=== PATIENT | male | born 1980 | race Caucasian/White ===

== ENCOUNTER 2016-07-03 19:41 | Inpatient (IN) | payer OTHER ==
[2016-07-03] MEDS ORDERED: PROPOFOL 100 ML IV ONE (19:51)
[2016-07-03] MEDS ORDERED: ETOMIDATE INJ/PF 20 MG/10 ML SDV IV ONE (19:53)
[2016-07-03] MEDS ORDERED: SUCCINYLCHOLINE CHLORIDE INJ 200 MG/10 ML VIAL IV ONE (19:53)
[2016-07-03] MEDS ORDERED: NORMAL SALINE 1000 ML 1,000 ML IV PRN ×2 (19:54→22:17)
--- NOTE | 2016-07-03 19:56 | ER Document Report ---
ED Psych Disorder / Suicide - General Stated Complaint: POSSIBLE OVERDOSE Time seen by provider: 19:56 Mode of Arrival: Medic Information source: Emergency Med Personnel TRAVEL OUTSIDE OF THE [place] IN LAST 30 DAYS: No - HPI Patient complains to provider of: Overdose, Suicidal attempt Onset: Just prior to arrival Onset was: Sudden Suicide Risk Factors: Male, Substance abuse Suicide Attempt Method: Overdose Overdose of: Benzodiazepine Similar symptoms previously: Yes Recently seen / treated by doctor: No Notes: Patient is a 35-year-old male who is brought to the emergency room by EMS after intentional overdose, patient arrived unresponsive with no gag reflex requiring Ambu bag respiratory support, patient's parents arrived shortly after arrival in report that patient made a statement to them that he was going to end his life and then took a handful of mother's 1 mg Xanax, mother is unsure how many he took as she had more in the bottle than the prescription was written for because she typically combines her prescriptions when she refills it - Related Data Allergies/Adverse Reactions: NSAIDS (Non-Steroidal Anti-Inflamma [Nsaids] Allergy (Intermediate, Verified 10:12) orange juice Allergy (Severe, Uncoded 05/25/12 10:12) spagetti sauce Allergy (Severe, Uncoded 05/25/12 10:12) Vitamin D Synthetic Additive Allergy (Unknown, Uncoded 05/25/12 10:12) Anaphylaxis Past Medical History - General Information source: Parent, Emergency Med Personnel - Social History Smoking Status: Unknown if Ever Smoked Family History: Reviewed & Not Pertinent Pulmonary Medical History: Denies: Hx Tuberculosis Neurological Medical History: Reports: Hx Seizures GI Medical History: Reports: Hx Ulcer - perforated in 2007 Musculoskeltal Medical History: Reports Hx Arthritis - degenerative Psychiatric Medical History: Reports: Hx Bipolar Disorder - with manic tendencies, Hx Depression, Hx Post Traumatic Stress Disorder Past Surgical History: Reports: Hx Abdominal Surgery - gastric bypass, Hx Bowel Surgery - perforated ulcer, Hx Cholecystectomy, Hx Gastric Bypass Surgery, Hx Orthopedic Surgery - right shoulder arthroscopy. Denies: Hx Pacemaker - Immunizations Hx Diphtheria, Pertussis, Tetanus Vaccination: Yes Review of Systems - Review of Systems -: Yes ROS unobtainable due to patient's medical condition Physical Exam - Vital signs Vitals: Resp Pulse Ox 26 H 91 L 07/03/16 19:42 07/03/16 19:42 Interpretation: Hypoxic - General General appearance: Unresponsive In distress: Severe - HEENT Head: Normocephalic, Atraumatic Eyes: Normal Conjunctiva: Normal Eyelashes: Normal Pupils: Pinpoint Ears: Normal External canal: Normal Tympanic membrane: Normal Sinus: Normal Nasal: Normal Mouth/Lips: Normal Mucous membranes: Normal Pharynx: Normal Neck: Normal - Respiratory Respiratory status: Depressed respirations Chest status: Nontender Breath sounds: Decreased air movement Chest palpation: Normal - Cardiovascular Rhythm: Regular Heart sounds: Normal auscultation - Abdominal Inspection: Normal Distension: No distension Bowel sounds: Normal Organomegaly: No organomegaly - Back Back: Normal - Extremities General upper extremity: Normal inspection General lower extremity: Normal inspection - Neurological Cade Coma Scale Eye Opening: None Cade Coma Scale Verbal: None Cade Coma Scale Motor: None Zenon Coma Scale Total: 3 Notes: Patient lacks a gag response - Skin Skin Temperature: Warm Skin Moisture: Dry Skin Color: Normal Course - Re-evaluation Re-evalutation: 07/04/16 00:31 Patient arrived unresponsive with respiratory depression and no gag reflex requiring immediate intubation, IV sedation and fluids, as well as ICU admission , IVC paper work was completed as patient was an intentional overdose and stated to his parents that he was going to kill himself - Vital Signs Vital signs: Temp Pulse Resp BP Pulse Ox 20 102/66 100 07/04/16 00:01 07/04/16 00:01 07/04/16 00:01 - Laboratory Result Diagrams: 07/03/16 21:25 07/03/16 21:25 Laboratory results interpreted by me: 07/03/16 07/03/16 21:25 21:25 RBC 4.20 L Hgb 9.9 L Hct 30.8 L MCV 73 L MCH 23.5 L RDW 17.9 H Sodium 149.7 H Chloride 116 H Carbon Dioxide 19 L BUN 6 L Calcium 8.1 L AST 60 H Total Protein 6.2 L Salicylates < 1.0 L Acetaminophen < 10 L - Diagnostic Test Radiology reviewed: Image reviewed, Reports reviewed - EKG Interpretation by Me EKG shows normal: Sinus rhythm Rate: Normal Rhythm: NSR Plummer/QRS: IVCD - Transfer of Care Care transferred to following provider: Dr. Ann Procedures - Intubation Orotracheal Time of Intubation: 19:56 Airway evaluation: Copious secretions Mallampati Classification: Class 3 Medications: Etomidate, Succinylcholine Intubation method: Orotracheal Equipment used: Glidescope ETT size: 7.5 ETT secured at: Lips ETT secured at (cm): 24 Breath Sounds after Intubation: Equal End tidal CO2 confirmed: Yes Post Intubation Xray: Yes Intubation Complications: No complications - Additional Procedures orogastric tube Time performed: 20:00 Additional Procedures: Other - Orogastric tube placed without difficulty Critical Care Note - Critical Care Note Total time excluding time spent on procedures (mins): 60 Comments: Patient arrived unresponsive, with depressed respirations and no gag reflex, after suicide attempt by overdose, requiring close observation and monitoring as well as ICU admission Discharge - Discharge Clinical Impression: Suicide attempt Intentional benzodiazepine overdose Qualifiers: Encounter type: initial encounter Qualified Code(s): T42.4X2A - Poisoning by benzodiazepines, intentional self-harm, initial encounter Condition: Critical Disposition: ADMITTED INPATIENT Admitting Provider: Hospitalist Unit Admitted: ICU
[2016-07-03 21:10] LABS: APPEARANCE,URINE CLEAR; BILIRUBIN,URINE NEGATIVE (NEGATIVE); GLUCOSE, URINE NEGATIVE (NEGATIVE); KETONES,URINE NEGATIVE (NEGATIVE); LEUKOCYTE ESTERASE,URINE NEGATIVE (NEGATIVE); NITRITE,URINE NEGATIVE (NEGATIVE); PROTEIN,URINE NEGATIVE (NEGATIVE); URINE SPECIFIC GRAVITY 1.006; UROBILINOGEN,URINE NEGATIVE mg/dL (<2.0)
[2016-07-03 21:26] LABS: URINE BARBITURATES SCREEN NEGATIVE; URINE METHADONE SCREEN NEGATIVE; URINE OPIATES LOW NEGATIVE; URINE PHENCYCLIDINE SCREEN NEGATIVE
[2016-07-03 21:39] LABS: ABSOLUTE LYMPHOCYTES (AUTO) 1.3 10^3/uL (0.5-4.7); ABSOLUTE MONOCYTES (AUTO) 0.2 10^3/uL (0.1-1.4); BASOPHILS % (AUTO) 0.6 % (0-2); EOSINOPHILS % (AUTO) 0.1 % (0-6); HEMATOCRIT 30.8 % (37.9-51.0); HEMOGLOBIN 9.9 g/dL (13.5-17.0); HGB HCT DIFFERENCE -1.1; LYMPHOCYTES % (AUTO) 22.9 % (13-45); MEAN CORPUSCULAR HEMOGLOBIN 23.5 pg (27.0-33.4); MEAN CORPUSCULAR VOLUME 73 fl (80-97); MONOCYTES % (AUTO) 4.4 % (3-13); RED CELL DISTRIBUTION WIDTH 17.9 % (11.5-14.0); WHITE BLOOD COUNT 5.5 10^3/uL (4.0-10.5)
[2016-07-03 22:04] LABS: ALANINE AMINOTRANSFERASE 40 U/L (21-72); ALBUMIN 3.6 g/dL (3.5-5.0); ALCOHOL 271 mg/dL (NONE DETECTED); ALKALINE PHOSPHATASE 60 U/L (38-126); ANION GAP 15 (5-19); ASPARTATE AMINO TRANSFERASE 60 U/L (17-59); BILIRUBIN,DIRECT 0.2 mg/dL (0.0-0.4); BILIRUBIN,TOTAL 0.5 mg/dL (0.2-1.3); BLOOD UREA NITROGEN 6 mg/dL (7-20); CALCIUM 8.1 mg/dL (8.4-10.2); CARBON DIOXIDE 19 mmol/L (22-30); CHLORIDE 116 mmol/L (98-107); CREATININE RESULT 0.52 mg/dL (0.52-1.25); GLUCOSE 110 mg/dL (75-110); SODIUM 149.7 mmol/L (137-145); TOTAL PROTEIN 6.2 g/dL (6.3-8.2)
[2016-07-03] MEDS ORDERED: SUCCINYLCHOLINE CHLORIDE INJ 200 MG/10 ML VIAL ONE (22:14)
[2016-07-03 23:25] LABS: ARTERIAL BLOOD BASE EXCESS -5.6 mmol/L; ARTERIAL BLOOD O2 SATURATION 99.9 % (94-98)
[2016-07-03 23:54] LABS: ADD ON TESTING BLD IN LAB ACKNOWLEDGE
[2016-07-03] MEDS ORDERED: PROPOFOL 100 ML IV PRN (23:57)
[2016-07-03] MEDS ORDERED: 1/2 NORMAL SALINE 1,000 ML IV PRN (23:57)
[2016-07-04 00:06] LABS: MAGNESIUM 2.1 mg/dL (1.6-2.3)
[2016-07-04] MEDS ORDERED: THIAMINE HCL INJ 200 MG/2 ML VIAL IV PRN (00:18)
--- NOTE | 2016-07-04 00:23 | PDOC H&P ---
History of Present Illness Admission Date/PCP: 07/03/16 22:47 PCP None Patient complains of: overdose History of Present Illness: HUSSAIN ARITA II is a 35 year old male with underlying bipolar disorder with manic tendencies, depression, posttraumatic stress disorder, seizure disorder, chronic anemia, and with a history of alcohol abuse, along with a reported history of suicidal thoughts and/or attempts in the past, who presents to the emergency room by EMS after reportedly taking a "handful" of his mother's 1 mg Xanax tablets approximately 6:30 PM the evening of admission. Patient has been discussed with emergency room physician who evaluated the patient. Patient is intubated and sedated and is able to provide no history whatsoever in terms of acute or chronic events, review of systems, personal habits, family history, etc. No friends or family are present. Old inpatient records are reviewed. Per emergency room staff, EMS crew was bagging the patient en route, spontaneous respirations were only 2 /minute upon arrival and patient was basically unresponsive. Was intubated shortly thereafter. Per ER MD, who intubated patient, no obvious evidence of aspiration. According to the emergency room physician, patient does not have outpatient physician, and takes no prescription medications. According to patient's emergency room nurse, family, who were present at bedside earlier, stated that patient reported taking no other medication other than the Xanax, along with drinking vodka. Hemodynamically stable. No further information available this point in time. . Laboratory results are listed in [facility] and are reviewed. X-ray summary results are listed below, with full report(s) reviewed. . EKG reviewed. and compared to tracing from June 22 of last year Social history/personal habits: Reportedly lives with parents. See history and present illness.No further information available this point in time. Allergies/adverse reactions are listed in [facility] and are reviewed. Home medications reportedly none REVIEW OF SYSTEMS: See history and present illness.No further information available this point in time. PHYSICAL EXAMINATION: 5 feet 11 inches tall. 110.6 kg. BMI 34 kg/m. Blood pressure 101/64. Pulse 72 and regular. Respirations are 20, with patient not breathing over the ventilator. 99% saturation on FiO2 100%, PEEP of 5, pressure support 10, rate of 20, tidal volume 550, SIMV PRVC. Temperature not recorded on the chart. Skin feels normothermic. Obese chronically ill-appearing male who appears a bit older than his stated age. Intubated and sedated. Grimaces slightly with trapezius pinch. Does not respond when his name is called in a loud voice. Skin is warm and dry. No grossly obvious evidence of rash in areas of skin examined. No subcutaneous nodules palpated. ENT: Hearing can't be adequately evaluated due to his current status. No Carter sign Eyes: No scleral icterus. Pupils equal and reactive to light at 4 mm. [place] conjunctivae. No raccoon eyes. Neck is nontender to gentle palpation. Midline trachea. No palpable thyroid nodule mass enlargement or tenderness. Lymphatic: No palpable cervical or clavicular nodes. Neck and lymphatic exams limited by patient body habitus. Psychiatric: Can't be adequately evaluated due to his current status. Lungs: Auscultation reveals clear and equal breath sounds bilaterally. No use of accessory respiratory muscles. Cardiovascular: Heart regular rate and rhythm, without gallop murmur or rub. No carotid or abdominal aortic bruits. No ankle or pedal edema. palpable dorsalis pedis pulses. Abdomen: soft, obese, nontender with positive bowel sounds. Unable to adequately evaluate abdomen for masses or organomegaly due to body habitus. Extremities: Hands and feet are warm and dry. No calf or upper extremity tenderness to compression. No grossly obvious visual evidence of calf swelling. Gentle manipulation of lower extremities fails to reveal any obvious evidence of injury or instability to knees hips or ankles. Palpation of cranium , clavicles, thorax, upper and lower extremities, and pelvis, fail to reveal any obvious evidence of injury or instability. Neurologic: Patellar reflexes absent. Absent Babinski. Light touch can't be adequately evaluated due to his current status.. No nystagmus. No rigidity. No ankle clonus. Past Medical History Pulmonary Medical History: Denies: Tuberculosis Neurological Medical History: Reports: Seizures Musculoskeltal Medical History: Reports: Arthritis - degenerative Psychiatric Medical History: Reports: Bipolar Disorder - with manic tendencies, Depression, Post Traumatic Stress Disorder Hematology: Reports: Anemia Past Surgical History Past Surgical History: Reports: Cholecystectomy, Gastric Bypass Surgery, Orthopedic Surgery - right shoulder arthroscopy, Pacemaker Social History Information Source: Emergency Med Personnel, [facility] Records Lives with: Family - Reportedly lives with family. Smoking Status: Unknown if Ever Smoked Frequency of Alcohol Use: Heavy Hx Recreational Drug Use: No Hx Prescription Drug Abuse: Yes - See history and present illness. - Advance Directive Resuscitation Status: Full Code Surrogate healthcare decision maker:: Uncertain Family History Family History: Reviewed & Not Pertinent Parental Family History Reviewed: No - no information available at this point. Children Family History Reviewed: No - no information available at this point. Sibling(s) Family History Reviewed.: No - no information available at this point. Medication/Allergy Home Medications: Multivitamins W-Iron [Flintstones Chewable Multivit W/Fe Tab] 2 tab.chew PO DAILY #1 bottle 07/10/16 RX: Amox Tr/Potassium Clavulanate [Augmentin "500" Tablet] 1 tab PO Q8 #21 tablet 07/10/16 RX: Ferrous Sulfate [Feosol 325 mg Tablet] 325 mg PO DAILY #30 tablet 07/10/16 Allergies/Adverse Reactions: NSAIDS (Non-Steroidal Anti-Inflamma [Nsaids] Allergy (Intermediate, Verified 10:12) orange juice Allergy (Severe, Uncoded 05/25/12 10:12) spagetti sauce Allergy (Severe, Uncoded 05/25/12 10:12) Vitamin D Synthetic Additive Allergy (Unknown, Uncoded 05/25/12 10:12) Anaphylaxis Physical Exam Vital Signs: Temp Pulse Resp BP Pulse Ox 20 99/71 L 99 07/03/16 21:11 07/03/16 21:11 07/03/16 21:11 Results Impressions: Chest X-Ray 07/03/16 00:00 IMPRESSION: Minimal left basilar subsegmental atelectasis.Endotracheal tube and nasogastric catheter appear in expected position. Assessment & Plan - Diagnosis (1) Acidosis Is this a current diagnosis for this admission?: YesPlan: Should clear with fluid resuscitation and overall treatment. Follow-up chemistry. (2) Acute respiratory failure Qualifiers: Respiratory failure complication: unspecified whether with hypoxia or hypercapnia Qualified Code(s): J96.00 - Acute respiratory failure, unspecified whether with hypoxia or hypercapnia Is this a current diagnosis for this admission?: YesPlan: Will remain intubated. Pulmonology consult. Follow-up blood gas. Intravenous Pepcid for gastritis prevention. Knee high SCDs for DVT prophylaxis, [along with subcutaneous Lovenox . Time spent in evaluation and management of patient: 53 minutes. (3) Alcohol intoxication Qualifiers: Complication of substance-induced condition: with unspecified complication Qualified Code(s): F10.129 - Alcohol abuse with intoxication, unspecified Is this a current diagnosis for this admission?: YesPlan: Parenteral thiamin tonight. Daily banana bag. Observe closely for evidence of alcohol withdrawal. (4) Hypernatremia Is this a current diagnosis for this admission?: YesPlan: Half-normal saline. Follow-up chemistry. (5) Intentional benzodiazepine overdose Qualifiers: Encounter type: initial encounter Qualified Code(s): T42.4X2A - Poisoning by benzodiazepines, intentional self-harm, initial encounter Is this a current diagnosis for this admission?: YesPlan: Suicide precautions. Psychiatry consult. IVC papers have been drawn by emergency room physician. (6) Suicide attempt Is this a current diagnosis for this admission?: Yes (7) Bipolar disorder Qualifiers: Active/Remission status: remission status unspecified Qualified Code (s): F31.9 - Bipolar disorder, unspecified Is this a current diagnosis for this admission?: Yes (8) PTSD (post-traumatic stress disorder) Is this a current diagnosis for this admission?: Yes - Inpatient Certification Based on my medical assessment, after consideration of the patient's comorbidities, presenting symptoms, or acuity I expect that the services needed warrant INPATIENT care.: Yes I certify that my determination is in accordance with my understanding of Medicare's requirements for reasonable and necessary INPATIENT services [42 CFR 412.3e].: Yes Medical Necessity: Need Close Monitoring Due to Risk of Patient Decompensation, Need For IV Fluids, Need For Continuous Telemetry Monitoring, Risk of Diagnosis Which Will Require Inpatient Eval/Care/Monitoring Post Hospital Care: D/C or Transfer Summary
[2016-07-04] MEDS ORDERED: THIAMINE HCL 100 MG in NORMAL SALINE 50 ML IV ONE (00:30)
[2016-07-04 04:25] LABS: ABSOLUTE LYMPHOCYTES (AUTO) 1.7 10^3/uL (0.5-4.7); ABSOLUTE MONOCYTES (AUTO) 0.5 10^3/uL (0.1-1.4); ABSOLUTE NEUT (AUTO) 2.2 10^3/uL (1.7-8.2); BASOPHILS % (AUTO) 0.5 % (0-2); EOSINOPHILS % (AUTO) 0.5 % (0-6); HEMATOCRIT 30.6 % (37.9-51.0); HEMOGLOBIN 9.5 g/dL (13.5-17.0); HGB HCT DIFFERENCE -2.1; LYMPHOCYTES % (AUTO) 39.5 % (13-45); MEAN CORPUSCULAR HEMOGLOBIN 22.8 pg (27.0-33.4); MEAN CORPUSCULAR HGB CONC 31.1 g/dL (32.0-36.0); MEAN CORPUSCULAR VOLUME 74 fl (80-97); MONOCYTES % (AUTO) 10.3 % (3-13); RED BLOOD COUNT 4.16 10^6/uL (4.35-5.55); RED CELL DISTRIBUTION WIDTH 18.4 % (11.5-14.0); SEGMENTED NEUTROPHILS % (AUTO) 49.2 % (42-78); WHITE BLOOD COUNT 4.4 10^3/uL (4.0-10.5)
[2016-07-04 04:44] LABS: VENOUS BLOOD BASE EXCESS -4.2 mmol/L; VENOUS BLOOD HCO3 21.4 mmol/L (20-32); VENOUS BLOOD PCO2 41.4 mmHg (35-63); VENOUS BLOOD PH 7.33 (7.30-7.42)
[2016-07-04 04:50] LABS: ALANINE AMINOTRANSFERASE 40 U/L (21-72); ALBUMIN 3.3 g/dL (3.5-5.0); ALKALINE PHOSPHATASE 45 U/L (38-126); ANION GAP 13 (5-19); ASPARTATE AMINO TRANSFERASE 52 U/L (17-59); BILIRUBIN,DIRECT 0.2 mg/dL (0.0-0.4); BILIRUBIN,TOTAL 0.4 mg/dL (0.2-1.3); BLOOD UREA NITROGEN 7 mg/dL (7-20); CALCIUM 7.9 mg/dL (8.4-10.2); CARBON DIOXIDE 20 mmol/L (22-30); CHLORIDE 118 mmol/L (98-107); CREATININE RESULT 0.54 mg/dL (0.52-1.25); GLUCOSE 90 mg/dL (75-110); POTASSIUM 4.1 mmol/L (3.6-5.0); SODIUM 150.6 mmol/L (137-145); TOTAL PROTEIN 5.7 g/dL (6.3-8.2)
[2016-07-04 05:08] LABS: FREE T3 4.25 pg/mL (2.77-5.27)
[2016-07-04] MEDS: PROPOFOL 100 ML IV PRN ×7 (05:32→21:57)
--- NOTE | 2016-07-04 08:17 | PDOC PROGRESS REPORT ---
Subjective Progress Note for:: 07/04/16 Subjective:: No issues reported by nursing staff. Patient relatively stable on mechanical ventilation overnight. I cannot obtain history from patient secondary to sedated/intubated state. His mother is at the bedside and states that he took a large quantity of her Xanax and stated that there was "nothing worth living for " and he wanted to "end his life". Physical Exam Vital Signs: Temp Pulse Resp BP Pulse Ox 98.8 F 85 20 95/62 L 100 07/04/16 06:33 07/04/16 06:33 07/04/16 06:33 07/04/16 06:33 07/04/16 06:06 Intake & Output 07/03/16 07/04/16 07/05/16 06:59 06:59 06:59 Intake Total 1841 Output Total 2390 Balance -549 Weight 107 kg GENERAL: Sedated/intubated HEENT: Conjunctiva clear, nonicteric, moist mucous membranes, no JVD, midline trachea. Endotracheal tube in place RESPIRATORY: Clear to auscultation bilaterally, no wheezes, no rhonchi CARDIAC: Regular rate and rhythm, no murmurs/gallops/rubs ABDOMEN: Soft, nondistended, nontender, positive bowel sounds, no rebound, no guarding EXTREMETIES: No edema, cyanosis, clubbing NEUROLOGIC: Sedated SKIN: No rash, wounds Results Laboratory Results: 07/04/16 04:14 07/04/16 04:14 07/04/16 07/04/16 07/04/16 04:14 04:14 04:14 WBC 4.4 RBC 4.16 L Hgb 9.5 L Hct 30.6 L MCV 74 L MCH 22.8 L MCHC 31.1 L RDW 18.4 H Plt Count 259 Seg Neutrophils % 49.2 Lymphocytes % 39.5 Monocytes % 10.3 Eosinophils % 0.5 Basophils % 0.5 Absolute Neutrophils 2.2 Absolute Lymphocytes 1.7 Absolute Monocytes 0.5 Absolute Eosinophils 0.0 Absolute Basophils 0.0 VBG pH 7.33 VBG pCO2 41.4 VBG HCO3 21.4 VBG Base Excess -4.2 Sodium 150.6 H Potassium 4.1 Chloride 118 H Carbon Dioxide 20 L Anion Gap 13 BUN 7 Creatinine 0.54 Est GFR ( Amer) > 60 Est GFR (Non-Af Amer) > 60 Glucose 90 Calcium 7.9 L Total Bilirubin 0.4 AST 52 ALT 40 Alkaline Phosphatase 45 Total Protein 5.7 L Albumin 3.3 L Triglycerides Free T4 Free T3 pg/mL 07/04/16 07/04/16 04:14 04:14 WBC RBC Hgb Hct MCV MCH MCHC RDW Plt Count Seg Neutrophils % Lymphocytes % Monocytes % Eosinophils % Basophils % Absolute Neutrophils Absolute Lymphocytes Absolute Monocytes Absolute Eosinophils Absolute Basophils VBG pH VBG pCO2 VBG HCO3 VBG Base Excess Sodium Potassium Chloride Carbon Dioxide Anion Gap BUN Creatinine Est GFR ( Amer) Est GFR (Non-Af Amer) Glucose Calcium Total Bilirubin AST ALT Alkaline Phosphatase Total Protein Albumin Triglycerides 125 Free T4 1.59 Free T3 pg/mL 4.25 Impressions: Chest X-Ray 07/03/16 00:00 IMPRESSION: Minimal left basilar subsegmental atelectasis.Endotracheal tube and nasogastric catheter appear in expected position. Assessment & Plan - Diagnosis (1) Acute respiratory failure Qualifiers: Respiratory failure complication: unspecified whether with hypoxia or hypercapnia Qualified Code(s): J96.00 - Acute respiratory failure, unspecified whether with hypoxia or hypercapnia Is this a current diagnosis for this admission?: YesPlan: Continue mechanical ventilation for at least the next 24 hours to allow alcohol and Xanax to metabolize. Dr. Kraus of pulmonary medicine consult. Repeat ABG and chest x-ray in the morning. (2) Intentional benzodiazepine overdose Qualifiers: Encounter type: initial encounter Qualified Code(s): T42.4X2A - Poisoning by benzodiazepines, intentional self-harm, initial encounter Is this a current diagnosis for this admission?: YesPlan: Continue supportive care. Once patient is extubated we will have psychology evaluated. Patient will remain on involuntary commitment. (3) Suicide attempt Is this a current diagnosis for this admission?: Yes (4) Alcohol abuse Is this a current diagnosis for this admission?: YesPlan: Monitor for signs of alcohol withdrawal. Continue thiamine supplementation. (5) Bipolar disorder Qualifiers: Active/Remission status: remission status unspecified Qualified Code (s): F31.9 - Bipolar disorder, unspecified Is this a current diagnosis for this admission?: Yes (6) PTSD (post-traumatic stress disorder) Is this a current diagnosis for this admission?: Yes (7) Anemia Is this a current diagnosis for this admission?: YesPlan: Check anemia studies. Monitor H&H closely on pharmacologic DVT prophylaxis. (8) DVT prophylaxis Is this a current diagnosis for this admission?: YesPlan: Lovenox for now. - Time Critical Time spent with patient: 35 or more minutes
--- NOTE | 2016-07-04 09:08 | PDOC CONSULTATION ---
Consultation Consult Date: 07/04/16 Attending physician:: SHAUNA TAFOYA Consult reason:: acute resp failure History of Present Illness Admission Date/PCP: 07/03/16 23:50 History of Present Illness: all information from records HUSSAIN ARITA II is a 35 year old male with underlying bipolar disorder with manic tendencies, depression, posttraumatic stress disorder, seizure disorder, chronic anemia, and with a history of alcohol abuse, along with a reported history of suicidal thoughts and /or attempts in the past, who presents to the emergency room by EMS after reportedly taking a "handful" of his mother's 1 mg Xanax tablets approximate 6: 30 PM the evening of admission. EMS crew was bagging the patient en route, and spontaneous respirations were only 2 X/minute upon arrival and was basically unresponsive. Was intubated shortly thereafter. Per ER MD, who intubated patient, no obvious evidence of aspiration. Past Medical History Pulmonary Medical History: Denies: Tuberculosis Neurological Medical History: Reports: Seizures Musculoskeltal Medical History: Reports: Arthritis - degenerative Psychiatric Medical History: Reports: Bipolar Disorder - with manic tendencies, Depression, Post Traumatic Stress Disorder Hematology: Reports: Anemia Past Surgical History Past Surgical History: Reports: Cholecystectomy, Gastric Bypass Surgery, Orthopedic Surgery - right shoulder arthroscopy Denies: Pacemaker Social History Lives with: Family - Reportedly lives with family. Smoking Status: Unknown if Ever Smoked Frequency of Alcohol Use: Heavy Hx Recreational Drug Use: No Hx Prescription Drug Abuse: Yes - See history and present illness. - Advance Directive Resuscitation Status: Full Code Family History Family History: Reviewed & Not Pertinent Parental Family History Reviewed: No Children Family History Reviewed: No Sibling(s) Family History Reviewed.: No Medication/Allergy Home Medications: No Home Medications 07/04/16 Allergies/Adverse Reactions: NSAIDS (Non-Steroidal Anti-Inflamma [Nsaids] Allergy (Intermediate, Verified 10:12) orange juice Allergy (Severe, Uncoded 05/25/12 10:12) spagetti sauce Allergy (Severe, Uncoded 05/25/12 10:12) Vitamin D Synthetic Additive Allergy (Unknown, Uncoded 05/25/12 10:12) Anaphylaxis Review of Systems ROS unobtainable: Due to endotracheal tube Physical Exam Vital Signs: Temp Pulse Resp BP Pulse Ox 99.7 F 85 20 95/62 L 100 07/04/16 08:00 07/04/16 06:33 07/04/16 06:33 07/04/16 06:33 07/04/16 06:06 Intake & Output 07/03/16 07/04/16 07/05/16 06:59 06:59 06:59 Intake Total 1841 Output Total 2390 100 Balance -549 -100 Weight 107 kg General appearance: PRESENT: no acute distress, disheveled Head exam: PRESENT: atraumatic, normocephalic Eye exam: PRESENT: conjunctiva pale Mouth exam: PRESENT: neck supple Neck exam: ABSENT: carotid bruit, JVD, lymphadenopathy, thyromegaly Respiratory exam: PRESENT: decreased breath sounds, prolonged expiratory phas, rales Cardiovascular exam: PRESENT: RRR, +S1, +S2 Pulses: PRESENT: normal radial pulses GI/Abdominal exam: PRESENT: normal bowel sounds, soft. ABSENT: distended, guarding, mass, organolmegaly, rebound, tenderness Rectal exam: PRESENT: deferred Gentrourinary exam: PRESENT: indwelling catheter Musculoskeletal exam: PRESENT: normal inspection Skin exam: PRESENT: dry, warm Results Laboratory Results: 07/04/16 04:14 07/04/16 04:14 07/04/16 07/04/16 07/04/16 04:14 04:14 04:14 WBC 4.4 RBC 4.16 L Hgb 9.5 L Hct 30.6 L MCV 74 L MCH 22.8 L MCHC 31.1 L RDW 18.4 H Plt Count 259 Seg Neutrophils % 49.2 Lymphocytes % 39.5 Monocytes % 10.3 Eosinophils % 0.5 Basophils % 0.5 Absolute Neutrophils 2.2 Absolute Lymphocytes 1.7 Absolute Monocytes 0.5 Absolute Eosinophils 0.0 Absolute Basophils 0.0 Retic Count (auto) Absolute Retic VBG pH 7.33 VBG pCO2 41.4 VBG HCO3 21.4 VBG Base Excess -4.2 Sodium 150.6 H Potassium 4.1 Chloride 118 H Carbon Dioxide 20 L Anion Gap 13 BUN 7 Creatinine 0.54 Est GFR ( Amer) > 60 Est GFR (Non-Af Amer) > 60 Glucose 90 Calcium 7.9 L Total Bilirubin 0.4 AST 52 ALT 40 Alkaline Phosphatase 45 Total Protein 5.7 L Albumin 3.3 L Triglycerides Free T4 Free T3 pg/mL 07/04/16 07/04/1607/04/17 04:14 04:14 04:14 WBC RBC Hgb Hct MCV MCH MCHC RDW Plt Count Seg Neutrophils % Lymphocytes % Monocytes % Eosinophils % Basophils % Absolute Neutrophils Absolute Lymphocytes Absolute Monocytes Absolute Eosinophils Absolute Basophils Retic Count (auto) 1.07 Absolute Retic 0.044 VBG pH VBG pCO2 VBG HCO3 VBG Base Excess Sodium Potassium Chloride Carbon Dioxide Anion Gap BUN Creatinine Est GFR ( Amer) Est GFR (Non-Af Amer) Glucose Calcium Total Bilirubin AST ALT Alkaline Phosphatase Total Protein Albumin Triglycerides 125 Free T4 1.59 Free T3 pg/mL 4.25 Impressions: Chest X-Ray 07/03/16 00:00 IMPRESSION: Minimal left basilar subsegmental atelectasis.Endotracheal tube and nasogastric catheter appear in expected position. Assessment & Plan - Diagnosis (1) Acute respiratory failure Qualifiers: Respiratory failure complication: unspecified whether with hypoxia or hypercapnia Qualified Code(s): J96.00 - Acute respiratory failure, unspecified whether with hypoxia or hypercapnia Is this a current diagnosis for this admission?: Yes (2) Suicide attempt Is this a current diagnosis for this admission?: Yes (3) Bipolar disorder Qualifiers: Active/Remission status: remission status unspecified Qualified Code (s): F31.9 - Bipolar disorder, unspecified Is this a current diagnosis for this admission?: Yes (4) PTSD (post-traumatic stress disorder) Is this a current diagnosis for this admission?: Yes - Time Critical Time spent with patient: 35 or more minutes - 55
[2016-07-04] MEDS: ENOXAPARIN SODIUM INJ 40 MG/0.4 ML DISP.SYRIN SUBCUT SCH (09:21)
[2016-07-04] MEDS: FAMOTIDINE INJ/PF 20 MG/2 ML SDV IV SCH ×2 (09:23→21:58)
[2016-07-04] MEDS: DEXTROSE 5%-1/2 NORMAL SALINE 1,000 ML IV PRN ×2 (09:23→23:36)
[2016-07-04 10:22] LABS: FERRITIN 4.46 ng/mL (17.9-464.0)
[2016-07-04 10:52] LABS: FOLATE 2.09 ng/mL (>2.76)
[2016-07-04] MEDS: NORMAL SALINE 1000 ML 1,000 ML with THIAMINE HCL 100 MG, MVI, ADULT NO.1 WITH VIT K 10 ... IV PRN ×4 (11:36)
[2016-07-04 16:27] LABS: ARTERIAL BLOOD BASE EXCESS -4.7 mmol/L; ARTERIAL BLOOD O2 SATURATION 98.8 % (94-98)
[2016-07-04] MEDS: ACETAMINOPHEN 650 MG SUPP.RECT PR PRN (17:32)
[2016-07-04] MEDS: LORAZEPAM 24 MG/240 ML BAG IV PRN (19:43)
--- NOTE | 2016-07-04 22:28 | EKG REPORT ---
SEVERITY:- ABNORMAL ECG - SINUS RHYTHM LEFT ATRIAL ABNORMALITY NONSPECIFIC INTRAVENTRICULAR CONDUCTION DELAY BORDERLINE INFERIOR Q WAVES : Confirmed by: Erica Gonsalez MD 04-Jul-2016 22:27:38
[2016-07-05] MEDS: PROPOFOL 100 ML IV PRN ×10 (00:18→21:52)
[2016-07-05] MEDS: LORAZEPAM 24 MG/240 ML BAG IV PRN ×7 (01:15→23:00)
[2016-07-05 04:55] LABS: ABSOLUTE LYMPHOCYTES (AUTO) 0.9 10^3/uL (0.5-4.7); ABSOLUTE MONOCYTES (AUTO) 0.9 10^3/uL (0.1-1.4); ABSOLUTE NEUT (AUTO) 8.3 10^3/uL (1.7-8.2); BASOPHILS % (AUTO) 0.2 % (0-2); EOSINOPHILS % (AUTO) 0.3 % (0-6); HEMATOCRIT 28.7 % (37.9-51.0); HEMOGLOBIN 9.1 g/dL (13.5-17.0); HGB HCT DIFFERENCE -1.4; LYMPHOCYTES % (AUTO) 8.5 % (13-45); MEAN CORPUSCULAR HEMOGLOBIN 23.2 pg (27.0-33.4); MEAN CORPUSCULAR HGB CONC 31.7 g/dL (32.0-36.0); MEAN CORPUSCULAR VOLUME 73 fl (80-97); MONOCYTES % (AUTO) 9.1 % (3-13); RED BLOOD COUNT 3.93 10^6/uL (4.35-5.55); RED CELL DISTRIBUTION WIDTH 18.3 % (11.5-14.0); SEGMENTED NEUTROPHILS % (AUTO) 81.9 % (42-78); WHITE BLOOD COUNT 10.1 10^3/uL (4.0-10.5)
[2016-07-05 05:06] LABS: ALANINE AMINOTRANSFERASE 37 U/L (21-72); ALBUMIN 3.1 g/dL (3.5-5.0); ALKALINE PHOSPHATASE 52 U/L (38-126); ANION GAP 10 (5-19); ASPARTATE AMINO TRANSFERASE 27 U/L (17-59); BILIRUBIN,DIRECT 0.2 mg/dL (0.0-0.4); BILIRUBIN,TOTAL 0.6 mg/dL (0.2-1.3); BLOOD UREA NITROGEN 5 mg/dL (7-20); CALCIUM 8.3 mg/dL (8.4-10.2); CARBON DIOXIDE 24 mmol/L (22-30); CHLORIDE 111 mmol/L (98-107); CREATININE RESULT 0.51 mg/dL (0.52-1.25); GLUCOSE 110 mg/dL (75-110); MAGNESIUM 1.7 mg/dL (1.6-2.3); POTASSIUM 3.6 mmol/L (3.6-5.0); SODIUM 144.8 mmol/L (137-145); TOTAL PROTEIN 5.5 g/dL (6.3-8.2)
[2016-07-05 05:43] LABS: ARTERIAL BLOOD BASE EXCESS -2.1 mmol/L; ARTERIAL BLOOD O2 SATURATION 98.9 % (94-98)
[2016-07-05] MEDS: DEXTROSE 5%-1/2 NORMAL SALINE 1,000 ML IV PRN ×3 (06:33→23:00)
[2016-07-05] MEDS: ENOXAPARIN SODIUM INJ 40 MG/0.4 ML DISP.SYRIN SUBCUT SCH (08:54)
[2016-07-05] MEDS: FERROUS SULFATE LIQUID 300 MG/5 ML UDC PO SCH ×2 (10:00→17:28)
[2016-07-05] MEDS: FOLIC ACID 1 MG TABLET PO SCH (10:00)
[2016-07-05] MEDS: LACTULOSE SYRUP 20 GM/30 ML UDCUP PO SCH ×2 (10:00→17:28)
[2016-07-05] MEDS: FAMOTIDINE INJ/PF 20 MG/2 ML SDV IV SCH ×2 (10:01→21:52)
[2016-07-05] MEDS: CYANOCOBALAMIN (VITAMIN B-12) INJ 1000 MCG/1 ML VIAL IM SCH (10:01)
[2016-07-05] MEDS: ACETAMINOPHEN 650 MG SUPP.RECT PR PRN (11:44)
[2016-07-05] MEDS: NORMAL SALINE 1000 ML 1,000 ML with THIAMINE HCL 100 MG, MVI, ADULT NO.1 WITH VIT K 10 ... IV PRN ×4 (11:45)
--- NOTE | 2016-07-05 17:23 | PDOC PROGRESS REPORT ---
Subjective Progress Note for:: 07/05/16 Subjective:: Patient became a little agitated yesterday requiring the addition of IV Ativan for possible alcohol withdrawal. He has been stable overnight on mechanical ventilation. I cannot obtain history from patient secondary to sedated/ intubated state. Physical Exam Vital Signs: Temp Pulse Resp BP Pulse Ox 98.2 F 93 23 H 153/97 H 98 07/05/16 16:00 07/05/16 16:00 07/05/16 16:00 07/05/16 16:00 07/05/16 16:00 Intake & Output 07/04/16 07/05/16 07/06/16 06:59 06:59 06:59 Intake Total 1841 6155 Output Total 2390 3300 4175 Balance -549 2275 -4179 Weight 107 kg 110 kg GENERAL: Sedated/intubated HEENT: Conjunctiva clear, nonicteric, moist mucous membranes, no JVD, midline trachea. Endotracheal tube in place RESPIRATORY: Clear to auscultation bilaterally, no wheezes, no rhonchi CARDIAC: Regular rate and rhythm, no murmurs/gallops/rubs ABDOMEN: Soft, nondistended, nontender, positive bowel sounds, no rebound, no guarding EXTREMETIES: No edema, cyanosis, clubbing NEUROLOGIC: Sedated SKIN: No rash, wounds Results Laboratory Results: 07/05/16 04:25 07/05/16 04:25 07/05/16 07/05/16 07/05/16 04:25 04:25 05:25 WBC 10.1 D RBC 3.93 L Hgb 9.1 L Hct 28.7 L MCV 73 L MCH 23.2 L MCHC 31.7 L RDW 18.3 H Plt Count 217 Seg Neutrophils % 81.9 H Lymphocytes % 8.5 L Monocytes % 9.1 Eosinophils % 0.3 Basophils % 0.2 Absolute Neutrophils 8.3 H Absolute Lymphocytes 0.9 Absolute Monocytes 0.9 Absolute Eosinophils 0.0 Absolute Basophils 0.0 Carbonic Acid 1.02 L HCO3/H2CO3 Ratio 21:1 ABG pH 7.43 ABG pCO2 33.9 L ABG pO2 144.4 H ABG HCO3 21.8 ABG O2 Saturation 98.9 H ABG Base Excess -2.1 FiO2 40% Sodium 144.8 Potassium 3.6 Chloride 111 H Carbon Dioxide 24 Anion Gap 10 BUN 5 L Creatinine 0.51 L Est GFR ( Amer) > 60 Est GFR (Non-Af Amer) > 60 Glucose 110 Calcium 8.3 L Magnesium 1.7 Total Bilirubin 0.6 AST 27 ALT 37 Alkaline Phosphatase 52 Total Protein 5.5 L Albumin 3.1 L Impressions: Chest X-Ray 07/05/16 06:00 IMPRESSION: STABLE APPEARANCE OF THE CHEST. SUPPORT DEVICES UNCHANGED. Assessment & Plan - Diagnosis (1) Acute respiratory failure Qualifiers: Respiratory failure complication: unspecified whether with hypoxia or hypercapnia Qualified Code(s): J96.00 - Acute respiratory failure, unspecified whether with hypoxia or hypercapnia Is this a current diagnosis for this admission?: YesPlan: Continue mechanical ventilation for now. Dr. Kraus of pulmonary medicine managing. (2) Intentional benzodiazepine overdose Qualifiers: Encounter type: initial encounter Qualified Code(s): T42.4X2A - Poisoning by benzodiazepines, intentional self-harm, initial encounter Is this a current diagnosis for this admission?: YesPlan: Continue supportive care. Once patient is extubated we will have psychology evaluated. Patient will remain on involuntary commitment. (3) Suicide attempt Is this a current diagnosis for this admission?: Yes (4) Alcohol abuse Is this a current diagnosis for this admission?: YesPlan: Ativan drip started yesterday for potential alcohol withdrawal. Continue thiamine supplementation. (5) Bipolar disorder Qualifiers: Active/Remission status: remission status unspecified Qualified Code (s): F31.9 - Bipolar disorder, unspecified Is this a current diagnosis for this admission?: Yes (6) PTSD (post-traumatic stress disorder) Is this a current diagnosis for this admission?: Yes (7) Anemia Is this a current diagnosis for this admission?: YesPlan: Patient has iron deficiency, B-12 deficiency, and folic acid deficiency. I will start patient on B-12 injections as well as iron and folic acid supplementation. Monitor H&H closely on pharmacologic DVT prophylaxis. (8) DVT prophylaxis Is this a current diagnosis for this admission?: YesPlan: Lovenox for now. - Time Critical Time spent with patient: 35 or more minutes
[2016-07-06] MEDS: PROPOFOL 100 ML IV PRN ×10 (00:31→22:01)
[2016-07-06] MEDS: LORAZEPAM 24 MG/240 ML BAG IV PRN ×10 (02:45→22:19)
[2016-07-06 04:37] LABS: ABSOLUTE LYMPHOCYTES (AUTO) 0.6 10^3/uL (0.5-4.7); ABSOLUTE MONOCYTES (AUTO) 0.8 10^3/uL (0.1-1.4); ABSOLUTE NEUT (AUTO) 8.4 10^3/uL (1.7-8.2); BASOPHILS % (AUTO) 0.3 % (0-2); EOSINOPHILS % (AUTO) 0.1 % (0-6); HEMATOCRIT 28.1 % (37.9-51.0); HGB HCT DIFFERENCE -1.1; LYMPHOCYTES % (AUTO) 5.8 % (13-45); MEAN CORPUSCULAR HEMOGLOBIN 23.4 pg (27.0-33.4); MEAN CORPUSCULAR HGB CONC 32.1 g/dL (32.0-36.0); MEAN CORPUSCULAR VOLUME 73 fl (80-97); MONOCYTES % (AUTO) 8.1 % (3-13); RED BLOOD COUNT 3.85 10^6/uL (4.35-5.55); RED CELL DISTRIBUTION WIDTH 18.4 % (11.5-14.0); SEGMENTED NEUTROPHILS % (AUTO) 85.7 % (42-78); WHITE BLOOD COUNT 9.8 10^3/uL (4.0-10.5)
[2016-07-06 04:57] LABS: ALANINE AMINOTRANSFERASE 33 U/L (21-72); ALKALINE PHOSPHATASE 54 U/L (38-126); ANION GAP 12 (5-19); ASPARTATE AMINO TRANSFERASE 18 U/L (17-59); BILIRUBIN,DIRECT 0.2 mg/dL (0.0-0.4); BILIRUBIN,TOTAL 0.5 mg/dL (0.2-1.3); BLOOD UREA NITROGEN 4 mg/dL (7-20); CALCIUM 8.2 mg/dL (8.4-10.2); CARBON DIOXIDE 22 mmol/L (22-30); CHLORIDE 111 mmol/L (98-107); CREATININE RESULT 0.47 mg/dL (0.52-1.25); GLUCOSE 127 mg/dL (75-110); MAGNESIUM 1.5 mg/dL (1.6-2.3); PHOSPHORUS 3.6 mg/dL (2.5-4.5); POTASSIUM 3.1 mmol/L (3.6-5.0); SODIUM 144.5 mmol/L (137-145); TOTAL PROTEIN 5.4 g/dL (6.3-8.2)
[2016-07-06 05:58] LABS: ARTERIAL BLOOD BASE EXCESS -1.1 mmol/L; ARTERIAL BLOOD O2 SATURATION 97.2 % (94-98)
[2016-07-06] MEDS: ENOXAPARIN SODIUM INJ 40 MG/0.4 ML DISP.SYRIN SUBCUT SCH (08:18)
[2016-07-06] MEDS ORDERED: MAGNESIUM SULFATE/D5W 1 GM/100 ML RTUPB IV ONE (09:30)
[2016-07-06] MEDS: LACTULOSE SYRUP 20 GM/30 ML UDCUP PO SCH (09:30)
[2016-07-06] MEDS: POTASSI CL 20 MEQ/D5-1/2NS 1L 1,000 ML IV PRN (09:31)
[2016-07-06] MEDS: CYANOCOBALAMIN (VITAMIN B-12) INJ 1000 MCG/1 ML VIAL IM SCH (09:32)
[2016-07-06] MEDS: FERROUS SULFATE LIQUID 300 MG/5 ML UDC PO SCH ×2 (09:32→17:30)
[2016-07-06] MEDS: FOLIC ACID 1 MG TABLET PO SCH (09:32)
[2016-07-06] MEDS: FAMOTIDINE INJ/PF 20 MG/2 ML SDV IV SCH ×2 (09:32→22:02)
[2016-07-06] MEDS: POTASSI CL 20 MEQ/50 ML RIDER 20 MEQ/50 ML RTUPB IV SCH ×2 (10:33→11:58)
[2016-07-06] MEDS: NORMAL SALINE 1000 ML 1,000 ML with THIAMINE HCL 100 MG, MVI, ADULT NO.1 WITH VIT K 10 ... IV PRN ×4 (14:48)
[2016-07-06] MEDS: ACETAMINOPHEN 650 MG SUPP.RECT PR PRN ×2 (15:10→22:07)
--- NOTE | 2016-07-06 15:30 | PDOC PROGRESS REPORT ---
Subjective Progress Note for:: 07/06/16 Subjective:: Nursing reports the patient has been combative at times. He has also been having frequent loose stools. Unable to obtain review of systems from patient secondary to sedated/intubated state. Physical Exam Vital Signs: Temp Pulse Resp BP Pulse Ox 100.4 F 81 20 147/82 H 97 07/06/16 08:00 07/06/16 12:00 07/06/16 14:00 07/06/16 13:07 07/06/16 14:00 Intake & Output 07/05/16 07/06/16 07/07/16 06:59 06:59 06:59 Intake Total 6155 6659 Output Total 3300 6250 1375 Balance 2855 409 -1375 Weight 110 kg 110.4 kg GENERAL: Sedated/intubated HEENT: Conjunctiva clear, nonicteric, moist mucous membranes, no JVD, midline trachea. Endotracheal tube in place RESPIRATORY: Clear to auscultation bilaterally, no wheezes, no rhonchi CARDIAC: Regular rate and rhythm, no murmurs/gallops/rubs ABDOMEN: Soft, nondistended, nontender, positive bowel sounds, no rebound, no guarding EXTREMETIES: No edema, cyanosis, clubbing NEUROLOGIC: Sedated SKIN: No rash, wounds Results Laboratory Results: 07/06/16 04:12 07/06/16 04:12 07/06/16 07/06/16 07/06/16 04:12 04:12 05:50 WBC 9.8 RBC 3.85 L Hgb 9.0 L Hct 28.1 L MCV 73 L MCH 23.4 L MCHC 32.1 RDW 18.4 H Plt Count 206 Seg Neutrophils % 85.7 H Lymphocytes % 5.8 L Monocytes % 8.1 Eosinophils % 0.1 Basophils % 0.3 Absolute Neutrophils 8.4 H Absolute Lymphocytes 0.6 Absolute Monocytes 0.8 Absolute Eosinophils 0.0 Absolute Basophils 0.0 Carbonic Acid 1.16 HCO3/H2CO3 Ratio 20:1 ABG pH 7.40 ABG pCO2 38.6 ABG pO2 93.8 ABG HCO3 23.5 ABG O2 Saturation 97.2 ABG Base Excess -1.1 FiO2 35% Sodium 144.5 Potassium 3.1 L Chloride 111 H Carbon Dioxide 22 Anion Gap 12 BUN 4 L Creatinine 0.47 L Est GFR ( Amer) > 60 Est GFR (Non-Af Amer) > 60 Glucose 127 H Calcium 8.2 L Phosphorus 3.6 Magnesium 1.5 L Total Bilirubin 0.5 AST 18 ALT 33 Alkaline Phosphatase 54 Total Protein 5.4 L Albumin 3.0 L Impressions: Chest X-Ray 07/06/16 06:00 IMPRESSION: Support lines and tubes remain in satisfactory position. There is bibasilar airspace disease now present consistent with atelectasis. Assessment & Plan - Diagnosis (1) Acute respiratory failure Qualifiers: Respiratory failure complication: unspecified whether with hypoxia or hypercapnia Qualified Code(s): J96.00 - Acute respiratory failure, unspecified whether with hypoxia or hypercapnia Is this a current diagnosis for this admission?: YesPlan: Continue mechanical ventilation for now. Dr. Kraus of pulmonary medicine managing. (2) Intentional benzodiazepine overdose Qualifiers: Encounter type: initial encounter Qualified Code(s): T42.4X2A - Poisoning by benzodiazepines, intentional self-harm, initial encounter Is this a current diagnosis for this admission?: YesPlan: Continue supportive care. Once patient is extubated we will have psychology evaluated. Patient will remain on involuntary commitment. (3) Suicide attempt Is this a current diagnosis for this admission?: Yes (4) Alcohol abuse Is this a current diagnosis for this admission?: YesPlan: Continue Ativan drip for potential alcohol withdrawal. Continue thiamine supplementation. (5) Bipolar disorder Qualifiers: Active/Remission status: remission status unspecified Qualified Code (s): F31.9 - Bipolar disorder, unspecified Is this a current diagnosis for this admission?: Yes (6) PTSD (post-traumatic stress disorder) Is this a current diagnosis for this admission?: Yes (7) Anemia Is this a current diagnosis for this admission?: YesPlan: Patient has iron deficiency, B-12 deficiency, and folic acid deficiency. I will start patient on B-12 injections as well as iron and folic acid supplementation. Monitor H&H closely on pharmacologic DVT prophylaxis. (8) DVT prophylaxis Is this a current diagnosis for this admission?: YesPlan: Lovenox for now. (9) Hypokalemia Is this a current diagnosis for this admission?: YesPlan: Replace. (10) Hypomagnesemia Is this a current diagnosis for this admission?: YesPlan: Replace. (11) Vitamin B 12 deficiency Is this a current diagnosis for this admission?: YesPlan: Daily vitamin B-12 injections for now. - Time Critical Time spent with patient: 35 or more minutes
--- NOTE | 2016-07-06 18:17 | PDOC PROGRESS REPORT ---
Subjective Progress Note for:: 07/06/16 Subjective:: intubated and sedated combative during sedation vacation Physical Exam Vital Signs: Temp Pulse Resp BP Pulse Ox 100.4 F 81 18 145/83 H 98 07/06/16 08:00 07/06/16 10:00 07/06/16 10:07 07/06/16 10:07 07/06/16 10:07 Intake & Output 07/05/16 07/06/16 07/07/16 06:59 06:59 06:59 Intake Total 6155 6659 Output Total 3302 9884 575 Balance 2855 409 -575 Weight 110 kg 110.4 kg General appearance: PRESENT: no acute distress, disheveled, well-developed, well -nourished Head exam: PRESENT: atraumatic, normocephalic Eye exam: PRESENT: conjunctiva pale Mouth exam: PRESENT: dry mucosa, neck supple, other - ET tube in place Neck exam: ABSENT: carotid bruit, JVD, lymphadenopathy, thyromegaly Respiratory exam: PRESENT: decreased breath sounds, prolonged expiratory phas, rales, rhonchi, symmetrical, unlabored Cardiovascular exam: PRESENT: RRR, +S1, +S2 Pulses: PRESENT: normal radial pulses GI/Abdominal exam: PRESENT: normal bowel sounds, soft. ABSENT: distended, guarding, mass, organolmegaly, rebound, tenderness Rectal exam: PRESENT: deferred Gentrourinary exam: PRESENT: indwelling catheter Musculoskeletal exam: PRESENT: normal inspection Skin exam: PRESENT: dry, warm Results Laboratory Results: 07/06/16 04:12 07/06/16 04:12 07/06/16 07/06/16 07/06/16 04:12 04:12 05:50 WBC 9.8 RBC 3.85 L Hgb 9.0 L Hct 28.1 L MCV 73 L MCH 23.4 L MCHC 32.1 RDW 18.4 H Plt Count 206 Seg Neutrophils % 85.7 H Lymphocytes % 5.8 L Monocytes % 8.1 Eosinophils % 0.1 Basophils % 0.3 Absolute Neutrophils 8.4 H Absolute Lymphocytes 0.6 Absolute Monocytes 0.8 Absolute Eosinophils 0.0 Absolute Basophils 0.0 Carbonic Acid 1.16 HCO3/H2CO3 Ratio 20:1 ABG pH 7.40 ABG pCO2 38.6 ABG pO2 93.8 ABG HCO3 23.5 ABG O2 Saturation 97.2 ABG Base Excess -1.1 FiO2 35% Sodium 144.5 Potassium 3.1 L Chloride 111 H Carbon Dioxide 22 Anion Gap 12 BUN 4 L Creatinine 0.47 L Est GFR ( Amer) > 60 Est GFR (Non-Af Amer) > 60 Glucose 127 H Calcium 8.2 L Phosphorus 3.6 Magnesium 1.5 L Total Bilirubin 0.5 AST 18 ALT 33 Alkaline Phosphatase 54 Total Protein 5.4 L Albumin 3.0 L Impressions: Chest X-Ray 07/06/16 06:00 IMPRESSION: Support lines and tubes remain in satisfactory position. There is bibasilar airspace disease now present consistent with atelectasis. Assessment & Plan - Diagnosis (1) Acute respiratory failure Qualifiers: Respiratory failure complication: unspecified whether with hypoxia or hypercapnia Qualified Code(s): J96.00 - Acute respiratory failure, unspecified whether with hypoxia or hypercapnia Is this a current diagnosis for this admission?: Yes (2) Suicide attempt Is this a current diagnosis for this admission?: Yes (3) Bipolar disorder Qualifiers: Active/Remission status: remission status unspecified Qualified Code (s): F31.9 - Bipolar disorder, unspecified Is this a current diagnosis for this admission?: Yes (4) PTSD (post-traumatic stress disorder) Is this a current diagnosis for this admission?: Yes (5) Alcohol abuse Is this a current diagnosis for this admission?: YesPlan: following possible DT's - Time Critical Time spent with patient: 35 or more minutes
--- NOTE | 2016-07-06 18:18 | PDOC PROGRESS REPORT ---
Subjective Progress Note for:: 07/05/16 Subjective:: intubated and sedated Physical Exam Vital Signs: Temp Pulse Resp BP Pulse Ox 99.3 F 67 16 132/85 H 100 07/05/16 08:00 07/05/16 08:00 07/05/16 08:00 07/05/16 08:00 07/05/16 08:00 Intake & Output 07/04/16 07/05/16 07/06/16 06:59 06:59 06:59 Intake Total 1841 6155 Output Total 2390 3300 1400 Balance -549 2855 -1400 Weight 107 kg 110 kg General appearance: PRESENT: no acute distress, disheveled, obese Head exam: PRESENT: atraumatic, normocephalic Eye exam: PRESENT: conjunctiva pale Mouth exam: PRESENT: dry mucosa, other - ET tube Neck exam: ABSENT: carotid bruit, JVD, lymphadenopathy, thyromegaly Respiratory exam: PRESENT: decreased breath sounds, prolonged expiratory phas, rhonchi, unlabored Cardiovascular exam: PRESENT: RRR, +S1, +S2 Pulses: PRESENT: normal radial pulses GI/Abdominal exam: PRESENT: normal bowel sounds, soft. ABSENT: distended, guarding, mass, organolmegaly, rebound, tenderness Rectal exam: PRESENT: deferred Skin exam: PRESENT: dry, warm Results Laboratory Results: 07/05/16 04:25 07/05/16 04:25 07/04/16 07/04/16 07/05/16 09:08 16:06 04:25 WBC 10.1 D RBC 3.93 L Hgb 9.1 L Hct 28.7 L MCV 73 L MCH 23.2 L MCHC 31.7 L RDW 18.3 H Plt Count 217 Seg Neutrophils % 81.9 H Lymphocytes % 8.5 L Monocytes % 9.1 Eosinophils % 0.3 Basophils % 0.2 Absolute Neutrophils 8.3 H Absolute Lymphocytes 0.9 Absolute Monocytes 0.9 Absolute Eosinophils 0.0 Absolute Basophils 0.0 Carbonic Acid 0.84 L HCO3/H2CO3 Ratio 22:1 ABG pH 7.44 ABG pCO2 27.9 L ABG pO2 131.7 H ABG HCO3 18.5 L ABG O2 Saturation 98.8 H ABG Base Excess -4.7 FiO2 40% Sodium Potassium Chloride Carbon Dioxide Anion Gap BUN Creatinine Est GFR ( Amer) Est GFR (Non-Af Amer) Glucose Calcium Magnesium Iron 13.0 L TIBC 337 % Saturation 4 Ferritin 4.46 L Total Bilirubin AST ALT Alkaline Phosphatase Total Protein Albumin Vitamin B12 223.0 L Folate 2.09 L 07/05/16 07/05/16 04:25 05:25 WBC RBC Hgb Hct MCV MCH MCHC RDW Plt Count Seg Neutrophils % Lymphocytes % Monocytes % Eosinophils % Basophils % Absolute Neutrophils Absolute Lymphocytes Absolute Monocytes Absolute Eosinophils Absolute Basophils Carbonic Acid 1.02 L HCO3/H2CO3 Ratio 21:1 ABG pH 7.43 ABG pCO2 33.9 L ABG pO2 144.4 H ABG HCO3 21.8 ABG O2 Saturation 98.9 H ABG Base Excess -2.1 FiO2 40% Sodium 144.8 Potassium 3.6 Chloride 111 H Carbon Dioxide 24 Anion Gap 10 BUN 5 L Creatinine 0.51 L Est GFR ( Amer) > 60 Est GFR (Non-Af Amer) > 60 Glucose 110 Calcium 8.3 L Magnesium 1.7 Iron TIBC % Saturation Ferritin Total Bilirubin 0.6 AST 27 ALT 37 Alkaline Phosphatase 52 Total Protein 5.5 L Albumin 3.1 L Vitamin B12 Folate Impressions: Chest X-Ray 07/05/16 06:00 IMPRESSION: STABLE APPEARANCE OF THE CHEST. SUPPORT DEVICES UNCHANGED. Assessment & Plan - Diagnosis (1) Acute respiratory failure Qualifiers: Respiratory failure complication: unspecified whether with hypoxia or hypercapnia Qualified Code(s): J96.00 - Acute respiratory failure, unspecified whether with hypoxia or hypercapnia Is this a current diagnosis for this admission?: Yes (2) Suicide attempt Is this a current diagnosis for this admission?: Yes (3) Bipolar disorder Qualifiers: Active/Remission status: remission status unspecified Qualified Code (s): F31.9 - Bipolar disorder, unspecified Is this a current diagnosis for this admission?: Yes (4) PTSD (post-traumatic stress disorder) Is this a current diagnosis for this admission?: Yes - Time Critical Time spent with patient: 35 or more minutes
[2016-07-06] MEDS ORDERED: MORPHINE SULFATE 10 MG/ML INJ ONE (18:27)
[2016-07-06] MEDS: MORPHINE SULFATE 10 MG/ML INJ IV PRN ×2 (20:50→23:04)
[2016-07-07] MEDS: LORAZEPAM 24 MG/240 ML BAG IV PRN ×3 (00:28→05:27)
[2016-07-07] MEDS: PROPOFOL 100 ML IV PRN ×8 (00:29→22:54)
[2016-07-07] MEDS: MORPHINE SULFATE 10 MG/ML INJ IV PRN ×5 (02:02→20:26)
[2016-07-07 04:56] LABS: ABSOLUTE EOSINOPHILS # (AUTO) 0.1 10^3/uL (0.0-0.6); ABSOLUTE LYMPHOCYTES (AUTO) 1.1 10^3/uL (0.5-4.7); ABSOLUTE NEUT (AUTO) 6.7 10^3/uL (1.7-8.2); BASOPHILS % (AUTO) 0.2 % (0-2); EOSINOPHILS % (AUTO) 0.9 % (0-6); HEMATOCRIT 30.7 % (37.9-51.0); HEMOGLOBIN 9.5 g/dL (13.5-17.0); HGB HCT DIFFERENCE -2.2; LYMPHOCYTES % (AUTO) 12.2 % (13-45); MEAN CORPUSCULAR HEMOGLOBIN 22.8 pg (27.0-33.4); MEAN CORPUSCULAR HGB CONC 31.1 g/dL (32.0-36.0); MEAN CORPUSCULAR VOLUME 73 fl (80-97); MONOCYTES % (AUTO) 10.8 % (3-13); RED BLOOD COUNT 4.18 10^6/uL (4.35-5.55); RED CELL DISTRIBUTION WIDTH 18.6 % (11.5-14.0); SEGMENTED NEUTROPHILS % (AUTO) 75.9 % (42-78); WHITE BLOOD COUNT 8.9 10^3/uL (4.0-10.5)
[2016-07-07 05:04] LABS: ARTERIAL BLOOD BASE EXCESS -1.3 mmol/L; ARTERIAL BLOOD O2 SATURATION 97.5 % (94-98)
[2016-07-07 05:18] LABS: ALANINE AMINOTRANSFERASE 30 U/L (21-72); ALBUMIN 3.1 g/dL (3.5-5.0); ALKALINE PHOSPHATASE 56 U/L (38-126); ANION GAP 9 (5-19); ASPARTATE AMINO TRANSFERASE 13 U/L (17-59); BILIRUBIN,DIRECT 0.1 mg/dL (0.0-0.4); BILIRUBIN,TOTAL 0.7 mg/dL (0.2-1.3); BLOOD UREA NITROGEN 4 mg/dL (7-20); CALCIUM 8.3 mg/dL (8.4-10.2); CARBON DIOXIDE 26 mmol/L (22-30); CHLORIDE 109 mmol/L (98-107); GLUCOSE 105 mg/dL (75-110); MAGNESIUM 1.7 mg/dL (1.6-2.3); POTASSIUM 3.6 mmol/L (3.6-5.0); SODIUM 144.2 mmol/L (137-145); TOTAL PROTEIN 5.6 g/dL (6.3-8.2); TRIGLYCERIDES 131 mg/dL (<150)
[2016-07-07] MEDS: ENOXAPARIN SODIUM INJ 40 MG/0.4 ML DISP.SYRIN SUBCUT SCH (07:39)
[2016-07-07] MEDS: FAMOTIDINE INJ/PF 20 MG/2 ML SDV IV SCH ×2 (10:11→21:19)
[2016-07-07] MEDS: FOLIC ACID 1 MG TABLET PO SCH (10:11)
[2016-07-07] MEDS: FERROUS SULFATE LIQUID 300 MG/5 ML UDC PO SCH ×2 (10:11→17:21)
[2016-07-07] MEDS: CYANOCOBALAMIN (VITAMIN B-12) INJ 1000 MCG/1 ML VIAL IM SCH (10:11)
[2016-07-07] MEDS: POTASSI CL 20 MEQ/D5-1/2NS 1L 1,000 ML IV PRN ×2 (12:18→21:20)
--- NOTE | 2016-07-07 14:30 | PDOC PROGRESS REPORT ---
Subjective Progress Note for:: 07/07/16 Subjective:: intubated and sedated Physical Exam Vital Signs: Temp Pulse Resp BP Pulse Ox 100.0 F 71 18 138/90 H 100 07/07/16 10:00 07/07/16 10:00 07/07/16 10:24 07/07/16 10:24 07/07/16 11:46 Intake & Output 07/06/16 07/07/16 07/08/16 06:59 06:59 06:59 Intake Total 6659 6538 Output Total 6263 5328 1999 Balance 409 1163 Weight 110.4 kg 111.4 kg Results Laboratory Results: 07/07/16 04:41 07/07/16 04:41 07/04/16 07/06/16 07/07/16 09:08 15:20 04:41 WBC RBC Hgb Hct MCV MCH MCHC RDW Plt Count Seg Neutrophils % Lymphocytes % Monocytes % Eosinophils % Basophils % Absolute Neutrophils Absolute Lymphocytes Absolute Monocytes Absolute Eosinophils Absolute Basophils Carbonic Acid HCO3/H2CO3 Ratio ABG pH ABG pCO2 ABG pO2 ABG HCO3 ABG O2 Saturation ABG Base Excess FiO2 Sodium 144.2 Potassium 3.6 Chloride 109 H Carbon Dioxide 26 Anion Gap 9 BUN 4 L Creatinine 0.40 L Est GFR ( Amer) > 60 Est GFR (Non-Af Amer) > 60 Glucose 105 Calcium 8.3 L Magnesium 1.7 Transferrin 254 Total Bilirubin 0.7 AST 13 L ALT 30 Alkaline Phosphatase 56 Total Protein 5.6 L Albumin 3.1 L Triglycerides 131 Stool Occult Blood NEGATIVE 07/07/16 07/07/16 04:41 04:50 WBC 8.9 RBC 4.18 L Hgb 9.5 L Hct 30.7 L MCV 73 L MCH 22.8 L MCHC 31.1 L RDW 18.6 H Plt Count 208 Seg Neutrophils % 75.9 Lymphocytes % 12.2 L Monocytes % 10.8 Eosinophils % 0.9 Basophils % 0.2 Absolute Neutrophils 6.7 Absolute Lymphocytes 1.1 Absolute Monocytes 1.0 Absolute Eosinophils 0.1 Absolute Basophils 0.0 Carbonic Acid 0.98 L HCO3/H2CO3 Ratio 22:1 ABG pH 7.44 ABG pCO2 32.7 L ABG pO2 94.2 ABG HCO3 21.9 ABG O2 Saturation 97.5 ABG Base Excess -1.3 FiO2 30% Sodium Potassium Chloride Carbon Dioxide Anion Gap BUN Creatinine Est GFR ( Amer) Est GFR (Non-Af Amer) Glucose Calcium Magnesium Transferrin Total Bilirubin AST ALT Alkaline Phosphatase Total Protein Albumin Triglycerides Stool Occult Blood Impressions: Chest X-Ray 07/07/16 06:00 IMPRESSION: Persistent basilar opacities without improvement. SUPPORT DEVICE(S) IN EXPECTED LOCATIONS. Assessment & Plan - Diagnosis (1) Acute respiratory failure Qualifiers: Respiratory failure complication: unspecified whether with hypoxia or hypercapnia Qualified Code(s): J96.00 - Acute respiratory failure, unspecified whether with hypoxia or hypercapnia Is this a current diagnosis for this admission?: YesPlan: T max 102.6 WBC 8.9 w/o L shift DT's? (2) Suicide attempt Is this a current diagnosis for this admission?: Yes (3) Bipolar disorder Qualifiers: Active/Remission status: remission status unspecified Qualified Code (s): F31.9 - Bipolar disorder, unspecified Is this a current diagnosis for this admission?: Yes (4) PTSD (post-traumatic stress disorder) Is this a current diagnosis for this admission?: Yes - Time Critical Time spent with patient: 35 or more minutes - 45 min unable to extubate
--- NOTE | 2016-07-07 15:56 | PDOC PROGRESS REPORT ---
Subjective Progress Note for:: 07/07/16 Subjective:: Nursing reports the patient has been combative at times. Unable to obtain review of systems from patient secondary to sedated/intubated state. Physical Exam Vital Signs: Temp Pulse Resp BP Pulse Ox 100.0 F 71 22 H 139/89 H 100 07/07/16 10:00 07/07/16 10:00 07/07/16 14:23 07/07/16 14:23 07/07/16 14:48 Intake & Output 07/06/16 07/07/16 07/08/16 06:59 06:59 06:59 Intake Total 6659 6538 Output Total 6250 5320 2350 Balance 409 1163 -2350 Weight 110.4 kg 111.4 kg GENERAL: Sedated/intubated HEENT: Conjunctiva clear, nonicteric, moist mucous membranes, no JVD, midline trachea. Endotracheal tube in place RESPIRATORY: Clear to auscultation bilaterally, no wheezes, no rhonchi CARDIAC: Regular rate and rhythm, no murmurs/gallops/rubs ABDOMEN: Soft, nondistended, nontender, positive bowel sounds, no rebound, no guarding EXTREMETIES: No edema, cyanosis, clubbing NEUROLOGIC: Sedated SKIN: No rash, wounds Results Laboratory Results: 07/07/16 04:41 07/07/16 04:41 07/04/16 07/06/16 07/07/16 09:08 15:20 04:41 WBC RBC Hgb Hct MCV MCH MCHC RDW Plt Count Seg Neutrophils % Lymphocytes % Monocytes % Eosinophils % Basophils % Absolute Neutrophils Absolute Lymphocytes Absolute Monocytes Absolute Eosinophils Absolute Basophils Carbonic Acid HCO3/H2CO3 Ratio ABG pH ABG pCO2 ABG pO2 ABG HCO3 ABG O2 Saturation ABG Base Excess FiO2 Sodium 144.2 Potassium 3.6 Chloride 109 H Carbon Dioxide 26 Anion Gap 9 BUN 4 L Creatinine 0.40 L Est GFR ( Amer) > 60 Est GFR (Non-Af Amer) > 60 Glucose 105 Calcium 8.3 L Magnesium 1.7 Transferrin 254 Total Bilirubin 0.7 AST 13 L ALT 30 Alkaline Phosphatase 56 Total Protein 5.6 L Albumin 3.1 L Triglycerides 131 Stool Occult Blood NEGATIVE 07/07/16 07/07/16 04:41 04:50 WBC 8.9 RBC 4.18 L Hgb 9.5 L Hct 30.7 L MCV 73 L MCH 22.8 L MCHC 31.1 L RDW 18.6 H Plt Count 208 Seg Neutrophils % 75.9 Lymphocytes % 12.2 L Monocytes % 10.8 Eosinophils % 0.9 Basophils % 0.2 Absolute Neutrophils 6.7 Absolute Lymphocytes 1.1 Absolute Monocytes 1.0 Absolute Eosinophils 0.1 Absolute Basophils 0.0 Carbonic Acid 0.98 L HCO3/H2CO3 Ratio 22:1 ABG pH 7.44 ABG pCO2 32.7 L ABG pO2 94.2 ABG HCO3 21.9 ABG O2 Saturation 97.5 ABG Base Excess -1.3 FiO2 30% Sodium Potassium Chloride Carbon Dioxide Anion Gap BUN Creatinine Est GFR ( Amer) Est GFR (Non-Af Amer) Glucose Calcium Magnesium Transferrin Total Bilirubin AST ALT Alkaline Phosphatase Total Protein Albumin Triglycerides Stool Occult Blood Impressions: Chest X-Ray 07/07/16 06:00 IMPRESSION: Persistent basilar opacities without improvement. SUPPORT DEVICE(S) IN EXPECTED LOCATIONS. Assessment & Plan - Diagnosis (1) Acute respiratory failure Qualifiers: Respiratory failure complication: unspecified whether with hypoxia or hypercapnia Qualified Code(s): J96.00 - Acute respiratory failure, unspecified whether with hypoxia or hypercapnia Is this a current diagnosis for this admission?: YesPlan: Continue mechanical ventilation for now. Dr. Kraus of pulmonary medicine managing. Possible extubation today if patient will arouse once sedation discontinued. (2) Systemic inflammatory response syndrome (SIRS) Is this a current diagnosis for this admission?: YesPlan: Likely secondary to aspiration pneumonia. (3) Aspiration pneumonia Is this a current diagnosis for this admission?: YesPlan: High probability of gram-negative or anaerobic bacteria. Check blood culture and sputum culture. Start IV Zosyn, IV Levaquin, IV vancomycin. (4) Intentional benzodiazepine overdose Qualifiers: Encounter type: initial encounter Qualified Code(s): T42.4X2A - Poisoning by benzodiazepines, intentional self-harm, initial encounter Is this a current diagnosis for this admission?: YesPlan: Continue supportive care. Once patient is extubated we will have psychology evaluated. Patient will remain on involuntary commitment. (5) Suicide attempt Is this a current diagnosis for this admission?: Yes (6) Alcohol abuse Is this a current diagnosis for this admission?: YesPlan: Continue Ativan drip for potential alcohol withdrawal. Continue thiamine supplementation. (7) Bipolar disorder Qualifiers: Active/Remission status: remission status unspecified Qualified Code (s): F31.9 - Bipolar disorder, unspecified Is this a current diagnosis for this admission?: Yes (8) PTSD (post-traumatic stress disorder) Is this a current diagnosis for this admission?: Yes (9) Anemia Is this a current diagnosis for this admission?: YesPlan: Patient has iron deficiency, B-12 deficiency, and folic acid deficiency. Continue B-12 injections as well as iron and folic acid supplementation. Monitor H&H closely on pharmacologic DVT prophylaxis. (10) Hypokalemia Is this a current diagnosis for this admission?: Yes (11) Hypomagnesemia Is this a current diagnosis for this admission?: Yes (12) Vitamin B 12 deficiency Is this a current diagnosis for this admission?: YesPlan: Daily vitamin B-12 injections for now. (13) DVT prophylaxis Is this a current diagnosis for this admission?: YesPlan: Lovenox for now. - Time Critical Time spent with patient: 35 or more minutes
[2016-07-07] MEDS ORDERED: VANCOMYCIN HCL 0 MG in DEXTROSE 5%-WATER 250 ML IV NR (16:00)
[2016-07-07] MEDS: NORMAL SALINE 1000 ML 1,000 ML with THIAMINE HCL 100 MG, MVI, ADULT NO.1 WITH VIT K 10 ... IV PRN ×4 (17:22)
[2016-07-07] MEDS: LEVOFLOXACIN 750 MG/D5W RTU 750 MG/150 ML RTUPB IV SCH (17:22)
[2016-07-07] MEDS: PIPERACILLIN SODIUM/TAZOBACTAM 3.375 GM in NORMAL SALINE 100 ML IV SCH (18:27)
[2016-07-07] MEDS: VANCOMYCIN HCL 1,500 MG in DEXTROSE 5%-WATER 250 ML IV SCH (21:19)
[2016-07-08] MEDS: PIPERACILLIN SODIUM/TAZOBACTAM 3.375 GM in NORMAL SALINE 100 ML IV SCH ×4 (00:10→17:59)
[2016-07-08] MEDS: PROPOFOL 100 ML IV PRN ×3 (03:42→07:56)
[2016-07-08] MEDS: VANCOMYCIN HCL 1,500 MG in DEXTROSE 5%-WATER 250 ML IV SCH ×3 (03:42→16:30)
[2016-07-08 04:22] LABS: ABSOLUTE EOSINOPHILS # (AUTO) 0.2 10^3/uL (0.0-0.6); ABSOLUTE MONOCYTES (AUTO) 0.6 10^3/uL (0.1-1.4); ABSOLUTE NEUT (AUTO) 4.4 10^3/uL (1.7-8.2); BASOPHILS % (AUTO) 0.3 % (0-2); EOSINOPHILS % (AUTO) 3.3 % (0-6); HEMATOCRIT 26.5 % (37.9-51.0); HEMOGLOBIN 8.6 g/dL (13.5-17.0); HGB HCT DIFFERENCE -0.7; LYMPHOCYTES % (AUTO) 15.4 % (13-45); MEAN CORPUSCULAR HEMOGLOBIN 23.7 pg (27.0-33.4); MEAN CORPUSCULAR HGB CONC 32.6 g/dL (32.0-36.0); MEAN CORPUSCULAR VOLUME 73 fl (80-97); RED BLOOD COUNT 3.64 10^6/uL (4.35-5.55); RED CELL DISTRIBUTION WIDTH 18.2 % (11.5-14.0); WHITE BLOOD COUNT 6.2 10^3/uL (4.0-10.5)
[2016-07-08 04:38] LABS: ANION GAP 10 (5-19); BLOOD UREA NITROGEN 4 mg/dL (7-20); CALCIUM 8.5 mg/dL (8.4-10.2); CARBON DIOXIDE 24 mmol/L (22-30); CHLORIDE 109 mmol/L (98-107); CREATININE RESULT 0.36 mg/dL (0.52-1.25); GLUCOSE 101 mg/dL (75-110); POTASSIUM 3.8 mmol/L (3.6-5.0); SODIUM 142.8 mmol/L (137-145)
[2016-07-08] MEDS: POTASSI CL 20 MEQ/D5-1/2NS 1L 1,000 ML IV PRN (07:56)
[2016-07-08] MEDS: ENOXAPARIN SODIUM INJ 40 MG/0.4 ML DISP.SYRIN SUBCUT SCH (08:00)
[2016-07-08] MEDS ORDERED: ACETAMINOPHEN 325 MG TABLET PO PRN (09:23)
--- NOTE | 2016-07-08 09:34 | PDOC PROGRESS REPORT ---
Subjective Progress Note for:: 07/08/16 Subjective:: Nursing reports patient has been stable on mechanical ventilation. He is afebrile today. Unable to obtain review of systems from patient secondary to sedated/intubated state. Physical Exam Vital Signs: Temp Pulse Resp BP Pulse Ox 97.9 F 66 17 119/71 100 07/08/16 06:00 07/08/16 08:00 07/08/16 08:00 07/08/16 08:00 07/08/16 08:00 Intake & Output 07/07/16 07/08/16 07/09/16 06:59 06:59 06:59 Intake Total 6538 4387 Output Total 5375 3990 400 Balance 1163 397 -400 Weight 111.4 kg 111.5 kg GENERAL: intubated HEENT: Conjunctiva clear, nonicteric, moist mucous membranes, no JVD, midline trachea. Endotracheal tube in place RESPIRATORY: Clear to auscultation bilaterally, no wheezes, no rhonchi CARDIAC: Regular rate and rhythm, no murmurs/gallops/rubs ABDOMEN: Soft, nondistended, nontender, positive bowel sounds, no rebound, no guarding EXTREMETIES: No edema, cyanosis, clubbing NEUROLOGIC: Drowsy, will follow commands SKIN: No rash, wounds Results Laboratory Results: 07/08/16 04:11 07/08/16 04:11 07/08/16 07/08/16 04:11 04:11 WBC 6.2 RBC 3.64 L Hgb 8.6 L Hct 26.5 L MCV 73 L MCH 23.7 L MCHC 32.6 RDW 18.2 H Plt Count 224 Seg Neutrophils % 71.0 Lymphocytes % 15.4 Monocytes % 10.0 Eosinophils % 3.3 Basophils % 0.3 Absolute Neutrophils 4.4 Absolute Lymphocytes 1.0 Absolute Monocytes 0.6 Absolute Eosinophils 0.2 Absolute Basophils 0.0 Sodium 142.8 Potassium 3.8 Chloride 109 H Carbon Dioxide 24 Anion Gap 10 BUN 4 L Creatinine 0.36 L Est GFR ( Amer) > 60 Est GFR (Non-Af Amer) > 60 Glucose 101 Calcium 8.5 Impressions: Chest X-Ray 07/07/16 06:00 IMPRESSION: Persistent basilar opacities without improvement. SUPPORT DEVICE(S) IN EXPECTED LOCATIONS. Assessment & Plan - Diagnosis (1) Acute respiratory failure Qualifiers: Respiratory failure complication: unspecified whether with hypoxia or hypercapnia Qualified Code(s): J96.00 - Acute respiratory failure, unspecified whether with hypoxia or hypercapnia Is this a current diagnosis for this admission?: YesPlan: Dr. Kraus of pulmonary medicine managing. Dr. Kraus planning to extubate today. (2) Systemic inflammatory response syndrome (SIRS) Is this a current diagnosis for this admission?: YesPlan: Likely secondary to aspiration pneumonia. Patient is now afebrile and has normal white blood count since initiation of empiric antibiotics on 07/07/2016. (3) Aspiration pneumonia Is this a current diagnosis for this admission?: YesPlan: High probability of gram-negative or anaerobic bacteria. Check blood culture and sputum culture. IV Zosyn, IV Levaquin, IV vancomycin day #2. (4) Intentional benzodiazepine overdose Qualifiers: Encounter type: initial encounter Qualified Code(s): T42.4X2A - Poisoning by benzodiazepines, intentional self-harm, initial encounter Is this a current diagnosis for this admission?: Yes (5) Suicide attempt Is this a current diagnosis for this admission?: Yes (6) Alcohol abuse Is this a current diagnosis for this admission?: Yes (7) Bipolar disorder Qualifiers: Active/Remission status: remission status unspecified Qualified Code (s): F31.9 - Bipolar disorder, unspecified Is this a current diagnosis for this admission?: Yes (8) PTSD (post-traumatic stress disorder) Is this a current diagnosis for this admission?: Yes (9) Anemia Is this a current diagnosis for this admission?: YesPlan: Hemoccult negative. Patient has iron deficiency, B-12 deficiency, and folic acid deficiency. Continue B-12 injections as well as iron and folic acid supplementation. Monitor H&H closely on pharmacologic DVT prophylaxis. (10) Hypokalemia Is this a current diagnosis for this admission?: Yes (11) Hypomagnesemia Is this a current diagnosis for this admission?: Yes (12) Vitamin B 12 deficiency Is this a current diagnosis for this admission?: Yes (13) DVT prophylaxis Is this a current diagnosis for this admission?: Yes - Time Critical Time spent with patient: 35 or more minutes
[2016-07-08] MEDS: IPRATROPIUM/ALBUTEROL 0.5-2.5 MG/3 ML AMPUL NEB PRN ×2 (10:17→20:41)
[2016-07-08] MEDS ORDERED: ACETYLCYSTEINE 20% SOLN 800 MG/4 ML VIAL.NEB NEB ONE (10:30)
[2016-07-08] MEDS: FERROUS SULFATE LIQUID 300 MG/5 ML UDC PO SCH ×2 (12:18→17:09)
[2016-07-08] MEDS: FOLIC ACID 1 MG TABLET PO SCH (12:18)
[2016-07-08] MEDS: CYANOCOBALAMIN (VITAMIN B-12) INJ 1000 MCG/1 ML VIAL IM SCH (12:37)
[2016-07-08] MEDS: NORMAL SALINE 1000 ML 1,000 ML with THIAMINE HCL 100 MG, MVI, ADULT NO.1 WITH VIT K 10 ... IV PRN ×4 (12:38)
[2016-07-08] MEDS: FAMOTIDINE INJ/PF 20 MG/2 ML SDV IV SCH (12:38)
[2016-07-08] MEDS: LEVOFLOXACIN 750 MG/D5W RTU 750 MG/150 ML RTUPB IV SCH (16:31)
[2016-07-08] MEDS: TRAMADOL HCL 50 MG TABLET PO PRN (18:18)
[2016-07-08] MEDS: FERROUS SULFATE 325 MG TABLET PO SCH (18:18)
[2016-07-08] MEDS: LORAZEPAM INJ 2 MG/1 ML VIAL IV PRN (19:22)
[2016-07-08] MEDS: HALOPERIDOL LACTATE INJ 5 MG/1 ML VIAL IV PRN (19:56)
[2016-07-08] MEDS ORDERED: ACETYLCYSTEINE 20% SOLN 800 MG/4 ML VIAL.NEB NEB SCH (20:00)
[2016-07-08] MEDS: VANCOMYCIN HCL 2,000 MG in DEXTROSE 5%-WATER 500 ML IV SCH (22:01)
[2016-07-09] MEDS: LORAZEPAM INJ 2 MG/1 ML VIAL IV PRN (00:18)
[2016-07-09] MEDS: PIPERACILLIN SODIUM/TAZOBACTAM 3.375 GM in NORMAL SALINE 100 ML IV SCH ×4 (00:18→18:38)
[2016-07-09] MEDS: MORPHINE SULFATE 10 MG/ML INJ IV PRN ×2 (01:41→06:00)
[2016-07-09] MEDS: VANCOMYCIN HCL 2,000 MG in DEXTROSE 5%-WATER 500 ML IV SCH (02:58)
[2016-07-09 03:59] LABS: ABSOLUTE EOSINOPHILS # (AUTO) 0.2 10^3/uL (0.0-0.6); ABSOLUTE LYMPHOCYTES (AUTO) 1.1 10^3/uL (0.5-4.7); ABSOLUTE MONOCYTES (AUTO) 0.7 10^3/uL (0.1-1.4); ABSOLUTE NEUT (AUTO) 3.9 10^3/uL (1.7-8.2); BASOPHILS % (AUTO) 0.4 % (0-2); EOSINOPHILS % (AUTO) 3.6 % (0-6); HEMATOCRIT 27.9 % (37.9-51.0); HEMOGLOBIN 8.9 g/dL (13.5-17.0); HGB HCT DIFFERENCE -1.2; LYMPHOCYTES % (AUTO) 18.2 % (13-45); MEAN CORPUSCULAR HEMOGLOBIN 23.3 pg (27.0-33.4); MEAN CORPUSCULAR HGB CONC 31.9 g/dL (32.0-36.0); MEAN CORPUSCULAR VOLUME 73 fl (80-97); MONOCYTES % (AUTO) 11.2 % (3-13); RED BLOOD COUNT 3.82 10^6/uL (4.35-5.55); RED CELL DISTRIBUTION WIDTH 18.5 % (11.5-14.0); SEGMENTED NEUTROPHILS % (AUTO) 66.6 % (42-78); WHITE BLOOD COUNT 5.8 10^3/uL (4.0-10.5)
[2016-07-09 04:09] LABS: ANION GAP 10 (5-19); BLOOD UREA NITROGEN 3 mg/dL (7-20); CALCIUM 8.8 mg/dL (8.4-10.2); CARBON DIOXIDE 28 mmol/L (22-30); CHLORIDE 109 mmol/L (98-107); CREATININE RESULT 0.48 mg/dL (0.52-1.25); GLUCOSE 108 mg/dL (75-110); POTASSIUM 3.3 mmol/L (3.6-5.0); SODIUM 147.3 mmol/L (137-145)
[2016-07-09] MEDS ORDERED: POTASSIUM CHLORIDE 10 MEQ TABLET.SA PO ONE (08:30)
[2016-07-09] MEDS: TRAMADOL HCL 50 MG TABLET PO PRN ×3 (08:36→20:53)
[2016-07-09] MEDS: LANSOPRAZOLE 30 MG TAB.RAP.DR PO SCH (08:37)
[2016-07-09] MEDS: FERROUS SULFATE 325 MG TABLET PO SCH ×2 (08:37→18:38)
[2016-07-09] MEDS: ENOXAPARIN SODIUM INJ 40 MG/0.4 ML DISP.SYRIN SUBCUT SCH (08:38)
[2016-07-09] MEDS: FOLIC ACID 1 MG TABLET PO SCH (10:42)
[2016-07-09] MEDS: CYANOCOBALAMIN (VITAMIN B-12) INJ 1000 MCG/1 ML VIAL IM SCH (10:42)
[2016-07-09] MEDS: NORMAL SALINE 1000 ML 1,000 ML with THIAMINE HCL 100 MG, MVI, ADULT NO.1 WITH VIT K 10 ... IV PRN ×4 (10:42)
--- NOTE | 2016-07-09 10:47 | PDOC PROGRESS REPORT ---
Subjective Progress Note for:: 07/08/16 Subjective:: awake alert 24hrs s/p extubation Physical Exam Vital Signs: Temp Pulse Resp BP Pulse Ox 97.9 F 66 17 119/71 100 07/08/16 06:00 07/08/16 08:00 07/08/16 08:00 07/08/16 08:00 07/08/16 08:00 Intake & Output 07/07/16 07/08/16 07/09/16 06:59 06:59 06:59 Intake Total 6538 4387 Output Total 5375 3990 400 Balance 1163 397 -400 Weight 111.4 kg 111.5 kg General appearance: PRESENT: no acute distress, disheveled, well-nourished Head exam: PRESENT: atraumatic, normocephalic Eye exam: PRESENT: conjunctiva pale, EOMI Neck exam: ABSENT: carotid bruit, JVD, lymphadenopathy, thyromegaly Respiratory exam: PRESENT: decreased breath sounds, rhonchi, symmetrical Cardiovascular exam: PRESENT: RRR, +S1, +S2 Pulses: PRESENT: normal radial pulses GI/Abdominal exam: PRESENT: normal bowel sounds, soft. ABSENT: distended, guarding, mass, organolmegaly, rebound, tenderness Rectal exam: PRESENT: deferred Gentrourinary exam: PRESENT: indwelling catheter Musculoskeletal exam: PRESENT: normal inspection Neurological exam: PRESENT: alert, awake Psychiatric exam: PRESENT: normal mood Skin exam: PRESENT: dry, warm Results Laboratory Results: 07/08/16 04:11 07/08/16 04:11 07/08/16 07/08/16 04:11 04:11 WBC 6.2 RBC 3.64 L Hgb 8.6 L Hct 26.5 L MCV 73 L MCH 23.7 L MCHC 32.6 RDW 18.2 H Plt Count 224 Seg Neutrophils % 71.0 Lymphocytes % 15.4 Monocytes % 10.0 Eosinophils % 3.3 Basophils % 0.3 Absolute Neutrophils 4.4 Absolute Lymphocytes 1.0 Absolute Monocytes 0.6 Absolute Eosinophils 0.2 Absolute Basophils 0.0 Sodium 142.8 Potassium 3.8 Chloride 109 H Carbon Dioxide 24 Anion Gap 10 BUN 4 L Creatinine 0.36 L Est GFR ( Amer) > 60 Est GFR (Non-Af Amer) > 60 Glucose 101 Calcium 8.5 Impressions: Chest X-Ray 07/07/16 06:00 IMPRESSION: Persistent basilar opacities without improvement. SUPPORT DEVICE(S) IN EXPECTED LOCATIONS. Assessment & Plan - Diagnosis (1) Acute respiratory failure Qualifiers: Respiratory failure complication: unspecified whether with hypoxia or hypercapnia Qualified Code(s): J96.00 - Acute respiratory failure, unspecified whether with hypoxia or hypercapnia Is this a current diagnosis for this admission?: No (2) Suicide attempt Is this a current diagnosis for this admission?: Yes (3) Bipolar disorder Qualifiers: Active/Remission status: remission status unspecified Qualified Code (s): F31.9 - Bipolar disorder, unspecified Is this a current diagnosis for this admission?: Yes (4) PTSD (post-traumatic stress disorder) Is this a current diagnosis for this admission?: Yes - Time Critical Time spent with patient: 25-34 minutes
--- NOTE | 2016-07-09 15:02 | PDOC PROGRESS REPORT ---
Subjective Progress Note for:: 07/09/16 Subjective:: Patient is stable post extubation yesterday. He is tolerating regular diet. He requested to have chest physical therapy discontinued. Patient denies fever, chills, headache, new focal weakness, chest pain, shortness of breath, abdominal pain, nausea, vomiting, diarrhea, constipation. Physical Exam Vital Signs: Temp Pulse Resp BP Pulse Ox 98.2 F 87 18 145/95 H 99 07/09/16 12:00 07/09/16 14:21 07/09/16 14:25 07/09/16 14:25 07/09/16 14:25 Intake & Output 07/08/16 07/09/16 07/10/16 06:59 06:59 06:59 Intake Total 4387 5385 Output Total 3990 0910 2250 Balance 397 -192 -2250 Weight 111.5 kg 110.8 kg GENERAL: No acute distress HEENT: Conjunctiva clear, nonicteric, moist mucous membranes, no JVD, midline trachea RESPIRATORY: Scattered bilateral rhonchi CARDIAC: Regular rate and rhythm, no murmurs/gallops/rubs ABDOMEN: Soft, nondistended, nontender, positive bowel sounds, no rebound, no guarding EXTREMETIES: No edema, cyanosis, clubbing NEUROLOGIC: Alert, oriented to person/place/time, CN's grossly intact, no focal deficits SKIN: No rash, wounds PSYCH: Normal mood, normal affect Results Laboratory Results: 07/09/16 03:46 07/09/16 03:46 07/09/16 07/09/16 03:46 03:46 WBC 5.8 RBC 3.82 L Hgb 8.9 L Hct 27.9 L MCV 73 L MCH 23.3 L MCHC 31.9 L RDW 18.5 H Plt Count 238 Seg Neutrophils % 66.6 Lymphocytes % 18.2 Monocytes % 11.2 Eosinophils % 3.6 Basophils % 0.4 Absolute Neutrophils 3.9 Absolute Lymphocytes 1.1 Absolute Monocytes 0.7 Absolute Eosinophils 0.2 Absolute Basophils 0.0 Sodium 147.3 H Potassium 3.3 L Chloride 109 H Carbon Dioxide 28 Anion Gap 10 BUN 3 L Creatinine 0.48 L Est GFR ( Amer) > 60 Est GFR (Non-Af Amer) > 60 Glucose 108 Calcium 8.8 07/07/16 16:40 Tracheal Aspirate Gram Stain - Final 07/07/16 16:40 Tracheal Aspirate Sputum Culture - Final Staphylococcus Aureus Normal Claudia Absent Impressions: Chest X-Ray 07/07/16 06:00 IMPRESSION: Persistent basilar opacities without improvement. SUPPORT DEVICE(S) IN EXPECTED LOCATIONS. Assessment & Plan - Diagnosis (1) Acute respiratory failure Qualifiers: Respiratory failure complication: unspecified whether with hypoxia or hypercapnia Qualified Code(s): J96.00 - Acute respiratory failure, unspecified whether with hypoxia or hypercapnia Is this a current diagnosis for this admission?: NoPlan: Dr. Kraus of pulmonary medicine managing. Stable post extubation on 2016. (2) Systemic inflammatory response syndrome (SIRS) Is this a current diagnosis for this admission?: YesPlan: Likely secondary to aspiration pneumonia. Patient is now afebrile and has normal white blood count since initiation of empiric antibiotics on 07/07/2016. (3) Aspiration pneumonia Is this a current diagnosis for this admission?: YesPlan: High probability of gram-negative or anaerobic bacteria. Continue IV Zosyn and IV Levaquin. Sputum culture growing MSSA. Discontinue vancomycin. (4) Intentional benzodiazepine overdose Qualifiers: Encounter type: initial encounter Qualified Code(s): T42.4X2A - Poisoning by benzodiazepines, intentional self-harm, initial encounter Is this a current diagnosis for this admission?: YesPlan: Psychology to evaluate. Patient will remain on involuntary commitment. (5) Suicide attempt Is this a current diagnosis for this admission?: Yes (6) Alcohol abuse Is this a current diagnosis for this admission?: Yes (7) Bipolar disorder Qualifiers: Active/Remission status: remission status unspecified Qualified Code (s): F31.9 - Bipolar disorder, unspecified Is this a current diagnosis for this admission?: Yes (8) PTSD (post-traumatic stress disorder) Is this a current diagnosis for this admission?: Yes (9) Anemia Is this a current diagnosis for this admission?: YesPlan: Hemoccult negative. Patient has iron deficiency, B-12 deficiency, and folic acid deficiency. Continue B-12 injections as well as iron and folic acid supplementation. Monitor H&H closely on pharmacologic DVT prophylaxis. (10) Hypokalemia Is this a current diagnosis for this admission?: YesPlan: Continue to replace as needed. (11) Hypomagnesemia Is this a current diagnosis for this admission?: Yes (12) Vitamin B 12 deficiency Is this a current diagnosis for this admission?: YesPlan: Daily vitamin B-12 injections for now. (13) DVT prophylaxis Is this a current diagnosis for this admission?: Yes - Time Time Spent with patient: 35 or more minutes
[2016-07-09] MEDS: HALOPERIDOL LACTATE INJ 5 MG/1 ML VIAL IV PRN (21:34)
[2016-07-09] MEDS: MAGNESIUM SULFATE/D5W 1 GM/100 ML RTUPB IV SCH ×2 (22:54→23:59)
[2016-07-10] MEDS: PIPERACILLIN SODIUM/TAZOBACTAM 3.375 GM in NORMAL SALINE 100 ML IV SCH ×2 (00:01→06:36)
[2016-07-10] MEDS: TRAMADOL HCL 50 MG TABLET PO PRN ×2 (04:30→13:10)
[2016-07-10] MEDS: ENOXAPARIN SODIUM INJ 40 MG/0.4 ML DISP.SYRIN SUBCUT SCH (07:27)
[2016-07-10] MEDS: LANSOPRAZOLE 30 MG TAB.RAP.DR PO SCH (07:27)
[2016-07-10] MEDS ORDERED: OXYCODONE HCL IR 5 MG TABLET PO PRN (07:54)
[2016-07-10] MEDS ORDERED: LORAZEPAM 1 MG TABLET PO PRN (07:54)
[2016-07-10] MEDS ORDERED: IRON SUCROSE COMPLEX INJ/PF 100 MG/5 ML SDV IV ONE (09:00)
[2016-07-10] MEDS: FOLIC ACID 1 MG TABLET PO SCH (09:16)
[2016-07-10] MEDS: FERROUS SULFATE 325 MG TABLET PO SCH (09:16)
[2016-07-10] MEDS: CYANOCOBALAMIN (VITAMIN B-12) INJ 1000 MCG/1 ML VIAL IM SCH (09:16)
[2016-07-10] MEDS ORDERED: THIAMINE HCL 100 MG TABLET PO SCH (10:00)
--- NOTE | 2016-07-10 11:32 | PDOC PROGRESS REPORT ---
Subjective Progress Note for:: 07/10/16 Subjective:: awake alert Physical Exam Vital Signs: Temp Pulse Resp BP Pulse Ox 97.9 F 94 18 133/84 H 93 07/10/16 08:00 07/10/16 09:05 07/10/16 09:05 07/10/16 08:00 07/10/16 09:05 Intake & Output 07/09/16 07/10/16 07/11/16 06:59 06:59 06:59 Intake Total 5320 9850 177 Output Total 6109 9700 Balance -715 -2062 177 Weight 110.8 kg 111.9 kg General appearance: PRESENT: no acute distress, disheveled, well-developed, well -nourished Head exam: PRESENT: atraumatic, normocephalic Eye exam: PRESENT: conjunctiva pale, EOMI Mouth exam: PRESENT: dry mucosa, neck supple Neck exam: ABSENT: carotid bruit, JVD, lymphadenopathy, thyromegaly Respiratory exam: PRESENT: clear to auscultation carter Cardiovascular exam: PRESENT: RRR, +S1, +S2 Pulses: PRESENT: normal radial pulses GI/Abdominal exam: PRESENT: normal bowel sounds, soft. ABSENT: distended, guarding, mass, organolmegaly, rebound, tenderness Rectal exam: PRESENT: deferred Gentrourinary exam: PRESENT: indwelling catheter Musculoskeletal exam: PRESENT: normal inspection Neurological exam: PRESENT: alert, awake Psychiatric exam: PRESENT: normal mood Skin exam: PRESENT: dry, warm Results Laboratory Results: 07/09/16 03:46 07/09/16 03:46 Impressions: Chest X-Ray 07/07/16 06:00 IMPRESSION: Persistent basilar opacities without improvement. SUPPORT DEVICE(S) IN EXPECTED LOCATIONS. Assessment & Plan - Diagnosis (1) Acute respiratory failure Qualifiers: Respiratory failure complication: unspecified whether with hypoxia or hypercapnia Qualified Code(s): J96.00 - Acute respiratory failure, unspecified whether with hypoxia or hypercapnia Is this a current diagnosis for this admission?: No (2) Suicide attempt Is this a current diagnosis for this admission?: Yes (3) Bipolar disorder Qualifiers: Active/Remission status: remission status unspecified Qualified Code (s): F31.9 - Bipolar disorder, unspecified Is this a current diagnosis for this admission?: Yes (4) PTSD (post-traumatic stress disorder) Is this a current diagnosis for this admission?: Yes - Time Critical Time spent with patient: 15-24 minutes
--- NOTE | 2016-07-10 11:33 | PDOC PROGRESS REPORT ---
Subjective Progress Note for:: 07/09/16 Subjective:: Awake and alert without complaints Physical Exam Vital Signs: Temp Pulse Resp BP Pulse Ox 97.9 F 94 18 133/84 H 93 07/10/16 08:00 07/10/16 09:05 07/10/16 09:05 07/10/16 08:00 07/10/16 09:05 Intake & Output 07/09/16 07/10/16 07/11/16 06:59 06:59 06:59 Intake Total 5330 3895 177 Output Total 6102 7680 Balance -715 -9931 177 Weight 110.8 kg 111.9 kg General appearance: PRESENT: no acute distress, disheveled, well-developed, well -nourished Head exam: PRESENT: atraumatic, normocephalic Eye exam: PRESENT: conjunctiva pale, EOMI Mouth exam: PRESENT: dry mucosa, neck supple, tongue midline Neck exam: ABSENT: carotid bruit, JVD, lymphadenopathy, thyromegaly Respiratory exam: PRESENT: clear to auscultation carter Cardiovascular exam: PRESENT: RRR, +S1, +S2 Pulses: PRESENT: normal radial pulses GI/Abdominal exam: PRESENT: normal bowel sounds, soft. ABSENT: distended, guarding, mass, organolmegaly, rebound, tenderness Rectal exam: PRESENT: deferred Gentrourinary exam: PRESENT: indwelling catheter Musculoskeletal exam: PRESENT: normal inspection Neurological exam: PRESENT: alert, awake Psychiatric exam: PRESENT: normal mood Skin exam: PRESENT: dry, warm Results Laboratory Results: 07/09/16 03:46 07/09/16 03:46 Impressions: Chest X-Ray 07/07/16 06:00 IMPRESSION: Persistent basilar opacities without improvement. SUPPORT DEVICE(S) IN EXPECTED LOCATIONS. Assessment & Plan - Diagnosis (1) Acute respiratory failure Qualifiers: Respiratory failure complication: unspecified whether with hypoxia or hypercapnia Qualified Code(s): J96.00 - Acute respiratory failure, unspecified whether with hypoxia or hypercapnia Is this a current diagnosis for this admission?: No (2) Suicide attempt Is this a current diagnosis for this admission?: Yes (3) Bipolar disorder Qualifiers: Active/Remission status: remission status unspecified Qualified Code (s): F31.9 - Bipolar disorder, unspecified Is this a current diagnosis for this admission?: Yes (4) PTSD (post-traumatic stress disorder) Is this a current diagnosis for this admission?: Yes - Time Critical Time spent with patient: 15-24 minutes
[2016-07-10] MEDS ORDERED: AMOXICILLIN TR/POT CLAVULANATE 500-125 MG TAB PO SCH (14:00)
[2016-07-10 16:38] VITALS: BP 139/97
--- NOTE | 2016-07-10 17:33 | PDOC DISCHARGE SUMMARY ---
General - Admit/Disc Date/PCP Admission Date/Primary Care Provider: 07/03/16 23:50 Discharge Date: 07/10/16 - Discharge Diagnosis (1) Acute respiratory failure Is this a current diagnosis for this admission?: No (2) Systemic inflammatory response syndrome (SIRS) Is this a current diagnosis for this admission?: Yes (3) Aspiration pneumonia Is this a current diagnosis for this admission?: Yes (4) Intentional benzodiazepine overdose Is this a current diagnosis for this admission?: Yes (5) Suicide attempt Is this a current diagnosis for this admission?: Yes (6) Alcohol abuse Is this a current diagnosis for this admission?: Yes (7) Bipolar disorder Is this a current diagnosis for this admission?: Yes (8) PTSD (post-traumatic stress disorder) Is this a current diagnosis for this admission?: Yes (9) Anemia Is this a current diagnosis for this admission?: Yes (10) Hypokalemia Is this a current diagnosis for this admission?: Yes (11) Hypomagnesemia Is this a current diagnosis for this admission?: Yes (12) Vitamin B 12 deficiency Is this a current diagnosis for this admission?: Yes (13) DVT prophylaxis Is this a current diagnosis for this admission?: Yes - Additional Information Resuscitation Status: Full Code Discharge Diet: Regular Discharge Activity: Activity As Tolerated Home Medications: Amox Tr/Potassium Clavulanate [Augmentin "500" Tablet] 1 tab PO Q8 #21 tablet 07/10/16 Ferrous Sulfate [Feosol 325 mg Tablet] 325 mg PO DAILY #30 tablet 07/10/16 Multivitamins W-Iron [Flintstones Chewable Multivit W/Fe Tab] 2 tab.chew PO DAILY #1 bottle 07/10/16 History of Present Illness Patient complains of: Overdose History of Present Illness: HUSSAIN ARITA II is a 35 year old male with underlying bipolar disorder with manic tendencies, depression, posttraumatic stress disorder, seizure disorder, chronic anemia, and with a history of alcohol abuse, along with a reported history of suicidal thoughts and/or attempts in the past, who presents to the emergency room by EMS after reportedly taking a "handful" of his mother's 1 mg Xanax tablets approximate 6:30 PM the evening of admission. Hospital Course Hospital Course: Patient was admitted for respiratory failure associated with intentional overdose of Xanax and alcohol. He was intubated and placed on mechanical ventilation suffered an aspiration pneumonia as a result has been treated. Sputum cultures grew MSSA. Dr. Kraus of pulmonary medicine was involved for ventilator weaning strategy. Patient was successfully weaned from mechanical ventilation and extubated on 07/09/2016. He has been stable post extubation. At time of discharge respiratory status is stable and O2 sat is normal on room air. He has been transitioned off IV antibiotics and onto oral Augmentin. He has been evaluated by psychology and they have recommended discontinuation of involuntary commitment. They have recommended outpatient psychological services. Patient is discharged home in stable condition. Physical Exam Vital Signs: Temp Pulse Resp BP Pulse Ox 98.1 F 90 18 139/97 H 97 07/10/16 16:37 07/10/16 16:37 07/10/16 16:37 07/10/16 16:37 07/10/16 16:37 Intake & Output 07/09/16 07/10/16 07/11/16 06:59 06:59 06:59 Intake Total 5385 2735 177 Output Total 6100 4800 Balance -71 -2064 177 Weight 110.8 kg 111.9 kg GENERAL: No acute distress HEENT: Conjunctiva clear, nonicteric, moist mucous membranes, no JVD, midline trachea RESPIRATORY: Clear to auscultation bilaterally, no wheezes, no rhonchi CARDIAC: Regular rate and rhythm, no murmurs/gallops/rubs ABDOMEN: Soft, nondistended, nontender, positive bowel sounds, no rebound, no guarding EXTREMETIES: No edema, cyanosis, clubbing NEUROLOGIC: Alert, oriented to person/place/time, CN's grossly intact, no focal deficits SKIN: No rash, wounds PSYCH: Normal mood, normal affect Results Laboratory Results: 07/09/16 03:46 07/09/16 03:46 Impressions: Chest X-Ray 07/07/16 06:00 IMPRESSION: Persistent basilar opacities without improvement. SUPPORT DEVICE(S) IN EXPECTED LOCATIONS. Qualifiers PATEINT BEING DISCHARGED WITH ANY OF THE FOLLOWING DIAGNOSIS?: No Plan Time Spent: Less than 30 Minutes
--- NOTE | 2016-07-15 16:07 | PSYCHOLOGICAL NOTE ---
Psych Note - Psych Note Psych Note: Patient is a 35-year-old male who is brought to the emergency room by EMS after intentional overdose, patient arrived unresponsive with no gag reflex requiring Ambu bag respiratory support, patient's parents arrived shortly after arrival in report that patient made a statement to them that he was going to end his life and then took a handful of mother's 1 mg Xanax, mother is unsure how many he took as she had more in the bottle than the prescription was written for because she typically combines her prescriptions when she refills it Patient disclosed that he has a diagnosis of bipolar and stopped taking his medication approximately 45 days ago. He continued to disclose that when he is medicated he has no issues however when not medicated he has tendency to drink. Patient states that it's been approximately 1 year since he's had knee she you. He confirms he bought vodka that same day however it is not his intent to hurt himself at that time. Patient disclosed he is unsure but he thinks at approximately after half the bottle was gone he started to get depressed and that that time took the Xanax. Clinician spoke with patient's mother who was also in the room she confirmed patient does better when he is medicated. She states that when he is not medicated he drinks and does a lot of reckless things. Patient is alert and orientated to person, place, time and circumstance. Mood is euthymic with congruent affect. Patient denies suicidal and homicidal ideation. Patient denies auditory and visual hallucinations; patient is not demonstrating behaviour what would be congruent to responding to internal stimuli. No delusions are noted. Thought process is organized and linear. Eye contact was well maintained. Intellectual abilities appear to be within average range. Attention and concentration is good. Insight, judgment, and impulse control is fair. 296.80 (F31.9) unspecified bipolar and related disorder per history provided by patient and family Impression\plan: Patient is recommended for rescind of IVC is considered psychiatrically cleared for discharge. Patient openly engaged with clinician and discussed mental health diagnosis in relation to his alcoholism. Patient admits to noncompliance of medication the last 45 days which led up to current event. Patient denies current suicidal ideation. Patient states he bought the alcohol with no intent of self-harm however believes that after about half the bottle is when he started to become despondent and depressed which led to attempt. Patient currently lives with his mother who states that she was sure patient has no access to medications or weapons. Patient will be following up with [facility] services. Dr. Doyle was consulted on a care management of this patient
== END 2016-07-10 19:51 | disposition home or self-care (01) | DRG 917 ==
LOC: ER 19:41 → EH 22:47 → UNDOADMIN 22:47 → EH 23:50 → ICU 07-04 01:55 → EH 07-04 01:55 → 4S 07-10 14:59
PROVIDERS: ADMIT Family Medicine; ATTEND Family Medicine
PROC: 5A1945Z Respiratory Ventilation, 24-96 Consecutive Hours (ICD-10-PCS; principal; 2016-07-03)
PROC: 0BH17EZ Insertion of Endotracheal Airway into Trachea, Via Natural or Artificial Opening (ICD-10-PCS; 2016-07-03)
PROC: 3E0F73Z Introduction of Anti-inflammatory into Respiratory Tract, Via Natural or Artificial Opening (ICD-10-PCS; 2016-07-04)
DX: T42.4X2A Poisoning by benzodiazepines, intentional self-harm, initial encounter (principal); J96.01 Acute respiratory failure with hypoxia; J69.0 Pneumonitis due to inhalation of food and vomit; E87.0 Hyperosmolality and hypernatremia; F10.10 Alcohol abuse, uncomplicated; F31.9 Bipolar disorder, unspecified; F43.10 Post-traumatic stress disorder, unspecified; E87.6 Hypokalemia; E83.42 Hypomagnesemia; D51.9 Vitamin B12 deficiency anemia, unspecified; G40.909 Epilepsy, unspecified, not intractable, without status epilepticus; B95.61 Methicillin susceptible Staphylococcus aureus infection as the cause of diseases classified elsewhere; M19.90 Unspecified osteoarthritis, unspecified site; F10.129 Alcohol abuse with intoxication, unspecified; Z78.1 Physical restraint status; Z90.49 Acquired absence of other specified parts of digestive tract; Z98.84 Bariatric surgery status; Z88.8 Allergy status to other drugs, medicaments and biological substances; Z91.018 Allergy to other foods
CPT/HCPCS: 36415; 36600; 71010; 80048; 80053; 80202; 80307; 81001; 82272; 82607; 82728; 82746; 82803; 83540; 83550; 83735; 84100; 84439; 84443; 84466; 84478; 84481; 85025; 85045; 87040; 87070; 87077; 87186; 87205; 87493; 93005; 93010; 94002; 94003; 94667; 94799; 99291; J0330; J1630; J1650; J1756; J1956; J2060; J2270; J2543; J2704; J3370; J3411; J3420; J3475; J3480; J3490; J7030; J7060; J7620; S0028

== ENCOUNTER 2016-08-15 09:37 | Emergency (ER) | payer OTHER ==
[2016-08-15 11:12] LABS: HEMATOCRIT 35.3 % (37.9-51.0); HEMOGLOBIN 11.2 g/dL (13.5-17.0); HGB HCT DIFFERENCE -1.7; MEAN CORPUSCULAR HEMOGLOBIN 23.4 pg (27.0-33.4); MEAN CORPUSCULAR HGB CONC 31.7 g/dL (32.0-36.0); MEAN CORPUSCULAR VOLUME 74 fl (80-97); RED BLOOD COUNT 4.77 10^6/uL (4.35-5.55); WHITE BLOOD COUNT 21.1 10^3/uL (4.0-10.5)
[2016-08-15 11:30] LABS: ALANINE AMINOTRANSFERASE 21 U/L (21-72); ALBUMIN 3.8 g/dL (3.5-5.0); ALKALINE PHOSPHATASE 97 U/L (38-126); ANION GAP 10 (5-19); ASPARTATE AMINO TRANSFERASE 10 U/L (17-59); BILIRUBIN,DIRECT 0.4 mg/dL (0.0-0.4); BILIRUBIN,TOTAL 0.7 mg/dL (0.2-1.3); BLOOD UREA NITROGEN 8 mg/dL (7-20); CALCIUM 9.4 mg/dL (8.4-10.2); CARBON DIOXIDE 25 mmol/L (22-30); CHLORIDE 103 mmol/L (98-107); CREATININE RESULT 0.74 mg/dL (0.52-1.25); GLUCOSE 90 mg/dL (75-110); POTASSIUM 4.4 mmol/L (3.6-5.0); SODIUM 138.3 mmol/L (137-145)
--- NOTE | 2016-08-15 11:30 | ER Document Report ---
ED Medical Screen (RME) - General TRAVEL OUTSIDE OF THE [place] IN LAST 30 DAYS: No <MALATHI JAMES - Last Filed: 08/15/16 13:53> <UDAY GARDNER - Last Filed: 08/25/16 11:08> - General Chief Complaint: Headache Stated Complaint: HEADACHE/SHORTNESS OF BREATH Time Seen by Provider: 08/15/16 11:29 Notes: Patient presents today with complaints of losing 30 pounds since discharge on . Patient states he has had no appetite and no energy since being discharged. Patient states he has not abused any EtOH or prescription drugs that were not prescribed to him since being discharged. Patient states he has a sore throat and has the chills very often since discharge. Denies any vomiting or new diarrhea. Patient states he has chronic diarrhea. Notes from previous hospital admission on 07/03/16, see below: History of Present Illness Patient complains of: Overdose History of Present Illness: HUSSAIN ARITA II is a 35 year old male with underlying bipolar disorder with manic tendencies, depression, posttraumatic stress disorder, seizure disorder, chronic anemia, and with a history of alcohol abuse, along with a reported history of suicidal thoughts and/or attempts in the past, who presents to the emergency room by EMS after reportedly taking a "handful" of his mother's 1 mg Xanax tablets approximate 6:30 PM the evening of admission. Hospital Course Hospital Course: Patient was admitted for respiratory failure associated with intentional overdose of Xanax and alcohol. He was intubated and placed on mechanical ventilation suffered an aspiration pneumonia as a result has been treated. Sputum cultures grew MSSA. Dr. Kraus of pulmonary medicine was involved for ventilator weaning strategy. Patient was successfully weaned from mechanical ventilation and extubated on 07/09/2016. He has been stable post extubation. At time of discharge respiratory status is stable and O2 sat is normal on room air. He has been transitioned off IV antibiotics and onto oral Augmentin. He has been evaluated by psychology and they have recommended discontinuation of involuntary commitment. They have recommended outpatient psychological services. Patient is discharged home in stable condition. (MALATHI JAMES) - Related Data Allergies/Adverse Reactions: NSAIDS (Non-Steroidal Anti-Inflamma [Nsaids] Allergy (Intermediate, Verified 09:39) orange juice Allergy (Severe, Uncoded 08/15/16 09:39) spagetti sauce Allergy (Severe, Uncoded 08/15/16 09:39) Vitamin D Synthetic Additive Allergy (Unknown, Uncoded 08/15/16 09:39) Anaphylaxis Past Medical History Pulmonary Medical History: Denies: Hx Tuberculosis Neurological Medical History: Reports: Hx Seizures Renal/ Medical History: Denies: Hx Peritoneal Dialysis GI Medical History: Reports: Hx Ulcer - perforated in 2007 Musculoskeltal Medical History: Reports Hx Arthritis - degenerative Psychiatric Medical History: Reports: Hx Bipolar Disorder - with manic tendencies, Hx Depression, Hx Post Traumatic Stress Disorder Past Surgical History: Reports: Hx Abdominal Surgery - gastric bypass, Hx Bowel Surgery - perforated ulcer, Hx Cholecystectomy, Hx Gastric Bypass Surgery, Hx Orthopedic Surgery - right shoulder arthroscopy, Hx Pacemaker - Immunizations Hx Diphtheria, Pertussis, Tetanus Vaccination: Yes <MALATHI JAMES - Last Filed: 08/15/16 13:53> Review of Systems - Review of Systems Constitutional: See HPI, Chills, Weight loss <MALATHI JAMES - Last Filed: 08/15/16 13:53> Physical Exam - Respiratory Respiratory status: No respiratory distress - Cardiovascular Rhythm: Regular Heart sounds: Normal auscultation Murmur: No - Abdominal Inspection: Normal Distension: No distension <MALATHI JAMES - Last Filed: 08/15/16 13:53> Course - Laboratory Result Diagrams: 08/15/16 10:30 08/15/16 10:30 <MALATHI JAMES - Last Filed: 08/15/16 13:53> - Laboratory Result Diagrams: 08/15/16 20:05 08/15/16 10:30 <UDAY GARDNER - Last Filed: 08/25/16 11:08> - Re-evaluation Re-evalutation: 08/15/16 13:17 Patient presents to the emergency department with a chief complaint of headache shortness of breath decreased appetite and weight loss he was seen and evaluated in the hospital and admitted inpatient to the ICU and discharged on following a Xanax overdose intubation respiratory failure and aspiration pneumonia. Since he was discharged home on the he has not seen any primary care providers he did follow up with his mental health provider who kept him on the exact same medications that he has been taking prior to coming in. The Xanax he had received off of the street. He is also intermittently drink alcohol in the form of liquor but states that that was very intermittently. He denies being suicidal homicidal and has not had a drink of alcohol since he was discharged from the hospital. His primary concern today is that he feels weak and he says he lost 30 pounds in the last month but he is not eating appropriately. On physical examination he is awake alert with a GCS of 15 blood pressure is stable he is afebrile respiratory rate is 18 with normal lung sounds in no acute distress. He laboratory evaluation is ordered including EKG chest x-ray magnesium. Patient to be transferred to the back to be further seen and evaluated and disposition. 08/15/16 13:18 I personally performed the services described in the documentation reviewed the documentation recorded by my scribe in my presence and it accurately and completely records my words and actions (UDAY GARDNER) - Vital Signs Vital signs: Temp Pulse Resp BP Pulse Ox 98.7 F 74 16 127/54 H 98 08/15/16 22:22 08/15/16 22:22 08/15/16 22:22 08/15/16 22:22 08/15/16 22:22 - Laboratory Laboratory results interpreted by me: 08/15/16 08/15/16 08/15/16 10:30 10:30 20:05 WBC 21.1 H 12.7 H Hgb 11.2 L 10.3 L Hct 35.3 L 32.8 L MCV 74 L 73 L MCH 23.4 L 23.1 L MCHC 31.7 L 31.5 L RDW 20.0 H 20.1 H Plt Count 465 H Seg Neuts % (Manual) 84 H Lymphocytes % (Manual) 5 L Absolute Neutrophils 9.9 H Abs Neuts (Manual) 17.7 H Abs Monocytes (Manual) 1.5 H AST 10 L Doctor's Discharge <MALATHI JAMES - Last Filed: 08/15/16 13:53> <UDAY GARDNER - Last Filed: 08/25/16 11:08> - Discharge Clinical Impression: Weakness, Generalized pain, Shortness of breath, Diarrhea, Dehydration Condition: Stable Disposition: HOME, SELF-CARE Additional Instructions: Your workup shows an incidentally found lung nodule in the right upper side, see the report given, please follow the outlined follow-up instructions with primary care. This needs monitoring because it could potentially become cancer. Your workup does not show any other obvious acute abnormality except for the known hernia and dehydration. Follow-up with general surgery for hernia repair. Return to emergency department for any concerning symptoms including abdominal pain, fever, vomiting, difficulty breathing, or any other concerning or worsening symptoms. Referrals: [facility] [Provider Group] - Follow up as needed [facility] [Provider Group] - Follow up in 1 week [facility] [Provider Group] - Follow up in 1 week Scribe Documentation - Scribe Written by Clarenceibe:: Juanjo Terrazas, 08/15/16 1403 acting as scribe for :: Howard <MALATHI JAMES - Last Filed: 08/15/16 13:53>
[2016-08-15 11:34] LABS: BASOPHILS % (MANUAL) 1 % (0-2); EOSINOPHILS % (MANUAL) 3 % (0-6); LYMPHOCYTES % (MANUAL) 5 % (13-45); TOTAL CELLS COUNTED 100
[2016-08-15 11:40] LABS: BURR CELLS SLIGHT; HYPOCHROMASIA 2+; OVALOCYTES 1+; SCHISTOCYTES SLIGHT; TOXIC GRANULATION SLIGHT
[2016-08-15 11:41] LABS: TEAR DROP CELLS SLIGHT
[2016-08-15 11:42] LABS: POIKILOCYTOSIS SLIGHT
[2016-08-15 11:47] LABS: ANISOCYTOSIS 1+
[2016-08-15 11:58] LABS: MAGNESIUM 1.8 mg/dL (1.6-2.3)
[2016-08-15 13:27] LABS: APPEARANCE,URINE CLEAR; BILIRUBIN,URINE NEGATIVE (NEGATIVE); GLUCOSE, URINE NEGATIVE (NEGATIVE); KETONES,URINE NEGATIVE (NEGATIVE); LEUKOCYTE ESTERASE,URINE NEGATIVE (NEGATIVE); NITRITE,URINE NEGATIVE (NEGATIVE); PROTEIN,URINE NEGATIVE (NEGATIVE); URINE SPECIFIC GRAVITY 1.039; UROBILINOGEN,URINE NEGATIVE mg/dL (<2.0)
--- NOTE | 2016-08-15 14:59 | ER Document Report ---
ED General <ASAF ABERNATHY - Last Filed: 08/16/16 02:55> - General Mode of Arrival: Ambulatory Information source: Patient TRAVEL OUTSIDE OF THE [place] IN LAST 30 DAYS: No <PENNY ROSENBAUM - Last Filed: 08/16/16 10:49> - General Chief Complaint: Headache Stated Complaint: HEADACHE/SHORTNESS OF BREATH Time Seen by Provider: 08/15/16 11:29 Notes: Patient presents to the emergency department with complaints of headache shortness of breath abdominal pain, loss of appetite weight loss. Patient gives history of discharged from the hospital recently with a staph infection in his lungs. Patient was admitted to the hospital on July 10 following overdose on Xanax. Since he has been discharged he has been extremely fatigued short of breath all the time with heavy chest pressure that increases when he ambulates. He denies vomiting reports constant nausea reports low-grade fever and constant diarrhea. He reports the diarrhea smells awful. He also reports that the diarrhea has tapered off lately. Review of medical records notes that he was 111.9 kg on July 10 and today he weighs 99.9 kg. (PENNY ROSENBAUM) - Related Data Allergies/Adverse Reactions: NSAIDS (Non-Steroidal Anti-Inflamma [Nsaids] Allergy (Intermediate, Verified 09:39) orange juice Allergy (Severe, Uncoded 08/15/16 09:39) spagetti sauce Allergy (Severe, Uncoded 08/15/16 09:39) Vitamin D Synthetic Additive Allergy (Unknown, Uncoded 08/15/16 09:39) Anaphylaxis Past Medical History - General Information source: Patient - Social History Smoking Status: Unknown if Ever Smoked Cigarette use (# per day): No Frequency of alcohol use: None Drug Abuse: None Lives with: Family Family History: Reviewed & Not Pertinent Patient has suicidal ideation: No Patient has homicidal ideation: No Pulmonary Medical History: Denies: Hx Tuberculosis Neurological Medical History: Reports: Hx Seizures Renal/ Medical History: Denies: Hx Peritoneal Dialysis GI Medical History: Reports: Hx Ulcer - perforated in 2007 Musculoskeltal Medical History: Reports Hx Arthritis - degenerative Psychiatric Medical History: Reports: Hx Bipolar Disorder - with manic tendencies, Hx Depression, Hx Post Traumatic Stress Disorder Past Surgical History: Reports: Hx Abdominal Surgery - gastric bypass, Hx Bowel Surgery - perforated ulcer, Hx Cholecystectomy, Hx Gastric Bypass Surgery, Hx Orthopedic Surgery - right shoulder arthroscopy, Hx Pacemaker - Immunizations Hx Diphtheria, Pertussis, Tetanus Vaccination: Yes <PENNY ROSENBAUM - Last Filed: 08/16/16 10:49> Review of Systems <ASAF ABERNATHY - Last Filed: 08/16/16 02:55> <PENNY ROSENBAUM - Last Filed: 08/16/16 10:49> - Review of Systems Notes: Review HPI for review of systems., All other systems negative (PENNY ROSENBAUM) Physical Exam <ASAF ABERNATHY - Last Filed: 08/16/16 02:55> <PENNY ROSENBAUM - Last Filed: 08/16/16 10:49> - Vital signs Vitals: Temp Pulse Resp BP Pulse Ox 98.4 F 92 18 126/93 H 99 08/15/16 09:40 08/15/16 09:40 08/15/16 09:40 08/15/16 09:40 08/15/16 09:40 - Notes Notes: PHYSICAL EXAMINATION: GENERAL: Pale, looks ill HEAD: Atraumatic, normocephalic. EYES: Pupils equal round and reactive to light, extraocular movements intact, sclera anicteric, conjunctiva are normal. ENT: nares patent, oropharynx clear without exudates. Moist mucous membranes. NECK: Normal range of motion, supple without lymphadenopathy LUNGS: No respiratory distress, decreased BS right a & p HEART: Regular rate and rhythm without murmurs ABDOMEN: Soft, generalized tenderness- increased pain LLQ. No guarding, no rebound EXTREMITIES: Normal range of motion, no pitting edema. No cyanosis. NEUROLOGICAL: Cranial nerves grossly intact. Normal sensory/motor exams. PSYCH: Normal mood, normal affect. SKIN: Warm, Dry, normal turgor, Pale no rashes or lesions noted (PENNY ROSENBAUM) Course - Laboratory Result Diagrams: 08/15/16 20:08/15/16 10:30 <ASAF ABERNATHY - Last Filed: 08/16/16 02:55> - Laboratory Result Diagrams: 08/15/16 20:08/15/16 10:30 <PENNY ROSENBAUM - Last Filed: 08/16/16 10:49> - Re-evaluation Re-evalutation: Patient tried twice to give a stool sample but was unable to. He urinated both times. Patient ambulating without any difficulty, he states he feels improved from before. Elevated specific gravity on urinalysis, leukocytosis noted but this was repeated and significantly improved after rehydration. Currently suspected dehydration component. CTA copy was given to patient, discussed nodule finding and monitoring precautions, discussed this with his parents as well. Repeat troponin negative. No evidence of acute infection or other abnormality. Patient states he is ready to leave and is asking to go home. Patient states he will follow-up with primary care and he will return if he worsens in any way. (ASAF ABERNATHY) 08/15/16 14:56 WBC 21, and consult with Dr. Ruggiero per [facility] guidelines agrees with CT of chest and abdomen and pelvis. 08/15/16 19:20 pt resting quietly, c/o BENEDICT, Report given to Asaf CALLEJAS. Plan for another liter of fluids, strep test, tylenol and redraw CBC and troponin. (PENNY ROSENBAUM) - Vital Signs Vital signs: Temp Pulse Resp BP Pulse Ox 98.7 F 74 16 127/54 H 98 08/15/16 22:22 08/15/16 22:22 08/15/16 22:22 08/15/16 22:22 08/15/16 22:22 - Laboratory Laboratory results interpreted by me: 08/15/16 08/15/16 08/15/16 10:30 10:30 20:05 WBC 21.1 H 12.7 H Hgb 11.2 L 10.3 L Hct 35.3 L 32.8 L MCV 74 L 73 L MCH 23.4 L 23.1 L MCHC 31.7 L 31.5 L RDW 20.0 H 20.1 H Plt Count 465 H Seg Neuts % (Manual) 84 H Lymphocytes % (Manual) 5 L Absolute Neutrophils 9.9 H Abs Neuts (Manual) 17.7 H Abs Monocytes (Manual) 1.5 H AST 10 L Discharge <ASAF ABERNATHY - Last Filed: 08/16/16 02:55> <PENNY ROSENBAUM - Last Filed: 08/16/16 10:49> - Discharge Clinical Impression: Weakness, Body aches, Shortness of breath, Dehydration Diarrhea Qualifiers: Diarrhea type: unspecified type Qualified Code(s): R19.7 - Diarrhea, unspecified Condition: Stable Disposition: HOME, SELF-CARE Additional Instructions: Your workup shows an incidentally found lung nodule in the right upper side, see the report given, please follow the outlined follow-up instructions with primary care. This needs monitoring because it could potentially become cancer. Your workup does not show any other obvious acute abnormality except for the known hernia and dehydration. Follow-up with general surgery for hernia repair. Return to emergency department for any concerning symptoms including abdominal pain, fever, vomiting, difficulty breathing, or any other concerning or worsening symptoms. Referrals: [facility] [Provider Group] - Follow up as needed [facility] [Provider Group] - Follow up in 1 week [facility] [Provider Group] - Follow up in 1 week
[2016-08-15] MEDS ORDERED: NORMAL SALINE 1000 ML 1,000 ML IV ONE (15:44)
[2016-08-15] MEDS ORDERED: ACETAMINOPHEN 325 MG TABLET PO ONE (19:21)
[2016-08-15 20:24] LABS: ABSOLUTE BASOPHILS # (AUTO) 0.1 10^3/uL (0.0-0.2); ABSOLUTE EOSINOPHILS # (AUTO) 0.1 10^3/uL (0.0-0.6); ABSOLUTE MONOCYTES (AUTO) 0.6 10^3/uL (0.1-1.4); ABSOLUTE NEUT (AUTO) 9.9 10^3/uL (1.7-8.2); BASOPHILS % (AUTO) 0.5 % (0-2); EOSINOPHILS % (AUTO) 1.1 % (0-6); HEMATOCRIT 32.8 % (37.9-51.0); HEMOGLOBIN 10.3 g/dL (13.5-17.0); HGB HCT DIFFERENCE -1.9; LYMPHOCYTES % (AUTO) 15.6 % (13-45); MEAN CORPUSCULAR HEMOGLOBIN 23.1 pg (27.0-33.4); MEAN CORPUSCULAR HGB CONC 31.5 g/dL (32.0-36.0); MEAN CORPUSCULAR VOLUME 73 fl (80-97); MONOCYTES % (AUTO) 4.9 % (3-13); RED BLOOD COUNT 4.48 10^6/uL (4.35-5.55); RED CELL DISTRIBUTION WIDTH 20.1 % (11.5-14.0); SEGMENTED NEUTROPHILS % (AUTO) 77.9 % (42-78); WHITE BLOOD COUNT 12.7 10^3/uL (4.0-10.5)
[2016-08-15 22:23] VITALS: BP 127/54
--- NOTE | 2016-08-16 17:47 | EKG REPORT ---
SEVERITY:- ABNORMAL ECG - SINUS RHYTHM NONSPECIFIC INTRAVENTRICULAR CONDUCTION DELAY PROBABLE LEFT VENTRICULAR HYPERTROPHY : Confirmed by: Erica Gonsalez MD 16-Aug-2016 17:46:25
== END 2016-08-15 22:22 | disposition home or self-care (01) ==
LOC: ER 09:37
DX: E86.0 Dehydration (principal); R19.7 Diarrhea, unspecified; R51 Headache; M79.1 Myalgia; R06.02 Shortness of breath; R53.1 Weakness; R10.9 Unspecified abdominal pain; R63.0 Anorexia; R63.4 Abnormal weight loss; Z98.84 Bariatric surgery status; Z90.49 Acquired absence of other specified parts of digestive tract
CPT/HCPCS: 93005; 99285; 96360; 36415; 87040; 87070; 87880; 83690; 83735; 85025; 80053; 81001; 84484; 71010; 71275; 74177; 93010; J7030

== ENCOUNTER 2017-04-27 09:03 | Emergency (ER) | payer OTHER ==
--- NOTE | 2017-04-27 09:32 | ER Document Report ---
ED Medical Screen (RME) - General Chief Complaint: Abdominal Pain Stated Complaint: SORE THROAT Time Seen by Provider: 04/27/17 09:26 Mode of Arrival: Ambulatory Information source: Patient TRAVEL OUTSIDE OF THE [place] IN LAST 30 DAYS: No - HPI Patient complains to provider of: abd pain, sore throat Onset: Other - pt with long h/o umbilical hernias which have gotten more painful. Also c/o sore throat - Related Data Allergies/Adverse Reactions: NSAIDS (Non-Steroidal Anti-Inflamma [Nsaids] Allergy (Intermediate, Verified 09:14) orange juice Allergy (Severe, Uncoded 08/15/16 09:39) spagetti sauce Allergy (Severe, Uncoded 08/15/16 09:39) Vitamin D Synthetic Additive Allergy (Unknown, Uncoded 08/15/16 09:39) Anaphylaxis Past Medical History Pulmonary Medical History: Denies: Hx Tuberculosis Neurological Medical History: Reports: Hx Seizures Renal/ Medical History: Denies: Hx Peritoneal Dialysis GI Medical History: Reports: Hx Ulcer - perforated in 2007 Musculoskeltal Medical History: Reports Hx Arthritis - degenerative Psychiatric Medical History: Reports: Hx Bipolar Disorder - with manic tendencies, Hx Depression, Hx Post Traumatic Stress Disorder Past Surgical History: Reports: Hx Abdominal Surgery - gastric bypass, Hx Bowel Surgery - perforated ulcer, Hx Cholecystectomy, Hx Gastric Bypass Surgery, Hx Orthopedic Surgery - right shoulder arthroscopy, Hx Pacemaker - Immunizations Hx Diphtheria, Pertussis, Tetanus Vaccination: Yes Physical Exam - Vital signs Vitals: Temp Pulse Resp BP Pulse Ox 98.5 F 85 16 144/98 H 98 04/27/17 09:09 04/27/17 09:09 04/27/17 09:09 04/27/17 09:09 04/27/17 09:09 Course - Vital Signs Vital signs: Temp Pulse Resp BP Pulse Ox 98.5 F 85 16 144/98 H 98 04/27/17 09:09 04/27/17 09:09 04/27/17 09:09 04/27/17 09:09 04/27/17 09:09
[2017-04-27 10:20] LABS: APPEARANCE,URINE SLIGHTLY-CLOUDY; BILIRUBIN,URINE NEGATIVE (NEGATIVE); COLOR,URINE YELLOW; GLUCOSE, URINE NEGATIVE (NEGATIVE); KETONES,URINE NEGATIVE (NEGATIVE); LEUKOCYTE ESTERASE,URINE NEGATIVE (NEGATIVE); NITRITE,URINE NEGATIVE (NEGATIVE); PROTEIN,URINE NEGATIVE (NEGATIVE); URINE SPECIFIC GRAVITY 1.019; UROBILINOGEN,URINE NEGATIVE mg/dL (<2.0)
[2017-04-27 10:22] LABS: ABSOLUTE EOSINOPHILS # (AUTO) 0.1 10^3/uL (0.0-0.6); ABSOLUTE LYMPHOCYTES (AUTO) 1.3 10^3/uL (0.5-4.7); ABSOLUTE MONOCYTES (AUTO) 0.5 10^3/uL (0.1-1.4); ABSOLUTE NEUT (AUTO) 5.1 10^3/uL (1.7-8.2); BASOPHILS % (AUTO) 0.4 % (0-2); EOSINOPHILS % (AUTO) 2.1 % (0-6); HEMATOCRIT 38.9 % (37.9-51.0); HEMOGLOBIN 12.3 g/dL (13.5-17.0); LYMPHOCYTES % (AUTO) 18.9 % (13-45); MEAN CORPUSCULAR HEMOGLOBIN 23.7 pg (27.0-33.4); MEAN CORPUSCULAR HGB CONC 31.6 g/dL (32.0-36.0); MEAN CORPUSCULAR VOLUME 75 fl (80-97); MONOCYTES % (AUTO) 7.1 % (3-13); PLATELET COUNT 428 10^3/uL (150-450); RED BLOOD COUNT 5.18 10^6/uL (4.35-5.55); RED CELL DISTRIBUTION WIDTH 17.4 % (11.5-14.0); SEGMENTED NEUTROPHILS % (AUTO) 71.5 % (42-78); TOTAL CELLS COUNTED % (AUTO) 100 %; WHITE BLOOD COUNT 7.1 10^3/uL (4.0-10.5)
--- NOTE | 2017-04-27 10:25 | ER Document Report ---
ED General - General Chief Complaint: Abdominal Pain Stated Complaint: SORE THROAT Time Seen by Provider: 04/27/17 09:26 Mode of Arrival: Ambulatory Notes: 36 year male presents with hernia and abdominal pain above his umbilicus. He states that it bulges when he sits up and it has been "out" for a month. He has been able to eat and drink with no vomiting fever or diarrhea. He has a history of extensive abdominal surgeries. This hernia is old. He also has sore throat thinks it strep, for 3 days. He cannot take NSAIDs. Seen at triage. CT was ordered and done before my evaluation. Blood labs urine and strep test are pending. He has no urinary complaints. TRAVEL OUTSIDE OF THE [place] IN LAST 30 DAYS: No - Related Data Allergies/Adverse Reactions: NSAIDS (Non-Steroidal Anti-Inflamma [Nsaids] Allergy (Intermediate, Verified 09:14) orange juice Allergy (Severe, Uncoded 08/15/16 09:39) spagetti sauce Allergy (Severe, Uncoded 08/15/16 09:39) Vitamin D Synthetic Additive Allergy (Unknown, Uncoded 08/15/16 09:39) Anaphylaxis Past Medical History - General Information source: Patient - Social History Smoking Status: Never Smoker Frequency of alcohol use: None Drug Abuse: None Family History: Reviewed & Not Pertinent Patient has suicidal ideation: No Patient has homicidal ideation: No Pulmonary Medical History: Denies: Hx Tuberculosis Neurological Medical History: Reports: Hx Seizures Renal/ Medical History: Denies: Hx Peritoneal Dialysis GI Medical History: Reports: Hx Ulcer - perforated in 2007 Musculoskeltal Medical History: Reports Hx Arthritis - degenerative Psychiatric Medical History: Reports: Hx Bipolar Disorder - with manic tendencies, Hx Depression, Hx Post Traumatic Stress Disorder Past Surgical History: Reports: Hx Abdominal Surgery - gastric bypass, Hx Bowel Surgery - perforated ulcer, Hx Cholecystectomy, Hx Gastric Bypass Surgery, Hx Orthopedic Surgery - right shoulder arthroscopy, Hx Pacemaker - Immunizations Hx Diphtheria, Pertussis, Tetanus Vaccination: Yes Review of Systems - Review of Systems Notes: REVIEW OF SYSTEMS GEN: Denies fever, chills, weight loss ENT: sore throat with white patches no voice change. Eating normally. EYES: Denies blurry vision, eye pain, discharge CV: Denies chest pain, palpitations, edema RESP: Denies cough, shortness of breath, wheezing GI: Denies abdominal pain, nausea, vomiting, diarrhea. Positive hernia.. Fully reducible supraumbilical hernia with no tenderness. MSK: Denies joint pain/swelling, edema, SKIN: Denies rash, skin lesions LYMPH: Denies swollen glands/lymph nodes NEURO: Denies headache, focal weakness or numbness, dizziness PSYCH: Denies depression, suicidal or homicidal ideation PHYSICAL EXAMINATION General: No acute distress, well-nourished Head: Atraumatic, normocephalic ENT: Mouth normal, oropharynx moist, exudates on bilateral tonsils on the right side of the uvula with minimal appreciable swelling. Eyes: Conjunctiva normal, pupils equal, lids normal Neck: No JVD, supple, no guarding CVS: Normal rate, regular rhythm, no murmurs Resp: No resp distress, equal and normal breath sounds bilaterally GI: Nondistended, soft, no tenderness to palpation, no rebound or guarding Ext: No deformities, no edema, normal range of motion in upper and lower ext Back: No CVA or midline TTP Skin: No rash, warm Lymphatic: No lymphadeopathy noted Neuro: Awake, alert. Face symmetric. GCS 15. Physical Exam - Vital signs Vitals: Temp Pulse Resp BP Pulse Ox 98.5 F 85 16 144/98 H 98 04/27/17 09:09 04/27/17 09:09 04/27/17 09:09 04/27/17 09:09 04/27/17 09:09 Course - Re-evaluation Re-evalutation: 04/27/17 10:22 36-year-old male presents with 30 days of subjective incarcerated hernia although his hernia is soft his abdomen is soft and his hernia is fully reducible on exam. CT was done which shows the hernia out, however after the CT was done examined the patient and it was fully reducible. His blood labs are pending but they would not change my management. I would treat him clinically for strep regardless of strep test results and I do not think UA is necessary. We will give him a single dose of Decadron and antibiotics to go. I referred him to a local surgeon for ongoing care of his complex abdominal situation. No evidence of incarceration. Labs negative. Strep positive. CT shows stable hernia. I have discussed with the patient there likely diagnosis, aftercare plan, follow -up plans and my usual and customary return precautions. They verbalized understanding of this. 04/27/17 10:40 - Vital Signs Vital signs: Temp Pulse Resp BP Pulse Ox 98.6 F 72 16 134/86 H 97 04/27/17 10:23 04/27/17 10:23 04/27/17 09:09 04/27/17 10:23 04/27/17 10:23 - Laboratory Result Diagrams: 04/27/17 09:44 04/27/17 09:44 Laboratory results interpreted by me: 04/27/17 09:44 Hgb 12.3 L MCV 75 L MCH 23.7 L MCHC 31.6 L RDW 17.4 H Discharge - Discharge Clinical Impression: Strep pharyngitis, Supraumbilical hernia Condition: Good Disposition: HOME, SELF-CARE Additional Instructions: Your seen for hernia which is reducible and has no evidence of incarceration. Please eat a mild diet and follow-up with a surgeon as instructed. We are treating you for strep even though your results have not returned, because you have enough clinical evidence for bacterial infection. Please follow-up with your primary care doctor soon as possible. Prescriptions: Dexamethasone [Decadron 4 Mg Tablet] 8 mg PO DAILY #1 tablet Penicillin V Potassium [Penicillin Vk 250 mg Tablet] 250 mg PO Q6 #40 tablet Referrals: [facility] [Provider Group] - Follow up as needed
[2017-04-27 10:27] VITALS: BP 134/86
--- NOTE | 2017-04-27 10:31 | RADIOLOGY REPORT (SQ) ---
EXAM DESCRIPTION: CT ABD/PELVIS WITH IV ONLY COMPLETED DATE/TIME: 04/27/2017 10:15 am REASON FOR STUDY: abd pain COMPARISON: 08/15/2016. TECHNIQUE: CT scan of the abdomen and pelvis performed using helical scanning technique with dynamic intravenous contrast injection. No oral contrast. Images reviewed with lung, soft tissue, and bone windows. Reconstructed coronal and sagittal MPR images reviewed. Delayed images for evaluation of the urinary system also acquired. All images stored on PACS. All CT scanners at this facility use dose modulation, iterative reconstruction, and/or weight based d osing when appropriate to reduce radiation dose to as low as reasonably achievable (ALARA). [facility]: Dose Right [facility]: CareDose [facility]: Dose Right [facility]: Teradose 4D [facility]: First Cover[employer] CONTRAST TYPE AND DOSE: contrast/concentration: Isovue 370.00 mg/ml; Total Contrast Delivered: 98.0 ml; Total Saline Delivered: 50.0 ml RENAL FUNCTION: None required. The patient is less than 50 years old. RADIATION DOSE: CT Rad equipment meets quality standard of care and radiation dose reduction techniq ues were employed. CTDIvol: 15.0 - 18.6 mGy. DLP: 2068 mGy-cm.. LIMITATIONS: None. FINDINGS: LOWER CHEST: No significant findings. No nodules or infiltrates. LIVER: Normal size. No masses. No dilated ducts. SPLEEN: Normal size. No focal lesions. PANCREAS: No masses. No significant calcifications. No adjacent inflammation or peripancreatic fluid collections. Pancreatic duct not dilated. GALLBLADDER: Surgically absent. ADRENAL GLANDS: No significant masses or asymmetry. RIGHT KIDNEY AND URETER: No solid masses. No significant calcifications. No hydronephrosis or hyd roureter. LEFT KIDNEY AND URETER: No solid masses. No significant calcifications. No hydronephrosis or hydr oureter. AORTA AND VESSELS: No aneurysm. No dissection. Renal arteries, SMA, celiac without stenosis. Inferio r vena cava filter present. RETROPERITONEUM: No retroperitoneal adenopathy, hemorrhage or masses. BOWEL AND PERITONEAL CAVITY: Previous gastric surgery. No masses or inflammatory changes. No free fl uid or peritoneal masses. APPENDIX: Normal. PELVIS: No mass. No free fluid. Normal bladder. ABDOMINAL WALL: No masses. Again seen is a midline abdominal wall hernia located above the umbilicus containing a portion of adjacent small bowel and transverse colon. BONES: No significant or acute findings. OTHER: No other significant finding. IMPRESSION: 1. STABLE MIDLINE ABDOMINAL WALL HERNIA LOCATED ABOVE THE UMBILICUS CONTAINING A PORTION OF SMALL BOW EL AND TRANSVERSE COLON. NO EVIDENCE OF OBSTRUCTION OR OTHER ADVERSE FINDINGS. 2. NO OTHER SIGNIFICANT OR ACUTE FINDING IN THE ABDOMEN OR PELVIS ON CT SCAN WITH IV CONTRAST. TECHNICAL DOCUMENTATION: JOB ID: [id number] Quality ID # [id number]: Final reports with documentation of one or more dose reduction techniques (e.g., Au tomated exposure control, adjustment of the mA and/or kV according to patient size, use of iterative reconstruction technique) 2010 [employer]- All Rights Reserved
[2017-04-27 10:47] LABS: ALANINE AMINOTRANSFERASE 22 U/L (21-72); ALBUMIN 4.5 g/dL (3.5-5.0); ALKALINE PHOSPHATASE 98 U/L (38-126); ANION GAP 12 (5-19); ASPARTATE AMINO TRANSFERASE 36 U/L (17-59); BILIRUBIN,DIRECT 0.2 mg/dL (0.0-0.4); BILIRUBIN,TOTAL 0.4 mg/dL (0.2-1.3); BLOOD UREA NITROGEN 9 mg/dL (7-20); CALCIUM 9.6 mg/dL (8.4-10.2); CARBON DIOXIDE 24 mmol/L (22-30); CHLORIDE 106 mmol/L (98-107); GLUCOSE 97 mg/dL (75-110); POTASSIUM 4.3 mmol/L (3.6-5.0); SODIUM 141.6 mmol/L (137-145)
== END 2017-04-27 11:11 | disposition home or self-care (01) ==
LOC: ER 09:03
DX: J02.0 Streptococcal pharyngitis (principal); K43.9 Ventral hernia without obstruction or gangrene; Z98.84 Bariatric surgery status; Z90.49 Acquired absence of other specified parts of digestive tract; Z91.018 Allergy to other foods; Z87.892 Personal history of anaphylaxis; Z88.8 Allergy status to other drugs, medicaments and biological substances
CPT/HCPCS: 36415; 74177; 80053; 81001; 85025; 87880; 99284

== ENCOUNTER 2017-08-23 19:11 | Emergency (ER) | payer SELFPAY ==
[2017-08-23] MEDS ORDERED: HALOPERIDOL 5 MG TABLET PO ONE ×2 (20:49→22:53)
--- NOTE | 2017-08-23 20:50 | ER Document Report ---
ED General - General Chief Complaint: Probable Seizure Stated Complaint: POSSIBLE SEIZURE Time Seen by Provider: 08/23/17 19:18 Cannot obtain history due to: Mentally challenged, Altered mental status Notes: Patient is a 37-year-old male with a past medical history of bipolar disorder, prior psychiatric hospitalizations who presents by EMS with concern about possible seizure. EMS reports that the patient did not have any witnessed tonic -clonic activity and did not demonstrate any postictal phase at the time of their arrival. Family on scene apparently reported a history of some shaking episodes. He has no known history of seizures. They report the patient has been stating he has been hearing voices, seeing people and is clearly responding to internal stimuli. The patient himself provides minimal to no meaningful history. He states only that he keeps hearing people and that they will not stop talking. He does not endorse any suicidal or homicidal ideation. He is unable to tell me what medications he takes or if he has been taking his medications. TRAVEL OUTSIDE OF THE [place] IN LAST 30 DAYS: No - Related Data Allergies/Adverse Reactions: NSAIDS (Non-Steroidal Anti-Inflamma [Nsaids] Allergy (Intermediate, Verified 02:30) orange juice Allergy (Severe, Uncoded 08/15/16 09:39) spagetti sauce Allergy (Severe, Uncoded 08/15/16 09:39) Vitamin D Synthetic Additive Allergy (Unknown, Uncoded 08/15/16 09:39) Anaphylaxis Past Medical History - General Information source: Patient, Emergency Med Personnel, [facility] Records Cannot obtain history due to: Altered mental status - Social History Smoking Status: Never Smoker Frequency of alcohol use: None Drug Abuse: Prescription drugs Lives with: Family Family History: Reviewed & Not Pertinent Patient has suicidal ideation: No Patient has homicidal ideation: No Pulmonary Medical History: Denies: Hx Tuberculosis Neurological Medical History: Reports: Hx Seizures Renal/ Medical History: Denies: Hx Peritoneal Dialysis GI Medical History: Reports: Hx Ulcer - perforated in 2007 Musculoskeltal Medical History: Reports Hx Arthritis - degenerative Psychiatric Medical History: Reports: Hx Bipolar Disorder - with manic tendencies, Hx Depression, Hx Post Traumatic Stress Disorder Past Surgical History: Reports: Hx Abdominal Surgery - gastric bypass, Hx Bowel Surgery - perforated ulcer, Hx Cholecystectomy, Hx Gastric Bypass Surgery, Hx Orthopedic Surgery - right shoulder arthroscopy, Hx Pacemaker - Immunizations Hx Diphtheria, Pertussis, Tetanus Vaccination: Yes Review of Systems - Review of Systems Notes: Constitutional: Negative for fever. HENT: Negative for sore throat. Eyes: Negative for visual changes. Cardiovascular: Negative for chest pain. Respiratory: Negative for shortness of breath. Gastrointestinal: Negative for abdominal pain, vomiting or diarrhea. Genitourinary: Negative for dysuria. Musculoskeletal: Negative for back pain. Skin: Negative for rash. Neurological: Negative for headaches, weakness or numbness. 10 point ROS negative except as marked above and in HPI. Physical Exam - Vital signs Vitals: Pulse Ox 97 08/23/17 19:17 Interpretation: Normal Notes: PHYSICAL EXAMINATION: GENERAL: Mildly agitated, somewhat redirectable HEAD: Atraumatic, normocephalic. EYES: Pupils equal round and reactive to light, extraocular movements intact, sclera anicteric, conjunctiva are normal. ENT: nares patent, oropharynx clear without exudates. Moist mucous membranes. NECK: Normal range of motion, supple without lymphadenopathy LUNGS: Breath sounds clear to auscultation bilaterally and equal. No wheezes rales or rhonchi. HEART: Regular rate and rhythm without murmurs ABDOMEN: Soft, nontender, normoactive bowel sounds. No guarding, no rebound. No masses appreciated. EXTREMITIES: Normal range of motion, no pitting or edema. No cyanosis. NEUROLOGICAL: Face symmetric. Tongue protrudes midline. Extraocular motions intact. Pupils are 2 mm and equally reactive. Normal speech, normal gait. 5 out of 5 strength in both the distal and proximal upper and lower extremities bilaterally. Sensation is grossly intact throughout. Finger to nose testing normal. Pronator drift normal. PSYCH: Mildly agitated, redirectable. Clearly responding to internal stimuli. Begins holding a conversation with an apparent third-democrat in the room while I am sitting down to take history. When asked me speaking to he points to the corner of the room and says "that mehran over there". SKIN: Warm, Dry, normal turgor, no rashes or lesions noted. Course - Re-evaluation Re-evalutation: 08/23/17 20:49 Patient presents with a complaint of a possible seizure at home. Patient however apparently was conscious the entirety of this time and was not postictal per EMS. He has no history of seizures and the clinical history is not fitting with this diagnosis. Patient however it is apparently responding to internal stimuli during my examination. He randomly begins talking to himself, swearing and muttering to himself quickly. When asking who he is speaking to he states "the mehran in the corner over there". He denies any known history of psychosis although has been seen in the emergency department for alcohol withdrawals and psychiatric issues repeatedly in the past. His vitals are within normal limits. Will obtain standard psychiatric screening laboratories, provide oral haloperidol, obtain a CT of the head in case there is any truth to the diagnosis of a possible seizure as an outpatient as part of standard workup and place a psychiatric consultation for the morning. 08/23/17 22:53 Patient has increasing hallucinations, somewhat more agitated. Workup otherwise unremarkable. CT the head clear. Will give an additional 5 mill grams oral haloperidol as well as 2 mg of oral Ativan 08/24/17 0030 Patient continues to be very restless, pacing around his room, has had to be redirected back to his room repeatedly. Will give 25 mg of oral Thorazine, 5 mg of oral diazepam and 50 mg of oral Benadryl as patient is increasingly agitated. He continues to speak to himself and hold conversations with nobody in the room. 08/24/17 04:19 Patient continues to be quite agitated, now no longer being redirected easily. I have at this point ready given the patient an extensive amount of sedating medications without any significant measurable effect. In total he has received 10 mg oral haloperidol, 25 mg of oral Thorazine, 5 mg of oral diazepam , 2 mg of oral lorazepam, and 50 mg of oral diphenhydramine all without any effect. At this point I am concerned about giving any additional antipsychotics due to risk of QT prolongation. Will administer 4 mg of intramuscular midazolam as the patient is becoming increasingly agitated and combative with nursing staff. - Vital Signs Vital signs: Temp Pulse Resp BP Pulse Ox 98.7 F 111 H 20 118/73 98 08/24/17 02:25 08/24/17 02:25 08/24/17 02:25 08/24/17 02:25 08/24/17 02:25 - Laboratory Result Diagrams: 08/23/17 19:25 08/23/17 19:25 Laboratory results interpreted by me: 08/23/17 08/23/17 08/23/17 19:25 19:25 21:56 WBC 11.7 H Hgb 11.6 L Hct 37.6 L MCV 74 L MCH 22.6 L MCHC 30.7 L RDW 17.2 H Seg Neutrophils % 83.1 H Lymphocytes % 9.6 L Absolute Neutrophils 9.7 H Chloride 109 H Glucose 122 H Direct Bilirubin 0.5 H Total Protein 8.4 H Urine Ketones TRACE H Salicylates < 1.0 L Acetaminophen < 10 L - Diagnostic Test Radiology reviewed: Image reviewed, Reports reviewed Radiology results interpreted by me: 08/23/17 22:54 CT head: No acute intracranial bleed or mass Critical Care Note - Critical Care Note Total time excluding time spent on procedures (mins): 36 Comments: Critical care time spent obtaining history from patient or surrogate, discussions with consultants, development of treatment plan with patient or surrogate, evaluation of patient's response to treatment, examination of patient , ordering and performing treatments and interventions, ordering and review of laboratory studies, re-evaluation of patient's condition, ordering and review of radiographic studies and review of old charts Discharge - Discharge Clinical Impression: Agitation, Visual hallucinations, Auditory hallucinations Psychosis Qualifiers: Psychosis type: unspecified psychosis type Qualified Code(s): F29 - Unspecified psychosis not due to a substance or known physiological condition Condition: Fair
[2017-08-23 20:54] LABS: ABSOLUTE LYMPHOCYTES (AUTO) 1.1 10^3/uL (0.5-4.7); ABSOLUTE MONOCYTES (AUTO) 0.8 10^3/uL (0.1-1.4); ABSOLUTE NEUT (AUTO) 9.7 10^3/uL (1.7-8.2); BASOPHILS % (AUTO) 0.3 % (0-2); EOSINOPHILS % (AUTO) 0.1 % (0-6); HEMATOCRIT 37.6 % (37.9-51.0); HEMOGLOBIN 11.6 g/dL (13.5-17.0); LYMPHOCYTES % (AUTO) 9.6 % (13-45); MEAN CORPUSCULAR HEMOGLOBIN 22.6 pg (27.0-33.4); MEAN CORPUSCULAR HGB CONC 30.7 g/dL (32.0-36.0); MEAN CORPUSCULAR VOLUME 74 fl (80-97); MONOCYTES % (AUTO) 6.9 % (3-13); PLATELET COUNT 423 10^3/uL (150-450); RED BLOOD COUNT 5.12 10^6/uL (4.35-5.55); RED CELL DISTRIBUTION WIDTH 17.2 % (11.5-14.0); SEGMENTED NEUTROPHILS % (AUTO) 83.1 % (42-78); TOTAL CELLS COUNTED % (AUTO) 100 %; WHITE BLOOD COUNT 11.7 10^3/uL (4.0-10.5)
[2017-08-23 21:17] LABS: ACETAMINOPHEN < 10 ug/mL (10-30); ALANINE AMINOTRANSFERASE 28 U/L (21-72); ALBUMIN 4.8 g/dL (3.5-5.0); ALCOHOL < 10 mg/dL (NONE DETECTED); ALKALINE PHOSPHATASE 90 U/L (38-126); ANION GAP 13 (5-19); ASPARTATE AMINO TRANSFERASE 26 U/L (17-59); BILIRUBIN,DIRECT 0.5 mg/dL (0.0-0.4); BILIRUBIN,TOTAL 0.9 mg/dL (0.2-1.3); BLOOD UREA NITROGEN 18 mg/dL (7-20); CALCIUM 9.4 mg/dL (8.4-10.2); CARBON DIOXIDE 22 mmol/L (22-30); CHLORIDE 109 mmol/L (98-107); GLUCOSE 122 mg/dL (75-110); POTASSIUM 4.4 mmol/L (3.6-5.0); SALICYLATE < 1.0 mg/dL (2.0-20.0); SODIUM 143.6 mmol/L (137-145); TOTAL PROTEIN 8.4 g/dL (6.3-8.2)
--- NOTE | 2017-08-23 21:27 | RADIOLOGY REPORT (SQ) ---
EXAM DESCRIPTION: CT HEAD WITHOUT COMPLETED DATE/TIME: 08/23/2017 9:12 pm REASON FOR STUDY: ams, possible seizure COMPARISON: 04/08/2012. TECHNIQUE: Axial images acquired through the brain without intravenous contrast. Images reviewed wi th bone, brain and subdural windows. Additional sagittal and coronal reconstructions were generated. Images stored on PACS. All CT scanners at this facility use dose modulation, iterative reconstruction, and/or weight based d osing when appropriate to reduce radiation dose to as low as reasonably achievable (ALARA). [facility]: Dose Right [facility]: CareDose [facility]: Dose Right [facility]: Teradose 4D [facility]: [employer] RADIATION DOSE: CT Rad equipment meets quality standard of care and radiation dose reduction techniq ues were employed. CTDIvol: 53.2 mGy. DLP: 1044 mGy-cm. mGy. LIMITATIONS: None. FINDINGS: VENTRICLES: Normal size and contour. CEREBRUM: No masses. No hemorrhage. No midline shift. No evidence for acute infarction. Normal gra y/white matter differentiation. No areas of low density in the white matter. CEREBELLUM: No masses. No hemorrhage. No alteration of density. No evidence for acute infarction. EXTRAAXIAL SPACES: No fluid collections. No masses. ORBITS AND GLOBE: No intra- or extraconal masses. Normal contour of globe without masses. CALVARIUM: No fracture. PARANASAL SINUSES: No fluid or mucosal thickening. SOFT TISSUES: No mass or hematoma. OTHER: No other significant finding. IMPRESSION: NORMAL BRAIN CT WITHOUT CONTRAST. EVIDENCE OF ACUTE STROKE: NO. COMMENT: Quality ID # [id number]: Final reports with documentation of one or more dose reduction techniques (e.g., Automated exposure control, adjustment of the mA and/or kV according to patient size, use of iterative reconstruction technique) TECHNICAL DOCUMENTATION: JOB ID: [id number] [employer]- All Rights Reserved Reading location - IP/workstation name: [email or web address]
[2017-08-23 22:47] LABS: URINE AMPHETAMINES SCREEN NEGATIVE; URINE BARBITURATES SCREEN NEGATIVE; URINE BENZODIAZEPINES SCREEN NEGATIVE; URINE COCAINE SCREEN NEGATIVE; URINE MARIJUANA (THC) SCREEN NEGATIVE; URINE METHADONE SCREEN NEGATIVE; URINE PHENCYCLIDINE SCREEN NEGATIVE
[2017-08-23] MEDS ORDERED: LORAZEPAM 1 MG TABLET PO ONE (22:53)
[2017-08-23 22:58] LABS: APPEARANCE,URINE SLIGHTLY-CLOUDY; BILIRUBIN,URINE NEGATIVE (NEGATIVE); COLOR,URINE YELLOW; GLUCOSE, URINE NEGATIVE (NEGATIVE); KETONES,URINE TRACE mg/dL (NEGATIVE); LEUKOCYTE ESTERASE,URINE NEGATIVE (NEGATIVE); NITRITE,URINE NEGATIVE (NEGATIVE); PROTEIN,URINE NEGATIVE (NEGATIVE); URINE SPECIFIC GRAVITY 1.021; UROBILINOGEN,URINE NEGATIVE mg/dL (<2.0)
[2017-08-24] MEDS ORDERED: DIPHENHYDRAMINE HCL 50 MG CAPSULE PO ONE (00:31)
[2017-08-24] MEDS ORDERED: DIAZEPAM 5 MG TABLET PO ONE (00:31)
[2017-08-24] MEDS ORDERED: CHLORPROMAZINE HCL 25 MG TABLET PO ONE (00:31)
[2017-08-24] MEDS ORDERED: MIDAZOLAM 2 MG/2 ML INJ IM ONE (04:17)
[2017-08-24] MEDS ORDERED: ZIPRASIDONE MESYLATE INJ/PF 20 MG SDV IM ONE (06:07)
--- NOTE | 2017-08-24 06:32 | EKG REPORT ---
SEVERITY:- BORDERLINE ECG - SINUS RHYTHM : Confirmed by: Eric Rothman MD 24-Aug-2017 06:31:22
--- NOTE | 2017-08-24 09:19 | ER Document Report ---
Doctor's Note Notes: 08/24/17 09:16 This is a follow-up evaluation: Primary diagnosis-bipolar disorder, agitation, uncontrollable involuntary tremors Patient is here for the above reason, has been doing well, currently has --- complaint. On examination-vitals reviewed in the chart. General exam: Alert oriented 3 not in any acute distress HEENT: Normocephalic atraumatic pupils are equal reactive to light, Lungs-clear breath sounds no rales or wheezing. Cardiovascular system: Normal S1-S2 no murmurs. Gastrointestinal: Normal breath sounds, no organomegaly positive bowel sounds. Genitourinary: Nervous system-he has minor involuntary tremors are noted in both upper limbs and lower limbs. Skin: No lesions noted, no rash Psychiatric: Sedated Diagnoses: Agitation, bipolar, involuntary tremors Plan: Continue on the current management.
[2017-08-24] MEDS ORDERED: OLANZAPINE 5 MG TABLET PO SCH (11:15)
--- NOTE | 2017-08-24 16:41 | PSYCHOLOGICAL NOTE ---
Psych Note - Psych Note Psych Note: Reason for consult: Psychosis, irritability Contact permission: Unknown (Girlfriend Maribell [phone] contact information written on chart) Patient is a 37 year old male who presented to the ED last evening via EMS for hearing things, seeing people and talking to self (per family report to EMS). UDS was negative for all substances. Attending overnight nurse identified patient had required multiple medications for stabilization and is still awake. She stated he was responding to internal stimuli, came to the nurses station, was not easily redirected even after multiple medications administrations and was subsequently put into restraints. Chart review revealed the following medication administration in ED utilized for sedative safety: Haldol 5MG PO at 2100 Haldol 5MG PO at 2259 Ativan 2MG PO at 2300 Benadryl 50MG PO at 0036 Valium 5MG PO at 0036 Thorazine 25MG PO at 0036 Versed 2MG IM at 0425 Geodon 20MG IM at 0628 Observed patient laying in bed, with restraints and carrying on a conversation but nobody else was in the room. Patient security public safety officer noted he continued carrying on a conversation without anyone else in the room and at one point yelled out "Stephanie." Conducted chart review. Patient has been seen 4 times in the [facility] ED since 2012 for MH and/or SA related issues. March 2012 he was seen for alcohol withdrawal , April 2012 he was seen for SI, May 2015 he was seen for SI (remained in ED for 3-4 days under IVC then discharged with plan of care that included AA meetings in his area and other treatment) and June 2016 for an OD of his mother 's Xanax (made a suicidal statement to mother then took a handful of her Xanax, he had no gag reflex was unresponsive and required Ambu Bag, had identified he was diagnosed with Bipolar and had been off medications for 45 days). Diagnosis: Psychosis 296.80 (F31.9) Unspecified Bipolar and Related Disorder by history Impression/Plan: Recommendation to IVC patient given his level of psychosis ( having full on conversations when there is nobody in the room, per family he was hearing and seeing things), as well as his inability to be redirected and becoming easily agitated. He has been seen before by the [facility] Behavioral Health team and noted a Bipolar diagnoses and stopping medications for over a month before. Will seek inpatient placement. Consulted with Dr. Doyle regarding the management and care of patient. ED Physician in agreement with recommendations. Medication recommendations made by the psychiatric medical provider, Dr. Wendy JARQUIN, includes: Zyprexa 5MG twice a day for psychosis, mood stabilization and impulse control Cogentin 1MG daily to curb potential tremors often associated with antipsychotic medications
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
[2017-08-25] MEDS: BENZTROPINE MESYLATE 1 MG TABLET PO SCH (09:39)
[2017-08-25] MEDS: OLANZAPINE 5 MG TABLET PO SCH ×2 (09:39→17:16)
--- NOTE | 2017-08-25 09:49 | ER Document Report ---
Doctor's Note Notes: 08/25/17 09:48 Rounds: Chart reviewed and patient interviewed. Patient has a history of bipolar disorder. Patient says he is feeling better, but seems agitated still. Not hostile. Vital signs are all normal. Labs all essentially normal except for a white count of 11,700 which I doubt is clinical significance. Patient appears to be medically stable for transfer or discharge. At this time, plans are to keep patient under IVC. Adria Phipps MD 08/25/17 11:31 Question has been raised about the patient's involuntary movements of his upper extremities that are described in his chart. He is not currently having any such movements and says he has not had any for couple of days. He is unable to demonstrate to me what the movements look like. He says that he does often end up on the floor when he has 1 of these episodes. No one has told him he has had seizures, however. Patient says they are not related to stress. He says he is unable to show me what it looks like. Patient has not been observed by any of the staff to have any such movements since he has been here in the emergency department on this visit. At this time, he has no such movements. He may be having some form of seizure. His lab workup was essentially normal. His CT scan of his brain was negative. Adria Phipps MD
[2017-08-26] MEDS: BENZTROPINE MESYLATE 1 MG TABLET PO SCH (09:26)
[2017-08-26] MEDS: OLANZAPINE 5 MG TABLET PO SCH ×2 (09:27→18:06)
--- NOTE | 2017-08-26 10:24 | ER Document Report ---
Doctor's Note Notes: 08/26/17 10:23 Rounds: Chart reviewed and patient interviewed. Patient says he is feeling somewhat better than yesterday. Seems to be acting better than yesterday in my opinion. Vital signs are all normal. No new labs to check. Patient appears to be medically stable for transfer or discharge. Adria Phipps MD 08/26/17 18:02 Patient is complaining of headache. I have ordered acetaminophen 975 mg p.o.
--- NOTE | 2017-08-26 16:47 | PSYCHOLOGICAL NOTE ---
Psych Note - Psych Note Psych Note: Reason for consult: 2nd Re-evaluation, IVC, Psychosis, irritability Contact permission: Girlfriend Maribell [phone] Mother Thalia Do [phone] Patient is a 37 year old male in the ED on IVC for acute psychotic episode with history of Bipolar and recent significant stress. Today is day two of being on scheduled medication regimen. He had a brighter affect from yesterday but still seemed tired (drained look on his face, likely from psychotic episode, stress, and medications required for sedation his first night/morning). He denied any side effects from medication. He stated he felt better than yesterday. He acknowledged he spoke to his girlfriend a bit this morning (big deal given yesterday he chose not to talk to her due to wanting to get back to self and not feeling like it then). He stated his mother visited him twice which led into discussing stress surrounding mother and family (processing). He denied having a diagnosed seizure disorder and said that is still trying to be figured out. He described having a few episodes where he is in bed, shaking, disoriented and it comes and goes. He identified he wanted to continue with [facility] and his next appointment is 09/02/17 or 09/04/17 (noted he has it written down at home). Diagnosis: Psychosis 296.80 (F31.9) Unspecified Bipolar and Related Disorder by history Impression/Plan: Recommendation to maintain IVC given patient was just started on a scheduled medication regimen yesterday morning. He is still lethargic and groggy but improved from yesterday. 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 He has a Bipolar diagnosis and a stressful event can trigger symptoms. He denied seizure history and stated it has not been an official diagnosis (what he referenced was being in bed, shaking and not recalling what happened which is what his girlfriend previously described happens when he has nightmares). He identified he has a medication appointment scheduled with [facility] 09/02 17 0r 09/04/17. Will reassess in the morning and if continued improvement may consider plan of care for discharge. Consulted with Dr. Doyle regarding the management and care of patient. ED Physician in agreement with recommendations.
[2017-08-26] MEDS ORDERED: ACETAMINOPHEN 325 MG TABLET PO ONE (18:00)
[2017-08-27] MEDS: BENZTROPINE MESYLATE 1 MG TABLET PO SCH (10:09)
[2017-08-27] MEDS: OLANZAPINE 5 MG TABLET PO SCH (10:09)
--- NOTE | 2017-08-27 11:00 | ER Document Report ---
Notes: 08/27/17 10:59 Pt states that he is feeling much better. He admits that the events from the past week and a half are still a little fuzzy and that he is more sleepy than normal, but pt rates himself at 98% normal for his baseline. He reports that he believes he went into his manic state because he was taking care of his mother by himself and was very worried and stressed because she had a recent stroke and cannot take care of herself. I informed patient of plan to discharge home with Rx of the medications used here in the ED. Pt is comfortable with plan to discharge home and agrees that he needs to ask for help from his sister in taking care of their mother so he may be able to take care of himself. PE: Patient interacts well. No evidence of hallucinations. LUNGS: Clear to auscultation bilaterally, no wheezes, rales, or rhonchi. No respiratory distress. HEART: Regular rate and rhythm. No murmurs, gallops, or rubs. (JOEL SIERRA)
[2017-08-27 11:13] VITALS: BP 115/76
--- NOTE | 2017-08-27 11:24 | PSYCHOLOGICAL NOTE ---
Psych Note - Psych Note Psych Note: Reason for consult: Psychosis, irritability Contact permission: Contact permission: Girlfrienalf Reyna [phone] Mother Thalia Do [phone] Patient is a 37 year old male who presented to the ED last evening via EMS for hearing things, seeing people and talking to self (per family report to EMS). UDS was negative for all substances. Conduct to check in with patient Patient disclosed that he is feeling "much better." Patient states that he knows he was seeing and hearing things and may have had a "slight seizure" which resulted in him coming to [facility]. Patient states that he was having a hard time remembering everything and differentiate between what was real and what was hallucination however states that he knows that he was seeing people; "at the time I thought they were real but looking back I know that they were not." Patient is agreeable to discharge and following up with outpatient mental health provider of [facility] psychiat[facility]. Patient openly engages with clinician. Mood is euthymic with congruent affect as evidenced by smiling and laughing with clinician. Behavior is congruent with intact reality based presentation (ie organized and linear thought processes, good eye contact , and engages in conversation with appropriate conversational speech). . Conducted a chart review of patient no concerns are noted; attending nurse disclosed patient has been doing very well has been engaging in normal conversations, took a shower and has not needed redirection. Diagnosis: Psychosis 296.80 (F31.9) Unspecified Bipolar and Related Disorder by history Impression/Plan: Patient is recommended for rescind of IVC and is considered cleared from acute psychiatric services. Patient is no longer in psychosis or responding to internal stimuli. Patient thought processes are organized and linear makes good eye contact with conversational speech within normal rate tone and prosody. Patient openly engaged with clinician and reflects on parts of the psychosis he remembers. Patient denies current issues of his seeing or hearing things that confuse or scare him. Patient does have an upcoming outpatient mental health appointment with his provider [facility]. Consulted with Dr. Doyle regarding the management and care of patient. ED Physician in agreement with recommendations.
== END 2017-08-27 11:10 | disposition home or self-care (01) ==
LOC: ER 19:11
DX: F29 Unspecified psychosis not due to a substance or known physiological condition (principal); R45.1 Restlessness and agitation; R44.0 Auditory hallucinations; R44.1 Visual hallucinations; Z78.1 Physical restraint status; Z98.84 Bariatric surgery status
CPT/HCPCS: 93005; 99291; 96372; 36415; 80307 ×4; 85025; 80053; 81001; 70450; 93010; J2250; J3490; J3486

== ENCOUNTER 2017-10-23 18:42 | Inpatient (IN) | payer SELFPAY ==
--- NOTE | 2017-10-23 19:02 | ER Document Report ---
ED General <CAROLINA JOHNSON - Last Filed: 10/24/17 00:53> - General Mode of Arrival: Ambulatory Information source: Patient TRAVEL OUTSIDE OF THE [place] IN LAST 30 DAYS: No <MAALTHI JAMES - Last Filed: 10/25/17 02:32> - General Chief Complaint: Possible Overdose Stated Complaint: POSSIBLE OVERDOSE Time Seen by Provider: 10/23/17 18:54 Notes: 37 year old male that presents to the emergency department today with complaints of possible xanax overdose according to the report that was given to EMS by family. Patient states "i dont know" when asked why he is here or what happened tonight prior to arrival. Patient states he slept all day and was up all night last night but is not able to state why. Patient complains of RUE pain. Patient states that he is prescribed latuda and xanax but he did not take those medications today. (MALATHI JAMES) - Related Data Allergies/Adverse Reactions: NSAIDS (Non-Steroidal Anti-Inflamma [Nsaids] Allergy (Intermediate, Verified 02:30) orange juice Allergy (Severe, Uncoded 08/15/16 09:39) spagetti sauce Allergy (Severe, Uncoded 08/15/16 09:39) Vitamin D Synthetic Additive Allergy (Unknown, Uncoded 08/15/16 09:39) Anaphylaxis Past Medical History - General Information source: Patient - Social History Smoking Status: Never Smoker Family History: Reviewed & Not Pertinent Pulmonary Medical History: Denies: Hx Tuberculosis Neurological Medical History: Reports: Hx Seizures Renal/ Medical History: Denies: Hx Peritoneal Dialysis GI Medical History: Reports: Hx Ulcer - perforated in 2007 Musculoskeletal Medical History: Reports Hx Arthritis - degenerative Psychiatric Medical History: Reports: Hx Bipolar Disorder - with manic tendencies, Hx Depression, Hx Post Traumatic Stress Disorder Past Surgical History: Reports: Hx Abdominal Surgery - gastric bypass, Hx Bowel Surgery - perforated ulcer, Hx Cholecystectomy, Hx Gastric Bypass Surgery, Hx Orthopedic Surgery - right shoulder arthroscopy, Hx Pacemaker - Immunizations Hx Diphtheria, Pertussis, Tetanus Vaccination: Yes <MALATHI JAMES - Last Filed: 10/25/17 02:32> Review of Systems - Review of Systems Constitutional: See HPI, Other - "I dont know what happened", according to nursing staff, family reported to EMS that the patient "might have accidentally overdosed on xanax" Musculoskeletal: See HPI, Other - Complains of RUE pain -: Yes All other systems reviewed and negative <MALATHI JAMES - Last Filed: 10/25/17 02:32> Physical Exam <CAROLINA JOHNSON - Last Filed: 10/24/17 00:53> <MALATHI JAMES - Last Filed: 10/25/17 02:32> - Vital signs Vitals: Resp Pulse Ox 21 H 89 L 10/23/17 18:49 10/23/17 18:49 - Notes Notes: Physical Exam: General: Alert, continues to fall asleep throughout exam but easily arousable, answers questions appropriately. HEENT: Normocephalic. Atraumatic. Pupils nearly pinpoint bilaterally. Extraocular movements intact. Oropharynx clear. Very dry oral mucosa, skin on lips flaking. 3cm x 1cm red swollen tender under angle of jaw. 1st and 2nd bicuspid teeth are broken off but non-tender, 1st molar broken off at gum not tender. Floor of mouth is normal. Neck: Supple. Non-tender. Respiratory: No respiratory distress. Clear and equal breath sounds bilaterally. Cardiovascular: Regular rate and rhythm. Abdominal: Lower abdominal tenderness with palpation, palpable bladder distension. Normal Bowel Sounds. Back: Non-tender. No deformity or step off. Extremities: Moves all four extremities. Upper extremities: Swelling and erythema over the right proximal ulna. Swelling over the right elbow which also appears to be hot to the touch. Moderate swelling over the thenar eminence dorsally on the right. Bulging of the dorsal right forearm causing fingers to be contracted. Right ulnar forearm proximally is erythematous and swollen. Lower extremities: Normal inspection. No edema. Normal ROM. Neurological: Normal cognition. AAOx4. Normal speech. Psychological: Normal affect. Normal Mood. Skin: Warm. Head is diaphoretic but rest of body does not appear to be. Normal color. (MALATHI JAMES) Course - Laboratory Result Diagrams: 10/23/17 19:56 10/23/17 19:56 - Diagnostic Test Radiology reviewed: Image reviewed - Ultrasound of the hand and forearm shows swollen muscle without fluid collection, Reports reviewed - CT scan of the head is unremarkable. Chest x-ray shows a left basilar opacity, possibly pneumonia. - EKG Interpretation by Nm EKG shows normal: Sinus rhythm, [place], Intervals, QRS Complexes, ST-T Waves Rate: Normal - 86 Rhythm: NSR [place]/QRS: IVCD - Consults Dr. De Jesus Time consulted: 00:45 Consulted provider: will come to ER <CAROLINA JOHNSON - Last Filed: 10/24/17 00:53> - Laboratory Result Diagrams: 10/24/17 13:00 10/24/17 13:00 <MALATHI JAMES - Last Filed: 10/25/17 02:32> - Re-evaluation Re-evalutation: 10/23/17 22:56 Le[place] catheter was placed relieving 1700 mL's of urine 10/24/17 00:51 The patient is now much more alert, the blood pressure is over 130 systolic, he has a congested cough seems to be more rhonchi on the left. This fits with his chest x-ray that suggested left basilar infiltrate. (CAROLINA JOHNSON) - Vital Signs Vital signs: Temp Pulse Resp BP Pulse Ox 98.9 F 90 20 151/94 H 98 10/24/17 23:35 10/25/17 02:00 10/24/17 23:35 10/24/17 23:35 10/25/17 00:11 - Laboratory Laboratory results interpreted by me: 10/23/17 10/23/17 10/23/17 19:56 19:56 19:56 WBC 17.1 H RBC 5.59 H Hgb 12.4 L MCV 72 L MCH 22.1 L MCHC 30.5 L RDW 18.7 H Seg Neuts % (Manual) 84 H Lymphocytes % (Manual) 4 L Abs Neuts (Manual) 14.9 H Abs Monocytes (Manual) 1.5 H VBG pH 7.28 L Potassium 6.2 H* Carbon Dioxide 21 L BUN 29 H Creatinine 2.86 H Est GFR ( Amer) 30 L Est GFR (Non-Af Amer) 25 L AST 405 H Creatine Kinase 67697 H Urine Protein Urine Blood Acetaminophen [place] 10/23/17 10/23/17 10/23/17 19:56 19:56 20:23 WBC RBC Hgb MCV MCH MCHC RDW Seg Neuts % (Manual) Lymphocytes % (Manual) Abs Neuts (Manual) Abs Monocytes (Manual) VBG pH Potassium Carbon Dioxide BUN Creatinine Est GFR ( Amer) Est GFR (Non-Af Amer) AST Creatine Kinase Urine Protein 100 H Urine Blood LARGE H Acetaminophen < 10 L [place] 0.4 L Critical Care Note - Critical Care Note Total time excluding time spent on procedures (mins): 75 <CAROLINA JOHNSON - Last Filed: 10/24/17 00:53> Discharge - Discharge Admitting Provider: Hospitalist Unit Admitted: ICU <CAROLINA JOHNSON - Last Filed: 10/24/17 00:53> <MALATHI JAMES - Last Filed: 10/25/17 02:32> - Discharge Clinical Impression: Lethargic, Leukocytosis, Dehydration, Hyperkalemia, Acute urinary retention, Submandibular lymphadenopathy Overdose Qualifiers: Encounter type: initial encounter Injury intent: undetermined intent Qualified Code(s): T50.904A - Poisoning by unspecified drugs, medicaments and biological substances, undetermined, initial encounter Acute renal failure Qualifiers: Acute renal failure type: unspecified Qualified Code(s): N17.9 - Acute kidney failure, unspecified Traumatic rhabdomyolysis Qualifiers: Encounter type: initial encounter Qualified Code(s): T79.6XXA - Traumatic ischemia of muscle, initial encounter Crush injury arm Qualifiers: Encounter type: initial encounter Laterality: right Qualified Code(s): S47.1XXA - Crushing injury of right shoulder and upper arm, initial encounter Crush injury of hand Qualifiers: Encounter type: initial encounter Laterality: right Qualified Code(s): S67.21XA - Crushing injury of right hand, initial encounter Hypotension Qualifiers: Hypotension type: unspecified hypotension type Qualified Code(s): I95.9 - Hypotension, unspecified Pneumonia Qualifiers: Pneumonia type: due to unspecified organism Laterality: left Lung location: lower lobe of lung Qualified Code(s): J18.1 - Lobar pneumonia, unspecified organism Bipolar disorder Qualifiers: Active/Remission status: remission status unspecified Qualified Code(s): F31.9 - Bipolar disorder, unspecified Condition: Fair Disposition: ADMITTED INPATIENT Scribe Attestation: 10/23/17 20:51 I personally performed the services described in the documentation, reviewed and edited the documentation which was dictated to the scribe in my presence, and it accurately records my words and actions. (CAROLINA JOHNSON)
[2017-10-23] MEDS: NORMAL SALINE 1000 ML 1,000 ML IV PRN ×2 (20:00→21:30)
[2017-10-23 20:21] LABS: HEMATOCRIT 40.5 % (37.9-51.0); HEMOGLOBIN 12.4 g/dL (13.5-17.0); MEAN CORPUSCULAR HEMOGLOBIN 22.1 pg (27.0-33.4); MEAN CORPUSCULAR HGB CONC 30.5 g/dL (32.0-36.0); MEAN CORPUSCULAR VOLUME 72 fl (80-97); PLATELET COUNT 324 10^3/uL (150-450); RED BLOOD COUNT 5.59 10^6/uL (4.35-5.55); RED CELL DISTRIBUTION WIDTH 18.7 % (11.5-14.0); WHITE BLOOD COUNT 17.1 10^3/uL (4.0-10.5)
[2017-10-23 20:37] LABS: ALANINE AMINOTRANSFERASE 72 U/L (21-72); ALBUMIN 4.8 g/dL (3.5-5.0); ALKALINE PHOSPHATASE 52 U/L (38-126); ANION GAP 16 (5-19); ASPARTATE AMINO TRANSFERASE 405 U/L (17-59); BILIRUBIN,DIRECT 0.3 mg/dL (0.0-0.4); BILIRUBIN,TOTAL 1.2 mg/dL (0.2-1.3); BLOOD UREA NITROGEN 29 mg/dL (7-20); CALCIUM 8.5 mg/dL (8.4-10.2); CARBON DIOXIDE 21 mmol/L (22-30); CHLORIDE 103 mmol/L (98-107); GLUCOSE 110 mg/dL (75-110); SODIUM 140.3 mmol/L (137-145); TOTAL PROTEIN 8.1 g/dL (6.3-8.2)
[2017-10-23 20:41] LABS: POTASSIUM 6.2 mmol/L (3.6-5.0)
[2017-10-23 20:43] LABS: ABSOLUTE LYMPHOCYTES# (MANUAL) 0.7 10^3/uL (0.5-4.7); ABSOLUTE MONOCYTES # (MANUAL) 1.5 10^3/uL (0.1-1.4); ABSOLUTE NEUTROPHILS# (MANUAL) 14.9 10^3/uL (1.7-8.2); BAND NEUTROPHILS % (MANUAL) 3 % (3-5); BASOPHILS % (MANUAL) 0 % (0-2); EOSINOPHILS % (MANUAL) 0 % (0-6); LYMPHOCYTES % (MANUAL) 4 % (13-45); MONOCYTES % (MANUAL) 9 % (3-13); SEGMENTED NEUTROPHILS % (MAN) 84 % (42-78); TOTAL CELLS COUNTED 100
[2017-10-23 20:44] LABS: ANISOCYTOSIS 2+; HYPOCHROMASIA 1+; PLATELET COMMENT ADEQUATE; POIKILOCYTOSIS SLIGHT; TOXIC GRANULATION SLIGHT
[2017-10-23 20:47] LABS: APPEARANCE,URINE CLOUDY; BILIRUBIN,URINE NEGATIVE (NEGATIVE); CALCIUM OXALATE CRYSTALS,URINE FEW /HPF; COLOR,URINE AMBER; GLUCOSE, URINE NEGATIVE (NEGATIVE); KETONES,URINE NEGATIVE (NEGATIVE); LEUKOCYTE ESTERASE,URINE NEGATIVE (NEGATIVE); NITRITE,URINE NEGATIVE (NEGATIVE); PROTEIN,URINE 100 mg/dL (NEGATIVE); URINE SPECIFIC GRAVITY 1.023; UROBILINOGEN,URINE NEGATIVE mg/dL (<2.0)
[2017-10-23 20:47] LABS: VENOUS BLOOD BASE EXCESS -3.3 mmol/L; VENOUS BLOOD PCO2 52.9 mmHg (35-63); VENOUS BLOOD PH 7.28 (7.30-7.42)
[2017-10-23 20:56] LABS: URINE AMPHETAMINES SCREEN NEGATIVE; URINE BARBITURATES SCREEN NEGATIVE; URINE BENZODIAZEPINES SCREEN UNCONFIRMED POSITIVE; URINE COCAINE SCREEN NEGATIVE; URINE MARIJUANA (THC) SCREEN NEGATIVE; URINE METHADONE SCREEN NEGATIVE; URINE PHENCYCLIDINE SCREEN NEGATIVE
[2017-10-23 21:15] LABS: CREATINE KINASE 26314 U/L (55-170)
[2017-10-23 21:53] LABS: ACETAMINOPHEN < 10 ug/mL (10-30)
--- NOTE | 2017-10-23 21:57 | RADIOLOGY REPORT (SQ) ---
EXAM DESCRIPTION: ELBOW RIGHT AP/LAT COMPLETED DATE/TIME: 10/23/2017 9:46 pm REASON FOR STUDY: pain, swelling COMPARISON: None. NUMBER OF VIEWS: Two view. TECHNIQUE: Choose radiographic images acquired of the right elbow. LIMITATIONS: None. FINDINGS: MINERALIZATION: Normal. BONES: No acute fracture or dislocation. No worrisome bone lesions. No significant osteophytes. JOINT: No effusions. SOFT TISSUES: No soft tissue swelling. No foreign body. OTHER: No other significant finding. IMPRESSION: NEGATIVE STUDY OF THE RIGHT ELBOW. NO EXPLANATION FOR PAIN. TECHNICAL DOCUMENTATION: JOB ID: [id number] [employer]- All Rights Reserved Reading location - IP/workstation name: [email or web address]
--- NOTE | 2017-10-23 21:58 | RADIOLOGY REPORT (SQ) ---
EXAM DESCRIPTION: HAND RIGHT 2 VIEWS COMPLETED DATE/TIME: 10/23/2017 9:46 pm REASON FOR STUDY: pain, swelling COMPARISON: None. EXAM PARAMETERS: NUMBER OF VIEWS: Three views. TECHNIQUE: AP, lateral and oblique radiographic images acquired of the right hand. LIMITATIONS: None. FINDINGS: MINERALIZATION: Normal. BONES: No acute fracture or dislocation. No worrisome bone lesions. No significant osteophytes. JOINTS: No erosions. No mohan-articular osteopenia. No chondrocalcinosis. SOFT TISSUES: No swelling. No calcifications. OTHER: No other significant finding. IMPRESSION: NEGATIVE STUDY OF THE RIGHT HAND. NO EXPLANATION FOR PAIN. TECHNICAL DOCUMENTATION: JOB ID: [id number] [employer]- All Rights Reserved Reading location - IP/workstation name: [email or web address]
--- NOTE | 2017-10-23 22:30 | EKG REPORT ---
SEVERITY:- ABNORMAL ECG - SINUS RHYTHM NONSPECIFIC INTRAVENTRICULAR CONDUCTION DELAY : Confirmed by: Erica Gonsalez MD 23-Oct-2017 22:29:38
--- NOTE | 2017-10-23 23:14 | RADIOLOGY REPORT (SQ) ---
EXAM DESCRIPTION: CT HEAD WITHOUT IV CONTRAST COMPLETED DATE/TME: 10/23/2017 22:22 CLINICAL HISTORY: Altered mental status, possible fall COMPARISON: None available TECHNIQUE: Axial CT of the head obtained from the skull apex to the skull base without contrast. FINDINGS: No acute intracranial hemorrhage identified. No mass, mass effect, shift of the midline, abnormal extra-axial fluid collection or CT evidence of acute ischemic change identified. The ventricular system is unremarkable. No acute abnormalities of the supratentorial white matter, basal ganglia, cerebellum, or brainstem. The visualized paranasal sinuses and the mastoids are clear. No skull fracture identified. Visualized orbits and globes are unremarkable. DLP:1123.58 mGy-cm IMPRESSION: 1. No acute intracranial abnormality identified. This exam was performed according to our departmental dose-optimization program, which includes automated exposure control, adjustment of the mA and/or kV according to patient size and/or use of iterative reconstruction technique.
--- NOTE | 2017-10-23 23:22 | RADIOLOGY REPORT (SQ) ---
EXAM DESCRIPTION: XR CHEST 1 VIEW COMPLETED DATE/TME: 10/23/2017 22:22 CLINICAL HISTORY: Altered mental status, possible fall COMPARISON: 08/15/2016 FINDINGS: Single frontal view of the chest. The cardiomediastinal silhouette has normal size and contour. Patchy left basilar airspace opacity. No pneumothorax or pleural effusion. No displaced rib fractures identified. Upper abdominal soft tissues are unremarkable. IMPRESSION: 1. Left basilar airspace opacity. These findings could be seen in pneumonia or atelectasis.
[2017-10-23] MEDS ORDERED: CEFTRIAXONE 1 GM/D5W RTU 1 GM/50 ML RTUPB IV ONE (23:26)
[2017-10-23] MEDS ORDERED: NORMAL SALINE 1000 ML 1,000 ML IV ONE (23:28)
[2017-10-24] LABS: LITHIUM 0.4 mEq/L (0.6-1.2)
[2017-10-24] MEDS ORDERED: CEFTRIAXONE INJ 1000 MG VIAL IV PRN (00:20)
[2017-10-24] MEDS ORDERED: CEFTRIAXONE INJ 1000 MG VIAL IV ONE (00:30)
--- NOTE | 2017-10-24 00:46 | RADIOLOGY REPORT (SQ) ---
EXAM DESCRIPTION: US EXTREMITY MUSCULOSKELETAL COMPLETED DATE/TME: 10/23/2017 23:53 CLINICAL HISTORY: 37 years, Male, right hand and forearm, swelling COMPARISON: None. TECHNIQUE: Direct real-time sonographic images of the right upper extremity at the level of the hand and forearm in the area of edema. FINDINGS: No well-circumscribed fluid collection. No significant increase in vascularity. Edema within the muscles of the hand in the area of concern. IMPRESSION: 1. No well-circumscribed fluid collection identified to suggest hematoma or abscess. 2. Edema within the musculature of the hand in the area of concern scan by the aeronautical engineering technologist. 2010 [employer]- All Rights Reserved
[2017-10-24] MEDS ORDERED: PROMETHAZINE HCL INJ 25 MG/1 ML VIAL IV PRN (01:59)
[2017-10-24 03:01] LABS: HEMATOCRIT 34.4 % (37.9-51.0); HEMOGLOBIN 10.5 g/dL (13.5-17.0); MEAN CORPUSCULAR HEMOGLOBIN 21.9 pg (27.0-33.4); MEAN CORPUSCULAR HGB CONC 30.5 g/dL (32.0-36.0); MEAN CORPUSCULAR VOLUME 72 fl (80-97); PLATELET COUNT 270 10^3/uL (150-450); RED BLOOD COUNT 4.79 10^6/uL (4.35-5.55); RED CELL DISTRIBUTION WIDTH 19.3 % (11.5-14.0); WHITE BLOOD COUNT 17.4 10^3/uL (4.0-10.5)
[2017-10-24 03:14] LABS: ALANINE AMINOTRANSFERASE 105 U/L (21-72); ALBUMIN 3.8 g/dL (3.5-5.0); ALKALINE PHOSPHATASE 47 U/L (38-126); ANION GAP 14 (5-19); ASPARTATE AMINO TRANSFERASE 631 U/L (17-59); BILIRUBIN,DIRECT 0.3 mg/dL (0.0-0.4); BILIRUBIN,TOTAL 0.6 mg/dL (0.2-1.3); BLOOD UREA NITROGEN 34 mg/dL (7-20); CALCIUM 7.6 mg/dL (8.4-10.2); CARBON DIOXIDE 17 mmol/L (22-30); CHLORIDE 111 mmol/L (98-107); GLUCOSE 118 mg/dL (75-110); SODIUM 142.2 mmol/L (137-145); TOTAL PROTEIN 6.8 g/dL (6.3-8.2)
[2017-10-24] MEDS ORDERED: IPRATROPIUM/ALBUTEROL 0.5-2.5 MG/3 ML AMPUL NEB PRN (03:17)
[2017-10-24 03:20] LABS: ABSOLUTE LYMPHOCYTES# (MANUAL) 0.7 10^3/uL (0.5-4.7); ABSOLUTE MONOCYTES # (MANUAL) 0.5 10^3/uL (0.1-1.4); ABSOLUTE NEUTROPHILS# (MANUAL) 16.2 10^3/uL (1.7-8.2); BAND NEUTROPHILS % (MANUAL) 4 % (3-5); BASOPHILS % (MANUAL) 0 % (0-2); EOSINOPHILS % (MANUAL) 0 % (0-6); LYMPHOCYTES % (MANUAL) 4 % (13-45); MONOCYTES % (MANUAL) 3 % (3-13); SEGMENTED NEUTROPHILS % (MAN) 89 % (42-78); TOTAL CELLS COUNTED 100
--- NOTE | 2017-10-24 03:21 | PDOC H&P ---
History of Present Illness Admission Date/PCP: 10/24/17 01:07 Patient complains of: Xanax overdose History of Present Illness: HUSSAIN ARITA II is a 37 year old male with medical history of bipolar disorder with vira tendencies, depression, PTSD, seizure disorder, alcohol abuse, suicidal attempts. Came initially with the impression of Xanax overdose. His mother and stepfather are at the bedside. Stepfather tells me around 10 AM he went to check on him as he was laying on the mattress which is on the floor, found him rolled off the mattress with his body laying on his right arm, he rolled him back but he could not move that arm, fell asleep. Around 2 PM he went back to recheck on him and found him with a severe right submaxillary swelling, this was admitted recently brought him to the emergency department. The patient was arousable and answering questions. In the emergency department I asked him and he tells me that he could not sleep for the last 3 nights, he psychiatric told him that this is part of his maniac episode, tells me that he did not take more than 2 pills of Xanax but he was so tired that he fell asleep deeply. Complains of right upper extremity tenderness an is evidently swollen, right submandibular tenderness, epigastric tenderness, diarrhea about 10 episodes a day but this is not new for him on his nonbloody, mild decreased urinary output , subjective fever, has been coughing since the morning with mild brownish sputum, denies shortness of breath. Denies having any suicidal attempt. Several laboratory abnormalities that I will detail below. Patient has history of Xanax overdose on June 2016, at that time he had to be intubated and placed on mechanical ventilators. Patient has multiple visits to the emergency department secondary to psychiatric issues and other complaints. In the ED chest x-ray, x-ray of the right elbow, right hand ultrasound, right hand x-ray, CT head done. Details below Past Medical History Pulmonary Medical History: Denies: Tuberculosis Neurological Medical History: Reports: Seizures Musculoskeltal Medical History: Reports: Arthritis - degenerative Psychiatric Medical History: Reports: Alcohol Dependency, Bipolar Disorder - with manic tendencies, Depression, Post Traumatic Stress Disorder, Other - Suicidal attempts Hematology: Reports: Anemia Past Surgical History Past Surgical History: Reports: Cholecystectomy, Gastric Bypass Surgery, Orthopedic Surgery - right shoulder arthroscopy, Pacemaker Social History Smoking Status: Unknown if Ever Smoked Frequency of Alcohol Use: Heavy Hx Recreational Drug Use: No Hx Prescription Drug Abuse: Yes - See history and present illness. Family History Family History: Reviewed & Not Pertinent Parental Family History Reviewed: No Children Family History Reviewed: NA Sibling(s) Family History Reviewed.: NA Medication/Allergy Home Medications: Amox Tr/Potassium Clavulanate [Augmentin "500" Tablet] 1 tab PO Q8 #21 tablet 07/10/16 Ferrous Sulfate [Feosol 325 mg Tablet] 325 mg PO DAILY #30 tablet 07/10/16 Multivitamins W-Iron [Flintstones Chewable Multivit W/Fe Tab] 2 tab.chew PO DAILY #1 bottle 07/10/16 Dexamethasone [Decadron 4 Mg Tablet] 8 mg PO DAILY #1 tablet 04/27/17 Penicillin V Potassium [Penicillin Vk 250 mg Tablet] 250 mg PO Q6 #40 tablet Benztropine Mesylate [Cogentin 1 mg Tablet] 1 tab PO DAILY #14 tab 08/27/17 Olanzapine [Zyprexa 5 mg Tablet] 5 mg PO Q12 #30 tablet 08/27/17 Allergies/Adverse Reactions: NSAIDS (Non-Steroidal Anti-Inflamma [Nsaids] Allergy (Intermediate, Verified 02:30) orange juice Allergy (Severe, Uncoded 08/15/16 09:39) spagetti sauce Allergy (Severe, Uncoded 08/15/16 09:39) Vitamin D Synthetic Additive Allergy (Unknown, Uncoded 08/15/16 09:39) Anaphylaxis Review of Systems Review of Systems: As outlined in the HPI, all others negative Physical Exam Vital Signs: Temp Pulse Resp BP Pulse Ox 19 126/83 H 95 10/24/17 01:01 10/24/17 01:00 10/24/17 01:01 Additional comments: General appearance: Well-developed, obese, alert and cooperative, and appears to be in no acute distress, mild somnolent Head: Severe right submandibular swelling with tenderness to palpation and lymph node enlargement. Eyes: PEERL, EOMI, vision is grossly intact. Ears: External auditory canal and tympanic membranes clear, hearing grossly intact. Nose: No nasal discharge. Throat: Oral cavity and pharynx normal and dry. Neck: Neck supple, nontender, no masses, no thyromegaly Cardiac: Normal S1 and S2. No S3, S4 or murmurs. Rhythm is regular. There is no cyanosis or pallor. Extremities are warm and well perfused. Capillary refill is less than 2 seconds. No carotid bruits. Lungs: Clear to auscultation and percussion without rales, rhonchi, wheezing or diminished breath sounds. Not using accessory muscles. Abdomen: Positive bowel sounds. Soft. Nondistended, mild epigastric tenderness. No guarding or rebound. Midline eventration. No hepatosplenomegaly. Large longitudinal scar Extremities: Right upper extremity with swelling on the hand going up to the forearm and elbow extending the arm, diffuse erythema, warmth, very tender to palpation, limitation of movement secondary to pain. Contraction of finger secondary to swelling. Neurological: Cranial nerves II through XII grossly intact. Strength and sensation symmetric and intact throughout. Reflexes 2+ throughout. Skin: Skin normal color, texture and turgor with no lesions or eruptions, warm and dry. With exception of right upper extremity Psychiatric: The mental examination revealed the patient was oriented to person , place, and time. The patient was able to demonstrate good judgment on recent , without hallucinations, abnormal affect or abnormal behaviors. Results Laboratory Results: 10/23/17 10/23/17 10/23/17 19:56 19:56 19:56 WBC 17.1 H RBC 5.59 H Hgb 12.4 L Hct 40.5 MCV 72 L MCH 22.1 L MCHC 30.5 L RDW 18.7 H Plt Count 324 Total Counted 100 Seg Neuts % (Manual) 84 H Band Neutrophils % 3 Lymphocytes % (Manual) 4 L Monocytes % (Manual) 9 Abs Neuts (Manual) 14.9 H Abs Lymphs (Manual) 0.7 Abs Monocytes (Manual) 1.5 H Toxic Granulation SLIGHT Hypochromasia 1+ Anisocytosis 2+ Microcytosis 1+ VBG pH 7.28 L VBG pCO2 52.9 VBG HCO3 24.0 Sodium 140.3 Potassium 6.2 H* Chloride 103 Carbon Dioxide 21 L Anion Gap 16 BUN 29 H Creatinine 2.86 H Est GFR ( Amer) 30 L Est GFR (Non-Af Amer) 25 L Glucose 110 Calcium 8.5 Total Bilirubin 1.2 Direct Bilirubin 0.3 AST 405 H ALT 72 Alkaline Phosphatase 52 Creatine Kinase 40546 H Total Protein 8.1 Albumin 4.8 Urine Color Urine Appearance Urine pH Ur Specific Butler Urine Protein Urine Glucose (UA) Urine Ketones Urine Blood Urine Nitrite Urine Bilirubin Urine Urobilinogen Ur Leukocyte Esterase Urine WBC (Auto) Urine RBC (Auto) U Hyaline Cast (Auto) Urine Bacteria (Auto) Squamous Epi Cells Auto Calcium Oxalate Cr Auto Urine Mucus (Auto) Urine Ascorbic Acid Urine Opiates Screen Urine Methadone Screen Acetaminophen Ur Barbiturates Screen Ur Phencyclidine Scrn Ur Amphetamines Screen U Benzodiazepines Scrn [place] Urine Cocaine Screen U Marijuana (THC) Screen 10/23/17 10/23/17 10/23/17 19:56 19:56 20:23 WBC RBC Hgb Hct MCV MCH MCHC RDW Plt Count Total Counted Seg Neuts % (Manual) Band Neutrophils % Lymphocytes % (Manual) Monocytes % (Manual) Abs Neuts (Manual) Abs Lymphs (Manual) Abs Monocytes (Manual) Toxic Granulation Hypochromasia Anisocytosis Microcytosis VBG pH VBG pCO2 VBG HCO3 Sodium Potassium Chloride Carbon Dioxide Anion Gap BUN Creatinine Est GFR ( Amer) Est GFR (Non-Af Amer) Glucose Calcium Total Bilirubin Direct Bilirubin AST ALT Alkaline Phosphatase Creatine Kinase Total Protein Albumin Urine Color LAUREN Urine Appearance CLOUDY Urine pH 5.0 Ur Specific [place] 1.023 Urine Protein 100 H Urine Glucose (UA) NEGATIVE Urine Ketones NEGATIVE Urine Blood LARGE H Urine Nitrite NEGATIVE Urine Bilirubin NEGATIVE Urine Urobilinogen NEGATIVE Ur Leukocyte Esterase NEGATIVE Urine WBC (Auto) 16 Urine RBC (Auto) 2 U Hyaline Cast (Auto) 10 Urine Bacteria (Auto) TRACE Squamous Epi Cells Auto 1 Calcium Oxalate Cr Auto FEW Urine Mucus (Auto) RARE Urine Ascorbic Acid NEGATIVE Urine Opiates Screen Urine Methadone Screen Acetaminophen < 10 L Ur Barbiturates Screen Ur Phencyclidine Scrn Ur Amphetamines Screen U Benzodiazepines Scrn [place]orman 0.4 L Urine Cocaine Screen U Marijuana (THC) Screen 10/23/17 20:23 WBC RBC Hgb Hct MCV MCH MCHC RDW Plt Count Total Counted Seg Neuts % (Manual) Band Neutrophils % Lymphocytes % (Manual) Monocytes % (Manual) Abs Neuts (Manual) Abs Lymphs (Manual) Abs Monocytes (Manual) Toxic Granulation Hypochromasia Anisocytosis Microcytosis VBG pH VBG pCO2 VBG HCO3 Sodium Potassium Chloride Carbon Dioxide Anion Gap BUN Creatinine Est GFR ( Amer) Est GFR (Non-Af Amer) Glucose Calcium Total Bilirubin Direct Bilirubin AST ALT Alkaline Phosphatase Creatine Kinase Total Protein Albumin Urine Color Urine Appearance Urine pH Ur Specific [place] Urine Protein Urine Glucose (UA) Urine Ketones Urine Blood Urine Nitrite Urine Bilirubin Urine Urobilinogen Ur Leukocyte Esterase Urine WBC (Auto) Urine RBC (Auto) U Hyaline Cast (Auto) Urine Bacteria (Auto) Squamous Epi Cells Auto Calcium Oxalate Cr Auto Urine Mucus (Auto) Urine Ascorbic Acid Urine Opiates Screen NEGATIVE Urine Methadone Screen NEGATIVE Acetaminophen Ur Barbiturates Screen NEGATIVE Ur Phencyclidine Scrn NEGATIVE Ur Amphetamines Screen NEGATIVE U Benzodiazepines Scrn UNCONFIRMED POSITIVE Gorman Urine Cocaine Screen NEGATIVE U Marijuana (THC) Screen NEGATIVE Impressions: Elbow X-Ray 10/23/17 21:08 IMPRESSION: NEGATIVE STUDY OF THE RIGHT ELBOW. NO EXPLANATION FOR PAIN. Hand X-Ray 10/23/17 21:08 IMPRESSION: NEGATIVE STUDY OF THE RIGHT HAND. NO EXPLANATION FOR PAIN. Chest X-Ray 10/23/17 22:22 IMPRESSION: 1. Left basilar airspace opacity. These findings could be seen in pneumonia or atelectasis. Head CT 10/23/17 22:22 IMPRESSION: 1. No acute intracranial abnormality identified. This exam was performed according to our departmental dose-optimization program, which includes automated exposure control, adjustment of the mA and/or kV according to patient size and/or use of iterative reconstruction technique. Extremity Ultrasound 10/23/17 23:53 IMPRESSION: 1. No well-circumscribed fluid collection identified to suggest hematoma or abscess. 2. Edema within the musculature of the hand in the area of concern scan by the lead technologist in cytogenetics. 2010 [employer]- All Rights Reserved Assessment & Plan - Diagnosis (1) Lethargic Is this a current diagnosis for this admission?: Yes Plan: Patient has been without this sleeping for the last 3 days, apparently took 1 or 2 pills of Xanax and was very lethargic. Denies taking more than 2 pills, denies having any suicidal attempt. Currently alert and oriented 4. Psychiatric has been consulted. CT head negative (2) Acute renal failure Qualifiers: Acute renal failure type: unspecified Qualified Code(s): N17.9 - Acute kidney failure, unspecified Is this a current diagnosis for this admission?: Yes Plan: BUN 29 creatinine 2.86, patient has normal renal function as a baseline. When Lechuga catheter was placed 1700 cc of urine came out. This is probably pre-and post renal in origin. I am giving aggressive IV fluid hydration. Strict input and output. We are rechecking laboratories now. Lechuga catheter placed. (3) Hyperkalemia Is this a current diagnosis for this admission?: Yes Plan: Potassium initially 6.2, ED attending gave IV fluids, I ask to recheck labs, EKG with minimal ST depression in V4 and V5. Likely secondary to his renal failure. (4) Rhabdomyolysis Qualifiers: Rhabdomyolysis type: traumatic Is this a current diagnosis for this admission?: Yes Plan: This is likely secondary to crush injury to his right upper extremity. CK 26, 314. We will aggressively hydrate the patient with normal saline running at 200 cc/h with CK in the morning and reassessment. X-ray of right elbow negative, right hand ultrasound shows only edema, right hand x-ray negative. (5) Hypotension Qualifiers: Hypotension type: unspecified hypotension type Qualified Code(s): I95.9 - Hypotension, unspecified Is this a current diagnosis for this admission?: Yes Plan: Initially systolic blood pressure on the 90s and diastolic in the 50s, now normalized after IV fluid bolus given. Telemetry monitoring. (6) Submandibular lymphadenopathy Is this a current diagnosis for this admission?: Yes Plan: Patient with a large right submandibular lymph node, very tender to palpation. Expected to improved spontaneously. (7) Bipolar disorder Qualifiers: Active/Remission status: remission status unspecified Qualified Code(s): F31.9 - Bipolar disorder, unspecified Is this a current diagnosis for this admission?: Yes Plan: Pulmonary disorder with vira Episode, continue with home medications. Patient follows in [facility] (8) CAP (community acquired pneumonia) Qualifiers: Laterality: left Is this a current diagnosis for this admission?: Yes Plan: Chest x-ray shows left base opacity, possible pneumonia, also the patient has community-acquired pneumonia with IV Rocephin and IV azithromycin. I am not sure if patient has aspirated but he was complaining of cough and brownish sputum since the morning. He is not short of breath and no respiratory distress. Respiratory monitoring. Leukocytosis with left shift. - Time Time Spent: 50 to 70 Minutes - Inpatient Certification Based on my medical assessment, after consideration of the patient's comorbidities, presenting symptoms, or acuity I expect that the services needed warrant INPATIENT care.: Yes I certify that my determination is in accordance with my understanding of Medicare's requirements for reasonable and necessary INPATIENT services [42 CFR 412.3e].: Yes Medical Necessity: Need For IV Fluids, Risk of Complication if Not Cared For in Hospital
[2017-10-24 03:23] LABS: HYPOCHROMASIA 1+; OVALOCYTES 1+; TOXIC VACUOLATION PRESENT
[2017-10-24 03:28] LABS: CREATINE KINASE 42128 U/L (55-170); POTASSIUM 4.5 mmol/L (3.6-5.0)
[2017-10-24] MEDS ORDERED: AZITHROMYCIN INJ 500 MG VIAL IV PRN (03:38)
[2017-10-24] MEDS: NORMAL SALINE 1000 ML 1,000 ML IV PRN ×3 (03:51→21:35)
[2017-10-24 04:01] LABS: PLATELET COMMENT ADEQUATE
[2017-10-24] MEDS: ACETAMINOPHEN 325 MG TABLET PO PRN ×3 (05:13→20:17)
[2017-10-24] MEDS: HEPARIN SOD (PORCINE) 5,000 UNIT/ML 1 ML SYRINGE SUBCUT SCH ×3 (05:14→21:34)
[2017-10-24] MEDS ORDERED: AZITHROMYCIN 500 MG in DEXTROSE 5%-WATER 250 ML IV SCH (06:00)
[2017-10-24 07:08] LABS: AMORPHOUS SEDIMENT,URINE 1+ /HPF; APPEARANCE,URINE TURBID; BILIRUBIN,URINE NEGATIVE (NEGATIVE); COLOR,URINE YELLOW; GLUCOSE, URINE NEGATIVE (NEGATIVE); KETONES,URINE NEGATIVE (NEGATIVE); LEUKOCYTE ESTERASE,URINE NEGATIVE (NEGATIVE); NITRITE,URINE NEGATIVE (NEGATIVE); PROTEIN,URINE 100 mg/dL (NEGATIVE); URINE SPECIFIC GRAVITY 1.017; UROBILINOGEN,URINE NEGATIVE mg/dL (<2.0)
[2017-10-24 07:42] LABS: HEMATOCRIT 32.9 % (37.9-51.0); HEMOGLOBIN 10.1 g/dL (13.5-17.0); MEAN CORPUSCULAR HEMOGLOBIN 22.1 pg (27.0-33.4); MEAN CORPUSCULAR HGB CONC 30.6 g/dL (32.0-36.0); MEAN CORPUSCULAR VOLUME 72 fl (80-97); PLATELET COUNT 287 10^3/uL (150-450); RED BLOOD COUNT 4.55 10^6/uL (4.35-5.55); RED CELL DISTRIBUTION WIDTH 18.9 % (11.5-14.0); WHITE BLOOD COUNT 14.8 10^3/uL (4.0-10.5)
[2017-10-24 07:52] LABS: ALANINE AMINOTRANSFERASE 106 U/L (21-72); ALBUMIN 3.4 g/dL (3.5-5.0); ALKALINE PHOSPHATASE 46 U/L (38-126); ANION GAP 13 (5-19); ASPARTATE AMINO TRANSFERASE 648 U/L (17-59); BILIRUBIN,DIRECT 0.2 mg/dL (0.0-0.4); BILIRUBIN,TOTAL 0.5 mg/dL (0.2-1.3); BLOOD UREA NITROGEN 36 mg/dL (7-20); CALCIUM 7.7 mg/dL (8.4-10.2); CARBON DIOXIDE 20 mmol/L (22-30); CHLORIDE 110 mmol/L (98-107); GLUCOSE 108 mg/dL (75-110); POTASSIUM 4.3 mmol/L (3.6-5.0); SODIUM 142.9 mmol/L (137-145); TOTAL PROTEIN 6.2 g/dL (6.3-8.2)
[2017-10-24 08:16] LABS: ABSOLUTE LYMPHOCYTES# (MANUAL) 0.9 10^3/uL (0.5-4.7); ABSOLUTE MONOCYTES # (MANUAL) 0.4 10^3/uL (0.1-1.4); ABSOLUTE NEUTROPHILS# (MANUAL) 13.5 10^3/uL (1.7-8.2); BASOPHILS % (MANUAL) 0 % (0-2); EOSINOPHILS % (MANUAL) 0 % (0-6); LYMPHOCYTES % (MANUAL) 6 % (13-45); MONOCYTES % (MANUAL) 3 % (3-13); SEGMENTED NEUTROPHILS % (MAN) 91 % (42-78); TOTAL CELLS COUNTED 100
[2017-10-24 08:17] LABS: ANISOCYTOSIS 2+; HYPOCHROMASIA 2+; POIKILOCYTOSIS SLIGHT; POLYCHROMASIA SLIGHT
[2017-10-24 08:18] LABS: OVALOCYTES SLIGHT; PLATELET COMMENT ADEQUATE
[2017-10-24 08:54] LABS: CREATINE KINASE 37903 U/L (55-170)
[2017-10-24] MEDS ORDERED: VANCOMYCIN HCL 0 MG in DEXTROSE 5%-WATER 250 ML IV NR (12:00)
--- NOTE | 2017-10-24 12:39 | Progress Note ---
Provider Note Provider Note: This is a 77 years old male patient with past medical history of bipolar disorder, PTSD and seizure disorder brought with a suspicion of Xanax overdose. Patient also found to be in acute renal failure and rhabdomyolysis. Accept this patient and I will be his primary attending
[2017-10-24] MEDS ORDERED: CEFEPIME 2 GM/D5W RTU 2 GM/50 ML RTUPB IV SCH (13:00)
[2017-10-24 13:08] LABS: HEMATOCRIT 33.8 % (37.9-51.0); HEMOGLOBIN 10.4 g/dL (13.5-17.0); MEAN CORPUSCULAR HEMOGLOBIN 22.3 pg (27.0-33.4); MEAN CORPUSCULAR HGB CONC 30.7 g/dL (32.0-36.0); MEAN CORPUSCULAR VOLUME 73 fl (80-97); PLATELET COUNT 258 10^3/uL (150-450); RED BLOOD COUNT 4.65 10^6/uL (4.35-5.55); RED CELL DISTRIBUTION WIDTH 18.9 % (11.5-14.0); WHITE BLOOD COUNT 13.9 10^3/uL (4.0-10.5)
[2017-10-24] MEDS ORDERED: VANCOMYCIN HCL 2,000 MG in DEXTROSE 5%-WATER 500 ML IV ONE (14:00)
[2017-10-24 14:40] LABS: ANION GAP 12 (5-19); BLOOD UREA NITROGEN 39 mg/dL (7-20); CALCIUM 8.1 mg/dL (8.4-10.2); CARBON DIOXIDE 20 mmol/L (22-30); CHLORIDE 116 mmol/L (98-107); GLUCOSE 109 mg/dL (75-110); POTASSIUM 4.7 mmol/L (3.6-5.0); SODIUM 148.3 mmol/L (137-145)
[2017-10-24 15:46] LABS: CREATINE KINASE 34028 U/L (55-170)
[2017-10-24] MEDS: CEFEPIME 2 GM/D5W RTU 2 GM/50 ML RTUPB IV SCH (18:15)
[2017-10-24] MEDS: FENTANYL 50 MCG/HR PATCH.TD72 TD SCH (18:16)
[2017-10-24] MEDS: VANCOMYCIN HCL 1,500 MG in DEXTROSE 5%-WATER 250 ML IV SCH (23:13)
[2017-10-25] MEDS ORDERED: CEFTRIAXONE 1 GM/D5W RTU 1 GM/50 ML RTUPB IV SCH
[2017-10-25] MEDS: ACETAMINOPHEN 325 MG TABLET PO PRN ×6 (00:31→23:46)
[2017-10-25] MEDS: NORMAL SALINE 1000 ML 1,000 ML IV PRN ×3 (03:42→20:32)
[2017-10-25] MEDS: HEPARIN SOD (PORCINE) 5,000 UNIT/ML 1 ML SYRINGE SUBCUT SCH ×3 (05:14→21:30)
[2017-10-25] MEDS: CEFEPIME 2 GM/D5W RTU 2 GM/50 ML RTUPB IV SCH ×2 (05:14→18:54)
[2017-10-25 06:23] LABS: ARTERIAL BLOOD BASE EXCESS -4.3 mmol/L; ARTERIAL BLOOD H2CO3 1.03 mmol/L (1.05-1.35); ARTERIAL BLOOD PCO2 34.1 mmHg (35-45); ARTERIAL BLOOD PH 7.39 (7.35-7.45); ARTERIAL BLOOD PO2 81.1 mmHg (80-100); ARTERIAL BLOOD TOTAL CO2 21.1 mmol/L (23-27)
[2017-10-25 06:24] LABS: ARTERIAL BLOOD FIO2 3.5 L
[2017-10-25 06:25] LABS: HEMATOCRIT 30.3 % (37.9-51.0); HEMOGLOBIN 9.4 g/dL (13.5-17.0); MEAN CORPUSCULAR HEMOGLOBIN 22.2 pg (27.0-33.4); MEAN CORPUSCULAR HGB CONC 31.2 g/dL (32.0-36.0); MEAN CORPUSCULAR VOLUME 71 fl (80-97); PLATELET COUNT 259 10^3/uL (150-450); RED BLOOD COUNT 4.24 10^6/uL (4.35-5.55); RED CELL DISTRIBUTION WIDTH 19.1 % (11.5-14.0); WHITE BLOOD COUNT 14.5 10^3/uL (4.0-10.5)
[2017-10-25 06:54] LABS: ABSOLUTE LYMPHOCYTES# (MANUAL) 0.3 10^3/uL (0.5-4.7); ABSOLUTE MONOCYTES # (MANUAL) 0.9 10^3/uL (0.1-1.4); ABSOLUTE NEUTROPHILS# (MANUAL) 13.2 10^3/uL (1.7-8.2); BAND NEUTROPHILS % (MANUAL) 1 % (3-5); BASOPHILS % (MANUAL) 1 % (0-2); EOSINOPHILS % (MANUAL) 0 % (0-6); LYMPHOCYTES % (MANUAL) 2 % (13-45); MONOCYTES % (MANUAL) 6 % (3-13); SEGMENTED NEUTROPHILS % (MAN) 90 % (42-78); TOTAL CELLS COUNTED 100
[2017-10-25 06:56] LABS: ANISOCYTOSIS 2+; HYPOCHROMASIA 2+; OVALOCYTES 1+; PLATELET COMMENT ADEQUATE
[2017-10-25 07:11] LABS: ALANINE AMINOTRANSFERASE 100 U/L (21-72); ALBUMIN 2.9 g/dL (3.5-5.0); ALKALINE PHOSPHATASE 53 U/L (38-126); ANION GAP 7 (5-19); ASPARTATE AMINO TRANSFERASE 347 U/L (17-59); BILIRUBIN,DIRECT 0.3 mg/dL (0.0-0.4); BILIRUBIN,TOTAL 0.8 mg/dL (0.2-1.3); BLOOD UREA NITROGEN 30 mg/dL (7-20); CALCIUM 7.7 mg/dL (8.4-10.2); CARBON DIOXIDE 21 mmol/L (22-30); CHLORIDE 112 mmol/L (98-107); GLUCOSE 130 mg/dL (75-110); POTASSIUM 4.4 mmol/L (3.6-5.0); SODIUM 139.5 mmol/L (137-145); TOTAL PROTEIN 5.5 g/dL (6.3-8.2)
[2017-10-25 07:46] LABS: CREATINE KINASE 14438 U/L (55-170)
[2017-10-25] MEDS ORDERED: FUROSEMIDE INJ/PF 100 MG/10 ML SDV IV ONE (10:00)
--- NOTE | 2017-10-25 10:39 | PDOC CONSULTATION ---
Consultation Consult Date: 10/25/17 Consult reason:: Right arm swelling History of Present Illness Admission Date/PCP: 10/24/17 01:07 History of Present Illness: HUSSAIN ARITA II is a 37 year old male Patient is a 37-year-old white male with a past medical history significant for bipolar disorder and intentional drug overdoses who presents on Thursday with complaints of right arm swelling after sleeping on it overnight. Patient will evaluate x-rays as well as an ultrasound. Ultrasound is notable for muscle edema. Past Medical History Pulmonary Medical History: Denies: Tuberculosis Neurological Medical History: Reports: Seizures Musculoskeltal Medical History: Reports: Arthritis - degenerative Psychiatric Medical History: Reports: Alcohol Dependency, Bipolar Disorder - with manic tendencies, Depression, Post Traumatic Stress Disorder, Other - Suicidal attempts Hematology: Reports: Anemia Past Surgical History Past Surgical History: Reports: Cholecystectomy, Gastric Bypass Surgery, Orthopedic Surgery - right shoulder arthroscopy, Pacemaker Social History Information Source: Patient, Relative, [facility] Records Smoking Status: Never Smoker Frequency of Alcohol Use: None Hx Recreational Drug Use: No Drugs: None Hx Prescription Drug Abuse: Yes - See history and present illness. - Advance Directive Resuscitation Status: Full Code Family History Family History: Reviewed & Not Pertinent Parental Family History Reviewed: No Children Family History Reviewed: No Sibling(s) Family History Reviewed.: No Medication/Allergy Home Medications: Alprazolam [Xanax] 1 mg PO Q8 10/24/17 [place] Carbonate [Lithobid 300 mg Capsule] 600 mg PO QHS 10/24/17 Lurasidone HCl [Latuda] 80 mg PO QHS 10/24/17 Methylphenidate HCl [Ritalin] 20 mg PO TID@0800,1200,1500 10/24/17 Allergies/Adverse Reactions: NSAIDS (Non-Steroidal Anti-Inflamma [Nsaids] Allergy (Intermediate, Verified 02:30) orange juice Allergy (Severe, Uncoded 08/15/16 09:39) spagetti sauce Allergy (Severe, Uncoded 08/15/16 09:39) Vitamin D Synthetic Additive Allergy (Unknown, Uncoded 08/15/16 09:39) Anaphylaxis Review of Systems All systems: as per PMH Physical Exam Vital Signs: Temp Pulse Resp BP Pulse Ox 36.9 C 85 20 135/87 H 100 10/25/17 07:35 10/25/17 07:35 10/25/17 07:35 10/25/17 07:35 10/25/17 07:35 Intake & Output 10/24/17 10/25/17 10/26/17 06:59 06:59 06:59 Intake Total 1250 4626 Output Total 2600 Balance 1250 2025 Weight 108.862 kg Physical Exam: Patient is an overweight middle-aged white male lying in hospital bed in some distress. He surrounded by 2 family members. General appearance: PRESENT: mild distress Head exam: PRESENT: normocephalic Respiratory exam: PRESENT: unlabored Cardiovascular exam: PRESENT: RRR Pulses: PRESENT: normal radial pulses Vascular exam: PRESENT: normal capillary refill GI/Abdominal exam: PRESENT: soft Rectal exam: PRESENT: deferred Extremities exam: PRESENT: other - Examination of the right upper extremity reveals swelling distal to the elbow. There is increased soft tissue tension and there appears to be small fracture blisters potentially developing over the dorsal radiocarpal region. There is brisk capillary refill to each of the digits. I can palpate a radial pulse. The hand is held in a claw type fashion with considerable swelling throughout the hand and the fingers. Passive range of motion of the digits, primarily extension, causes significant discomfort for the patient. There is a subjective sensory deficit over the median, radial, and ulnar distribution. Motor strength cannot be adequately be assessed. Neurological exam: PRESENT: alert, awake, oriented to person, oriented to place , oriented to time, oriented to situation. ABSENT: motor sensory deficit Results Laboratory Results: 10/25/17 06:10 10/25/17 06:10 10/24/17 10/24/17 10/25/17 13:00 13:00 05:50 WBC 13.9 H RBC 4.65 Hgb 10.4 L Hct 33.8 L MCV 73 L MCH 22.3 L MCHC 30.7 L RDW 18.9 H Plt Count 258 Seg Neutrophils % Lymphocytes % Monocytes % Eosinophils % Basophils % Absolute Neutrophils Absolute Lymphocytes Absolute Monocytes Absolute Eosinophils Absolute Basophils Carbonic Acid 1.03 L HCO3/H2CO3 Ratio 19:1 ABG pH 7.39 ABG pCO2 34.1 L ABG pO2 81.1 ABG HCO3 20.0 ABG O2 Saturation 96.0 ABG Base Excess -4.3 FiO2 3.5 L Sodium 148.3 H Potassium 4.7 Chloride 116 H Carbon Dioxide 20 L Anion Gap 12 BUN 39 H Creatinine 2.00 H Est GFR ( Amer) 46 L Est GFR (Non-Af Amer) 38 L Glucose 109 Calcium 8.1 L Magnesium Total Bilirubin AST ALT Alkaline Phosphatase Total Protein Albumin 10/25/17 10/25/17 06:10 06:10 WBC 14.5 H RBC 4.24 L Hgb 9.4 L Hct 30.3 L MCV 71 L MCH 22.2 L MCHC 31.2 L RDW 19.1 H Plt Count 259 Seg Neutrophils % Not Reportable Lymphocytes % Not Reportable Monocytes % Not Reportable Eosinophils % Not Reportable Basophils % Not Reportable Absolute Neutrophils Not Reportable Absolute Lymphocytes Not Reportable Absolute Monocytes Not Reportable Absolute Eosinophils Not Reportable Absolute Basophils Not Reportable Carbonic Acid HCO3/H2CO3 Ratio ABG pH ABG pCO2 ABG pO2 ABG HCO3 ABG O2 Saturation ABG Base Excess FiO2 Sodium 139.5 Potassium 4.4 Chloride 112 H Carbon Dioxide 21 L Anion Gap 7 BUN 30 H Creatinine 1.49 H Est GFR ( Amer) > 60 Est GFR (Non-Af Amer) 53 L Glucose 130 H Calcium 7.7 L Magnesium 2.0 Total Bilirubin 0.8 AST 347 H ALT 100 H Alkaline Phosphatase 53 Total Protein 5.5 L Albumin 2.9 L 10/24/17 10/24/17 10/24/17 02:45 02:45 06:45 Creatine Kinase 97511 H 23664 H Troponin I 0.083 10/24/17 10/25/17 13:00 06:10 Creatine Kinase 52509 H 73324 H Troponin I Impressions: Elbow X-Ray 10/23/17 21:08 IMPRESSION: NEGATIVE STUDY OF THE RIGHT ELBOW. NO EXPLANATION FOR PAIN. Hand X-Ray 10/23/17 21:08 IMPRESSION: NEGATIVE STUDY OF THE RIGHT HAND. NO EXPLANATION FOR PAIN. Chest X-Ray 10/23/17 22:22 IMPRESSION: 1. Left basilar airspace opacity. These findings could be seen in pneumonia or atelectasis. Head CT 10/23/17 22:22 IMPRESSION: 1. No acute intracranial abnormality identified. This exam was performed according to our departmental dose-optimization program, which includes automated exposure control, adjustment of the mA and/or kV according to patient size and/or use of iterative reconstruction technique. Extremity Ultrasound 10/23/17 23:53 IMPRESSION: 1. No well-circumscribed fluid collection identified to suggest hematoma or abscess. 2. Edema within the musculature of the hand in the area of concern scan by the special procedure technologist. 2010 [employer]- All Rights Reserved Status: Imported from PACS Assessment & Plan - Diagnosis (1) Crush injury arm Qualifiers: Encounter type: initial encounter Laterality: right Qualified Code(s): S47.1XXA - Crushing injury of right shoulder and upper arm, initial encounter Is this a current diagnosis for this admission?: Yes Plan: 37-year-old white male with a presumed Thursday night palsy of the right upper extremity following a drug overdose. The question that is important is that of whether or not there is an underlying compartment syndrome. The patient certainly has a significantly elevated CPK. He has at least a sensory neurologic deficit to the right hand as well as pain associate with passive range of motion all of which are concerning. His current compartment pressure measurement was 45 mm. Current mean arterial pressure is slightly greater than 100. I think this is allows adequate perfusion. The concern is that the patient may have had a very compartment pressures at the time of admission at which point his mean arterial pressure was approximately 75. This may have led to muscle ischemia that was transient. I do not think that there is a role at this point for fasciotomies but admittedly there is a possibility of an underlying neuromuscular deficit. We will begin occupational therapy today for range of motion, elevation of the extremity, and observation. - Time Time Spent: 50 to 70 Minutes Anticipated discharge: Home Within: Other
[2017-10-25] MEDS: VANCOMYCIN HCL 1,500 MG in DEXTROSE 5%-WATER 250 ML IV SCH ×2 (14:54→23:02)
--- NOTE | 2017-10-25 18:10 | PSYCHOLOGICAL NOTE ---
Psych Note - Psych Note Psych Note: Psych Note: Met with patient on 10/24/17. Patient states "I was not trying to kill myself". Patient did admit to "seeing people" in his sleep but was groggy and could not go into details. Pt admitted that he took 2 Xanax pills today just before the ambulance was called. Patient states that his mom saw his right hand was swollen and called EMS. Patient was unable to open his right hand and did not know why. Patient states that he was being seen at [facility] and he sees Dr. Rivero for medication. Nurse reports that patient has pneumonia, poor liver function & acute kidney problems. Diagnosis: 296.40 Bipolar I Unspecified Impression/Plan: Patient was asleep during the first attempt to interview earlier in the morning. Clinician returned in the afternoon and patient was still groggy, going in and out of sleep during the consultation. Patient was observed to be shivering, very shaky but attempted to engage the clinician. Patient lives with his mom and Step Dad and plans to return with him at discharge. Clinician staffed the case with the nurse on duty at the time and she states that he will be here a couple of days due to his physical health.
[2017-10-25] MEDS ORDERED: ALPRAZOLAM 0.5 MG TABLET PO ONE (20:00)
[2017-10-25] MEDS: LITHIUM CARBONATE 300 MG CAPSULE PO SCH (21:30)
[2017-10-25] MEDS: LURASIDONE HCL 40 MG TABLET PO SCH (21:31)
[2017-10-26] MEDS: NORMAL SALINE 1000 ML 1,000 ML IV PRN ×3 (03:49→22:33)
[2017-10-26] MEDS: ACETAMINOPHEN 325 MG TABLET PO PRN ×3 (03:50→17:19)
[2017-10-26] MEDS: CEFEPIME 2 GM/D5W RTU 2 GM/50 ML RTUPB IV SCH ×2 (05:30→17:19)
[2017-10-26] MEDS: HEPARIN SOD (PORCINE) 5,000 UNIT/ML 1 ML SYRINGE SUBCUT SCH ×3 (05:30→22:34)
[2017-10-26] MEDS: ALPRAZOLAM 0.5 MG TABLET PO SCH ×3 (05:30→22:36)
[2017-10-26 06:40] LABS: HEMATOCRIT 29.2 % (37.9-51.0); HEMOGLOBIN 9.1 g/dL (13.5-17.0); MEAN CORPUSCULAR VOLUME 71 fl (80-97); PLATELET COUNT 243 10^3/uL (150-450); RED BLOOD COUNT 4.13 10^6/uL (4.35-5.55); RED CELL DISTRIBUTION WIDTH 18.1 % (11.5-14.0); WHITE BLOOD COUNT 13.3 10^3/uL (4.0-10.5)
[2017-10-26 06:52] LABS: ANION GAP 10 (5-19); BLOOD UREA NITROGEN 25 mg/dL (7-20); CALCIUM 7.8 mg/dL (8.4-10.2); CARBON DIOXIDE 18 mmol/L (22-30); CHLORIDE 111 mmol/L (98-107); GLUCOSE 93 mg/dL (75-110); SODIUM 139.1 mmol/L (137-145)
--- NOTE | 2017-10-26 06:54 | PDOC PROGRESS REPORT ---
Subjective Progress Note for:: 10/26/17 Reason For Visit: ENCEPHALOPATHY/RHABDOMYOLYSIS/HYPERKALEMIA/ACUTE Follow-up right upper extremity swelling Physical Exam Vital Signs: Temp Pulse Resp BP Pulse Ox 37.8 C 94 22 H 151/84 H 97 10/26/17 04:07 10/26/17 04:07 10/26/17 04:07 10/26/17 04:07 10/26/17 04:07 Intake & Output 10/24/17 10/25/17 10/26/17 06:59 06:59 06:59 Intake Total 1250 4676 4864 Output Total 2600 2500 Balance 1250 2076 2364 Weight 108.862 kg 110.2 kg Physical Exam: Patient reports no significant improvement in his symptoms. By my examination there may be increased swelling in the right upper extremity and clearly this improved passive range of motion of the digits. There continues to be a dense sensory neuropathy and brisk capillary refill General appearance: PRESENT: mild distress Head exam: PRESENT: normocephalic Respiratory exam: PRESENT: unlabored Cardiovascular exam: PRESENT: RRR Pulses: PRESENT: normal radial pulses Vascular exam: PRESENT: normal capillary refill GI/Abdominal exam: PRESENT: soft Rectal exam: PRESENT: deferred Extremities exam: PRESENT: other - As above Results Laboratory Results: 10/25/17 10/25/17 10/26/17 06:10 06:10 05:14 WBC 14.5 H RBC 4.24 L Hgb 9.4 L Hct 30.3 L MCV 71 L MCH 22.2 L MCHC 31.2 L RDW 19.1 H Plt Count 259 Seg Neutrophils % Not Reportable Lymphocytes % Not Reportable Monocytes % Not Reportable Eosinophils % Not Reportable Basophils % Not Reportable Absolute Neutrophils Not Reportable Absolute Lymphocytes Not Reportable Absolute Monocytes Not Reportable Absolute Eosinophils Not Reportable Absolute Basophils Not Reportable Sodium 139.5 Potassium 4.4 Chloride 112 H Carbon Dioxide 21 L Anion Gap 7 BUN 30 H Creatinine 1.49 H Est GFR ( Amer) > 60 Est GFR (Non-Af Amer) 53 L Glucose 130 H Calcium 7.7 L Magnesium 2.0 Total Bilirubin 0.8 AST 347 H ALT 100 H Alkaline Phosphatase 53 Total Protein 5.5 L Albumin 2.9 L 10/24/17 10/24/17 10/24/17 02:45 02:45 06:45 Creatine Kinase 24985 H 52576 H Troponin I 0.083 10/24/17 10/25/17 13:00 06:10 Creatine Kinase 70446 H 75671 H Troponin I Impressions: Elbow X-Ray 10/23/17 21:08 IMPRESSION: NEGATIVE STUDY OF THE RIGHT ELBOW. NO EXPLANATION FOR PAIN. Hand X-Ray 10/23/17 21:08 IMPRESSION: NEGATIVE STUDY OF THE RIGHT HAND. NO EXPLANATION FOR PAIN. Chest X-Ray 10/23/17 22:22 IMPRESSION: 1. Left basilar airspace opacity. These findings could be seen in pneumonia or atelectasis. Head CT 10/23/17 22:22 IMPRESSION: 1. No acute intracranial abnormality identified. This exam was performed according to our departmental dose-optimization program, which includes automated exposure control, adjustment of the mA and/or kV according to patient size and/or use of iterative reconstruction technique. Extremity Ultrasound 10/23/17 23:53 IMPRESSION: 1. No well-circumscribed fluid collection identified to suggest hematoma or abscess. 2. Edema within the musculature of the hand in the area of concern scan by the electroencephalographic technologist. 2010 [employer]- All Rights Reserved Status: Imported from PACS Assessment & Plan - Diagnosis (1) Crush injury arm Qualifiers: Encounter type: initial encounter Laterality: right Qualified Code(s): S47.1XXA - Crushing injury of right shoulder and upper arm, initial encounter Is this a current diagnosis for this admission?: Yes Plan: Continue observation - Time Time Spent with patient: 15-24 minutes Anticipated discharge: Other Within: Other
[2017-10-26 07:28] LABS: ABSOLUTE LYMPHOCYTES# (MANUAL) 0.3 10^3/uL (0.5-4.7); ABSOLUTE MONOCYTES # (MANUAL) 0.5 10^3/uL (0.1-1.4); ABSOLUTE NEUTROPHILS# (MANUAL) 12.5 10^3/uL (1.7-8.2); ANISOCYTOSIS 2+; BASOPHILS % (MANUAL) 0 % (0-2); EOSINOPHILS % (MANUAL) 0 % (0-6); HYPOCHROMASIA SLIGHT; LYMPHOCYTES % (MANUAL) 2 % (13-45); MONOCYTES % (MANUAL) 4 % (3-13); PLATELET COMMENT ADEQUATE; SEGMENTED NEUTROPHILS % (MAN) 94 % (42-78); TOTAL CELLS COUNTED 100; TOXIC GRANULATION SLIGHT
[2017-10-26 07:34] LABS: CREATINE KINASE 7961 U/L (55-170)
[2017-10-26] MEDS: METHYLPHENIDATE HCL 5 MG TABLET PO SCH ×3 (10:04→17:19)
[2017-10-26] MEDS ORDERED: PROMETHAZINE HCL INJ 25 MG/1 ML VIAL IV PRN (10:30)
[2017-10-26] MEDS: VANCOMYCIN HCL 1,500 MG in DEXTROSE 5%-WATER 250 ML IV SCH (12:05)
--- NOTE | 2017-10-26 12:13 | PDOC PROGRESS REPORT ---
Subjective Progress Note for:: 10/26/17 Subjective:: I seen patient resting in bed. He complains of headache. Otherwise patient does not have any fever, chills nausea, vomiting or diarrhea. His blood works are improving his white cell counts trended down from 17.1-13.3. And his creatinine from 2.44-1.4 and his CPK from 40,000-8000. Patient is being followed by Dr. Keene orthopedic surgeon. Reason For Visit: ENCEPHALOPATHY/RHABDOMYOLYSIS/HYPERKALEMIA/ACUTE Physical Exam Vital Signs: Temp Pulse Resp BP Pulse Ox 99.8 F 93 28 H 154/88 H 96 10/26/17 07:54 10/26/17 07:54 10/26/17 07:54 10/26/17 07:54 10/26/17 09:20 Intake & Output 10/25/17 10/26/17 10/27/17 06:59 06:59 06:59 Intake Total 4676 4864 1000 Output Total 2600 2500 Balance 2076 2364 1000 Weight 108.862 kg 110.2 kg General appearance: PRESENT: no acute distress Eye exam: PRESENT: conjunctiva pink Mouth exam: PRESENT: moist Neck exam: ABSENT: carotid bruit, JVD, lymphadenopathy, thyromegaly Respiratory exam: PRESENT: clear to auscultation carter. ABSENT: rales, rhonchi, wheezes Cardiovascular exam: PRESENT: RRR. ABSENT: diastolic murmur, rubs, systolic murmur Extremities exam: PRESENT: other - 0 right arm is foreign tight and tender Neurological exam: PRESENT: alert, awake, oriented to time, oriented to situation Results Laboratory Results: 10/26/17 05:14 10/26/17 10/26/17 05:14 05:14 WBC 13.3 H RBC 4.13 L Hgb 9.1 L Hct 29.2 L MCV 71 L MCH 22.0 L MCHC 31.0 L RDW 18.1 H Plt Count 243 Seg Neutrophils % Not Reportable Lymphocytes % Not Reportable Monocytes % Not Reportable Eosinophils % Not Reportable Basophils % Not Reportable Absolute Neutrophils Not Reportable Absolute Lymphocytes Not Reportable Absolute Monocytes Not Reportable Absolute Eosinophils Not Reportable Absolute Basophils Not Reportable Sodium 139.1 Potassium 4.0 Chloride 111 H Carbon Dioxide 18 L Anion Gap 10 BUN 25 H Creatinine 1.40 H Est GFR ( Amer) > 60 Est GFR (Non-Af Amer) 57 L Glucose 93 Calcium 7.8 L 10/24/17 10/24/17 10/24/17 02:45 02:45 06:45 Creatine Kinase 19085 H 04696 H Troponin I 0.083 10/24/17 10/25/17 10/26/17 13:00 06:10 05:14 Creatine Kinase 60003 H 07715 H 7961 H Troponin I Impressions: Elbow X-Ray 10/23/17 21:08 IMPRESSION: NEGATIVE STUDY OF THE RIGHT ELBOW. NO EXPLANATION FOR PAIN. Hand X-Ray 10/23/17 21:08 IMPRESSION: NEGATIVE STUDY OF THE RIGHT HAND. NO EXPLANATION FOR PAIN. Chest X-Ray 10/23/17 22:22 IMPRESSION: 1. Left basilar airspace opacity. These findings could be seen in pneumonia or atelectasis. Head CT 10/23/17 22:22 IMPRESSION: 1. No acute intracranial abnormality identified. This exam was performed according to our departmental dose-optimization program, which includes automated exposure control, adjustment of the mA and/or kV according to patient size and/or use of iterative reconstruction technique. Extremity Ultrasound 10/23/17 23:53 IMPRESSION: 1. No well-circumscribed fluid collection identified to suggest hematoma or abscess. 2. Edema within the musculature of the hand in the area of concern scan by the 3d technologist. 2010 [employer]- All Rights Reserved Assessment & Plan - Diagnosis (1) Cellulitis of the neck and right arm Is this a current diagnosis for this admission?: Yes Plan: Patient has been empirically started on cefepime and vancomycin. The left facial swelling has been decreasing. (2) Acute kidney injury Is this a current diagnosis for this admission?: Yes (3) Community acquired pneumonia Is this a current diagnosis for this admission?: Yes Plan: Pneumonia is suspected based on chest x-ray which was reported consolidation versus atelectasis. Continue current antibiotics (4) Rhabdomyolysis Is this a current diagnosis for this admission?: Yes Plan: His CPKs trending down. Continue IV hydration. (5) Seizure disorder Is this a current diagnosis for this admission?: Yes Plan: No seizure activity since admission (6) PTSD (post-traumatic stress disorder) Is this a current diagnosis for this admission?: Yes Plan: Stable
[2017-10-26 12:24] LABS: VANCOMYCIN,TROUGH 12.4 ug/mL (5.0-20.0)
[2017-10-26] MEDS: OXYCODONE-ACETAMINOPHEN 5-325 MG TABLET PO PRN ×3 (13:59→22:39)
[2017-10-26] MEDS: LITHIUM CARBONATE 300 MG CAPSULE PO SCH (22:36)
[2017-10-26] MEDS: LURASIDONE HCL 40 MG TABLET PO SCH (22:37)
[2017-10-27] MEDS: VANCOMYCIN HCL 1,500 MG in DEXTROSE 5%-WATER 250 ML IV SCH ×2 (00:29→12:06)
[2017-10-27] MEDS: OXYCODONE-ACETAMINOPHEN 5-325 MG TABLET PO PRN ×4 (02:49→21:41)
[2017-10-27] MEDS: HEPARIN SOD (PORCINE) 5,000 UNIT/ML 1 ML SYRINGE SUBCUT SCH ×3 (05:32→21:40)
[2017-10-27] MEDS: CEFEPIME 2 GM/D5W RTU 2 GM/50 ML RTUPB IV SCH ×2 (05:33→17:19)
[2017-10-27] MEDS: ALPRAZOLAM 0.5 MG TABLET PO SCH ×3 (05:33→21:41)
[2017-10-27] MEDS: ACETAMINOPHEN 325 MG TABLET PO PRN ×3 (06:09→17:41)
--- NOTE | 2017-10-27 06:26 | PDOC PROGRESS REPORT ---
Subjective Progress Note for:: 10/27/17 Reason For Visit: ENCEPHALOPATHY/RHABDOMYOLYSIS/HYPERKALEMIA/ACUTE 37-year-old white male with right upper extremity swelling which is presumably post ischemic. Patient continues to complain of a dense probably neurosensory neuropathy in the hand. Physical Exam Vital Signs: Temp Pulse Resp BP Pulse Ox 39.2 C H 99 24 H 150/92 H 92 10/27/17 06:05 10/27/17 03:35 10/27/17 03:35 10/27/17 03:35 10/27/17 03:35 Intake & Output 10/25/17 10/26/17 10/27/17 06:59 06:59 06:59 Intake Total 4676 4914 4554 Output Total 2600 2500 1450 Balance 2076 2414 3104 Weight 108.862 kg 110.2 kg General appearance: PRESENT: no acute distress, mild distress Head exam: PRESENT: normocephalic Respiratory exam: PRESENT: unlabored Cardiovascular exam: PRESENT: RRR Pulses: PRESENT: normal radial pulses Vascular exam: PRESENT: normal capillary refill GI/Abdominal exam: PRESENT: soft Rectal exam: PRESENT: deferred Extremities exam: PRESENT: other - Swelling right upper extremity slightly improved from yesterday. Continued dense sensory neuropathy overall III nerve distributions. Brisk capillary refill and palpable radial artery pulse Neurological exam: PRESENT: alert, awake, oriented to person, oriented to place , oriented to time, oriented to situation Skin exam: PRESENT: dry, intact, warm. ABSENT: cyanosis, rash Results Laboratory Results: 10/26/17 05:14 10/26/17 11:44 10/26/17 10/26/17 10/26/17 05:14 05:14 11:44 WBC 13.3 H RBC 4.13 L Hgb 9.1 L Hct 29.2 L MCV 71 L MCH 22.0 L MCHC 31.0 L RDW 18.1 H Plt Count 243 Seg Neutrophils % Not Reportable Lymphocytes % Not Reportable Monocytes % Not Reportable Eosinophils % Not Reportable Basophils % Not Reportable Absolute Neutrophils Not Reportable Absolute Lymphocytes Not Reportable Absolute Monocytes Not Reportable Absolute Eosinophils Not Reportable Absolute Basophils Not Reportable Sodium 139.1 Potassium 4.0 Chloride 111 H Carbon Dioxide 18 L Anion Gap 10 BUN 25 H Creatinine 1.40 H 1.45 H Est GFR ( Amer) > 60 > 60 Est GFR (Non-Af Amer) 57 L 55 L Glucose 93 Calcium 7.8 L 10/24/17 10/24/17 10/24/17 02:45 02:45 06:45 Creatine Kinase 95844 H 88740 H Troponin I 0.083 10/24/17 10/25/17 10/26/17 13:00 06:10 05:14 Creatine Kinase 73261 H 56326 H 7961 H Troponin I Impressions: Elbow X-Ray 10/23/17 21:08 IMPRESSION: NEGATIVE STUDY OF THE RIGHT ELBOW. NO EXPLANATION FOR PAIN. Hand X-Ray 10/23/17 21:08 IMPRESSION: NEGATIVE STUDY OF THE RIGHT HAND. NO EXPLANATION FOR PAIN. Chest X-Ray 10/23/17 22:22 IMPRESSION: 1. Left basilar airspace opacity. These findings could be seen in pneumonia or atelectasis. Head CT 10/23/17 22:22 IMPRESSION: 1. No acute intracranial abnormality identified. This exam was performed according to our departmental dose-optimization program, which includes automated exposure control, adjustment of the mA and/or kV according to patient size and/or use of iterative reconstruction technique. Extremity Ultrasound 10/23/17 23:53 IMPRESSION: 1. No well-circumscribed fluid collection identified to suggest hematoma or abscess. 2. Edema within the musculature of the hand in the area of concern scan by the diagnostic technologist. 2010 [employer]- All Rights Reserved Status: Imported from PACS Assessment & Plan - Diagnosis (1) Crush injury arm Qualifiers: Encounter type: initial encounter Laterality: right Qualified Code(s): S47.1XXA - Crushing injury of right shoulder and upper arm, initial encounter Is this a current diagnosis for this admission?: Yes Plan: Slight improvement continue with occupational therapy for active and passive range of motion. Continue observation. - Time Time Spent with patient: 15-24 minutes Anticipated discharge: Home Within: Other
[2017-10-27] MEDS: NORMAL SALINE 1000 ML 1,000 ML IV PRN ×2 (08:35→17:19)
[2017-10-27] MEDS: METHYLPHENIDATE HCL 5 MG TABLET PO SCH ×3 (09:22→17:22)
--- NOTE | 2017-10-27 12:43 | PDOC PROGRESS REPORT ---
Subjective Progress Note for:: 10/27/17 Subjective:: Patient seated resting in bed comfortably. Patient might have ulnar nerve injury evidence of by flexion at the proximal interphalangeal joints of the right hand. He has been participating with the occupational therapy. His acute kidney injury and rhabdomyolysis are improving steadily. Reason For Visit: ENCEPHALOPATHY/RHABDOMYOLYSIS/HYPERKALEMIA/ACUTE Physical Exam Vital Signs: Temp Pulse Resp BP Pulse Ox 99.4 F 93 28 H 148/90 H 96 10/27/17 08:14 10/27/17 08:14 10/27/17 08:14 10/27/17 08:14 10/27/17 08:14 Intake & Output 10/26/17 10/27/17 10/28/17 06:59 06:59 06:59 Intake Total 4914 5554 Output Total 2500 1450 Balance 2414 4104 Weight 110.2 kg General appearance: PRESENT: no acute distress Head exam: PRESENT: atraumatic Eye exam: PRESENT: conjunctiva pink Mouth exam: PRESENT: moist Respiratory exam: PRESENT: clear to auscultation carter. ABSENT: rales, rhonchi, wheezes Cardiovascular exam: PRESENT: RRR. ABSENT: diastolic murmur, rubs, systolic murmur GI/Abdominal exam: PRESENT: normal bowel sounds, soft. ABSENT: distended, guarding, mass, organolmegaly, rebound, tenderness Extremities exam: PRESENT: full ROM, other - And tenderness of his right arm is improving. ABSENT: calf tenderness, clubbing, pedal edema Results Laboratory Results: 10/26/17 05:14 10/26/17 11:44 10/24/17 10/24/17 10/24/17 02:45 02:45 06:45 Creatine Kinase 29429 H 75381 H Troponin I 0.083 10/24/17 10/25/17 10/26/17 13:00 06:10 05:14 Creatine Kinase 44503 H 20654 H 7961 H Troponin I Impressions: Elbow X-Ray 10/23/17 21:08 IMPRESSION: NEGATIVE STUDY OF THE RIGHT ELBOW. NO EXPLANATION FOR PAIN. Hand X-Ray 10/23/17 21:08 IMPRESSION: NEGATIVE STUDY OF THE RIGHT HAND. NO EXPLANATION FOR PAIN. Chest X-Ray 10/23/17 22:22 IMPRESSION: 1. Left basilar airspace opacity. These findings could be seen in pneumonia or atelectasis. Head CT 10/23/17 22:22 IMPRESSION: 1. No acute intracranial abnormality identified. This exam was performed according to our departmental dose-optimization program, which includes automated exposure control, adjustment of the mA and/or kV according to patient size and/or use of iterative reconstruction technique. Extremity Ultrasound 10/23/17 23:53 IMPRESSION: 1. No well-circumscribed fluid collection identified to suggest hematoma or abscess. 2. Edema within the musculature of the hand in the area of concern scan by the medical technologist hematology. 2010 [employer]- All Rights Reserved Assessment & Plan - Diagnosis (1) Cellulitis of the neck and right arm Is this a current diagnosis for this admission?: Yes Plan: Has been improving (2) Acute kidney injury Is this a current diagnosis for this admission?: Yes Plan: His creatinine has been trending down (3) Community acquired pneumonia Is this a current diagnosis for this admission?: Yes Plan: Is being treated (4) Rhabdomyolysis Is this a current diagnosis for this admission?: Yes Plan: Has been resolving (5) Seizure disorder Is this a current diagnosis for this admission?: Yes Plan: No seizure activity since admission (6) PTSD (post-traumatic stress disorder) Is this a current diagnosis for this admission?: Yes Plan: Stable
[2017-10-27] MEDS ORDERED: FUROSEMIDE INJ/PF 40 MG/4 ML SDV IV ONE (13:00)
[2017-10-27] MEDS: FENTANYL 50 MCG/HR PATCH.TD72 TD SCH (17:20)
[2017-10-27] MEDS: LURASIDONE HCL 40 MG TABLET PO SCH (21:39)
[2017-10-27] MEDS: LITHIUM CARBONATE 300 MG CAPSULE PO SCH (21:41)
[2017-10-28] MEDS: VANCOMYCIN HCL 1,500 MG in DEXTROSE 5%-WATER 250 ML IV SCH ×2 (00:02→13:31)
[2017-10-28] MEDS: NORMAL SALINE 1000 ML 1,000 ML IV PRN ×2 (03:09→10:09)
[2017-10-28] MEDS: OXYCODONE-ACETAMINOPHEN 5-325 MG TABLET PO PRN ×3 (03:11→23:50)
[2017-10-28] MEDS: ACETAMINOPHEN 325 MG TABLET PO PRN ×3 (03:34→18:18)
[2017-10-28 04:48] LABS: HEMATOCRIT 27.7 % (37.9-51.0); HEMOGLOBIN 8.6 g/dL (13.5-17.0); MEAN CORPUSCULAR HEMOGLOBIN 21.7 pg (27.0-33.4); MEAN CORPUSCULAR HGB CONC 30.9 g/dL (32.0-36.0); MEAN CORPUSCULAR VOLUME 70 fl (80-97); PLATELET COUNT 280 10^3/uL (150-450); RED BLOOD COUNT 3.95 10^6/uL (4.35-5.55); RED CELL DISTRIBUTION WIDTH 17.8 % (11.5-14.0); WHITE BLOOD COUNT 15.9 10^3/uL (4.0-10.5)
[2017-10-28 05:06] LABS: ABSOLUTE LYMPHOCYTES# (MANUAL) 0.5 10^3/uL (0.5-4.7); ABSOLUTE MONOCYTES # (MANUAL) 1.1 10^3/uL (0.1-1.4); ABSOLUTE NEUTROPHILS# (MANUAL) 14.2 10^3/uL (1.7-8.2); BASOPHILS % (MANUAL) 0 % (0-2); EOSINOPHILS % (MANUAL) 1 % (0-6); LYMPHOCYTES % (MANUAL) 3 % (13-45); MONOCYTES % (MANUAL) 7 % (3-13); PROMYELOCYTES % (MANUAL) 1 % (0); SEGMENTED NEUTROPHILS % (MAN) 88 % (42-78); TOTAL CELLS COUNTED 100
[2017-10-28 05:08] LABS: ALANINE AMINOTRANSFERASE 67 U/L (21-72); ALBUMIN 2.7 g/dL (3.5-5.0); ALKALINE PHOSPHATASE 61 U/L (38-126); ANION GAP 9 (5-19); ANISOCYTOSIS 1+; ASPARTATE AMINO TRANSFERASE 82 U/L (17-59); BILIRUBIN,DIRECT 0.3 mg/dL (0.0-0.4); BILIRUBIN,TOTAL 0.7 mg/dL (0.2-1.3); BLOOD UREA NITROGEN 25 mg/dL (7-20); CALCIUM 7.9 mg/dL (8.4-10.2); CARBON DIOXIDE 18 mmol/L (22-30); CHLORIDE 112 mmol/L (98-107); GLUCOSE 107 mg/dL (75-110); PLATELET COMMENT ADEQUATE; POIKILOCYTOSIS SLIGHT; POTASSIUM 3.7 mmol/L (3.6-5.0); SODIUM 138.7 mmol/L (137-145); TARGET CELLS SLIGHT; TOTAL PROTEIN 5.4 g/dL (6.3-8.2)
[2017-10-28] MEDS: HEPARIN SOD (PORCINE) 5,000 UNIT/ML 1 ML SYRINGE SUBCUT SCH ×3 (05:14→21:48)
[2017-10-28] MEDS: CEFEPIME 2 GM/D5W RTU 2 GM/50 ML RTUPB IV SCH (05:14)
[2017-10-28] MEDS: ALPRAZOLAM 0.5 MG TABLET PO SCH ×3 (05:15→21:47)
[2017-10-28 05:19] LABS: CREATINE KINASE 2296 U/L (55-170)
[2017-10-28] MEDS: METHYLPHENIDATE HCL 5 MG TABLET PO SCH ×3 (10:03→18:18)
--- NOTE | 2017-10-28 10:43 | RADIOLOGY REPORT (SQ) ---
EXAM DESCRIPTION: CHEST SINGLE VIEW COMPLETED DATE/TIME: 10/28/2017 10:19 am REASON FOR STUDY: PNA COMPARISON: 10/23/2017. EXAM PARAMETERS: NUMBER OF VIEWS: One view. TECHNIQUE: Single frontal radiographic view of the chest acquired. RADIATION DOSE: NA LIMITATIONS: None. FINDINGS: LUNGS AND PLEURA: Extensive infiltrate throughout both lungs, slightly worse the right. N o pleural effusion. MEDIASTINUM AND HILAR STRUCTURES: No masses. Contour normal. HEART AND VASCULAR STRUCTURES: Heart normal in size. Normal vasculature. BONES: No acute findings. HARDWARE: None in the chest. OTHER: No other significant finding. IMPRESSION: SIGNIFICANT WORSENING OF THE CHEST WITH EXTENSIVE BILATERAL INFILTRATE. TECHNICAL DOCUMENTATION: JOB ID: [id number] [employer]- All Rights Reserved Reading location - IP/workstation name: [email or web address]
[2017-10-28] MEDS ORDERED: NORMAL SALINE 1000 ML 1,000 ML IV PRN (12:46)
--- NOTE | 2017-10-28 12:57 | PDOC PROGRESS REPORT ---
Subjective Progress Note for:: 10/28/17 Subjective:: Patient complains of shortness of breath. His chest x-ray reported as extensive bilateral infiltrates most probably due to volume overload. Patient has been on cefepime and vancomycin. I started him on Lasix 40 mg IV twice a day. His blood works are relatively stable except his white cell count dropped from 13.3-15.9. Reason For Visit: ENCEPHALOPATHY/RHABDOMYOLYSIS/HYPERKALEMIA/ACUTE Physical Exam Vital Signs: Temp Pulse Resp BP Pulse Ox 100.1 F 102 H 22 H 154/95 H 95 10/28/17 04:22 10/28/17 07:00 10/28/17 03:24 10/28/17 03:24 10/28/17 03:36 Intake & Output 10/27/17 10/28/17 10/29/17 06:59 06:59 06:59 Intake Total 5604 3636 1000 Output Total 1450 1801 Balance 4154 1835 1000 Weight 110 kg General appearance: PRESENT: mild distress Eye exam: PRESENT: conjunctiva pink Mouth exam: PRESENT: moist Respiratory exam: PRESENT: rhonchi Cardiovascular exam: PRESENT: RRR. ABSENT: diastolic murmur, rubs, systolic murmur GI/Abdominal exam: PRESENT: normal bowel sounds, soft. ABSENT: distended, guarding, mass, organolmegaly, rebound, tenderness Extremities exam: PRESENT: full ROM. ABSENT: calf tenderness, clubbing, pedal edema Results Laboratory Results: 10/28/17 04:20 10/28/17 04:20 10/28/17 10/28/17 04:20 04:20 WBC 15.9 H RBC 3.95 L Hgb 8.6 L Hct 27.7 L MCV 70 L MCH 21.7 L MCHC 30.9 L RDW 17.8 H Plt Count 280 Seg Neutrophils % Not Reportable Lymphocytes % Not Reportable Monocytes % Not Reportable Eosinophils % Not Reportable Basophils % Not Reportable Absolute Neutrophils Not Reportable Absolute Lymphocytes Not Reportable Absolute Monocytes Not Reportable Absolute Eosinophils Not Reportable Absolute Basophils Not Reportable Sodium 138.7 Potassium 3.7 Chloride 112 H Carbon Dioxide 18 L Anion Gap 9 BUN 25 H Creatinine 1.50 H Est GFR ( Amer) > 60 Est GFR (Non-Af Amer) 53 L Glucose 107 Calcium 7.9 L Total Bilirubin 0.7 AST 82 H ALT 67 Alkaline Phosphatase 61 Total Protein 5.4 L Albumin 2.7 L 10/24/17 10/24/17 10/24/17 02:45 02:45 06:45 Creatine Kinase 12840 H 68679 H Troponin I 0.083 10/24/17 10/25/17 10/26/17 13:00 06:10 05:14 Creatine Kinase 01491 H 97812 H 7961 H Troponin I 10/28/17 04:20 Creatine Kinase 2296 H Troponin I Impressions: Elbow X-Ray 10/23/17 21:08 IMPRESSION: NEGATIVE STUDY OF THE RIGHT ELBOW. NO EXPLANATION FOR PAIN. Hand X-Ray 10/23/17 21:08 IMPRESSION: NEGATIVE STUDY OF THE RIGHT HAND. NO EXPLANATION FOR PAIN. Head CT 10/23/17 22:22 IMPRESSION: 1. No acute intracranial abnormality identified. This exam was performed according to our departmental dose-optimization program, which includes automated exposure control, adjustment of the mA and/or kV according to patient size and/or use of iterative reconstruction technique. Extremity Ultrasound 10/23/17 23:53 IMPRESSION: 1. No well-circumscribed fluid collection identified to suggest hematoma or abscess. 2. Edema within the musculature of the hand in the area of concern scan by the neurodiagnostic technologist. 2010 [employer]- All Rights Reserved Chest X-Ray 10/28/17 00:00 IMPRESSION: SIGNIFICANT WORSENING OF THE CHEST WITH EXTENSIVE BILATERAL INFILTRATE. Assessment & Plan - Diagnosis (1) Cellulitis of the neck and right arm Is this a current diagnosis for this admission?: Yes Plan: Has been improving (2) Acute kidney injury Is this a current diagnosis for this admission?: Yes Plan: His creatinine has been trending down (3) Community acquired pneumonia Is this a current diagnosis for this admission?: Yes Plan: Continue vancomycin and cefepime. (4) Rhabdomyolysis Is this a current diagnosis for this admission?: Yes Plan: Has been resolving (5) Seizure disorder Is this a current diagnosis for this admission?: Yes Plan: No seizure activity since admission (6) PTSD (post-traumatic stress disorder) Is this a current diagnosis for this admission?: Yes Plan: Stable
[2017-10-28] MEDS ORDERED: FUROSEMIDE INJ/PF 40 MG/4 ML SDV IV ONE (14:00)
[2017-10-28] MEDS ORDERED: FUROSEMIDE INJ/PF 20 MG/2 ML SDV IV ONE (17:30)
[2017-10-28] MEDS: PIPERACILLIN SODIUM/TAZOBACTAM 3.375 GM in NORMAL SALINE 100 ML IV SCH ×2 (19:45→23:37)
[2017-10-28] MEDS: LURASIDONE HCL 40 MG TABLET PO SCH (21:45)
[2017-10-28] MEDS: FUROSEMIDE INJ/PF 40 MG/4 ML SDV IV SCH (21:47)
[2017-10-28] MEDS: LITHIUM CARBONATE 300 MG CAPSULE PO SCH (21:47)
[2017-10-29] MEDS: VANCOMYCIN HCL 1,500 MG in DEXTROSE 5%-WATER 250 ML IV SCH ×3 (00:39→23:11)
[2017-10-29] MEDS: ACETAMINOPHEN 325 MG TABLET PO PRN ×2 (02:33→16:25)
[2017-10-29] MEDS: OXYCODONE-ACETAMINOPHEN 5-325 MG TABLET PO PRN ×3 (03:53→20:11)
[2017-10-29] MEDS: HEPARIN SOD (PORCINE) 5,000 UNIT/ML 1 ML SYRINGE SUBCUT SCH ×4 (05:12→21:35)
[2017-10-29] MEDS: ALPRAZOLAM 0.5 MG TABLET PO SCH ×3 (05:13→21:35)
[2017-10-29] MEDS: PIPERACILLIN SODIUM/TAZOBACTAM 3.375 GM in NORMAL SALINE 100 ML IV SCH ×4 (05:13→23:10)
[2017-10-29 05:54] LABS: HEMATOCRIT 26.1 % (37.9-51.0); HEMOGLOBIN 8.2 g/dL (13.5-17.0); MEAN CORPUSCULAR HEMOGLOBIN 21.9 pg (27.0-33.4); MEAN CORPUSCULAR HGB CONC 31.3 g/dL (32.0-36.0); MEAN CORPUSCULAR VOLUME 70 fl (80-97); PLATELET COUNT 315 10^3/uL (150-450); RED BLOOD COUNT 3.73 10^6/uL (4.35-5.55); RED CELL DISTRIBUTION WIDTH 18.5 % (11.5-14.0)
[2017-10-29 06:02] LABS: ANION GAP 10 (5-19); BLOOD UREA NITROGEN 31 mg/dL (7-20); CALCIUM 8.1 mg/dL (8.4-10.2); CARBON DIOXIDE 19 mmol/L (22-30); CHLORIDE 111 mmol/L (98-107); CREATINE KINASE 991 U/L (55-170); GLUCOSE 106 mg/dL (75-110); POTASSIUM 3.4 mmol/L (3.6-5.0); SODIUM 139.8 mmol/L (137-145)
--- NOTE | 2017-10-29 06:32 | PDOC PROGRESS REPORT ---
Subjective Progress Note for:: 10/29/17 Reason For Visit: ENCEPHALOPATHY/RHABDOMYOLYSIS/HYPERKALEMIA/ACUTE 37-year-old white male with right upper extremity swelling Physical Exam Vital Signs: Temp Pulse Resp BP Pulse Ox 37.3 C 99 24 H 147/87 H 93 10/29/17 04:17 10/29/17 04:17 10/29/17 04:17 10/29/17 04:17 10/29/17 04:17 Intake & Output 10/27/17 10/28/17 10/29/17 06:59 06:59 06:59 Intake Total 5604 3636 3739 Output Total 1450 1801 2600 Balance 4154 1835 1139 Weight 110 kg Extremities exam: PRESENT: other - Swelling is decreasing slowly. Sensory and motor function to all III nerve distribution seems to be improving. Results Laboratory Results: 10/29/17 04:56 10/29/17 04:56 Sodium 139.8 Potassium 3.4 L Chloride 111 H Carbon Dioxide 19 L Anion Gap 10 BUN 31 H Creatinine 1.97 H Est GFR ( Amer) 47 L Est GFR (Non-Af Amer) 38 L Glucose 106 Calcium 8.1 L 10/24/17 10/24/17 10/24/17 02:45 02:45 06:45 Creatine Kinase 38716 H 30706 H Troponin I 0.083 10/24/17 10/25/17 10/26/17 13:00 06:10 05:14 Creatine Kinase 41295 H 89231 H 7961 H Troponin I 10/28/17 10/29/17 04:20 04:56 Creatine Kinase 2296 H 991 H Troponin I Impressions: Elbow X-Ray 10/23/17 21:08 IMPRESSION: NEGATIVE STUDY OF THE RIGHT ELBOW. NO EXPLANATION FOR PAIN. Hand X-Ray 10/23/17 21:08 IMPRESSION: NEGATIVE STUDY OF THE RIGHT HAND. NO EXPLANATION FOR PAIN. Head CT 10/23/17 22:22 IMPRESSION: 1. No acute intracranial abnormality identified. This exam was performed according to our departmental dose-optimization program, which includes automated exposure control, adjustment of the mA and/or kV according to patient size and/or use of iterative reconstruction technique. Extremity Ultrasound 10/23/17 23:53 IMPRESSION: 1. No well-circumscribed fluid collection identified to suggest hematoma or abscess. 2. Edema within the musculature of the hand in the area of concern scan by the ophthalmic medical technologist. 2010 [employer]- All Rights Reserved Chest X-Ray 10/28/17 00:00 IMPRESSION: SIGNIFICANT WORSENING OF THE CHEST WITH EXTENSIVE BILATERAL INFILTRATE. Status: Imported from PACS Assessment & Plan - Diagnosis (1) Crush injury arm Qualifiers: Encounter type: initial encounter Laterality: right Qualified Code(s): S47.1XXA - Crushing injury of right shoulder and upper arm, initial encounter Is this a current diagnosis for this admission?: Yes Plan: Continue observation
[2017-10-29 06:45] LABS: ABSOLUTE LYMPHOCYTES# (MANUAL) 1.4 10^3/uL (0.5-4.7); ABSOLUTE MONOCYTES # (MANUAL) 2.3 10^3/uL (0.1-1.4); ABSOLUTE NEUTROPHILS# (MANUAL) 11.1 10^3/uL (1.7-8.2); BAND NEUTROPHILS % (MANUAL) 1 % (3-5); BASOPHILS % (MANUAL) 0 % (0-2); EOSINOPHILS % (MANUAL) 2 % (0-6); LYMPHOCYTES % (MANUAL) 9 % (13-45); MONOCYTES % (MANUAL) 15 % (3-13); SEGMENTED NEUTROPHILS % (MAN) 73 % (42-78); TOTAL CELLS COUNTED 100
[2017-10-29 06:46] LABS: ACANTHOCYTES 2+; ANISOCYTOSIS 2+; OVALOCYTES SLIGHT; POIKILOCYTOSIS 1+; SCHISTOCYTES SLIGHT; TOXIC GRANULATION SLIGHT
[2017-10-29 06:47] LABS: PLATELET COMMENT ADEQUATE; PLATELET LARGE PRESENT
--- NOTE | 2017-10-29 09:24 | EKG REPORT ---
SEVERITY:- ABNORMAL ECG - SINUS RHYTHM LEFT ATRIAL ABNORMALITY : Confirmed by: Carmen Amor 29-Oct-2017 09:23:23
--- NOTE | 2017-10-29 09:58 | RADIOLOGY REPORT (SQ) ---
EXAM DESCRIPTION: CHEST SINGLE VIEW COMPLETED DATE/TIME: 10/29/2017 9:35 am REASON FOR STUDY: PNA COMPARISON: Chest film 08/15/2016, 10/23/2017 EXAM PARAMETERS: NUMBER OF VIEWS: One view. TECHNIQUE: Single frontal radiographic view of the chest acquired. RADIATION DOSE: NA LIMITATIONS: None. FINDINGS: LUNGS AND PLEURA: Diffuse bilateral airspace disease is present, pneumonia versus pulmonar y edema versus ARDS. This is similar compared to 10/28/2017 1015 hours. These findings are more promi nent compared to 10/23/2017. No pneumothorax. No pleural effusions. MEDIASTINUM AND HILAR STRUCTURES: No masses. Contour normal. HEART AND VASCULAR STRUCTURES: No cardiomegaly BONES: No acute findings. HARDWARE: None in the chest. OTHER: No other significant finding. IMPRESSION: Unchanged diffuse bilateral airspace disease compared to 10/28/2017 TECHNICAL DOCUMENTATION: JOB ID: [id number] [employer]- All Rights Reserved Reading location - IP/workstation name: [email or web address]
[2017-10-29] MEDS: METHYLPHENIDATE HCL 5 MG TABLET PO SCH ×3 (10:07→18:09)
[2017-10-29] MEDS: FUROSEMIDE INJ/PF 40 MG/4 ML SDV IV SCH ×2 (10:07→21:34)
[2017-10-29] MEDS: NORMAL SALINE 1000 ML 1,000 ML IV PRN ×2 (13:46→23:12)
--- NOTE | 2017-10-29 14:16 | PDOC PROGRESS REPORT ---
Subjective Subjective:: This is a 37 years old male patient with past medical history of bipolar disorder, PTSD and seizure disorder brought with a suspicion of Xanax overdose. Patient also found to be in acute renal failure and rhabdomyolysis as this is reflected on his blood work that his initial creatinine is 2.44 and has been trending down for several days but today bumped up to 1.97. His CPK on admission was 42,000 and has been trending down steadily and today it is 991. Patient has right facial and right lower extremity tenderness and erythema. He has been empirically started on cefepime and vancomycin initially. Chest x-ray revealed bilateral diffuse infiltrates and patient also started to have productive cough of yellowish sputum so I switched to cefepime to Zosyn. The swelling of the right arm is associated with tightness which is worrisome for compartment syndrome for which I consulted Dr. Keene who evaluated the patient and recommended physical and occupational therapy and concluded patient patient does not have compartment syndrome and does not need fasciotomy. Most probably patient might have ulnar nerve palsy. Reason For Visit: ENCEPHALOPATHY/RHABDOMYOLYSIS/HYPERKALEMIA/ACUTE Physical Exam Vital Signs: Temp Pulse Resp BP Pulse Ox 99.4 F 97 28 H 146/80 H 97 10/29/17 11:57 10/29/17 11:57 10/29/17 11:57 10/29/17 11:57 10/29/17 11:57 Intake & Output 10/28/17 10/29/17 10/30/17 06:59 06:59 06:59 Intake Total 3636 4039 250 Output Total 1801 2900 Balance 1835 1139 250 Weight 110 kg General appearance: PRESENT: mild distress Head exam: PRESENT: atraumatic Mouth exam: PRESENT: moist Neck exam: ABSENT: carotid bruit, JVD, lymphadenopathy, thyromegaly Respiratory exam: PRESENT: decreased breath sounds, rales - Bilaterally, rhonchi. ABSENT: wheezes Cardiovascular exam: PRESENT: RRR. ABSENT: diastolic murmur, rubs, systolic murmur Neurological exam: PRESENT: alert, awake, oriented to time, oriented to situation Results Laboratory Results: 10/29/17 04:56 10/29/17 04:56 10/29/17 10/29/17 04:56 04:56 WBC 15.0 H RBC 3.73 L Hgb 8.2 L Hct 26.1 L MCV 70 L MCH 21.9 L MCHC 31.3 L RDW 18.5 H Plt Count 315 Seg Neutrophils % Not Reportable Lymphocytes % Not Reportable Monocytes % Not Reportable Eosinophils % Not Reportable Basophils % Not Reportable Absolute Neutrophils Not Reportable Absolute Lymphocytes Not Reportable Absolute Monocytes Not Reportable Absolute Eosinophils Not Reportable Absolute Basophils Not Reportable Sodium 139.8 Potassium 3.4 L Chloride 111 H Carbon Dioxide 19 L Anion Gap 10 BUN 31 H Creatinine 1.97 H Est GFR ( Amer) 47 L Est GFR (Non-Af Amer) 38 L Glucose 106 Calcium 8.1 L 10/24/17 10/24/17 10/24/17 02:45 02:45 06:45 Creatine Kinase 95543 H 83835 H Troponin I 0.083 10/24/17 10/25/17 10/26/17 13:00 06:10 05:14 Creatine Kinase 91559 H 87973 H 7961 H Troponin I 10/28/17 10/29/17 04:20 04:56 Creatine Kinase 2296 H 991 H Troponin I Impressions: Elbow X-Ray 10/23/17 21:08 IMPRESSION: NEGATIVE STUDY OF THE RIGHT ELBOW. NO EXPLANATION FOR PAIN. Hand X-Ray 10/23/17 21:08 IMPRESSION: NEGATIVE STUDY OF THE RIGHT HAND. NO EXPLANATION FOR PAIN. Head CT 10/23/17 22:22 IMPRESSION: 1. No acute intracranial abnormality identified. This exam was performed according to our departmental dose-optimization program, which includes automated exposure control, adjustment of the mA and/or kV according to patient size and/or use of iterative reconstruction technique. Extremity Ultrasound 10/23/17 23:53 IMPRESSION: 1. No well-circumscribed fluid collection identified to suggest hematoma or abscess. 2. Edema within the musculature of the hand in the area of concern scan by the laboratory technologist. 2010 [employer]- All Rights Reserved Chest X-Ray 10/29/17 00:00 IMPRESSION: Unchanged diffuse bilateral airspace disease compared to 10/28/2017 Assessment & Plan - Diagnosis (1) Cellulitis of the neck and right arm Is this a current diagnosis for this admission?: Yes Plan: Has been improving (2) Acute kidney injury Is this a current diagnosis for this admission?: Yes Plan: His kidney function gets worse. Patient has been started on normal saline at a rate of 100 mL/h. (3) Community acquired pneumonia Is this a current diagnosis for this admission?: Yes Plan: Patient has been on Zosyn and vancomycin. (4) Rhabdomyolysis Is this a current diagnosis for this admission?: Yes Plan: Has been improving. His latest CK is 991 (5) Seizure disorder Is this a current diagnosis for this admission?: Yes (6) PTSD (post-traumatic stress disorder) Is this a current diagnosis for this admission?: Yes Plan: Stable (7) Bipolar disorder Is this a current diagnosis for this admission?: Yes Plan: Continue his home medication
[2017-10-29] MEDS: LITHIUM CARBONATE 300 MG CAPSULE PO SCH (21:35)
[2017-10-29] MEDS: LURASIDONE HCL 40 MG TABLET PO SCH (21:36)
[2017-10-30] MEDS: OXYCODONE-ACETAMINOPHEN 5-325 MG TABLET PO PRN ×3 (00:03→19:28)
[2017-10-30] MEDS: ACETAMINOPHEN 325 MG TABLET PO PRN ×2 (04:05→09:22)
[2017-10-30] MEDS: PIPERACILLIN SODIUM/TAZOBACTAM 3.375 GM in NORMAL SALINE 100 ML IV SCH ×4 (05:16→23:07)
[2017-10-30] MEDS: ALPRAZOLAM 0.5 MG TABLET PO SCH ×3 (05:20→21:13)
[2017-10-30] MEDS: HEPARIN SOD (PORCINE) 5,000 UNIT/ML 1 ML SYRINGE SUBCUT SCH ×3 (05:20→21:13)
[2017-10-30 06:20] LABS: HEMATOCRIT 23.1 % (37.9-51.0); MEAN CORPUSCULAR HEMOGLOBIN 22.2 pg (27.0-33.4); MEAN CORPUSCULAR HGB CONC 31.8 g/dL (32.0-36.0); MEAN CORPUSCULAR VOLUME 70 fl (80-97); PLATELET COUNT 364 10^3/uL (150-450); RED BLOOD COUNT 3.29 10^6/uL (4.35-5.55); RED CELL DISTRIBUTION WIDTH 18.4 % (11.5-14.0)
[2017-10-30 06:29] LABS: ANION GAP 12 (5-19); BLOOD UREA NITROGEN 35 mg/dL (7-20); CALCIUM 7.9 mg/dL (8.4-10.2); CARBON DIOXIDE 17 mmol/L (22-30); CHLORIDE 111 mmol/L (98-107); CREATINE KINASE 538 U/L (55-170); GLUCOSE 95 mg/dL (75-110); POTASSIUM 3.6 mmol/L (3.6-5.0); SODIUM 139.9 mmol/L (137-145)
[2017-10-30 06:49] LABS: HEMOGLOBIN 7.3 g/dL (13.5-17.0)
[2017-10-30 06:53] LABS: ABSOLUTE LYMPHOCYTES# (MANUAL) 1.5 10^3/uL (0.5-4.7); ABSOLUTE MONOCYTES # (MANUAL) 1.1 10^3/uL (0.1-1.4); ABSOLUTE NEUTROPHILS# (MANUAL) 10.5 10^3/uL (1.7-8.2); BASOPHILS % (MANUAL) 0 % (0-2); EOSINOPHILS % (MANUAL) 6 % (0-6); LYMPHOCYTES % (MANUAL) 11 % (13-45); MONOCYTES % (MANUAL) 8 % (3-13); SEGMENTED NEUTROPHILS % (MAN) 75 % (42-78); TOTAL CELLS COUNTED 100
[2017-10-30 06:54] LABS: ANISOCYTOSIS 1+; PLATELET COMMENT ADEQUATE; PLATELET LARGE PRESENT; POIKILOCYTOSIS SLIGHT; SCHISTOCYTES 1+
[2017-10-30] MEDS: FUROSEMIDE INJ/PF 40 MG/4 ML SDV IV SCH (09:21)
[2017-10-30] MEDS: METHYLPHENIDATE HCL 5 MG TABLET PO SCH ×3 (09:21→17:15)
--- NOTE | 2017-10-30 11:29 | Progress Note ---
Provider Note Provider Note: ID Consult Note Asked by Pharmacy to review chart. Pt not seen or examined. Mr Beck is a 37 year old man with bipolar disorder who presented after Xanax overdose with RUE pain on 10/24/17. He fell asleep compressing his R arm. He was noted on exam to have increased warmth, swelling and erythema over the R forearm and elbow. Pt was also noted to have R submandibular tenderness and swelling 3 cm x 1 cm and some fractured dentition on the R 1st and 2nd bicuspid teeth and 1st molar without tenderness to palpation intraorally. He was additionally noted to have a congested cough and rhonchi greater on the left on exam per ED provider note. Initially did not have fever, developed this 2 days into admission 100.4 then daily since then 102.6 F on 10/27, 102.8 on 10/29 and 102.4 on 10/30. Pt has DEANN, rhabdomyolysis with gradually decreasing CPK levels from peak of 42,000 over the past several days, and persistent leukocytosis with WBC 14-17k. Ultrasound of the extremity showed no circumscribed fluid collection within the forearm to suggest hematoma or abscess, only soft tissue edema. Plain films of the elbow did not show any worrisome bony lesions or joint effusion. Blood cultures on admission were drawn, now negative x 5 days. CXR of the chest on 10/23 read as L basilar infiltrate. Repeat CXR on 10/28 showed increase in these infiltrates. Initially pt was on 4L supplemental O2, now on room air. Repeat BCx on 10/28 are negative x 1 day. No sputum cultures. Cough described as productive of yellow sputum. Antibiotics: azithromycin on 10/24, rocephin 10/24, vancomycin 10/24 to present; cefepime 10/24-10/28, zosyn 10/29 to present Impression/Recommendations SIRS - fever, leukocytosis likely related to rhabdomyolysis Possible pneumonia or pneumonitis related to aspriation Possible odontogenic infection invovling sublingual or submandibular space vs submandibular adenitis Fever may be related to rhabdomyolysis and acute muscle necrosis but with improvement in this process based on CPKs, I do not think it offers a convincing explanation for fever continuing. CXR infiltrate b/l patchy appears c/w pulmonary edema and pt has been getting IVF given the rhabdomyolysis. Considering his altered mental status and congested cough and rhonchi on initial exam, suspicion for aspiration can certainly be raised, and he has received broad spectrum anitbiotic therapy ( albeit without dedicatd anaerobic activity, but this is not always necessary, as most anaerobes are microaerophilic strep species that should be sensitive to Rocephin; Flagyl may need to be added in cases where there is putrid sputum and more subacute course and necrotizing pneumonia/lung abscess/empyema - not present here for this patient). He will be on day 7 of vancomycin + broad spectrum (cefepime -> Zosyn) today, and there is no indication this would need to be continued further. Pt has also improved in terms of supplemental O2 requirement - now on room air. Recommend discontinuing vancomycin and Zosyn. In the ED provider note, there was initially submandibular R sided erythema and swelling appreciated. It is difficult to gain an appreciation of how this has progressed subsequently through chart review, and there was no dedicated imaging to further characterize this process. Unclear if it is an active concern and still appreciable at present. In general for odontogenic infections (pt was noted to have some R sided broken teeth perhaps associated with the R sided submandibular swelling) in absence of a complication that might require intervention, duration of therapy is typical for that of soft tissue infections 7-14 days. If there is no local inflammation under his jaw, there should be no clear indication to continue antibiotics for this reason. Lastly, drug fever is always a consideration, and antibiotics can be the cause of drug fever. Should d/c abx in absence of a compelling indication. Alan Grayson MD [facility] infectious Diseases Pager [phone]
[2017-10-30 11:31] LABS: ABSOLUTE RETICS # 0.046 10^6/uL (0.028-0.122); LITHIUM 0.8 mEq/L (0.6-1.2); RETICULOCYTE COUNT (AUTO) 1.38 % (0.66-2.85)
[2017-10-30 12:43] LABS: IRON(TIBC) < 10.1 ug/dL (49-181)
[2017-10-30] MEDS: VANCOMYCIN HCL 1,500 MG in DEXTROSE 5%-WATER 250 ML IV SCH ×2 (12:54→23:07)
--- NOTE | 2017-10-30 13:38 | RADIOLOGY REPORT (SQ) ---
EXAM DESCRIPTION: CT CHEST WITHOUT COMPLETED DATE/TIME: 10/30/2017 1:14 pm REASON FOR STUDY: r/o SVC syndrome COMPARISON: Interstitial lung disease classification TECHNIQUE: CT scan performed of the chest without intravenous contrast. Images reviewed with lung, soft tissue and bone windows. Reconstructed coronal and sagittal MPR images reviewed. All images st ored on PACS. All CT scanners at this facility use dose modulation, iterative reconstruction, and/or weight based d osing when appropriate to reduce radiation dose to as low as reasonably achievable (ALARA). [facility]: Dose Right [facility]: CareDose [facility]: Dose Right [facility]: Teradose 4D [facility]: Smart [employer] RADIATION DOSE: CT Rad equipment meets quality standard of care and radiation dose reduction techniq ues were employed. CTDIvol: 18.3 mGy. DLP: 741 mGy-cm. mGy. LIMITATIONS: No technical limitations. FINDINGS: LUNGS AND PLEURA: Extensive ground-glass infiltrates, reticulonodular pattern involving th e upper lobes more than the lower lobes. Small bilateral pleural effusions. HILAR AND MEDIASTINAL STRUCTURES: Moderate mediastinal adenopathy is present. HEART AND VASCULAR STRUCTURES: No aneurysm. No obvious chest wall collateral drainage. SVC appears to be of normal caliber. Lack of contrast limits evaluation of the SVC. UPPER ABDOMEN: Surgical changes surrounding gastroesophageal junction. THYROID AND OTHER SOFT TISSUES: No masses. No adenopathy. BONES: No significant finding. HARDWARE: None in the chest. OTHER: No other significant findings. IMPRESSION: 1. Severe interstitial lung disease in a non UIP pattern. 2. No obvious evidence of superior vena cava syndrome. Lack of contrast limits evaluation of the SV C. TECHNICAL DOCUMENTATION: JOB ID: [id number] Quality ID # [id number]: Final reports with documentation of one or more dose reduction techniques (e.g., Au tomated exposure control, adjustment of the mA and/or kV according to patient size, use of iterative reconstruction technique) 2010 [employer]- All Rights Reserved Reading location - IP/workstation name: [email or web address]
--- NOTE | 2017-10-30 15:15 | PDOC PROGRESS REPORT ---
Subjective Progress Note for:: 10/30/17 Subjective:: Patient sitting at bedside comfortably. States his pain is extremity has improved along with his function but still unable to fully straighten his fingers. Denies fever chills or sweats. Patient had a new IV placed in his right forearm. Reason For Visit: ENCEPHALOPATHY/RHABDOMYOLYSIS/HYPERKALEMIA/ACUTE Physical Exam Vital Signs: Temp Pulse Resp BP Pulse Ox 99.1 F 92 20 136/75 H 94 10/30/17 11:48 10/30/17 11:48 10/30/17 11:48 10/30/17 11:48 10/30/17 11:48 Intake & Output 10/29/17 10/30/17 10/31/17 06:59 06:59 06:59 Intake Total 4039 2776 218 Output Total 2900 1900 500 Balance 1139 876 -282 Weight 110 kg Musculoskeletal exam: PRESENT: other - Right upper extremity: Hand rest in intrinsic minus position index through small finger. Patient able to make a full composite fist. EPL/FPL intact. Intact wrist flexion/extension however weakness with wrist extension. Swelling along the forearm compartments however soft and compressible no sign of compartment syndrome. IV line along the dorsum of the forearm. Patient has intact sensation along the median, ulnar and radial nerve distributions however hypoesthesias noted. No pain with wrist range of motion. Results Laboratory Results: 10/30/17 05:16 10/30/17 05:16 10/30/17 10/30/17 10/30/17 05:16 05:16 05:16 WBC 14.0 H RBC 3.29 L Hgb 7.3 L Hct 23.1 L MCV 70 L MCH 22.2 L MCHC 31.8 L RDW 18.4 H Plt Count 364 Seg Neutrophils % Not Reportable Lymphocytes % Not Reportable Monocytes % Not Reportable Eosinophils % Not Reportable Basophils % Not Reportable Absolute Neutrophils Not Reportable Absolute Lymphocytes Not Reportable Absolute Monocytes Not Reportable Absolute Eosinophils Not Reportable Absolute Basophils Not Reportable Retic Count (auto) 1.38 Absolute Retic 0.046 Sodium 139.9 Potassium 3.6 Chloride 111 H Carbon Dioxide 17 L Anion Gap 12 BUN 35 H Creatinine 2.39 H Est GFR ( Amer) 37 L Est GFR (Non-Af Amer) 31 L Glucose 95 Calcium 7.9 L Iron TIBC % Saturation Ferritin Vitamin B12 Folate 10/30/17 05:16 WBC RBC Hgb Hct MCV MCH MCHC RDW Plt Count Seg Neutrophils % Lymphocytes % Monocytes % Eosinophils % Basophils % Absolute Neutrophils Absolute Lymphocytes Absolute Monocytes Absolute Eosinophils Absolute Basophils Retic Count (auto) Absolute Retic Sodium Potassium Chloride Carbon Dioxide Anion Gap BUN Creatinine Est GFR ( Amer) Est GFR (Non-Af Amer) Glucose Calcium Iron < 10.1 L TIBC 238 L % Saturation UNABLE TO CALCULATE Ferritin 140.00 Vitamin B12 183.0 L Folate 16.30 10/24/17 10/24/17 10/24/17 02:45 02:45 06:45 Creatine Kinase 77630 H 23137 H Troponin I 0.083 10/24/17 10/25/17 10/26/17 13:00 06:10 05:14 Creatine Kinase 83980 H 64214 H 7961 H Troponin I 10/28/17 10/29/17 10/30/17 04:20 04:56 05:16 Creatine Kinase 2296 H 991 H 538 H Troponin I Impressions: Elbow X-Ray 10/23/17 21:08 IMPRESSION: NEGATIVE STUDY OF THE RIGHT ELBOW. NO EXPLANATION FOR PAIN. Hand X-Ray 10/23/17 21:08 IMPRESSION: NEGATIVE STUDY OF THE RIGHT HAND. NO EXPLANATION FOR PAIN. Head CT 10/23/17 22:22 IMPRESSION: 1. No acute intracranial abnormality identified. This exam was performed according to our departmental dose-optimization program, which includes automated exposure control, adjustment of the mA and/or kV according to patient size and/or use of iterative reconstruction technique. Extremity Ultrasound 10/23/17 23:53 IMPRESSION: 1. No well-circumscribed fluid collection identified to suggest hematoma or abscess. 2. Edema within the musculature of the hand in the area of concern scan by the ep technologist. 2010 [employer]- All Rights Reserved Chest X-Ray 10/29/17 00:00 IMPRESSION: Unchanged diffuse bilateral airspace disease compared to 10/28/[address] 10/30/17 00:00 IMPRESSION: 1. Severe interstitial lung disease in a non UIP pattern. 2. No obvious evidence of superior vena cava syndrome. Lack of contrast limits evaluation of the SVC. Assessment & Plan - Diagnosis (1) Volkmann's ischemic contracture Qualifiers: Encounter type: subsequent encounter Qualified Code(s): T79.6XXD - Traumatic ischemia of muscle, subsequent encounter Is this a current diagnosis for this admission?: Yes Plan: Patient has findings on examination of Xiomy's ischemic contracture which possibly secondary to original injury or secondary to swelling. At this point there is no sign or symptoms of compartment syndrome have recommended continuing passive extension of the fingers and wrist along with active flexion. I have also stressed the importance of discontinuation of the IV within the affected extremity which if extravasation would occur would ultimately worsen patient already difficult situation.
--- NOTE | 2017-10-30 15:59 | PDOC PROGRESS REPORT ---
Subjective Progress Note for:: 10/30/17 - seen on rounds this afternoon Subjective:: states he still has arm pain. states his right side is still swollen. he told me and the nurse today that he has been taking 60-80 tylenol daily for the last few years. states he has a lot of pain- states due to his gastric bypass he was not able to take NSAIDs. Reason For Visit: ENCEPHALOPATHY/RHABDOMYOLYSIS/HYPERKALEMIA/ACUTE Physical Exam Vital Signs: Temp Pulse Resp BP Pulse Ox 99.1 F 92 20 136/75 H 94 10/30/17 11:48 10/30/17 11:48 10/30/17 11:48 10/30/17 11:48 10/30/17 11:48 Intake & Output 10/29/17 10/30/17 10/31/17 06:59 06:59 06:59 Intake Total 4039 2776 218 Output Total 2900 1900 500 Balance 1139 876 -282 Weight 242 lb 8.136 oz General appearance: PRESENT: no acute distress, well-developed, well-nourished Head exam: PRESENT: atraumatic, normocephalic Eye exam: PRESENT: EOMI, PERRLA. ABSENT: scleral icterus Ear exam: PRESENT: normal external ear exam Mouth exam: PRESENT: neck supple, tongue midline Neck exam: PRESENT: full ROM. ABSENT: lymphadenopathy, tracheal deviation Respiratory exam: PRESENT: clear to auscultation carter, decreased breath sounds, symmetrical. ABSENT: rhonchi, wheezes Cardiovascular exam: PRESENT: RRR, +S1, +S2 Pulses: PRESENT: +2 pedal pulses bilateral Vascular exam: PRESENT: normal capillary refill GI/Abdominal exam: PRESENT: normal bowel sounds, soft. ABSENT: tenderness Extremities exam: PRESENT: full ROM - good ROM of the RUE, +2 edema - right upper extremity- mostly at the distal portion. ABSENT: calf tenderness Neurological exam: PRESENT: alert, awake, oriented to person, oriented to place , oriented to time, CN II-XII grossly intact Skin exam: PRESENT: other - scattered areas of discrete raised erythematous papulse- arms and legs, one circular area of erythematous slighty raised lesion noted on top of head- decreased hair in that area. left arm- erythematous raise area noted where IV adhesive tape was placed before. Results Laboratory Results: 10/30/17 05:16 10/30/17 05:16 10/30/17 10/30/17 10/30/17 05:16 05:16 05:16 WBC 14.0 H RBC 3.29 L Hgb 7.3 L Hct 23.1 L MCV 70 L MCH 22.2 L MCHC 31.8 L RDW 18.4 H Plt Count 364 Seg Neutrophils % Not Reportable Lymphocytes % Not Reportable Monocytes % Not Reportable Eosinophils % Not Reportable Basophils % Not Reportable Absolute Neutrophils Not Reportable Absolute Lymphocytes Not Reportable Absolute Monocytes Not Reportable Absolute Eosinophils Not Reportable Absolute Basophils Not Reportable Retic Count (auto) 1.38 Absolute Retic 0.046 Sodium 139.9 Potassium 3.6 Chloride 111 H Carbon Dioxide 17 L Anion Gap 12 BUN 35 H Creatinine 2.39 H Est GFR ( Amer) 37 L Est GFR (Non-Af Amer) 31 L Glucose 95 Calcium 7.9 L Iron TIBC % Saturation Ferritin Vitamin B12 Folate 10/30/17 05:16 WBC RBC Hgb Hct MCV MCH MCHC RDW Plt Count Seg Neutrophils % Lymphocytes % Monocytes % Eosinophils % Basophils % Absolute Neutrophils Absolute Lymphocytes Absolute Monocytes Absolute Eosinophils Absolute Basophils Retic Count (auto) Absolute Retic Sodium Potassium Chloride Carbon Dioxide Anion Gap BUN Creatinine Est GFR ( Amer) Est GFR (Non-Af Amer) Glucose Calcium Iron < 10.1 L TIBC 238 L % Saturation UNABLE TO CALCULATE Ferritin 140.00 Vitamin B12 183.0 L Folate 16.30 10/24/17 10/24/17 10/24/17 02:45 02:45 06:45 Creatine Kinase 18899 H 53178 H Troponin I 0.083 10/24/17 10/25/17 10/26/17 13:00 06:10 05:14 Creatine Kinase 04687 H 63785 H 7961 H Troponin I 10/28/17 10/29/17 10/30/17 04:20 04:56 05:16 Creatine Kinase 2296 H 991 H 538 H Troponin I Impressions: Elbow X-Ray 10/23/17 21:08 IMPRESSION: NEGATIVE STUDY OF THE RIGHT ELBOW. NO EXPLANATION FOR PAIN. Hand X-Ray 10/23/17 21:08 IMPRESSION: NEGATIVE STUDY OF THE RIGHT HAND. NO EXPLANATION FOR PAIN. Head CT 10/23/17 22:22 IMPRESSION: 1. No acute intracranial abnormality identified. This exam was performed according to our departmental dose-optimization program, which includes automated exposure control, adjustment of the mA and/or kV according to patient size and/or use of iterative reconstruction technique. Extremity Ultrasound 10/23/17 23:53 IMPRESSION: 1. No well-circumscribed fluid collection identified to suggest hematoma or abscess. 2. Edema within the musculature of the hand in the area of concern scan by the office technologist. 2010 [employer]- All Rights Reserved Chest X-Ray 10/29/17 00:00 IMPRESSION: Unchanged diffuse bilateral airspace disease compared to 10/28/[address] 10/30/17 00:00 IMPRESSION: 1. Severe interstitial lung disease in a non UIP pattern. 2. No obvious evidence of superior vena cava syndrome. Lack of contrast limits evaluation of the SVC. Assessment & Plan - Diagnosis (1) Volkmann's ischemic contracture Qualifiers: Encounter type: subsequent encounter Qualified Code(s): T79.6XXD - Traumatic ischemia of muscle, subsequent encounter Is this a current diagnosis for this admission?: Yes Plan: as per ortho this is the diagnosis. appreciate consult. will c/w OT of RUE. I have ordered U/S RUE to r/o DVT- still pending. Given that he's having fever, RUE and cellulitis picture of neck and RUE- i have also ordered CT chest to check for SVC syndrome or any type of intrathoracic mass compressing the vessels in the right upper chest. unfortunately did not give IV contrast- Ct chest shows only severe interstitial disease of the lungs. (2) Cellulitis of the neck and right arm Is this a current diagnosis for this admission?: Yes Plan: see plan above. I also had a discussion with ID physician Dr Grayson from [facility] [place] regarding patient and his intermittent fever. please see her note from 10/30. I appreciate her consult and recommendations. will c/w zosyn and vanco for now. likely d/c after 7 days of total antibiotics. (3) Acute kidney injury Is this a current diagnosis for this admission?: Yes Plan: resolved (4) PTSD (post-traumatic stress disorder) Is this a current diagnosis for this admission?: Yes (5) Rhabdomyolysis Qualifiers: Rhabdomyolysis type: traumatic Is this a current diagnosis for this admission?: Yes Plan: CPK trending down. c/w IV fluids for now. monitor for fluid overload. (6) Seizure disorder Is this a current diagnosis for this admission?: Yes Plan: stable (7) Bipolar disorder Is this a current diagnosis for this admission?: Yes Plan: stable. c/w current regimen. he did tell me and his nurse today that he has been taking 60+ pills of tylenol for the past few years for pain control. his LFTs seem to be alright at this time. i had a long discussion with him about tylenol and not taking more than 4 pills a day - Time Time Spent with patient: 25-34 minutes
[2017-10-30] MEDS: NORMAL SALINE 1000 ML 1,000 ML IV PRN (17:57)
[2017-10-30] MEDS: LITHIUM CARBONATE 300 MG CAPSULE PO SCH (21:12)
[2017-10-30] MEDS: LURASIDONE HCL 40 MG TABLET PO SCH (21:13)
[2017-10-31] MEDS: OXYCODONE-ACETAMINOPHEN 5-325 MG TABLET PO PRN ×4 (01:05→18:31)
[2017-10-31] MEDS: PIPERACILLIN SODIUM/TAZOBACTAM 3.375 GM in NORMAL SALINE 100 ML IV SCH (05:15)
[2017-10-31] MEDS: HEPARIN SOD (PORCINE) 5,000 UNIT/ML 1 ML SYRINGE SUBCUT SCH ×3 (05:15→21:30)
[2017-10-31] MEDS: ALPRAZOLAM 0.5 MG TABLET PO SCH ×3 (05:16→21:30)
[2017-10-31] MEDS: METHYLPHENIDATE HCL 5 MG TABLET PO SCH ×3 (09:41→18:00)
[2017-10-31] MEDS: FUROSEMIDE INJ/PF 40 MG/4 ML SDV IV SCH (09:41)
[2017-10-31] MEDS: NORMAL SALINE 1000 ML 1,000 ML IV PRN (09:43)
--- NOTE | 2017-10-31 09:52 | PDOC PROGRESS REPORT ---
Subjective Progress Note for:: 10/31/17 Subjective:: Patient sitting at bedside comfortably. States his pain is extremity has improved along with his function but still unable to fully straighten his fingers. Denies fever chills or sweats. New IV placed yesterday. Reason For Visit: ENCEPHALOPATHY/RHABDOMYOLYSIS/HYPERKALEMIA/ACUTE Physical Exam Vital Signs: Temp Pulse Resp BP Pulse Ox 99.2 F 93 16 154/85 H 94 10/31/17 07:38 10/31/17 07:38 10/31/17 07:38 10/31/17 07:38 10/31/17 07:38 Intake & Output 10/30/17 10/31/17 11/01/17 06:59 06:59 06:59 Intake Total 2776 4583 Output Total 1900 1300 Balance 876 3283 Weight 110 kg Musculoskeletal exam: PRESENT: other - Right upper extremity: Swelling throughout the hand and forearm. No significant change compared to previous examination. Compartments soft and compressible no current sign of compartment syndrome. Digits wrist in the intrinsic minus position patient has intact IP/ MP joint flexion lacks lacks tip to palm flexion of 10 mm. EPL/FPL intact. Full elbow range of motion. Wrist flexion/extension intact. Intact sensation median, ulnar and radial nerve distribution Results Laboratory Results: 10/30/17 05:16 10/30/17 05:16 10/30/17 10/30/17 05:16 05:16 Retic Count (auto) 1.38 Absolute Retic 0.046 Iron < 10.1 L TIBC 238 L % Saturation UNABLE TO CALCULATE Ferritin 140.00 Vitamin B12 183.0 L Folate 16.30 10/24/17 10/24/17 10/24/17 02:45 02:45 06:45 Creatine Kinase 91317 H 48599 H Troponin I 0.083 10/24/17 10/25/17 10/26/17 13:00 06:10 05:14 Creatine Kinase 74036 H 42305 H 7961 H Troponin I 10/28/17 10/29/17 10/30/17 04:20 04:56 05:16 Creatine Kinase 2296 H 991 H 538 H Troponin I Impressions: Elbow X-Ray 10/23/17 21:08 IMPRESSION: NEGATIVE STUDY OF THE RIGHT ELBOW. NO EXPLANATION FOR PAIN. Hand X-Ray 10/23/17 21:08 IMPRESSION: NEGATIVE STUDY OF THE RIGHT HAND. NO EXPLANATION FOR PAIN. Head CT 10/23/17 22:22 IMPRESSION: 1. No acute intracranial abnormality identified. This exam was performed according to our departmental dose-optimization program, which includes automated exposure control, adjustment of the mA and/or kV according to patient size and/or use of iterative reconstruction technique. Extremity Ultrasound 10/23/17 23:53 IMPRESSION: 1. No well-circumscribed fluid collection identified to suggest hematoma or abscess. 2. Edema within the musculature of the hand in the area of concern scan by the lead nuclear medicine technologist. 2010 [employer]- All Rights Reserved Chest X-Ray 10/29/17 00:00 IMPRESSION: Unchanged diffuse bilateral airspace disease compared to 10/28/[address] 10/30/17 00:00 IMPRESSION: 1. Severe interstitial lung disease in a non UIP pattern. 2. No obvious evidence of superior vena cava syndrome. Lack of contrast limits evaluation of the SVC. Assessment & Plan - Diagnosis (1) Volkmann's ischemic contracture Qualifiers: Encounter type: subsequent encounter Qualified Code(s): T79.6XXD - Traumatic ischemia of muscle, subsequent encounter Is this a current diagnosis for this admission?: Yes Plan: Patient has findings on examination of Xiomy's ischemic contracture possibly secondary to original injury or swelling or compression neuropathy at this point there is no sign or symptoms of compartment syndrome I have recommended continuing passive extension of the fingers and wrist along with active flexion.
[2017-10-31 10:40] LABS: HEMATOCRIT 24.5 % (37.9-51.0); MEAN CORPUSCULAR HEMOGLOBIN 21.9 pg (27.0-33.4); MEAN CORPUSCULAR HGB CONC 31.1 g/dL (32.0-36.0); MEAN CORPUSCULAR VOLUME 70 fl (80-97); PLATELET COUNT 477 10^3/uL (150-450); RED BLOOD COUNT 3.49 10^6/uL (4.35-5.55); RED CELL DISTRIBUTION WIDTH 18.2 % (11.5-14.0); WHITE BLOOD COUNT 16.5 10^3/uL (4.0-10.5)
[2017-10-31 10:41] LABS: ANION GAP 12 (5-19); BLOOD UREA NITROGEN 30 mg/dL (7-20); CALCIUM 7.7 mg/dL (8.4-10.2); CARBON DIOXIDE 17 mmol/L (22-30); CHLORIDE 112 mmol/L (98-107); CREATINE KINASE 292 U/L (55-170); GLUCOSE 103 mg/dL (75-110); POTASSIUM 3.6 mmol/L (3.6-5.0); SODIUM 140.8 mmol/L (137-145)
[2017-10-31 10:42] LABS: HEMOGLOBIN 7.6 g/dL (13.5-17.0)
[2017-10-31 11:03] LABS: ABSOLUTE MONOCYTES # (MANUAL) 0.8 10^3/uL (0.1-1.4); ABSOLUTE NEUTROPHILS# (MANUAL) 13.7 10^3/uL (1.7-8.2); BAND NEUTROPHILS % (MANUAL) 1 % (3-5); BASOPHILS % (MANUAL) 1 % (0-2); EOSINOPHILS % (MANUAL) 5 % (0-6); LYMPHOCYTES % (MANUAL) 6 % (13-45); METAMYELOCYTES % (MANUAL) 1 % (0); MONOCYTES % (MANUAL) 5 % (3-13); SEGMENTED NEUTROPHILS % (MAN) 81 % (42-78); TOTAL CELLS COUNTED 100
[2017-10-31 11:05] LABS: ANISOCYTOSIS 2+; HYPOCHROMASIA 1+; OVALOCYTES 1+; PLATELET COMMENT INCREASED; POIKILOCYTOSIS 1+; POLYCHROMASIA 1+; TEAR DROP CELLS SLIGHT; TOXIC GRANULATION SLIGHT
--- NOTE | 2017-10-31 11:29 | XCELERA REPORT ---
[address] [address] Upper Extremity Venous Evaluation Name: LYLAHUSSAIN LEMUS II Age: 37 yrs Gender: Male : 1980 Patient Status: Inpatient Patient Location: [address] [place], [place] [address] Study Date: 10/30/2017 03:49 PM Procedure: Unilateral duplex scan of the right upper extremity veins was performed, including responses to compression and other maneuvers. Reason For Study: R arm swelling Ordering Physician: [facility] Performed By: Ranjan Arellano Right Side Venous Evaluation Normal vessel filling wall to wall, compression and augmentation as well as Colour flow down to the forearm veins. Interpretation Summary Normal compression, patency, spontaneous and phasic flow of the right upper extremity veins. : [facility] > Asif Valderrama
[2017-10-31] MEDS ORDERED: NORMAL SALINE 1000 ML 1,000 ML IV PRN (12:52)
--- NOTE | 2017-10-31 13:01 | PDOC PROGRESS REPORT ---
Subjective Progress Note for:: 10/31/17 - seen on rounds this morning Subjective:: states he wants to go home. i told his that his Cr is rising and we need to correct that before discharging. I had 15min phone conversation with his fiance sammy with patients permission regarding his care. i answered all her questions and she agrees to keep him for now. Reason For Visit: ENCEPHALOPATHY/RHABDOMYOLYSIS/HYPERKALEMIA/ACUTE Physical Exam Vital Signs: Temp Pulse Resp BP Pulse Ox 99.2 F 93 16 154/85 H 94 10/31/17 07:38 10/31/17 07:38 10/31/17 07:38 10/31/17 07:38 10/31/17 07:38 Intake & Output 10/30/17 10/31/17 11/01/17 06:59 06:59 06:59 Intake Total 2776 4583 Output Total 1900 1300 Balance 876 3283 Weight 242 lb 8.136 oz Results Laboratory Results: 10/31/17 10:00 10/31/17 10:00 10/31/17 10/31/17 10:00 10:00 WBC 16.5 H RBC 3.49 L Hgb 7.6 L Hct 24.5 L MCV 70 L MCH 21.9 L MCHC 31.1 L RDW 18.2 H Plt Count 477 H Seg Neutrophils % Not Reportable Lymphocytes % Not Reportable Monocytes % Not Reportable Eosinophils % Not Reportable Basophils % Not Reportable Absolute Neutrophils Not Reportable Absolute Lymphocytes Not Reportable Absolute Monocytes Not Reportable Absolute Eosinophils Not Reportable Absolute Basophils Not Reportable Sodium 140.8 Potassium 3.6 Chloride 112 H Carbon Dioxide 17 L Anion Gap 12 BUN 30 H Creatinine 2.68 H Est GFR ( Amer) 33 L Est GFR (Non-Af Amer) 27 L Glucose 103 Calcium 7.7 L 10/24/17 10/24/17 10/24/17 02:45 02:45 06:45 Creatine Kinase 12776 H 55400 H Troponin I 0.083 10/24/17 10/25/17 10/26/17 13:00 06:10 05:14 Creatine Kinase 16344 H 91002 H 7961 H Troponin I 10/28/17 10/29/17 10/30/17 04:20 04:56 05:16 Creatine Kinase 2296 H 991 H 538 H Troponin I 10/31/17 10:00 Creatine Kinase 292 H Troponin I Impressions: Elbow X-Ray 10/23/17 21:08 IMPRESSION: NEGATIVE STUDY OF THE RIGHT ELBOW. NO EXPLANATION FOR PAIN. Hand X-Ray 10/23/17 21:08 IMPRESSION: NEGATIVE STUDY OF THE RIGHT HAND. NO EXPLANATION FOR PAIN. Head CT 10/23/17 22:22 IMPRESSION: 1. No acute intracranial abnormality identified. This exam was performed according to our departmental dose-optimization program, which includes automated exposure control, adjustment of the mA and/or kV according to patient size and/or use of iterative reconstruction technique. Extremity Ultrasound 10/23/17 23:53 IMPRESSION: 1. No well-circumscribed fluid collection identified to suggest hematoma or abscess. 2. Edema within the musculature of the hand in the area of concern scan by the biochemistry technologist. 2010 [employer]- All Rights Reserved Chest X-Ray 10/29/17 00:00 IMPRESSION: Unchanged diffuse bilateral airspace disease compared to 10/28/[address] 10/30/17 00:00 IMPRESSION: 1. Severe interstitial lung disease in a non UIP pattern. 2. No obvious evidence of superior vena cava syndrome. Lack of contrast limits evaluation of the SVC. Assessment & Plan - Diagnosis (1) Volkmann's ischemic contracture Qualifiers: Encounter type: subsequent encounter Qualified Code(s): T79.6XXD - Traumatic ischemia of muscle, subsequent encounter Is this a current diagnosis for this admission?: Yes Plan: as per ortho this is the diagnosis. appreciate consult. will c/w OT of RUE. I have ordered U/S RUE to r/o DVT- and it was neg. Given that he's having fever, RUE and cellulitis picture of neck and RUE- i have also ordered CT chest to check for SVC syndrome or any type of intrathoracic mass compressing the vessels in the right upper chest. unfortunately did not give IV contrast- Ct chest shows only severe interstitial disease of the lungs. (2) Cellulitis of the neck and right arm Is this a current diagnosis for this admission?: Yes Plan: see plan above. I also had a discussion with ID physician Dr Grayson from [facility] regarding patient and his intermittent fever. please see her note from 10/30. I appreciate her consult and recommendations. i have stopped his antibiotics yesterday. he remains afebrile. he does have right lymphadenopathy under the jaw- but there's also a healing scar- he tells me that his swelling was much worse before and its not much improved. states he does shave and gets razor gaspar sometimes. i am wondering if he had a reaction to the shaving and a cut. I also got a CT chest yesterday for concern for SVC syndrome but due to elevated Cr i couldn't give contrast- CT showed severe interstitial disease- unclear etiology. but antibiotics are stopped for now. bcx remains negative fortunately. (3) Acute kidney injury Is this a current diagnosis for this admission?: Yes Plan: seems like his initial DEANN had resolved but now again his Cr has been rising- i thought this might be transient but it is worse today. He has been on lasix Iv 40mg BID- will stop for now. he doesn't look fluid overloaded. i am going slow down his IV fluids so he doesn't get fluid overload- encourage PO intake (4) PTSD (post-traumatic stress disorder) Is this a current diagnosis for this admission?: Yes (5) Rhabdomyolysis Qualifiers: Rhabdomyolysis type: traumatic Is this a current diagnosis for this admission?: Yes Plan: CPK trending down- close to being resolved. will cut IV fluids down and continue to monitor for fluid overload. (6) Seizure disorder Is this a current diagnosis for this admission?: Yes (7) Bipolar disorder Is this a current diagnosis for this admission?: Yes (8) Interstitial lung disease Is this a current diagnosis for this admission?: Yes Plan: seen on CT of chest yesterday- i am not sure what his is from. 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 i am not sure if this is a cause or not. i told her and patient that he will need to follow up with near eastern archaeology lecturer after discharge. - Time Time Spent with patient: 25-34 minutes
[2017-10-31] MEDS: FERROUS SULFATE 325 MG TABLET PO SCH (18:26)
[2017-10-31] MEDS: LURASIDONE HCL 40 MG TABLET PO SCH (21:30)
[2017-10-31] MEDS: LITHIUM CARBONATE 300 MG CAPSULE PO SCH (21:30)
[2017-11-01] MEDS: OXYCODONE-ACETAMINOPHEN 5-325 MG TABLET PO PRN ×4 (00:04→22:52)
[2017-11-01] MEDS: HEPARIN SOD (PORCINE) 5,000 UNIT/ML 1 ML SYRINGE SUBCUT SCH ×3 (05:03→22:50)
[2017-11-01] MEDS: ALPRAZOLAM 0.5 MG TABLET PO SCH ×3 (05:03→22:50)
[2017-11-01 09:18] LABS: ANION GAP 14 (5-19); BLOOD UREA NITROGEN 28 mg/dL (7-20); CARBON DIOXIDE 16 mmol/L (22-30); CHLORIDE 113 mmol/L (98-107); CREATINE KINASE 252 U/L (55-170); GLUCOSE 116 mg/dL (75-110); POTASSIUM 3.6 mmol/L (3.6-5.0); SODIUM 142.7 mmol/L (137-145)
[2017-11-01 09:22] LABS: ABSOLUTE BASOPHILS # (AUTO) 0.1 10^3/uL (0.0-0.2); ABSOLUTE EOSINOPHILS # (AUTO) 0.6 10^3/uL (0.0-0.6); ABSOLUTE LYMPHOCYTES (AUTO) 1.1 10^3/uL (0.5-4.7); ABSOLUTE NEUT (AUTO) 14.7 10^3/uL (1.7-8.2); BASOPHILS % (AUTO) 0.4 % (0-2); EOSINOPHILS % (AUTO) 3.4 % (0-6); HEMATOCRIT 25.9 % (37.9-51.0); HEMOGLOBIN 8.1 g/dL (13.5-17.0); LYMPHOCYTES % (AUTO) 6.3 % (13-45); MEAN CORPUSCULAR HGB CONC 31.1 g/dL (32.0-36.0); MEAN CORPUSCULAR VOLUME 71 fl (80-97); MONOCYTES % (AUTO) 5.5 % (3-13); PLATELET COUNT 570 10^3/uL (150-450); RED BLOOD COUNT 3.68 10^6/uL (4.35-5.55); SEGMENTED NEUTROPHILS % (AUTO) 84.4 % (42-78); TOTAL CELLS COUNTED % (AUTO) 100 %; WHITE BLOOD COUNT 17.4 10^3/uL (4.0-10.5)
[2017-11-01] MEDS: METHYLPHENIDATE HCL 5 MG TABLET PO SCH ×3 (09:50→17:44)
[2017-11-01] MEDS: FERROUS SULFATE 325 MG TABLET PO SCH (09:51)
[2017-11-01] MEDS: NORMAL SALINE 1000 ML 1,000 ML IV PRN (13:18)
--- NOTE | 2017-11-01 16:57 | PDOC PROGRESS REPORT ---
Subjective Progress Note for:: 11/01/17 - Seen on rounds this morning Subjective:: Interim history from previous provider: This is a 37 years old male patient with past medical history of bipolar disorder, PTSD and seizure disorder brought with a suspicion of Xanax overdose. Patient also found to be in acute renal failure and rhabdomyolysis as this is reflected on his blood work that his initial creatinine is 2.44 and has been trending down for several days but today bumped up to 1.97. His CPK on admission was 42,000 and has been trending down steadily and today it is 991. Patient has right facial and right lower extremity tenderness and erythema. He has been empirically started on cefepime and vancomycin initially. Chest x-ray revealed bilateral diffuse infiltrates and patient also started to have productive cough of yellowish sputum so I switched to cefepime to Zosyn. The swelling of the right arm is associated with tightness which is worrisome for compartment syndrome for which I consulted Dr. Keene who evaluated the patient and recommended physical and occupational therapy and concluded patient patient does not have compartment syndrome and does not need fasciotomy. Most probably patient might have ulnar nerve palsy. Since Thursday I have been seeing this patient. He has right arm swelling which has been evaluated by orthopedics who states that it is ischemic contracture. They recommend occupational therapy at this time. An outpatient follow-up. I have also had discussions with infectious disease physician regarding his fever and elevated white count. After much discussion I have DC'd all his IV antibiotics as he already had 7 days of antibiotics so far. This was done due to fear of drug fever. Unfortunately his white count is still elevated at this time. Also his creatinine has been worsening and he was on Lasix due to fluid overload seen on chest x-ray last week. He was getting 40 mg IV Lasix twice daily. I spoke with him today and I have been talking to his fiance Maribell with his permission regarding his care. I have been answering all their questions. I spoke with nephrology today regarding his care and they will see him tomorrow. Reason For Visit: ENCEPHALOPATHY/RHABDOMYOLYSIS/HYPERKALEMIA/ACUTE Physical Exam Vital Signs: Temp Pulse Resp BP Pulse Ox 98.6 F 87 20 152/86 H 98 11/01/17 11:44 11/01/17 11:44 11/01/17 11:44 11/01/17 11:44 11/01/17 11:44 Intake & Output 10/31/17 11/01/17 11/02/17 06:59 06:59 06:59 Intake Total 4583 1379 268 Output Total 1300 1275 300 Balance 3283 104 -32 General appearance: PRESENT: no acute distress, well-developed, well-nourished Head exam: PRESENT: atraumatic, normocephalic Eye exam: PRESENT: EOMI, PERRLA. ABSENT: scleral icterus Ear exam: PRESENT: normal external ear exam Mouth exam: PRESENT: tongue midline Neck exam: ABSENT: tracheal deviation Respiratory exam: PRESENT: clear to auscultation carter, symmetrical, unlabored. ABSENT: wheezes Cardiovascular exam: PRESENT: +S1, +S2 Pulses: PRESENT: +2 pedal pulses bilateral GI/Abdominal exam: PRESENT: normal bowel sounds, soft. ABSENT: tenderness Extremities exam: PRESENT: other - Right upper extremity-2+ edema of the forearm and the hand, slight weeping of clear fluids Musculoskeletal exam: PRESENT: other - Right upper extremity-edema of the forearm and hand-able to make a fist but with pain due to swelling. Radial pulses 1+. Sensation intact. Good range of motion of the elbow and shoulder. Neurological exam: PRESENT: alert, awake, oriented to person, oriented to place , oriented to time, oriented to situation, CN II-XII grossly intact Skin exam: PRESENT: dry, warm Results Laboratory Results: 11/01/17 08:30 11/01/17 08:30 11/01/17 11/01/17 08:30 08:30 WBC 17.4 H RBC 3.68 L Hgb 8.1 L Hct 25.9 L MCV 71 L MCH 22.0 L MCHC 31.1 L RDW 18.0 H Plt Count 570 H Seg Neutrophils % 84.4 H Lymphocytes % 6.3 L Monocytes % 5.5 Eosinophils % 3.4 Basophils % 0.4 Absolute Neutrophils 14.7 H Absolute Lymphocytes 1.1 Absolute Monocytes 1.0 Absolute Eosinophils 0.6 Absolute Basophils 0.1 Sodium 142.7 Potassium 3.6 Chloride 113 H Carbon Dioxide 16 L Anion Gap 14 BUN 28 H Creatinine 3.19 H Est GFR ( Amer) 27 L Est GFR (Non-Af Amer) 22 L Glucose 116 H Calcium 8.0 L 10/24/17 10/24/1710/24/18 02:45 02:45 06:45 Creatine Kinase 28011 H 38681 H Troponin I 0.083 10/24/17 10/25/17 10/26/17 13:00 06:10 05:14 Creatine Kinase 35501 H 34625 H 7961 H Troponin I 10/28/17 10/29/17 10/30/17 04:20 04:56 05:16 Creatine Kinase 2296 H 991 H 538 H Troponin I 10/31/17 11/01/17 10:00 08:30 Creatine Kinase 292 H 252 H Troponin I Impressions: Elbow X-Ray 10/23/17 21:08 IMPRESSION: NEGATIVE STUDY OF THE RIGHT ELBOW. NO EXPLANATION FOR PAIN. Hand X-Ray 10/23/17 21:08 IMPRESSION: NEGATIVE STUDY OF THE RIGHT HAND. NO EXPLANATION FOR PAIN. Head CT 10/23/17 22:22 IMPRESSION: 1. No acute intracranial abnormality identified. This exam was performed according to our departmental dose-optimization program, which includes automated exposure control, adjustment of the mA and/or kV according to patient size and/or use of iterative reconstruction technique. Extremity Ultrasound 10/23/17 23:53 IMPRESSION: 1. No well-circumscribed fluid collection identified to suggest hematoma or abscess. 2. Edema within the musculature of the hand in the area of concern scan by the supervisor microbiology technologists. 2010 [employer]- All Rights Reserved Chest X-Ray 10/29/17 00:00 IMPRESSION: Unchanged diffuse bilateral airspace disease compared to 10/28/[address] 10/30/17 00:00 IMPRESSION: 1. Severe interstitial lung disease in a non UIP pattern. 2. No obvious evidence of superior vena cava syndrome. Lack of contrast limits evaluation of the SVC. Assessment & Plan - Diagnosis (1) Volkmann's ischemic contracture Qualifiers: Encounter type: subsequent encounter Qualified Code(s): T79.6XXD - Traumatic ischemia of muscle, subsequent encounter Is this a current diagnosis for this admission?: Yes (2) Cellulitis of the neck and right arm Is this a current diagnosis for this admission?: Yes (3) Acute kidney injury Is this a current diagnosis for this admission?: Yes (4) PTSD (post-traumatic stress disorder) Is this a current diagnosis for this admission?: Yes (5) Rhabdomyolysis Qualifiers: Rhabdomyolysis type: traumatic Is this a current diagnosis for this admission?: Yes (6) Seizure disorder Is this a current diagnosis for this admission?: Yes (7) Bipolar disorder Is this a current diagnosis for this admission?: Yes (8) Interstitial lung disease Is this a current diagnosis for this admission?: Yes - Plan Summary Plan Summary: Please see subjective for update on history of the last 3 days. His right arm as per orthopedics he has ischemic contracture. Please see orthopedic note for recommendations His creatinine has been rising in the last for 5 days.. I think his creatinine is elevated due to use of Lasix IV twice daily-I have stopped Lasix yesterday and monitoring him today. I spoken with nephrology about his case today as they have been consulted last week but had not seen patient. As per nephrology were consulted for outpatient care but PICC line? I spoken with nephrology and they are happy to see him tomorrow. They recommend stopping his lithium and trending his creatinine-we can restart the lithium once his renal function is improved. Also to give him IV fluids and get an ultrasound renal tomorrow. There is a concern for hydronephrosis versus other renal causes. I spoke with his choco Reyna and patient and the port requests discontinuing the Lechuga. Have ordered scheduled Lechuga and he will void on his own. Patient understands that if he is unable to void we will need to restart the Lechuga. He did have some right-sided cellulitis of the neck and face for which she was started on IV antibiotics and it was increased to Zosyn and vancomycin. He continued to have fever on antibiotics and ID was consulted. I have spoken with infectious disease and 1 of the thought was whether it is DVT of the right upper want or not. I also got a CT of the chest to rule out any SVC syndrome compressing the veins causing his swelling. Thankfully his CT chest did not show anything all that was noncontrast given his creatinine was elevated. 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 I told him to follow-up with pulmonology after discharge. His right upper extremity ultrasound did not show any DVT thankfully. I had stopped his antibiotics after talking to infectious disease doctor for concern of drug fever. But his WBC count has trended up to 17,000 today. He does not have a fever yet and will closely monitor. Patient has been wanting to discharge for the last few days since he has been here for a week but I have reassured him that he needs to be inpatient to fix his kidneys.
[2017-11-01] MEDS ORDERED: IPRATROPIUM/ALBUTEROL 0.5-2.5 MG/3 ML AMPUL NEB PRN (22:39)
[2017-11-01] MEDS ORDERED: METHYLPREDNISOLONE INJ 125 MG/2 ML SDV IV ONE (22:45)
[2017-11-01] MEDS: LURASIDONE HCL 40 MG TABLET PO SCH (22:50)
[2017-11-01] MEDS ORDERED: GUAIFENESIN 600 MG TABLET.SA PO ONE (23:00)
[2017-11-02] MEDS: IPRATROPIUM/ALBUTEROL 0.5-2.5 MG/3 ML AMPUL NEB SCH ×4 (01:07→19:45)
[2017-11-02] MEDS: GUAIFENESIN SYRP 200 MG/10 ML UDC PO PRN ×3 (01:39→23:08)
[2017-11-02] MEDS: OXYCODONE-ACETAMINOPHEN 5-325 MG TABLET PO PRN ×4 (03:32→23:08)
[2017-11-02] MEDS: ALPRAZOLAM 0.5 MG TABLET PO SCH ×3 (05:37→21:51)
[2017-11-02] MEDS: HEPARIN SOD (PORCINE) 5,000 UNIT/ML 1 ML SYRINGE SUBCUT SCH ×3 (05:38→21:51)
[2017-11-02] MEDS: NORMAL SALINE 1000 ML 1,000 ML IV PRN (05:39)
[2017-11-02] MEDS ORDERED: METHYLPREDNISOLONE INJ 125 MG/2 ML SDV IV SCH (06:00)
[2017-11-02 06:41] LABS: HEMATOCRIT 25.5 % (37.9-51.0); MEAN CORPUSCULAR HEMOGLOBIN 22.2 pg (27.0-33.4); MEAN CORPUSCULAR HGB CONC 31.3 g/dL (32.0-36.0); MEAN CORPUSCULAR VOLUME 71 fl (80-97); PLATELET COUNT 594 10^3/uL (150-450); RED BLOOD COUNT 3.61 10^6/uL (4.35-5.55); RED CELL DISTRIBUTION WIDTH 18.3 % (11.5-14.0); WHITE BLOOD COUNT 18.2 10^3/uL (4.0-10.5)
[2017-11-02 07:03] LABS: ANION GAP 14 (5-19); BLOOD UREA NITROGEN 27 mg/dL (7-20); CARBON DIOXIDE 14 mmol/L (22-30); CHLORIDE 112 mmol/L (98-107); CREATINE KINASE 218 U/L (55-170); GLUCOSE 119 mg/dL (75-110); SODIUM 140.4 mmol/L (137-145)
[2017-11-02 07:15] LABS: ABSOLUTE LYMPHOCYTES# (MANUAL) 0.4 10^3/uL (0.5-4.7); ABSOLUTE NEUTROPHILS# (MANUAL) 17.8 10^3/uL (1.7-8.2); BAND NEUTROPHILS % (MANUAL) 1 % (3-5); BASOPHILS % (MANUAL) 0 % (0-2); EOSINOPHILS % (MANUAL) 0 % (0-6); LYMPHOCYTES % (MANUAL) 2 % (13-45); MONOCYTES % (MANUAL) 0 % (3-13); SEGMENTED NEUTROPHILS % (MAN) 97 % (42-78); TOTAL CELLS COUNTED 100
[2017-11-02 07:16] LABS: PLATELET COMMENT INCREASED; TOXIC GRANULATION 1+
[2017-11-02 07:17] LABS: ANISOCYTOSIS 2+; OVALOCYTES 2+; POIKILOCYTOSIS 2+; POLYCHROMASIA SLIGHT
[2017-11-02] MEDS: CYANOCOBALAMIN (VITAMIN B-12) 1,000 MCG TABLET PO SCH (09:38)
[2017-11-02] MEDS: GUAIFENESIN 600 MG TABLET.SA PO SCH ×2 (09:38→21:51)
[2017-11-02] MEDS: METHYLPHENIDATE HCL 5 MG TABLET PO SCH ×3 (09:38→18:45)
[2017-11-02] MEDS: FERROUS SULFATE 325 MG TABLET PO SCH (09:38)
[2017-11-02] MEDS: POTASSI CL 20 MEQ/1/2NS 1L 20 MEQ/1,000 ML RTUINJ IV PRN ×2 (09:45→23:15)
[2017-11-02] MEDS: METHYLPREDNISOLONE INJ 40 MG/1 ML SDV IV SCH ×2 (13:28→18:49)
--- NOTE | 2017-11-02 14:38 | PDOC CONSULTATION ---
Consultation Consult Date: 11/02/17 Consult reason:: FAHAD Orr. History of Present Illness Admission Date/PCP: 10/24/17 01:07 History of Present Illness: HUSSAIN ARITA II is a 37 year old male with history of bipolar disorder on Madelia and other comorbidities which includes PTSD, seizure disorder, alcohol abuse,was admitted with history of altered mental status and pain and swelling of his right arm. Patient currently is awake alert and oriented 2. However he is unable to give originating history which was gathered by review of charts. Unsure if he had overdosed or whether he had a seizure attack which led to his presenting status. Patient had evidences of likely pneumonia and acute rhabdomyolysis with CPK peaking at around 42,000. He was aggressively managed with IV fluids and is renal failure responded well. After further evaluations by Orth they concluded that he had Samantha's ischemic contracture with no evidences of any compartmental syndrome of his right arm. On review of his labs his creatinine was 0.8 on 23 August. On admission on the his creatinine was 2.8 and then on the he did come down to 1.4. As of the second of this month began to rise from [address] to peak at 3.1 yesterday and today.His Vanco levels were not toxic. And so too was his lithium levels which has now been held. I note that he was given some IV Lasix on a few days around the time and his levels began to peak. This was given, I believe because of his chest x-ray showing features suggestive of congestive heart failure.Patient has been very vigorously hydrated initially after presentation with altered mental status and DEANN with rhabdomyolysis. Obviously that led to a diagnosis of likely congestive heart failure especially with the radiological findings. However later evaluations with a noncontrasted CT scan shows the patient is got extensive interstitial lung disease which obviously was mimicking CHF.Patient has currently been taken off all intravenous and oral diuretics, antibiotics and lithium.Is getting gentle hydration currently. Past Medical History Pulmonary Medical History: Denies: Tuberculosis Neurological Medical History: Reports: Seizures Musculoskeltal Medical History: Reports: Arthritis - degenerative Psychiatric Medical History: Reports: Alcohol Dependency, Bipolar Disorder - with manic tendencies, Depression, Post Traumatic Stress Disorder, Other - Suicidal attempts Past Surgical History Past Surgical History: Reports: Cholecystectomy, Gastric Bypass Surgery, Orthopedic Surgery - right shoulder arthroscopy, Pacemaker Social History Smoking Status: Never Smoker Frequency of Alcohol Use: None Hx Recreational Drug Use: No Drugs: None Hx Prescription Drug Abuse: Yes - See history and present illness. - Advance Directive Resuscitation Status: Full Code Family History Parental Family History Reviewed: Yes - Negative for ESRD Children Family History Reviewed: No Sibling(s) Family History Reviewed.: No Medication/Allergy Home Medications: Alprazolam [Xanax] 1 mg PO Q8 10/24/17 Madelia Carbonate [Lithobid 300 mg Capsule] 600 mg PO QHS 10/24/17 Lurasidone HCl [Latuda] 80 mg PO QHS 10/24/17 Methylphenidate HCl [Ritalin] 20 mg PO TID@0800,1200,1500 10/24/17 Allergies/Adverse Reactions: NSAIDS (Non-Steroidal Anti-Inflamma [Nsaids] Allergy (Intermediate, Verified 02:30) orange juice Allergy (Severe, Uncoded 08/15/16 09:39) spagetti sauce Allergy (Severe, Uncoded 08/15/16 09:39) Vitamin D Synthetic Additive Allergy (Unknown, Uncoded 08/15/16 09:39) Anaphylaxis Review of Systems Constitutional: ABSENT: chills, fatigue, fever(s), headache(s), night sweats, weakness Eyes: ABSENT: visual disturbances Ears: ABSENT: hearing changes Nose, Mouth, and Throat: ABSENT: mouth pain, sore throat Cardiovascular: ABSENT: chest pain, dyspnea on exertion, edema, orthropnea, palpitations Gastrointestinal: ABSENT: abdominal pain, diarrhea, dysphagia, heartburn, hematemesis, nausea, vomiting Integumentary: ABSENT: lesions, pruritus, rash Neurological: ABSENT: abnormal speech, focal weakness, frequent falls Psychiatric: ABSENT: hallucinations, homidical ideation, suicidal ideation Hematologic/Lymphatic: ABSENT: easy bleeding, easy bruising, lymphadenopathy Physical Exam Vital Signs: Temp Pulse Resp BP Pulse Ox 97.7 F 101 H 18 161/91 H 96 11/02/17 07:22 11/02/17 08:35 11/02/17 08:35 11/02/17 07:22 11/02/17 08:35 Intake & Output 11/01/17 11/02/17 11/03/17 06:59 06:59 06:59 Intake Total 1379 3212 1004 Output Total 1275 1475 400 Balance 104 1737 604 General appearance: PRESENT: no acute distress Eye exam: PRESENT: conjunctiva pink, EOMI, PERRLA Ear exam: PRESENT: normal external ear exam Mouth exam: PRESENT: moist, neck supple Neck exam: ABSENT: lymphadenopathy, meningismus, tenderness, thyromegaly, tracheal deviation Respiratory exam: PRESENT: clear to auscultation carter. ABSENT: crackles Cardiovascular exam: PRESENT: +S1, +S2 GI/Abdominal exam: PRESENT: normal bowel sounds, soft. ABSENT: organomegaly, tenderness Extremities exam: ABSENT: pedal edema Musculoskeletal exam: PRESENT: deformity - Swollen right arm without any tenderness or discoloration. It was soft. Radial pulse was felt. Neurological exam: PRESENT: alert, awake, oriented to person, oriented to place Psychiatric exam: PRESENT: flat affect Skin exam: ABSENT: erythema, mottled, rash Results Laboratory Results: 11/02/17 05:39 11/02/17 05:39 11/02/17 11/02/17 11/02/17 05:39 05:39 05:39 WBC 18.2 H RBC 3.61 L Hgb 8.0 L Hct 25.5 L MCV 71 L MCH 22.2 L MCHC 31.3 L RDW 18.3 H Plt Count 594 H Seg Neutrophils % Not Reportable Lymphocytes % Not Reportable Monocytes % Not Reportable Eosinophils % Not Reportable Basophils % Not Reportable Absolute Neutrophils Not Reportable Absolute Lymphocytes Not Reportable Absolute Monocytes Not Reportable Absolute Eosinophils Not Reportable Absolute Basophils Not Reportable Sodium 140.4 Potassium 4.0 Chloride 112 H Carbon Dioxide 14 L Anion Gap 14 BUN 27 H Creatinine 3.14 H Est GFR ( Amer) 27 L Est GFR (Non-Af Amer) 22 L Glucose 119 H Calcium 8.0 L Phosphorus 4.6 H 10/24/17 10/24/17 10/24/17 02:45 02:45 06:45 Creatine Kinase 12125 H 98217 H Troponin I 0.083 10/24/17 10/25/17 10/26/17 13:00 06:10 05:14 Creatine Kinase 21248 H 39877 H 7961 H Troponin I 10/28/17 10/29/17 10/30/17 04:20 04:56 05:16 Creatine Kinase 2296 H 991 H 538 H Troponin I 10/31/17 11/01/17 11/02/17 10:00 08:30 05:39 Creatine Kinase 292 H 252 H 218 H Troponin I Impressions: Elbow X-Ray 10/23/17 21:08 IMPRESSION: NEGATIVE STUDY OF THE RIGHT ELBOW. NO EXPLANATION FOR PAIN. Hand X-Ray 10/23/17 21:08 IMPRESSION: NEGATIVE STUDY OF THE RIGHT HAND. NO EXPLANATION FOR PAIN. Head CT 10/23/17 22:22 IMPRESSION: 1. No acute intracranial abnormality identified. This exam was performed according to our departmental dose-optimization program, which includes automated exposure control, adjustment of the mA and/or kV according to patient size and/or use of iterative reconstruction technique. Extremity Ultrasound 10/23/17 23:53 IMPRESSION: 1. No well-circumscribed fluid collection identified to suggest hematoma or abscess. 2. Edema within the musculature of the hand in the area of concern scan by the ct mri technologist. 2010 [employer]- All Rights Reserved Chest X-Ray 10/29/17 00:00 IMPRESSION: Unchanged diffuse bilateral airspace disease compared to 10/28/[address] 10/30/17 00:00 IMPRESSION: 1. Severe interstitial lung disease in a non UIP pattern. 2. No obvious evidence of superior vena cava syndrome. Lack of contrast limits evaluation of the SVC. Assessment & Plan - Diagnosis (1) Acute kidney injury Is this a current diagnosis for this admission?: Yes Plan: Combination of factors including his acute presentation with acute rhabdo followed by vigorous diuresis for the mistaken identity of congestive heart failure. The patient had not yet completely recovered from his DEANN and acute rhabdo when he was given the diuretics. I completely agree with current management principles of stopping all his diuretics/antibiotics/lithium and continue with gentle hydration. We will continue to monitor. No acute indications exists currently for renal replacements.I do not see any evidence as to indicate congestive heart failure or pneumonia. (2) Bipolar disorder Is this a current diagnosis for this admission?: Yes Plan: On appropriate antipsychotics. Presently stable. (3) Crush injury of hand Qualifiers: Encounter type: initial encounter Laterality: right Qualified Code(s): S67.21XA - Crushing injury of right hand, initial encounter Plan: Is possible that he might have had a seizure that led to a crush injury affecting his right arm and the contracture. This probably led to his acute rhabdo and an acute kidney insult. Presently seems to be recovering well. (4) Interstitial lung disease Is this a current diagnosis for this admission?: Yes Plan: I believe this has been unknown until now. Patient does not recall ever being told that he has got any lung disorder. This might need to be evaluated as an outpatient by a good humor vendor. (5) Rhabdomyolysis Qualifiers: Rhabdomyolysis type: traumatic Is this a current diagnosis for this admission?: Yes Plan: Recovering. Continue on with gentle hydration. (6) Seizure disorder Is this a current diagnosis for this admission?: Yes Plan: As per hospitalist. (7) Metabolic acidosis Plan: Start p.o. replacements. Monitor.
[2017-11-02] MEDS ORDERED: FERRIC CARBOXYMALTOSE INJ 750 MG/15 ML VIAL IV ONE (16:13)
--- NOTE | 2017-11-02 16:34 | PDOC PROGRESS REPORT ---
Subjective Progress Note for:: 11/02/17 Subjective:: The patient is a 37-year-old male with a past medical history significant for bipolar disorder, PTSD and seizure disorder. He was brought to the emergency room after being found on the floor at home. There was he apparently had rolled off of the mattress that was on the floor and he was found by his stepfather. He has a history of his Xanax overdose in the past and he was brought to the hospital as it was suspected that he had once again overdosed. In the emergency room he was found to be in acute renal failure with rhabdomyolysis. His creatinine at the time of admission was 2.44. His CPK level was 42,000 and has been trending downwards. Was felt that he may have cellulitis of his neck and right arm and he has been found to have an underlying pneumonia. He has been maintained on parenteral antibiotics and has been improving. Unfortunately the swelling of his right arm is associated with tightness which was worrisome for compartment syndrome. Orthopedic surgery has been following the patient and did not believe that any surgical intervention is necessary. They feel as if he has an ischemic contractures and recommend occupational therapy at this time. He has had persistent fevers. Infectious disease has recommended stopping all of his antibiotics. He received 7 days of broad-spectrum IV antibiotics. He does have a markedly elevated white blood cell count but he has been on IV steroids during this entire hospitalization. His creatinine has been worsening and he was seen by nephrology today. Today when I saw the patient he is awake alert and oriented 2. He is a little bit confused about the events that led to this hospitalization. He states he continues to have pain and pressure in his arm and that it feels tight. He has had no fever or shaking chills. No chest pain, shortness of breath or cough. No nausea vomiting or diarrhea. No urinary complaints. Reason For Visit: ENCEPHALOPATHY/RHABDOMYOLYSIS/HYPERKALEMIA/ACUTE Physical Exam Vital Signs: Temp Pulse Resp BP Pulse Ox 97.7 F 92 18 161/91 H 96 11/02/17 07:22 11/02/17 14:00 11/02/17 14:00 11/02/17 07:22 11/02/17 14:00 Intake & Output 11/01/17 11/02/17 11/03/17 06:59 06:59 06:59 Intake Total 1379 3212 1004 Output Total 0944 6296 400 Balance 104 1737 604 General appearance: PRESENT: no acute distress, well-developed, well-nourished Head exam: PRESENT: atraumatic, normocephalic Ear exam: PRESENT: normal external ear exam Respiratory exam: PRESENT: decreased breath sounds, wheezes - He has some mild end expiratory wheezing noted throughout all lung bower. ABSENT: rales, rhonchi Cardiovascular exam: PRESENT: RRR. ABSENT: diastolic murmur, rubs, systolic murmur GI/Abdominal exam: PRESENT: normal bowel sounds, soft. ABSENT: distended, guarding, mass, organolmegaly, rebound, tenderness Rectal exam: PRESENT: deferred Extremities exam: PRESENT: other - Right upper extremity with significant swelling. He has limited range of motion in his above. Neurological exam: PRESENT: alert, awake, oriented to person, oriented to place , oriented to time, CN II-XII grossly intact. ABSENT: oriented to situation, motor sensory deficit Psychiatric exam: PRESENT: appropriate affect, normal mood. ABSENT: homicidal ideation, suicidal ideation Skin exam: PRESENT: dry, intact, warm. ABSENT: cyanosis, rash Results Laboratory Results: 11/02/17 05:39 11/02/17 05:39 11/02/17 11/02/17 11/02/17 05:39 05:39 05:39 WBC 18.2 H RBC 3.61 L Hgb 8.0 L Hct 25.5 L MCV 71 L MCH 22.2 L MCHC 31.3 L RDW 18.3 H Plt Count 594 H Seg Neutrophils % Not Reportable Lymphocytes % Not Reportable Monocytes % Not Reportable Eosinophils % Not Reportable Basophils % Not Reportable Absolute Neutrophils Not Reportable Absolute Lymphocytes Not Reportable Absolute Monocytes Not Reportable Absolute Eosinophils Not Reportable Absolute Basophils Not Reportable Sodium 140.4 Potassium 4.0 Chloride 112 H Carbon Dioxide 14 L Anion Gap 14 BUN 27 H Creatinine 3.14 H Est GFR ( Amer) 27 L Est GFR (Non-Af Amer) 22 L Glucose 119 H Calcium 8.0 L Phosphorus 4.6 H 10/24/17 10/24/17 10/24/17 02:45 02:45 06:45 Creatine Kinase 77767 H 84442 H Troponin I 0.083 10/24/17 10/25/1718 13:00 06:10 05:14 Creatine Kinase 03349 H 58248 H 7961 H Troponin I 10/28/17 10/29/17 10/30/17 04:20 04:56 05:16 Creatine Kinase 2296 H 991 H 538 H Troponin I 10/31/17 11/01/17 11/02/17 10:00 08:30 05:39 Creatine Kinase 292 H 252 H 218 H Troponin I Impressions: Elbow X-Ray 10/23/17 21:08 IMPRESSION: NEGATIVE STUDY OF THE RIGHT ELBOW. NO EXPLANATION FOR PAIN. Hand X-Ray 10/23/17 21:08 IMPRESSION: NEGATIVE STUDY OF THE RIGHT HAND. NO EXPLANATION FOR PAIN. Head CT 10/23/17 22:22 IMPRESSION: 1. No acute intracranial abnormality identified. This exam was performed according to our departmental dose-optimization program, which includes automated exposure control, adjustment of the mA and/or kV according to patient size and/or use of iterative reconstruction technique. Extremity Ultrasound 10/23/17 23:53 IMPRESSION: 1. No well-circumscribed fluid collection identified to suggest hematoma or abscess. 2. Edema within the musculature of the hand in the area of concern scan by the environmental health technologist. 2010 [employer]- All Rights Reserved Chest X-Ray 10/29/17 00:00 IMPRESSION: Unchanged diffuse bilateral airspace disease compared to 10/28/[address] 10/30/17 00:00 IMPRESSION: 1. Severe interstitial lung disease in a non UIP pattern. 2. No obvious evidence of superior vena cava syndrome. Lack of contrast limits evaluation of the SVC. Assessment & Plan - Diagnosis (1) Volkmann's ischemic contracture Qualifiers: Encounter type: subsequent encounter Qualified Code(s): T79.6XXD - Traumatic ischemia of muscle, subsequent encounter Is this a current diagnosis for this admission?: Yes Plan: The patient is being followed by the orthopedic surgery service. The recommendation is for occupational therapy. He still has significant swelling in his arm but overall it is improving. (2) Cellulitis of the neck and right arm Is this a current diagnosis for this admission?: Yes Plan: He is completed a 7 day course of broad-spectrum IV antibiotics. He has been afebrile now for the past 2-3 days. (3) Acute respiratory failure Is this a current diagnosis for this admission?: Yes Plan: Likely secondary to underlying pneumonia as well as interstitial lung disease. Resolved. He is stable on room air at this point (4) Pneumonia Is this a current diagnosis for this admission?: Yes Plan: Concerns for gram positives and atypicals. He completed a one-week course of therapy. (5) Interstitial lung disease Is this a current diagnosis for this admission?: Yes Plan: He would benefit from outpatient referral to a operational communication chief. He has been receiving 60 mg of IV Lasix every 8 hours. I am dropping this to 20 every 8 hours today. Hopefully he can be placed on p.o. prednisone tomorrow and have a quick taper. (6) Acute encephalopathy Is this a current diagnosis for this admission?: Yes Plan: Likely multifactorial secondary to underlying infection as well as acute renal failure. He appears to be back to his cognitive baseline. (7) Rhabdomyolysis Is this a current diagnosis for this admission?: Yes Plan: Improving. (8) Submandibular lymphadenopathy Is this a current diagnosis for this admission?: Yes Plan: Likely secondary to underlying infection. Improved with IV antibiotics. (9) Bipolar disorder Is this a current diagnosis for this admission?: Yes Plan: He will continue his home regimen. (10) Anemia Is this a current diagnosis for this admission?: Yes Plan: Multifactorial. He has an element of iron deficiency. He will be given a dose of IV iron. He will continue p.o. supplementation. He also has vitamin B12 deficiency and he has been started on B12 supplementation today. (11) Full code status Is this a current diagnosis for this admission?: Yes - Time Time Spent with patient: 25-34 minutes - Inpatient Certification Medical Necessity: Other - Inpatient hospitalization remains necessary. The patient has acute renal failure requiring parenteral fluids. He needs further input from nephrology. We need to keep a close eye on his right arm. Timing of disposition will be determined by his clinical course. I will make sure that Occupational Therapy is seeing him.
[2017-11-02] MEDS ORDERED: FERRIC CARBOXYMALTOSE 750 MG in NORMAL SALINE 100 ML IV ONE (20:00)
--- NOTE | 2017-11-02 21:28 | RADIOLOGY REPORT (SQ) ---
EXAM DESCRIPTION: [employer] COMPLETED DATE/TIME: 11/02/2017 9:10 pm REASON FOR STUDY: renal failure COMPARISON: None. TECHNIQUE: Dynamic and static grayscale images acquired of the kidneys and bladder and recorded on P ACS. Additional selected color Doppler and spectral images recorded. LIMITATIONS: None. FINDINGS: RIGHT KIDNEY: Normal size, 13.8 cm. Normal echogenicity. No solid or suspicious josé luis s. No hydronephrosis. No calcifications. LEFT KIDNEY: Normal size, 12.4 cm. Normal echogenicity. No solid or suspicious masses. No hydr onephrosis. No calcifications. BLADDER: No bladder mass is seen. Ureteral jets are not seen. OTHER FINDINGS: No other significant finding. IMPRESSION: NORMAL RENAL AND BLADDER ULTRASOUND. TECHNICAL DOCUMENTATION: JOB ID: [id number] [employer]- All Rights Reserved Reading location - IP/workstation name: [email or web address]
[2017-11-02] MEDS: SODIUM BICARBONATE 650 MG TABLET PO SCH (21:51)
[2017-11-02] MEDS: LURASIDONE HCL 40 MG TABLET PO SCH (21:51)
[2017-11-02] MEDS ORDERED: PANTOPRAZOLE SODIUM 40 MG VIAL IV ONE (23:00)
[2017-11-02] MEDS ORDERED: TRAZODONE HCL 50 MG TABLET PO ONE (23:00)
[2017-11-03] MEDS: METHYLPREDNISOLONE INJ 40 MG/1 ML SDV IV SCH ×3 (01:45→13:06)
[2017-11-03] MEDS: IPRATROPIUM/ALBUTEROL 0.5-2.5 MG/3 ML AMPUL NEB SCH ×4 (02:26→20:17)
[2017-11-03] MEDS: OXYCODONE-ACETAMINOPHEN 5-325 MG TABLET PO PRN ×2 (05:28→12:30)
[2017-11-03] MEDS: ALPRAZOLAM 0.5 MG TABLET PO SCH ×3 (05:28→21:11)
[2017-11-03] MEDS: HEPARIN SOD (PORCINE) 5,000 UNIT/ML 1 ML SYRINGE SUBCUT SCH ×3 (05:29→21:11)
[2017-11-03 05:43] LABS: HEMATOCRIT 22.5 % (37.9-51.0); MEAN CORPUSCULAR HEMOGLOBIN 22.5 pg (27.0-33.4); MEAN CORPUSCULAR HGB CONC 32.1 g/dL (32.0-36.0); MEAN CORPUSCULAR VOLUME 70 fl (80-97); PLATELET COUNT 782 10^3/uL (150-450); RED BLOOD COUNT 3.21 10^6/uL (4.35-5.55); RED CELL DISTRIBUTION WIDTH 18.6 % (11.5-14.0); WHITE BLOOD COUNT 24.4 10^3/uL (4.0-10.5)
[2017-11-03 06:00] LABS: ALANINE AMINOTRANSFERASE 32 U/L (21-72); ALBUMIN 2.7 g/dL (3.5-5.0); ALKALINE PHOSPHATASE 58 U/L (38-126); ANION GAP 12 (5-19); ASPARTATE AMINO TRANSFERASE 17 U/L (17-59); BILIRUBIN,DIRECT 0.3 mg/dL (0.0-0.4); BILIRUBIN,TOTAL 0.4 mg/dL (0.2-1.3); BLOOD UREA NITROGEN 27 mg/dL (7-20); CALCIUM 8.1 mg/dL (8.4-10.2); CARBON DIOXIDE 15 mmol/L (22-30); CHLORIDE 115 mmol/L (98-107); GLUCOSE 130 mg/dL (75-110); POTASSIUM 4.3 mmol/L (3.6-5.0); SODIUM 141.7 mmol/L (137-145); TOTAL PROTEIN 5.7 g/dL (6.3-8.2)
[2017-11-03 06:06] LABS: ABSOLUTE MONOCYTES # (MANUAL) 0.2 10^3/uL (0.1-1.4); ABSOLUTE NEUTROPHILS# (MANUAL) 23.2 10^3/uL (1.7-8.2); BASOPHILS % (MANUAL) 0 % (0-2); EOSINOPHILS % (MANUAL) 0 % (0-6); LYMPHOCYTES % (MANUAL) 4 % (13-45); MONOCYTES % (MANUAL) 1 % (3-13); SEGMENTED NEUTROPHILS % (MAN) 95 % (42-78); TOTAL CELLS COUNTED 100
[2017-11-03 06:07] LABS: ANISOCYTOSIS 1+; PLATELET COMMENT ADEQUATE; POLYCHROMASIA 1+
[2017-11-03 06:19] LABS: HEMOGLOBIN 7.2 g/dL (13.5-17.0)
[2017-11-03] MEDS: GUAIFENESIN 600 MG TABLET.SA PO SCH ×2 (09:15→21:11)
[2017-11-03] MEDS: FERROUS SULFATE 325 MG TABLET PO SCH (09:15)
[2017-11-03] MEDS: CYANOCOBALAMIN (VITAMIN B-12) 1,000 MCG TABLET PO SCH (09:15)
[2017-11-03] MEDS: SODIUM BICARBONATE 650 MG TABLET PO SCH ×2 (09:15→21:10)
[2017-11-03] MEDS: METHYLPHENIDATE HCL 5 MG TABLET PO SCH ×3 (09:15→18:04)
[2017-11-03] MEDS ORDERED: PANTOPRAZOLE SODIUM 40 MG VIAL IV SCH (10:00)
--- NOTE | 2017-11-03 12:31 | PDOC PROGRESS REPORT ---
Subjective Progress Note for:: 11/03/17 Subjective:: This 37-year-old gentleman with extensive medical history including bipolar disorder, PTSD and seizure disorder was admitted with a suspicion of Xanax overdose. He was found to be in acute kidney injury with rhabdomyolysis and initial CPK of 42,000. Patient has right facial and right lower extremity tenderness and erythema. His chest x-ray revealed bilateral diffuse infiltrates patient has been on uterus antibiotics including cefepime and vancomycin and currently on Zosyn. There is a concern for compartment syndrome but this has been ruled out. It is felt that the right arm swelling is secondary to ischemic contracture and occupational and physical therapy is suggested. It appears patient has also had persistent leukocytosis which is actually worse today and an infectious disease telephone consult was done by 1 of his previous physicians with suggestion of discontinue all antibiotics due to concerns about drug fever although patient himself is actually remained afebrile except for initial admission. His fiance was in the room today and she did have a lot of questions which I tried to answer given my limited exposure to this gentleman who has been in hospital for an extended period and who I am only evaluating today. There was a question about transfusing name however have put this on hold as there is no evidence of acute blood loss and it appears he has chronic anemia. I have told him though that if his hemoglobin gets below 7 he may need to be transfused. He is also noted to have thrombocytosis which is likely also reactive. Reason For Visit: ENCEPHALOPATHY/RHABDOMYOLYSIS/HYPERKALEMIA/ACUTE Physical Exam Vital Signs: Temp Pulse Resp BP Pulse Ox 98.3 F 86 16 166/92 H 86 L 11/03/17 04:00 11/03/17 08:33 11/03/17 08:33 11/03/17 04:00 11/03/17 08:33 Intake & Output 11/02/17 11/03/17 11/04/17 06:59 06:59 06:59 Intake Total 3212 3341 Output Total 3228 850 Balance 1737 8141 General appearance: PRESENT: no acute distress, well-developed, well-nourished Head exam: PRESENT: atraumatic, normocephalic Eye exam: PRESENT: conjunctiva pink, EOMI, PERRLA. ABSENT: scleral icterus Ear exam: PRESENT: normal external ear exam Mouth exam: PRESENT: moist, tongue midline Neck exam: ABSENT: carotid bruit, JVD, lymphadenopathy, thyromegaly Respiratory exam: PRESENT: clear to auscultation caretr. ABSENT: rales, rhonchi, wheezes Cardiovascular exam: PRESENT: RRR. ABSENT: diastolic murmur, rubs, systolic murmur Pulses: PRESENT: normal dorsalis pedis pul Vascular exam: PRESENT: normal capillary refill GI/Abdominal exam: PRESENT: normal bowel sounds, soft. ABSENT: distended, guarding, mass, organolmegaly, rebound, tenderness Rectal exam: PRESENT: deferred Extremities exam: PRESENT: full ROM, other - Right upper extremity swelling. ABSENT: calf tenderness, clubbing, pedal edema Neurological exam: PRESENT: alert, awake, oriented to person, oriented to place , oriented to time, oriented to situation, CN II-XII grossly intact. ABSENT: motor sensory deficit Psychiatric exam: PRESENT: appropriate affect. ABSENT: homicidal ideation, suicidal ideation Skin exam: PRESENT: dry, intact, warm. ABSENT: cyanosis, rash Results Laboratory Results: 11/03/17 05:10 11/03/17 05:10 11/03/17 11/03/17 11/03/17 05:10 05:10 07:31 WBC 24.4 H RBC 3.21 L Hgb 7.2 L Hct 22.5 L MCV 70 L MCH 22.5 L MCHC 32.1 RDW 18.6 H Plt Count 782 H Seg Neutrophils % Not Reportable Lymphocytes % Not Reportable Monocytes % Not Reportable Eosinophils % Not Reportable Basophils % Not Reportable Absolute Neutrophils Not Reportable Absolute Lymphocytes Not Reportable Absolute Monocytes Not Reportable Absolute Eosinophils Not Reportable Absolute Basophils Not Reportable Sodium 141.7 Potassium 4.3 Chloride 115 H Carbon Dioxide 15 L Anion Gap 12 BUN 27 H Creatinine 2.89 H Est GFR ( Amer) 30 L Est GFR (Non-Af Amer) 25 L Glucose 130 H Calcium 8.1 L Magnesium 2.1 Total Bilirubin 0.4 AST 17 ALT 32 Alkaline Phosphatase 58 Total Protein 5.7 L Albumin 2.7 L Blood Type O POSITIVE Antibody Screen NEGATIVE 10/28/17 17:25 Blood Blood Culture - Final NO GROWTH IN 5 DAYS 10/28/17 17:10 Blood Blood Culture - Final NO GROWTH IN 5 DAYS 10/24/17 10/24/17 10/24/17 02:45 02:45 06:45 Creatine Kinase 83522 H 71312 H Troponin I 0.083 10/24/17 10/25/17 10/26/17 13:00 06:10 05:14 Creatine Kinase 48619 H 53834 H 7961 H Troponin I 10/28/17 10/29/17 10/30/17 04:20 04:56 05:16 Creatine Kinase 2296 H 991 H 538 H Troponin I 10/31/17 11/01/17 11/02/17 10:00 08:30 05:39 Creatine Kinase 292 H 252 H 218 H Troponin I Impressions: Elbow X-Ray 10/23/17 21:08 IMPRESSION: NEGATIVE STUDY OF THE RIGHT ELBOW. NO EXPLANATION FOR PAIN. Hand X-Ray 10/23/17 21:08 IMPRESSION: NEGATIVE STUDY OF THE RIGHT HAND. NO EXPLANATION FOR PAIN. Head CT 10/23/17 22:22 IMPRESSION: 1. No acute intracranial abnormality identified. This exam was performed according to our departmental dose-optimization program, which includes automated exposure control, adjustment of the mA and/or kV according to patient size and/or use of iterative reconstruction technique. Extremity Ultrasound 10/23/17 23:53 IMPRESSION: 1. No well-circumscribed fluid collection identified to suggest hematoma or abscess. 2. Edema within the musculature of the hand in the area of concern scan by the certified cytotechnologist. 2010 [employer]- All Rights Reserved Chest X-Ray 10/29/17 00:00 IMPRESSION: Unchanged diffuse bilateral airspace disease compared to 10/28/[address] 10/30/17 00:00 IMPRESSION: 1. Severe interstitial lung disease in a non UIP pattern. 2. No obvious evidence of superior vena cava syndrome. Lack of contrast limits evaluation of the SVC. Renal Ultrasound 11/02/17 00:00 IMPRESSION: NORMAL RENAL AND BLADDER ULTRASOUND. Assessment & Plan - Time Time Spent with patient: 15-24 minutes Medications reviewed and adjusted accordingly: Yes Anticipated discharge: Home - Inpatient Certification Based on my medical assessment, after consideration of the patient's comorbidities, presenting symptoms, or acuity I expect that the services needed warrant INPATIENT care.: Yes Medical Necessity: Need Close Monitoring Due to Risk of Patient Decompensation, Risk of Complication if Not Cared For in Hospital - Plan Summary Plan Summary: #1 acute rhabdomyolysis with acute kidney injury currently resolving 2. Persistent leukocytosis which may actually be related to the steroids that the patient is on will review as patient does not appear to be having any worsening infection. Patient has had apparently been receiving 60 mg of prednisone every 8 hours and was just reduced to 20 mg every 8 hours on November 02. This is most likely his etiology of his leukocytosis. I will continue to taper I will monitor patient. 3. Anemia which may be related to his acute illness, frequent blood draws, iron deficiency and kidney failure. We will continue to trend hemoglobin and transfuse as needed 4. Cellulitis of neck and right currently off all antibiotics 5. Volkmann's ischemic contracture will continue management as per orthopedics 6. History of PTSD 7. Seizure disorder has had none since been in hospital 8. Bipolar disorder patient's lithium is currently on hold appropriately especially given his kidney function 9. Interstitial lung disease
[2017-11-03] MEDS: GABAPENTIN 100 MG CAPSULE PO SCH ×2 (14:22→21:11)
--- NOTE | 2017-11-03 16:28 | PDOC PROGRESS REPORT ---
Subjective Progress Note for:: 11/03/17 Reason For Visit: Patient seen today. His fiance is by his bedside. He continues to feel better. No specific complaints of any chest pains or shortness of breath. Appetite is good. Urinating well. No history of any dysuria hematuria. Labs and medications were reviewed with the patient. He has gotten 1 dose of IV iron by the hospitalist. Physical Exam Vital Signs: Temp Pulse Resp BP Pulse Ox 98.2 F 84 16 146/92 H 95 11/03/17 11:51 11/03/17 14:40 11/03/17 14:40 11/03/17 11:51 11/03/17 14:40 Intake & Output 11/02/17 11/03/17 11/04/17 06:59 06:59 06:59 Intake Total 3212 3341 681 Output Total 1475 850 Balance 1737 2491 681 General appearance: PRESENT: no acute distress Respiratory exam: PRESENT: clear to auscultation carter. ABSENT: crackles, rhonchi Cardiovascular exam: PRESENT: +S1, +S2 GI/Abdominal exam: PRESENT: normal bowel sounds, soft. ABSENT: organomegaly, tenderness Extremities exam: ABSENT: pedal edema Neurological exam: PRESENT: alert, awake, oriented to person, oriented to place Skin exam: ABSENT: erythema, rash Results Laboratory Results: 11/03/17 05:10 11/03/17 05:10 11/03/17 11/03/17 11/03/17 05:10 05:10 07:31 WBC 24.4 H RBC 3.21 L Hgb 7.2 L Hct 22.5 L MCV 70 L MCH 22.5 L MCHC 32.1 RDW 18.6 H Plt Count 782 H Seg Neutrophils % Not Reportable Lymphocytes % Not Reportable Monocytes % Not Reportable Eosinophils % Not Reportable Basophils % Not Reportable Absolute Neutrophils Not Reportable Absolute Lymphocytes Not Reportable Absolute Monocytes Not Reportable Absolute Eosinophils Not Reportable Absolute Basophils Not Reportable Sodium 141.7 Potassium 4.3 Chloride 115 H Carbon Dioxide 15 L Anion Gap 12 BUN 27 H Creatinine 2.89 H Est GFR ( Amer) 30 L Est GFR (Non-Af Amer) 25 L Glucose 130 H Calcium 8.1 L Magnesium 2.1 Total Bilirubin 0.4 AST 17 ALT 32 Alkaline Phosphatase 58 Total Protein 5.7 L Albumin 2.7 L Blood Type O POSITIVE Antibody Screen NEGATIVE 10/28/17 17:25 Blood Blood Culture - Final NO GROWTH IN 5 DAYS 10/28/17 17:10 Blood Blood Culture - Final NO GROWTH IN 5 DAYS 10/24/17 10/24/17 10/24/17 02:45 02:45 06:45 Creatine Kinase 32970 H 34713 H Troponin I 0.083 10/24/17 10/25/17 10/26/17 13:00 06:10 05:14 Creatine Kinase 98286 H 98469 H 7961 H Troponin I 10/28/17 10/29/17 10/30/17 04:20 04:56 05:16 Creatine Kinase 2296 H 991 H 538 H Troponin I 10/31/17 11/01/17 11/02/17 10:00 08:30 05:39 Creatine Kinase 292 H 252 H 218 H Troponin I Impressions: Elbow X-Ray 10/23/17 21:08 IMPRESSION: NEGATIVE STUDY OF THE RIGHT ELBOW. NO EXPLANATION FOR PAIN. Hand X-Ray 10/23/17 21:08 IMPRESSION: NEGATIVE STUDY OF THE RIGHT HAND. NO EXPLANATION FOR PAIN. Head CT 10/23/17 22:22 IMPRESSION: 1. No acute intracranial abnormality identified. This exam was performed according to our departmental dose-optimization program, which includes automated exposure control, adjustment of the mA and/or kV according to patient size and/or use of iterative reconstruction technique. Extremity Ultrasound 10/23/17 23:53 IMPRESSION: 1. No well-circumscribed fluid collection identified to suggest hematoma or abscess. 2. Edema within the musculature of the hand in the area of concern scan by the imaging technologist. 2010 [employer]- All Rights Reserved Chest X-Ray 10/29/17 00:00 IMPRESSION: Unchanged diffuse bilateral airspace disease compared to 10/28/[address] 10/30/17 00:00 IMPRESSION: 1. Severe interstitial lung disease in a non UIP pattern. 2. No obvious evidence of superior vena cava syndrome. Lack of contrast limits evaluation of the SVC. Renal Ultrasound 11/02/17 00:00 IMPRESSION: NORMAL RENAL AND BLADDER ULTRASOUND. Assessment & Plan - Diagnosis (1) Acute kidney injury Is this a current diagnosis for this admission?: Yes Plan: Nonoliguric.Renal numbers are improving. I would continue present lines of management including gentle hydration. Please avoid diuretics. (2) Bipolar disorder Is this a current diagnosis for this admission?: Yes Plan: Currently stable. (3) Crush injury of hand Qualifiers: Encounter type: initial encounter Laterality: right Qualified Code(s): S67.21XA - Crushing injury of right hand, initial encounter Plan: Right arm is improving as per patient. (4) Interstitial lung disease Is this a current diagnosis for this admission?: Yes Plan: He has a history of exposure to mold and chemicals used to fight mold infections /situations.Was not very compliant and using mask in those situations. He also gives a travel history of 2 forms and exposure to dust. He probably would benefit from a evaluation by leveler helper as an outpatient. (5) Rhabdomyolysis Qualifiers: Rhabdomyolysis type: traumatic Is this a current diagnosis for this admission?: Yes Plan: Resolved. Continue current management. (6) Seizure disorder Is this a current diagnosis for this admission?: Yes Plan: Stable. (7) Metabolic acidosis Plan: Unstable. Increase bicarb to every 8 hours and monitor.
[2017-11-03] MEDS: PREDNISONE 20 MG TABLET PO SCH (18:04)
[2017-11-03] MEDS: TRAZODONE HCL 50 MG TABLET PO SCH (21:10)
[2017-11-03] MEDS: GUAIFENESIN SYRP 200 MG/10 ML UDC PO PRN (21:10)
[2017-11-03] MEDS: LURASIDONE HCL 40 MG TABLET PO SCH (21:11)
[2017-11-03] MEDS: TRAMADOL HCL 50 MG TABLET PO PRN (21:17)
[2017-11-04] MEDS: OXYCODONE-ACETAMINOPHEN 5-325 MG TABLET PO PRN ×4 (00:20→16:33)
[2017-11-04] MEDS: IPRATROPIUM/ALBUTEROL 0.5-2.5 MG/3 ML AMPUL NEB SCH ×4 (02:08→20:47)
[2017-11-04] MEDS: GUAIFENESIN SYRP 200 MG/10 ML UDC PO PRN ×3 (02:36→21:26)
[2017-11-04] MEDS: HEPARIN SOD (PORCINE) 5,000 UNIT/ML 1 ML SYRINGE SUBCUT SCH ×3 (05:13→21:27)
[2017-11-04] MEDS: GABAPENTIN 100 MG CAPSULE PO SCH ×3 (05:13→21:27)
[2017-11-04] MEDS: ALPRAZOLAM 0.5 MG TABLET PO SCH ×3 (05:13→21:28)
[2017-11-04] MEDS: SODIUM BICARBONATE 650 MG TABLET PO SCH ×3 (05:13→21:27)
[2017-11-04] MEDS: POTASSI CL 20 MEQ/1/2NS 1L 20 MEQ/1,000 ML RTUINJ IV PRN (05:14)
[2017-11-04 06:34] LABS: MEAN CORPUSCULAR HGB CONC 32.4 g/dL (32.0-36.0); MEAN CORPUSCULAR VOLUME 71 fl (80-97); PLATELET COUNT 817 10^3/uL (150-450); RED BLOOD COUNT 3.09 10^6/uL (4.35-5.55); RED CELL DISTRIBUTION WIDTH 18.9 % (11.5-14.0); WHITE BLOOD COUNT 21.3 10^3/uL (4.0-10.5)
[2017-11-04 06:56] LABS: ANION GAP 14 (5-19); BLOOD UREA NITROGEN 27 mg/dL (7-20); CARBON DIOXIDE 14 mmol/L (22-30); CHLORIDE 115 mmol/L (98-107); GLUCOSE 118 mg/dL (75-110); POTASSIUM 4.2 mmol/L (3.6-5.0); SODIUM 142.8 mmol/L (137-145)
[2017-11-04 07:06] LABS: HEMOGLOBIN 7.1 g/dL (13.5-17.0)
[2017-11-04 07:17] LABS: ABSOLUTE LYMPHOCYTES# (MANUAL) 0.6 10^3/uL (0.5-4.7); ABSOLUTE MONOCYTES # (MANUAL) 1.3 10^3/uL (0.1-1.4); ABSOLUTE NEUTROPHILS# (MANUAL) 19.4 10^3/uL (1.7-8.2); ANISOCYTOSIS 2+; BASOPHILS % (MANUAL) 0 % (0-2); EOSINOPHILS % (MANUAL) 0 % (0-6); HYPOCHROMASIA 1+; LYMPHOCYTES % (MANUAL) 2 % (13-45); METAMYELOCYTES % (MANUAL) 1 % (0); MONOCYTES % (MANUAL) 6 % (3-13); OVALOCYTES 1+; PLATELET COMMENT INCREASED; POIKILOCYTOSIS 1+; ROULEAUX 1+; SEGMENTED NEUTROPHILS % (MAN) 90 % (42-78); TOTAL CELLS COUNTED 100; TOXIC GRANULATION SLIGHT
[2017-11-04] MEDS: CYANOCOBALAMIN (VITAMIN B-12) 1,000 MCG TABLET PO SCH (09:24)
[2017-11-04] MEDS: METHYLPHENIDATE HCL 5 MG TABLET PO SCH ×3 (09:24→17:02)
[2017-11-04] MEDS: GUAIFENESIN 600 MG TABLET.SA PO SCH ×2 (09:25→21:28)
[2017-11-04] MEDS: FERROUS SULFATE 325 MG TABLET PO SCH (09:25)
[2017-11-04] MEDS: PREDNISONE 20 MG TABLET PO SCH ×2 (09:25→17:02)
[2017-11-04] MEDS: FAMOTIDINE 20 MG TABLET PO SCH (09:25)
--- NOTE | 2017-11-04 13:52 | PDOC PROGRESS REPORT ---
Subjective Progress Note for:: 11/04/17 Subjective:: At the time of examination he was sitting up in his bed. The nurses, Tano and Filomena, starting an IV on him because he will be getting a blood transfusion today. He denied Chest pain, SOB, n/v/d/c. Reason For Visit: ENCEPHALOPATHY/RHABDOMYOLYSIS/HYPERKALEMIA/ACUTE Physical Exam Vital Signs: Temp Pulse Resp BP Pulse Ox 97.6 F 81 17 161/92 H 91 L 11/04/17 11:34 11/04/17 11:34 11/04/17 11:34 11/04/17 11:34 11/04/17 11:34 Intake & Output 11/03/17 11/04/17 11/05/17 06:59 06:59 06:59 Intake Total 3341 3427 118 Output Total 850 Balance 2491 3427 118 Weight 110 kg General appearance: PRESENT: no acute distress, well-developed, well-nourished Mouth exam: PRESENT: moist, neck supple Neck exam: ABSENT: JVD, tracheal deviation Respiratory exam: PRESENT: clear to auscultation carter. ABSENT: accessory muscle use, crackles, rales, rhonchi, wheezes Cardiovascular exam: PRESENT: +S1, +S2 GI/Abdominal exam: PRESENT: normal bowel sounds, soft. ABSENT: organomegaly, tenderness Extremities exam: ABSENT: pedal edema, +1 edema, +2 edema Musculoskeletal exam: PRESENT: normal inspection. ABSENT: tenderness Neurological exam: PRESENT: alert, awake, oriented to person, oriented to place , oriented to time, oriented to situation Psychiatric exam: PRESENT: appropriate affect, normal mood Skin exam: PRESENT: dry, intact, warm. ABSENT: cyanosis Results Laboratory Results: 11/04/17 05:36 11/04/17 05:36 11/04/17 11/04/17 05:36 05:36 WBC 21.3 H RBC 3.09 L Hgb 7.1 L Hct 22.0 L MCV 71 L MCH 23.0 L MCHC 32.4 RDW 18.9 H Plt Count 817 H Seg Neutrophils % Not Reportable Lymphocytes % Not Reportable Monocytes % Not Reportable Eosinophils % Not Reportable Basophils % Not Reportable Absolute Neutrophils Not Reportable Absolute Lymphocytes Not Reportable Absolute Monocytes Not Reportable Absolute Eosinophils Not Reportable Absolute Basophils Not Reportable Sodium 142.8 Potassium 4.2 Chloride 115 H Carbon Dioxide 14 L Anion Gap 14 BUN 27 H Creatinine 2.45 H Est GFR ( Amer) 36 L Est GFR (Non-Af Amer) 30 L Glucose 118 H Calcium 8.0 L 11/01/17 21:25 Sputum Gram Stain - Final 11/01/17 21:25 Sputum Sputum Culture - Final C.albicans/C.dubliniensis Normal Claudia 10/24/17 10/24/17 10/24/17 02:45 02:45 06:45 Creatine Kinase 31500 H 82743 H Troponin I 0.083 10/24/17 10/25/17 10/26/17 13:00 06:10 05:14 Creatine Kinase 74933 H 04538 H 7961 H Troponin I 10/28/17 10/29/17 10/30/17 04:20 04:56 05:16 Creatine Kinase 2296 H 991 H 538 H Troponin I 10/31/17 11/01/17 11/02/17 10:00 08:30 05:39 Creatine Kinase 292 H 252 H 218 H Troponin I Impressions: Elbow X-Ray 10/23/17 21:08 IMPRESSION: NEGATIVE STUDY OF THE RIGHT ELBOW. NO EXPLANATION FOR PAIN. Hand X-Ray 10/23/17 21:08 IMPRESSION: NEGATIVE STUDY OF THE RIGHT HAND. NO EXPLANATION FOR PAIN. Head CT 10/23/17 22:22 IMPRESSION: 1. No acute intracranial abnormality identified. This exam was performed according to our departmental dose-optimization program, which includes automated exposure control, adjustment of the mA and/or kV according to patient size and/or use of iterative reconstruction technique. Extremity Ultrasound 10/23/17 23:53 IMPRESSION: 1. No well-circumscribed fluid collection identified to suggest hematoma or abscess. 2. Edema within the musculature of the hand in the area of concern scan by the histotechnologist supervisor. 2010 [employer]- All Rights Reserved Chest X-Ray 10/29/17 00:00 IMPRESSION: Unchanged diffuse bilateral airspace disease compared to 10/28/[address] 10/30/17 00:00 IMPRESSION: 1. Severe interstitial lung disease in a non UIP pattern. 2. No obvious evidence of superior vena cava syndrome. Lack of contrast limits evaluation of the SVC. Renal Ultrasound 11/02/17 00:00 IMPRESSION: NORMAL RENAL AND BLADDER ULTRASOUND. Assessment & Plan - Diagnosis (1) Acute kidney injury Is this a current diagnosis for this admission?: Yes Plan: improving, at this current point his kidnies are stable. From a kidney standpoint he is safe for discharge and follow up with Dr. Ryan in 10 to 14 days. (2) Anemia Is this a current diagnosis for this admission?: Yes Plan: getting 1 unit of blood today. Recomend that he also gets B12 shots. B12 was low and he is already on supplements. He does have a history of gastric bypass so b12 oral supplements may not be getting absorbed. (3) Bipolar disorder Is this a current diagnosis for this admission?: Yes Plan: currently off lithium. (4) Crush injury arm Qualifiers: Encounter type: initial encounter Laterality: right Qualified Code(s): S47.1XXA - Crushing injury of right shoulder and upper arm, initial encounter Is this a current diagnosis for this admission?: Yes Plan: resolving (5) Rhabdomyolysis Qualifiers: Rhabdomyolysis type: traumatic Is this a current diagnosis for this admission?: Yes Plan: resolving (6) Metabolic acidosis Plan: recently had increase in sodium bicarb, will trend after one full day of getting 1300mg TID
--- NOTE | 2017-11-04 17:30 | PDOC PROGRESS REPORT ---
Subjective Progress Note for:: 11/04/17 Subjective:: This 37-year-old gentleman with extensive medical history including bipolar disorder, PTSD and seizure disorder was admitted with a suspicion of Xanax overdose. He was found to be in acute kidney injury with rhabdomyolysis and initial CPK of 42,000. Patient has right facial and right lower extremity tenderness and erythema. His chest x-ray revealed bilateral diffuse infiltrates patient has been on uterus antibiotics including cefepime and vancomycin and currently on Zosyn. There is a concern for compartment syndrome but this has been ruled out. It is felt that the right arm swelling is secondary to ischemic contracture and occupational and physical therapy is suggested. It appears patient has also had persistent leukocytosis which is actually worse today and an infectious disease telephone consult was done by 1 of his previous physicians with suggestion of discontinue all antibiotics due to concerns about drug fever although patient himself is actually remained afebrile except for initial admission. His fiance was in the room today a again and we did discuss further plans. As of now his leukocytosis appears to be improving and likely secondary to the steroids. This has leukocytosis with platelet count in the 800s and I would definitely like this come down before his discharge his kidney function is improving nicely and this can be followed as outpatient. However his hemoglobin is just around 7.1 and we agreed to still hold off on blood transfusion for now Reason For Visit: ENCEPHALOPATHY/RHABDOMYOLYSIS/HYPERKALEMIA/ACUTE Physical Exam Vital Signs: Temp Pulse Resp BP Pulse Ox 97.8 F 88 19 155/94 H 93 11/04/17 15:35 11/04/17 15:35 11/04/17 15:35 11/04/17 15:35 11/04/17 15:35 Intake & Output 11/03/17 11/04/17 11/05/17 06:59 06:59 06:59 Intake Total 3341 3427 118 Output Total 850 Balance 2491 3427 118 Weight 110 kg General appearance: PRESENT: no acute distress, well-developed, well-nourished Head exam: PRESENT: atraumatic, normocephalic Eye exam: PRESENT: conjunctiva pink, EOMI, PERRLA. ABSENT: scleral icterus Ear exam: PRESENT: normal external ear exam Mouth exam: PRESENT: moist, tongue midline Neck exam: ABSENT: carotid bruit, JVD, lymphadenopathy, thyromegaly Respiratory exam: PRESENT: clear to auscultation carter. ABSENT: rales, rhonchi, wheezes Cardiovascular exam: PRESENT: RRR. ABSENT: diastolic murmur, rubs, systolic murmur Pulses: PRESENT: normal dorsalis pedis pul Vascular exam: PRESENT: normal capillary refill GI/Abdominal exam: PRESENT: normal bowel sounds, soft. ABSENT: distended, guarding, mass, organolmegaly, rebound, tenderness Rectal exam: PRESENT: deferred Extremities exam: PRESENT: full ROM, other - Right upper extremity swelling unrestricted movement. ABSENT: calf tenderness, clubbing, pedal edema Neurological exam: PRESENT: alert, awake, oriented to person, oriented to place , oriented to time, oriented to situation, CN II-XII grossly intact. ABSENT: motor sensory deficit Psychiatric exam: PRESENT: appropriate affect, normal mood. ABSENT: homicidal ideation, suicidal ideation Skin exam: PRESENT: dry, intact, warm. ABSENT: cyanosis, rash Results Laboratory Results: 11/04/17 05:36 11/04/17 05:36 11/04/17 11/04/17 05:36 05:36 WBC 21.3 H RBC 3.09 L Hgb 7.1 L Hct 22.0 L MCV 71 L MCH 23.0 L MCHC 32.4 RDW 18.9 H Plt Count 817 H Seg Neutrophils % Not Reportable Lymphocytes % Not Reportable Monocytes % Not Reportable Eosinophils % Not Reportable Basophils % Not Reportable Absolute Neutrophils Not Reportable Absolute Lymphocytes Not Reportable Absolute Monocytes Not Reportable Absolute Eosinophils Not Reportable Absolute Basophils Not Reportable Sodium 142.8 Potassium 4.2 Chloride 115 H Carbon Dioxide 14 L Anion Gap 14 BUN 27 H Creatinine 2.45 H Est GFR ( Amer) 36 L Est GFR (Non-Af Amer) 30 L Glucose 118 H Calcium 8.0 L 11/01/17 21:25 Sputum Gram Stain - Final 11/01/17 21:25 Sputum Sputum Culture - Final C.albicans/C.dubliniensis Normal Claudia 10/24/17 10/24/17 10/24/17 02:45 02:45 06:45 Creatine Kinase 29360 H 38045 H Troponin I 0.083 10/24/17 10/25/17 10/26/17 13:00 06:10 05:14 Creatine Kinase 23083 H 70243 H 7961 H Troponin I 10/28/17 10/29/17 10/30/17 04:20 04:56 05:16 Creatine Kinase 2296 H 991 H 538 H Troponin I 10/31/17 11/01/17 11/02/17 10:00 08:30 05:39 Creatine Kinase 292 H 252 H 218 H Troponin I Impressions: Elbow X-Ray 10/23/17 21:08 IMPRESSION: NEGATIVE STUDY OF THE RIGHT ELBOW. NO EXPLANATION FOR PAIN. Hand X-Ray 10/23/17 21:08 IMPRESSION: NEGATIVE STUDY OF THE RIGHT HAND. NO EXPLANATION FOR PAIN. Head CT 10/23/17 22:22 IMPRESSION: 1. No acute intracranial abnormality identified. This exam was performed according to our departmental dose-optimization program, which includes automated exposure control, adjustment of the mA and/or kV according to patient size and/or use of iterative reconstruction technique. Extremity Ultrasound 10/23/17 23:53 IMPRESSION: 1. No well-circumscribed fluid collection identified to suggest hematoma or abscess. 2. Edema within the musculature of the hand in the area of concern scan by the industrial technologist. 2010 [employer]- All Rights Reserved Chest X-Ray 10/29/17 00:00 IMPRESSION: Unchanged diffuse bilateral airspace disease compared to 10/28/[address] 10/30/17 00:00 IMPRESSION: 1. Severe interstitial lung disease in a non UIP pattern. 2. No obvious evidence of superior vena cava syndrome. Lack of contrast limits evaluation of the SVC. Renal Ultrasound 11/02/17 00:00 IMPRESSION: NORMAL RENAL AND BLADDER ULTRASOUND. Assessment & Plan - Time Time Spent with patient: 15-24 minutes Medications reviewed and adjusted accordingly: Yes Anticipated discharge: Home Within: within 72 hours - Inpatient Certification Based on my medical assessment, after consideration of the patient's comorbidities, presenting symptoms, or acuity I expect that the services needed warrant INPATIENT care.: Yes Medical Necessity: Need For IV Fluids, Risk of Complication if Not Cared For in Hospital, Risk of Diagnosis Which Will Require Inpatient Eval/Care/Monitoring - Plan Summary Plan Summary: #1 acute rhabdomyolysis with acute kidney injury currently resolving. He can follow up with nephrology as outpatient and hopefully his kidney function will continue to improve 2. Persistent leukocytosis which may actually be related to the steroids that the patient is on will review as patient does not appear to be having any worsening infection. Patient has had apparently been receiving 60 mg of Solu- Medrol every 8 hours and was just reduced to 20 mg every 8 hours on November 02. This is most likely his etiology of his leukocytosis. I will continue to taper 3. Anemia which may be related to his acute illness, frequent blood draws, iron deficiency and kidney failure. We will continue to trend hemoglobin and transfuse as needed 4. Cellulitis of neck a- currently off all antibiotics 5. Volkmann's ischemic contracture will continue management as per orthopedics 6. History of PTSD 7. Seizure disorder has had none since been in hospital 8. Bipolar disorder patient's lithium is currently on hold appropriately especially given his kidney function 9. Interstitial lung disease chronic outpatient follow-up
[2017-11-04] MEDS: TRAZODONE HCL 50 MG TABLET PO SCH (21:27)
[2017-11-04] MEDS: LURASIDONE HCL 40 MG TABLET PO SCH (21:28)
[2017-11-04] MEDS: TRAMADOL HCL 50 MG TABLET PO PRN (21:33)
[2017-11-05] MEDS: OXYCODONE-ACETAMINOPHEN 5-325 MG TABLET PO PRN ×3 (00:21→13:38)
[2017-11-05] MEDS: IPRATROPIUM/ALBUTEROL 0.5-2.5 MG/3 ML AMPUL NEB SCH ×4 (02:23→19:43)
[2017-11-05] MEDS: POTASSI CL 20 MEQ/1/2NS 1L 20 MEQ/1,000 ML RTUINJ IV PRN (03:52)
[2017-11-05 05:07] LABS: HEMATOCRIT 22.9 % (37.9-51.0); MEAN CORPUSCULAR HEMOGLOBIN 22.6 pg (27.0-33.4); MEAN CORPUSCULAR HGB CONC 31.7 g/dL (32.0-36.0); MEAN CORPUSCULAR VOLUME 71 fl (80-97); PLATELET COUNT 827 10^3/uL (150-450); RED BLOOD COUNT 3.22 10^6/uL (4.35-5.55); RED CELL DISTRIBUTION WIDTH 19.1 % (11.5-14.0)
[2017-11-05 05:23] LABS: ANION GAP 10 (5-19); BLOOD UREA NITROGEN 25 mg/dL (7-20); CARBON DIOXIDE 18 mmol/L (22-30); CHLORIDE 115 mmol/L (98-107); GLUCOSE 101 mg/dL (75-110); POTASSIUM 4.2 mmol/L (3.6-5.0); SODIUM 142.7 mmol/L (137-145)
[2017-11-05 05:27] LABS: HEMOGLOBIN 7.3 g/dL (13.5-17.0)
[2017-11-05 05:35] LABS: ABSOLUTE LYMPHOCYTES# (MANUAL) 0.7 10^3/uL (0.5-4.7); ABSOLUTE MONOCYTES # (MANUAL) 0.2 10^3/uL (0.1-1.4); ABSOLUTE NEUTROPHILS# (MANUAL) 16.2 10^3/uL (1.7-8.2); BAND NEUTROPHILS % (MANUAL) 6 % (3-5); BASOPHILS % (MANUAL) 0 % (0-2); EOSINOPHILS % (MANUAL) 0 % (0-6); LYMPHOCYTES % (MANUAL) 3 % (13-45); MONOCYTES % (MANUAL) 1 % (3-13); SEGMENTED NEUTROPHILS % (MAN) 87 % (42-78); TOTAL CELLS COUNTED 100
[2017-11-05 05:39] LABS: TOXIC VACUOLATION PRESENT
[2017-11-05 05:42] LABS: HYPOCHROMASIA 3+; PLATELET COMMENT INCREASED; POLYCHROMASIA 1+
[2017-11-05 05:43] LABS: ANISOCYTOSIS 1+; OVALOCYTES SLIGHT; POIKILOCYTOSIS SLIGHT
[2017-11-05 05:44] LABS: HYPERSEGMENTED NEUTROPHILS PRESENT
[2017-11-05 05:45] LABS: METAMYELOCYTES % (MANUAL) 2 % (0)
[2017-11-05] MEDS: GABAPENTIN 100 MG CAPSULE PO SCH ×3 (06:19→22:11)
[2017-11-05] MEDS: ALPRAZOLAM 0.5 MG TABLET PO SCH ×3 (06:20→22:10)
[2017-11-05] MEDS: HEPARIN SOD (PORCINE) 5,000 UNIT/ML 1 ML SYRINGE SUBCUT SCH ×3 (06:20→22:16)
[2017-11-05] MEDS: SODIUM BICARBONATE 650 MG TABLET PO SCH ×3 (06:20→22:10)
[2017-11-05] MEDS: CYANOCOBALAMIN (VITAMIN B-12) 1,000 MCG TABLET PO SCH (09:19)
[2017-11-05] MEDS: FERROUS SULFATE 325 MG TABLET PO SCH (09:20)
[2017-11-05] MEDS: GUAIFENESIN 600 MG TABLET.SA PO SCH ×2 (09:20→22:10)
[2017-11-05] MEDS: FAMOTIDINE 20 MG TABLET PO SCH (09:20)
[2017-11-05] MEDS: PREDNISONE 20 MG TABLET PO SCH (09:20)
[2017-11-05] MEDS: METHYLPHENIDATE HCL 5 MG TABLET PO SCH ×3 (09:20→17:14)
--- NOTE | 2017-11-05 10:32 | PDOC PROGRESS REPORT ---
Subjective Progress Note for:: 11/05/17 Subjective:: Patient is doing well, he was sitting up on the side of his bed eating breakfast. He denies SOB, chest pain, blood in his stool. He also denies nausea , vomiting, diarrhea or constipation. Reason For Visit: ENCEPHALOPATHY/RHABDOMYOLYSIS/HYPERKALEMIA/ACUTE Physical Exam Vital Signs: Temp Pulse Resp BP Pulse Ox 98.0 F 73 16 161/98 H 98 11/05/17 07:34 11/05/17 08:40 11/05/17 08:40 11/05/17 07:34 11/05/17 08:40 Intake & Output 11/04/17 11/05/17 11/06/17 06:59 06:59 06:59 Intake Total 3427 2376 Output Total 0 Balance 3427 2376 Weight 110 kg General appearance: PRESENT: no acute distress, well-developed, well-nourished Mouth exam: PRESENT: moist, neck supple Neck exam: ABSENT: JVD Respiratory exam: PRESENT: clear to auscultation carter. ABSENT: accessory muscle use, crackles, rales, rhonchi, wheezes Cardiovascular exam: PRESENT: RRR, +S1, +S2 GI/Abdominal exam: PRESENT: normal bowel sounds, soft. ABSENT: organomegaly, tenderness Extremities exam: PRESENT: joint swelling, +1 edema - -right arm. ABSENT: tenderness Musculoskeletal exam: PRESENT: normal inspection. ABSENT: tenderness Neurological exam: PRESENT: alert, awake, oriented to person, oriented to place , oriented to time, oriented to situation Psychiatric exam: PRESENT: appropriate affect, normal mood Skin exam: PRESENT: dry, intact, warm. ABSENT: cyanosis Results Laboratory Results: 11/05/17 04:48 11/05/17 04:48 11/05/17 11/05/17 04:48 04:48 WBC 17.0 H RBC 3.22 L Hgb 7.3 L Hct 22.9 L MCV 71 L MCH 22.6 L MCHC 31.7 L RDW 19.1 H Plt Count 827 H Seg Neutrophils % Not Reportable Lymphocytes % Not Reportable Monocytes % Not Reportable Eosinophils % Not Reportable Basophils % Not Reportable Absolute Neutrophils Not Reportable Absolute Lymphocytes Not Reportable Absolute Monocytes Not Reportable Absolute Eosinophils Not Reportable Absolute Basophils Not Reportable Sodium 142.7 Potassium 4.2 Chloride 115 H Carbon Dioxide 18 L Anion Gap 10 BUN 25 H Creatinine 2.26 H Est GFR ( Amer) 40 L Est GFR (Non-Af Amer) 33 L Glucose 101 Calcium 8.0 L 11/01/17 21:25 Sputum Gram Stain - Final 11/01/17 21:25 Sputum Sputum Culture - Final C.albicans/C.dubliniensis Normal Claudia 10/24/17 10/24/17 10/24/17 02:45 02:45 06:45 Creatine Kinase 31444 H 22224 H Troponin I 0.083 10/24/17 10/25/17 10/26/17 13:00 06:10 05:14 Creatine Kinase 75905 H 64553 H 7961 H Troponin I 10/28/17 10/29/17 10/30/17 04:20 04:56 05:16 Creatine Kinase 2296 H 991 H 538 H Troponin I 10/31/17 11/01/17 11/02/17 10:00 08:30 05:39 Creatine Kinase 292 H 252 H 218 H Troponin I Impressions: Elbow X-Ray 10/23/17 21:08 IMPRESSION: NEGATIVE STUDY OF THE RIGHT ELBOW. NO EXPLANATION FOR PAIN. Hand X-Ray 10/23/17 21:08 IMPRESSION: NEGATIVE STUDY OF THE RIGHT HAND. NO EXPLANATION FOR PAIN. Head CT 10/23/17 22:22 IMPRESSION: 1. No acute intracranial abnormality identified. This exam was performed according to our departmental dose-optimization program, which includes automated exposure control, adjustment of the mA and/or kV according to patient size and/or use of iterative reconstruction technique. Extremity Ultrasound 10/23/17 23:53 IMPRESSION: 1. No well-circumscribed fluid collection identified to suggest hematoma or abscess. 2. Edema within the musculature of the hand in the area of concern scan by the staff cytotechnologist. 2010 [employer]- All Rights Reserved Chest X-Ray 10/29/17 00:00 IMPRESSION: Unchanged diffuse bilateral airspace disease compared to 10/28/[address] 10/30/17 00:00 IMPRESSION: 1. Severe interstitial lung disease in a non UIP pattern. 2. No obvious evidence of superior vena cava syndrome. Lack of contrast limits evaluation of the SVC. Renal Ultrasound 11/02/17 00:00 IMPRESSION: NORMAL RENAL AND BLADDER ULTRASOUND. Assessment & Plan - Diagnosis (1) Acute kidney injury Is this a current diagnosis for this admission?: Yes Plan: currently improving, will look to decrease fluids to 50mL an hour to prevent fluid overload. Given a prescription with labs on it and will be followed up as outpatient when he is discharged. (2) Anemia Is this a current diagnosis for this admission?: Yes Plan: recommend only transfusing if hemoglobin drops below 7 or his anemia becomes symptomatic. Has received iron and is on b12 supplements. Recommend sublingual b12 tablets instead of PO. (3) Bipolar disorder Is this a current diagnosis for this admission?: Yes Plan: lithium currently on hold (4) Crush injury arm Qualifiers: Encounter type: initial encounter Laterality: right Qualified Code(s): S47.1XXA - Crushing injury of right shoulder and upper arm, initial encounter Is this a current diagnosis for this admission?: Yes Plan: improving (5) Rhabdomyolysis Qualifiers: Rhabdomyolysis type: traumatic Is this a current diagnosis for this admission?: Yes Plan: resolved (6) Metabolic acidosis Plan: improving
--- NOTE | 2017-11-05 13:09 | PDOC PROGRESS REPORT ---
Subjective Progress Note for:: 11/05/17 Subjective:: This 37-year-old gentleman with extensive medical history including bipolar disorder, PTSD and seizure disorder was admitted with a suspicion of Xanax overdose. He was found to be in acute kidney injury with rhabdomyolysis and initial CPK of 42,000. Patient has right facial and right lower extremity tenderness and erythema. His chest x-ray revealed bilateral diffuse infiltrates patient has been on uterus antibiotics including cefepime and vancomycin and currently on Zosyn. There is a concern for compartment syndrome but this has been ruled out. It is felt that the right arm swelling is secondary to ischemic contracture and occupational and physical therapy is suggested. It appears patient has also had persistent leukocytosis which is actually worse today and an infectious disease telephone consult was done by 1 of his previous physicians with suggestion of discontinue all antibiotics due to concerns about drug fever although patient himself is actually remained afebrile except for initial admission. His fiance was in the room today again and we did discuss further plans. As of now his leukocytosis a continues to improve and this was likely secondary to steroid which is now being to provide. Patient still has a thrombocytosis with his platelet count in the 800,000s and I suspect this is likely reactive also however I would like this to at least show a downward trend before we discharge him or the alternative is to consult Dr. Vidal and if okay hopefully discharge him in a.m. Reason For Visit: ENCEPHALOPATHY/RHABDOMYOLYSIS/HYPERKALEMIA/ACUTE Physical Exam Vital Signs: Temp Pulse Resp BP Pulse Ox 98.6 F 85 21 H 152/91 H 92 11/05/17 11:49 11/05/17 11:49 11/05/17 11:49 11/05/17 11:49 11/05/17 11:49 Intake & Output 11/04/17 11/05/17 11/06/17 06:59 06:59 06:59 Intake Total 3427 2376 751 Output Total 0 Balance 3427 2376 751 Weight 110 kg General appearance: PRESENT: no acute distress, well-developed, well-nourished Head exam: PRESENT: atraumatic, normocephalic Eye exam: PRESENT: conjunctiva pink, EOMI, PERRLA. ABSENT: scleral icterus Ear exam: PRESENT: normal external ear exam Mouth exam: PRESENT: moist, tongue midline Neck exam: ABSENT: carotid bruit, JVD, lymphadenopathy, thyromegaly Respiratory exam: PRESENT: clear to auscultation carter. ABSENT: rales, rhonchi, wheezes Cardiovascular exam: PRESENT: RRR. ABSENT: diastolic murmur, rubs, systolic murmur Pulses: PRESENT: normal dorsalis pedis pul Vascular exam: PRESENT: normal capillary refill GI/Abdominal exam: PRESENT: normal bowel sounds, soft. ABSENT: distended, guarding, mass, organolmegaly, rebound, tenderness Rectal exam: PRESENT: deferred Extremities exam: PRESENT: other - Right upper extremity swelling and restricted movement which is improving. ABSENT: calf tenderness, clubbing, pedal edema Neurological exam: PRESENT: alert, awake, oriented to person, oriented to place , oriented to time, oriented to situation, CN II-XII grossly intact. ABSENT: motor sensory deficit Psychiatric exam: PRESENT: appropriate affect, normal mood. ABSENT: homicidal ideation, suicidal ideation Skin exam: PRESENT: dry, intact, warm. ABSENT: cyanosis, rash Results Laboratory Results: 11/05/17 04:48 11/05/17 04:48 11/05/17 11/05/17 04:48 04:48 WBC 17.0 H RBC 3.22 L Hgb 7.3 L Hct 22.9 L MCV 71 L MCH 22.6 L MCHC 31.7 L RDW 19.1 H Plt Count 827 H Seg Neutrophils % Not Reportable Lymphocytes % Not Reportable Monocytes % Not Reportable Eosinophils % Not Reportable Basophils % Not Reportable Absolute Neutrophils Not Reportable Absolute Lymphocytes Not Reportable Absolute Monocytes Not Reportable Absolute Eosinophils Not Reportable Absolute Basophils Not Reportable Sodium 142.7 Potassium 4.2 Chloride 115 H Carbon Dioxide 18 L Anion Gap 10 BUN 25 H Creatinine 2.26 H Est GFR ( Amer) 40 L Est GFR (Non-Af Amer) 33 L Glucose 101 Calcium 8.0 L 11/01/17 21:25 Sputum Gram Stain - Final 11/01/17 21:25 Sputum Sputum Culture - Final C.albicans/C.dubliniensis Normal Claudia 10/24/17 10/24/17 10/24/17 02:45 02:45 06:45 Creatine Kinase 58119 H 42243 H Troponin I 0.083 10/24/17 10/25/17 10/26/17 13:00 06:10 05:14 Creatine Kinase 47742 H 80667 H 7961 H Troponin I 10/28/17 10/29/17 10/30/17 04:20 04:56 05:16 Creatine Kinase 2296 H 991 H 538 H Troponin I 10/31/17 11/01/17 11/02/17 10:00 08:30 05:39 Creatine Kinase 292 H 252 H 218 H Troponin I Impressions: Elbow X-Ray 10/23/17 21:08 IMPRESSION: NEGATIVE STUDY OF THE RIGHT ELBOW. NO EXPLANATION FOR PAIN. Hand X-Ray 10/23/17 21:08 IMPRESSION: NEGATIVE STUDY OF THE RIGHT HAND. NO EXPLANATION FOR PAIN. Head CT 10/23/17 22:22 IMPRESSION: 1. No acute intracranial abnormality identified. This exam was performed according to our departmental dose-optimization program, which includes automated exposure control, adjustment of the mA and/or kV according to patient size and/or use of iterative reconstruction technique. Extremity Ultrasound 10/23/17 23:53 IMPRESSION: 1. No well-circumscribed fluid collection identified to suggest hematoma or abscess. 2. Edema within the musculature of the hand in the area of concern scan by the cytometry technologist. 2010 [employer]- All Rights Reserved Chest X-Ray 10/29/17 00:00 IMPRESSION: Unchanged diffuse bilateral airspace disease compared to 10/28/[address] 10/30/17 00:00 IMPRESSION: 1. Severe interstitial lung disease in a non UIP pattern. 2. No obvious evidence of superior vena cava syndrome. Lack of contrast limits evaluation of the SVC. Renal Ultrasound 11/02/17 00:00 IMPRESSION: NORMAL RENAL AND BLADDER ULTRASOUND. Assessment & Plan - Time Time Spent with patient: 15-24 minutes Anticipated discharge: Home Within: within 24 hours - Inpatient Certification Based on my medical assessment, after consideration of the patient's comorbidities, presenting symptoms, or acuity I expect that the services needed warrant INPATIENT care.: Yes Medical Necessity: Need Close Monitoring Due to Risk of Patient Decompensation, Risk of Complication if Not Cared For in Hospital - Plan Summary Plan Summary: #1 acute rhabdomyolysis with acute kidney injury. Kidney function continues to improve he can follow up with nephrology as outpatient 2. Resolving leukocytosis which may actually be related to the steroids. Will continue to taper steroids 3. Anemia which may be related to his acute illness, frequent blood draws, iron deficiency and kidney failure. Hemoglobin has remained stable at about 7.2 and at this point there is no indication for transfusion. 4. Cellulitis of neck - currently off all antibiotics 5. Volkmann's ischemic contracture will continue management as per orthopedics. Continue physical therapy and Occupational Therapy 6. History of PTSD 7. Seizure disorder has had none since been in hospital 8. Bipolar disorder patient's lithium is currently on hold appropriately especially given his kidney function 9. Interstitial lung disease chronic outpatient follow-up 10. Thrombocytosis which I think is possibly reactive however will do consult hematology as they can then appropriately follow this as outpatient if needed. 11. We will give patient 1 dose of Lasix today as he appears to be somewhat bloated. Findings to discharge him home tomorrow if he remains relatively stable and his laboratory data is acceptable.
[2017-11-05] MEDS ORDERED: FUROSEMIDE INJ/PF 20 MG/2 ML SDV IV ONE (13:30)
[2017-11-05 15:17] LABS: PATH REVIEW PATHOLOGIST REVIEWED
--- NOTE | 2017-11-05 19:38 | PDOC CONSULTATION ---
Consultation Consult Date: 11/05/17 Attending physician:: RAÚL RUTLEDGE Consult reason:: Concern of thrombocytosis, anemia History of Present Illness Admission Date/PCP: 10/24/17 01:07 Patient complains of: Thrombocytosis, anemia History of Present Illness: HUSSAIN ARITA II is a 37 year old male with known history of multiple medical problems, who presents with rhabdomyolysis of the right upper extremity, status post injury, initially CK was 26,000, this has decreased now to the 200 range. Clinically his range of motion is improving and he is doing better. However he has had increasing platelets, and his platelet count today was in the 800 range. He is also had anemia, however that has been an issue since admission, but over the last 6 days it has been stable in the 7-8 range. Clinically he feels quite well, he is not having any pain anywhere not having diarrhea or any other signs of current infection. Past Medical History Pulmonary Medical History: Denies: Tuberculosis Neurological Medical History: Reports: Seizures Musculoskeltal Medical History: Reports: Arthritis - degenerative Psychiatric Medical History: Reports: Alcohol Dependency, Bipolar Disorder - with manic tendencies, Depression, Post Traumatic Stress Disorder, Other - Suicidal attempts Hematology: Reports: Anemia Past Surgical History Past Surgical History: Reports: Cholecystectomy, Gastric Bypass Surgery, Orthopedic Surgery - right shoulder arthroscopy, Pacemaker Social History Information Source: Patient Smoking Status: Never Smoker Frequency of Alcohol Use: None Hx Recreational Drug Use: No Drugs: None Hx Prescription Drug Abuse: Yes - See history and present illness. - Advance Directive Resuscitation Status: Full Code Family History Family History: Reviewed & Not Pertinent Parental Family History Reviewed: Yes Children Family History Reviewed: Yes Sibling(s) Family History Reviewed.: Yes Medication/Allergy Home Medications: Alprazolam [Xanax] 1 mg PO Q8 10/24/17 [place] Carbonate [Lithobid 300 mg Capsule] 600 mg PO QHS 10/24/17 Lurasidone HCl [Latuda] 80 mg PO QHS 10/24/17 Methylphenidate HCl [Ritalin] 20 mg PO TID@0800,1200,1500 10/24/17 Allergies/Adverse Reactions: NSAIDS (Non-Steroidal Anti-Inflamma [Nsaids] Allergy (Intermediate, Verified 02:30) orange juice Allergy (Severe, Uncoded 08/15/16 09:39) spagetti sauce Allergy (Severe, Uncoded 08/15/16 09:39) Vitamin D Synthetic Additive Allergy (Unknown, Uncoded 08/15/16 09:39) Anaphylaxis Review of Systems Constitutional: ABSENT: chills, fever(s), headache(s), weight gain, weight loss Eyes: ABSENT: visual disturbances Ears: ABSENT: hearing changes Cardiovascular: ABSENT: chest pain, dyspnea on exertion, edema, orthropnea, palpitations Respiratory: ABSENT: cough, hemoptysis Gastrointestinal: ABSENT: abdominal pain, constipation, diarrhea, hematemesis, hematochezia, nausea, vomiting Genitourinary: ABSENT: dysuria, hematuria Musculoskeletal: ABSENT: joint swelling Integumentary: ABSENT: rash, wounds Neurological: ABSENT: abnormal gait, abnormal speech, confusion, dizziness, focal weakness, syncope Psychiatric: ABSENT: anxiety, depression, homidical ideation, suicidal ideation Endocrine: ABSENT: cold intolerance, heat intolerance, polydipsia, polyuria Hematologic/Lymphatic: ABSENT: easy bleeding, easy bruising Physical Exam Vital Signs: Temp Pulse Resp BP Pulse Ox 98.1 F 103 H 19 158/95 H 93 11/05/17 15:17 11/05/17 15:17 11/05/17 15:17 11/05/17 15:17 11/05/17 15:17 Intake & Output 11/04/17 11/05/17 11/06/17 06:59 06:59 06:59 Intake Total 3427 2376 2195 Output Total 0 Balance 3427 2376 2195 Weight 110 kg General appearance: PRESENT: no acute distress, well-developed, well-nourished Head exam: PRESENT: atraumatic, normocephalic Eye exam: PRESENT: conjunctiva pink, EOMI, PERRLA. ABSENT: scleral icterus Ear exam: PRESENT: normal external ear exam Mouth exam: PRESENT: moist, tongue midline Neck exam: ABSENT: carotid bruit, JVD, lymphadenopathy, thyromegaly Respiratory exam: PRESENT: clear to auscultation carter. ABSENT: rales, rhonchi, wheezes Cardiovascular exam: PRESENT: RRR. ABSENT: diastolic murmur, rubs, systolic murmur Pulses: PRESENT: normal dorsalis pedis pul Vascular exam: PRESENT: normal capillary refill GI/Abdominal exam: PRESENT: normal bowel sounds, soft. ABSENT: distended, guarding, mass, organolmegaly, rebound, tenderness Rectal exam: PRESENT: deferred Extremities exam: PRESENT: full ROM. ABSENT: calf tenderness, clubbing, pedal edema Neurological exam: PRESENT: alert, awake, oriented to person, oriented to place , oriented to time, oriented to situation, CN II-XII grossly intact. ABSENT: motor sensory deficit Psychiatric exam: PRESENT: appropriate affect, normal mood. ABSENT: homicidal ideation, suicidal ideation Skin exam: PRESENT: dry, intact, warm. ABSENT: cyanosis, rash Results Laboratory Results: 11/05/17 04:48 11/05/17 04:48 11/05/17 11/05/17 04:48 04:48 WBC 17.0 H RBC 3.22 L Hgb 7.3 L Hct 22.9 L MCV 71 L MCH 22.6 L MCHC 31.7 L RDW 19.1 H Plt Count 827 H Seg Neutrophils % Not Reportable Lymphocytes % Not Reportable Monocytes % Not Reportable Eosinophils % Not Reportable Basophils % Not Reportable Absolute Neutrophils Not Reportable Absolute Lymphocytes Not Reportable Absolute Monocytes Not Reportable Absolute Eosinophils Not Reportable Absolute Basophils Not Reportable Sodium 142.7 Potassium 4.2 Chloride 115 H Carbon Dioxide 18 L Anion Gap 10 BUN 25 H Creatinine 2.26 H Est GFR ( Amer) 40 L Est GFR (Non-Af Amer) 33 L Glucose 101 Calcium 8.0 L 10/24/17 10/24/17 10/24/17 02:45 02:45 06:45 Creatine Kinase 50467 H 66106 H Troponin I 0.083 10/24/17 10/25/17 10/26/17 13:00 06:10 05:14 Creatine Kinase 15763 H 26809 H 7961 H Troponin I 10/28/17 10/29/17 10/30/17 04:20 04:56 05:16 Creatine Kinase 2296 H 991 H 538 H Troponin I 10/31/17 11/01/17 11/02/17 10:00 08:30 05:39 Creatine Kinase 292 H 252 H 218 H Troponin I Impressions: Elbow X-Ray 10/23/17 21:08 IMPRESSION: NEGATIVE STUDY OF THE RIGHT ELBOW. NO EXPLANATION FOR PAIN. Hand X-Ray 10/23/17 21:08 IMPRESSION: NEGATIVE STUDY OF THE RIGHT HAND. NO EXPLANATION FOR PAIN. Head CT 10/23/17 22:22 IMPRESSION: 1. No acute intracranial abnormality identified. This exam was performed according to our departmental dose-optimization program, which includes automated exposure control, adjustment of the mA and/or kV according to patient size and/or use of iterative reconstruction technique. Extremity Ultrasound 10/23/17 23:53 IMPRESSION: 1. No well-circumscribed fluid collection identified to suggest hematoma or abscess. 2. Edema within the musculature of the hand in the area of concern scan by the cardiac technologist. 2010 [employer]- All Rights Reserved Chest X-Ray 10/29/17 00:00 IMPRESSION: Unchanged diffuse bilateral airspace disease compared to 10/28/[address] 10/30/17 00:00 IMPRESSION: 1. Severe interstitial lung disease in a non UIP pattern. 2. No obvious evidence of superior vena cava syndrome. Lack of contrast limits evaluation of the SVC. Renal Ultrasound 11/02/17 00:00 IMPRESSION: NORMAL RENAL AND BLADDER ULTRASOUND. Assessment & Plan - Diagnosis (1) Thrombocytosis Is this a current diagnosis for this admission?: Yes Plan: Probably secondary to inflammation that is persistent in the arm. It does not appear that there is any other signs or symptoms of inflammation otherwise. It is possible for inflammation to cause thrombocytosis and thrombocytosis to resolve later than the inflammation resolves. To that extent, given the fact that clinically he is doing better and there does not seem to be any other source for inflammation, other than the area in the arm of rhabdomyolysis, I would favor proceeding with current medical plans to discharge patient. I would like to follow him up in about a month's time at which inflammation should have resolved and he should have a normalization of his platelet count. He will remain inpatient for 1 more day, we will see what his platelet count looks like tomorrow and likely plan for discharge thereafter. (2) Anemia Qualifiers: Anemia type: due to chronic kidney disease Is this a current diagnosis for this admission?: Yes Plan: Probably secondary to the chronic kidney disease, hemoglobin remains in the 7 8 range, once the inflammation goes down he may be a candidate for erythropoietin through nephrology. This can be followed by nephrology as an outpatient. - Time Time Spent: Greater than 70 Minutes - Inpatient Certification Based on my medical assessment, after consideration of the patient's comorbidities, presenting symptoms, or acuity I expect that the services needed warrant INPATIENT care.: Yes I certify that my determination is in accordance with my understanding of Medicare's requirements for reasonable and necessary INPATIENT services [42 CFR 412.3e].: Yes Medical Necessity: Risk of Complication if Not Cared For in Hospital
[2017-11-05] MEDS: TRAMADOL HCL 50 MG TABLET PO PRN (20:30)
[2017-11-05] MEDS: TRAZODONE HCL 50 MG TABLET PO SCH (22:14)
[2017-11-05] MEDS: LURASIDONE HCL 40 MG TABLET PO SCH (22:15)
[2017-11-06] MEDS: OXYCODONE-ACETAMINOPHEN 5-325 MG TABLET PO PRN ×2 (01:31→05:48)
[2017-11-06] MEDS: IPRATROPIUM/ALBUTEROL 0.5-2.5 MG/3 ML AMPUL NEB SCH ×2 (01:42→08:59)
[2017-11-06] MEDS: GABAPENTIN 100 MG CAPSULE PO SCH (05:44)
[2017-11-06] MEDS: ALPRAZOLAM 0.5 MG TABLET PO SCH (05:44)
[2017-11-06] MEDS: SODIUM BICARBONATE 650 MG TABLET PO SCH (05:44)
[2017-11-06] MEDS: HEPARIN SOD (PORCINE) 5,000 UNIT/ML 1 ML SYRINGE SUBCUT SCH (05:47)
[2017-11-06 06:23] LABS: HEMATOCRIT 24.1 % (37.9-51.0); MEAN CORPUSCULAR HEMOGLOBIN 22.7 pg (27.0-33.4); MEAN CORPUSCULAR HGB CONC 31.4 g/dL (32.0-36.0); MEAN CORPUSCULAR VOLUME 72 fl (80-97); PLATELET COUNT 775 10^3/uL (150-450); RED BLOOD COUNT 3.33 10^6/uL (4.35-5.55); WHITE BLOOD COUNT 12.2 10^3/uL (4.0-10.5)
[2017-11-06 06:45] LABS: ANION GAP 12 (5-19); BLOOD UREA NITROGEN 24 mg/dL (7-20); CALCIUM 7.9 mg/dL (8.4-10.2); CARBON DIOXIDE 17 mmol/L (22-30); CHLORIDE 114 mmol/L (98-107); GLUCOSE 90 mg/dL (75-110); SODIUM 143.1 mmol/L (137-145)
[2017-11-06 06:57] LABS: HEMOGLOBIN 7.6 g/dL (13.5-17.0)
[2017-11-06 07:02] LABS: ABSOLUTE MONOCYTES # (MANUAL) 0.4 10^3/uL (0.1-1.4); ABSOLUTE NEUTROPHILS# (MANUAL) 10.9 10^3/uL (1.7-8.2); BASOPHILS % (MANUAL) 0 % (0-2); EOSINOPHILS % (MANUAL) 0 % (0-6); LYMPHOCYTES % (MANUAL) 7 % (13-45); MONOCYTES % (MANUAL) 3 % (3-13); PLATELET COMMENT INCREASED; SEGMENTED NEUTROPHILS % (MAN) 89 % (42-78); TOTAL CELLS COUNTED 100
[2017-11-06 07:05] LABS: ANISOCYTOSIS 2+; HYPOCHROMASIA 2+; OVALOCYTES SLIGHT; POIKILOCYTOSIS SLIGHT; POLYCHROMASIA SLIGHT
[2017-11-06 07:06] LABS: SCHISTOCYTES SLIGHT
--- NOTE | 2017-11-06 08:41 | PDOC PROGRESS REPORT ---
Subjective Progress Note for:: 11/06/17 Subjective:: Pt feels better, ready for d/c today Reason For Visit: ENCEPHALOPATHY/RHABDOMYOLYSIS/HYPERKALEMIA/ACUTE Physical Exam Vital Signs: Temp Pulse Resp BP Pulse Ox 97.9 F 89 21 H 156/91 H 96 11/06/17 07:10 11/06/17 07:10 11/06/17 07:10 11/06/17 07:10 11/06/17 07:10 Intake & Output 11/05/17 11/06/17 11/07/17 06:59 06:59 06:59 Intake Total 2376 2195 Output Total 0 Balance 2376 2195 General appearance: PRESENT: no acute distress, well-developed, well-nourished Head exam: PRESENT: atraumatic, normocephalic Eye exam: PRESENT: conjunctiva pink, EOMI, PERRLA. ABSENT: scleral icterus Ear exam: PRESENT: normal external ear exam Mouth exam: PRESENT: moist, tongue midline Neck exam: ABSENT: carotid bruit, JVD, lymphadenopathy, thyromegaly Respiratory exam: PRESENT: clear to auscultation carter. ABSENT: rales, rhonchi, wheezes Cardiovascular exam: PRESENT: RRR. ABSENT: diastolic murmur, rubs, systolic murmur Pulses: PRESENT: normal dorsalis pedis pul Vascular exam: PRESENT: normal capillary refill GI/Abdominal exam: PRESENT: normal bowel sounds, soft. ABSENT: distended, guarding, mass, organolmegaly, rebound, tenderness Rectal exam: PRESENT: deferred Extremities exam: PRESENT: full ROM. ABSENT: calf tenderness, clubbing, pedal edema Neurological exam: PRESENT: alert, awake, oriented to person, oriented to place , oriented to time, oriented to situation, CN II-XII grossly intact. ABSENT: motor sensory deficit Psychiatric exam: PRESENT: appropriate affect, normal mood. ABSENT: homicidal ideation, suicidal ideation Skin exam: PRESENT: dry, intact, warm. ABSENT: cyanosis, rash Results Laboratory Results: 11/06/17 05:13 11/06/17 05:13 11/06/17 11/06/17 05:13 05:13 WBC 12.2 H RBC 3.33 L Hgb 7.6 L Hct 24.1 L MCV 72 L MCH 22.7 L MCHC 31.4 L RDW 19.0 H Plt Count 775 H Seg Neutrophils % Not Reportable Lymphocytes % Not Reportable Monocytes % Not Reportable Eosinophils % Not Reportable Basophils % Not Reportable Absolute Neutrophils Not Reportable Absolute Lymphocytes Not Reportable Absolute Monocytes Not Reportable Absolute Eosinophils Not Reportable Absolute Basophils Not Reportable Sodium 143.1 Potassium 4.0 Chloride 114 H Carbon Dioxide 17 L Anion Gap 12 BUN 24 H Creatinine 2.12 H Est GFR ( Amer) 43 L Est GFR (Non-Af Amer) 35 L Glucose 90 Calcium 7.9 L 10/24/17 10/24/17 10/24/17 02:45 02:45 06:45 Creatine Kinase 51093 H 56091 H Troponin I 0.083 10/24/17 10/25/17 10/26/17 13:00 06:10 05:14 Creatine Kinase 52244 H 49568 H 7961 H Troponin I 10/28/17 10/29/17 10/30/17 04:20 04:56 05:16 Creatine Kinase 2296 H 991 H 538 H Troponin I 10/31/17 11/01/17 11/02/17 10:00 08:30 05:39 Creatine Kinase 292 H 252 H 218 H Troponin I Impressions: Elbow X-Ray 10/23/17 21:08 IMPRESSION: NEGATIVE STUDY OF THE RIGHT ELBOW. NO EXPLANATION FOR PAIN. Hand X-Ray 10/23/17 21:08 IMPRESSION: NEGATIVE STUDY OF THE RIGHT HAND. NO EXPLANATION FOR PAIN. Head CT 10/23/17 22:22 IMPRESSION: 1. No acute intracranial abnormality identified. This exam was performed according to our departmental dose-optimization program, which includes automated exposure control, adjustment of the mA and/or kV according to patient size and/or use of iterative reconstruction technique. Extremity Ultrasound 10/23/17 23:53 IMPRESSION: 1. No well-circumscribed fluid collection identified to suggest hematoma or abscess. 2. Edema within the musculature of the hand in the area of concern scan by the polysomnographic technologist. 2010 [employer]- All Rights Reserved Chest X-Ray 10/29/17 00:00 IMPRESSION: Unchanged diffuse bilateral airspace disease compared to 10/28/[address] 10/30/17 00:00 IMPRESSION: 1. Severe interstitial lung disease in a non UIP pattern. 2. No obvious evidence of superior vena cava syndrome. Lack of contrast limits evaluation of the SVC. Renal Ultrasound 11/02/17 00:00 IMPRESSION: NORMAL RENAL AND BLADDER ULTRASOUND. Assessment & Plan - Diagnosis (1) Thrombocytosis Is this a current diagnosis for this admission?: Yes Plan: Feel this is likely 2nd to inflammation from previous rhabomyolysis, at times the acute phase reactant status of platelets can lag behind the clinical improvement. Agree w/ d/c today and f/u w/ us w/in 1m for repeat cbc at which time i would expect normalization of counts (2) Anemia Qualifiers: Anemia type: due to chronic kidney disease Is this a current diagnosis for this admission?: Yes Plan: Hb stable, will be monitored by nephro as outpt - Time Time Spent with patient: 15-24 minutes
[2017-11-06] MEDS: CYANOCOBALAMIN (VITAMIN B-12) 1,000 MCG TABLET PO SCH (10:09)
[2017-11-06] MEDS: FERROUS SULFATE 325 MG TABLET PO SCH (10:09)
[2017-11-06] MEDS: GUAIFENESIN 600 MG TABLET.SA PO SCH (10:09)
[2017-11-06] MEDS: METHYLPHENIDATE HCL 5 MG TABLET PO SCH (10:09)
[2017-11-06] MEDS: PREDNISONE 20 MG TABLET PO SCH (10:09)
[2017-11-06] MEDS: FAMOTIDINE 20 MG TABLET PO SCH (10:09)
--- NOTE | 2017-11-06 10:43 | PDOC DISCHARGE SUMMARY ---
General - Admit/Disc Date/PCP Admission Date/Primary Care Provider: 10/24/17 01:07 Discharge Date: 11/06/17 - Discharge Diagnosis (1) Acute encephalopathy Is this a current diagnosis for this admission?: Yes (2) Acute kidney injury Is this a current diagnosis for this admission?: Yes (3) Anemia Is this a current diagnosis for this admission?: Yes (4) Aspiration pneumonia Is this a current diagnosis for this admission?: Yes (5) Bipolar disorder Is this a current diagnosis for this admission?: Yes (6) Cellulitis of the neck and right arm Is this a current diagnosis for this admission?: Yes (7) Hyperkalemia Is this a current diagnosis for this admission?: Yes (8) Interstitial lung disease Is this a current diagnosis for this admission?: Yes (9) PTSD (post-traumatic stress disorder) Is this a current diagnosis for this admission?: Yes (10) Rhabdomyolysis Is this a current diagnosis for this admission?: Yes (11) Submandibular lymphadenopathy Is this a current diagnosis for this admission?: Yes (12) Systemic inflammatory response syndrome (SIRS) Is this a current diagnosis for this admission?: Yes (13) Thrombocytosis Is this a current diagnosis for this admission?: Yes (14) Vitamin B 12 deficiency Is this a current diagnosis for this admission?: Yes (15) Volkmann's ischemic contracture Is this a current diagnosis for this admission?: Yes (16) Bipolar disorder Is this a current diagnosis for this admission?: Yes (17) PTSD (post-traumatic stress disorder) Is this a current diagnosis for this admission?: Yes - Additional Information Resuscitation Status: Full Code Discharge Diet: Regular Discharge Activity: Activity As Tolerated Prescriptions: Trazodone HCl [Desyrel 50 mg Tablet] 25 mg PO QHS 30 Days tablet Oxycodone HCl/Acetaminophen [Percocet 5-325 mg Tablet] 1 tab PO Q4HP PRN #14 tablet PRN Reason: Gabapentin [Neurontin 100 mg Capsule] 100 mg PO Q8 #100 capsule Sodium Bicarbonate [Sodium Bicarbonate 650 mg Tablet] 1,300 mg PO Q8 #90 tablet Home Medications: Alprazolam [Xanax] 1 mg PO Q8 10/24/17 [place] Carbonate [Lithobid 300 mg Capsule] 600 mg PO QHS 10/24/17 Lurasidone HCl [Latuda] 80 mg PO QHS 10/24/17 Methylphenidate HCl [Ritalin] 20 mg PO TID@0800,1200,1500 10/24/17 Cyanocobalamin (Vitamin B-12) [Vitamin B-12 1000 mcg Tablet] 5,000 mcg PO DAILY tablet 11/06/17 Ferrous Sulfate [Feosol 325 mg Tablet] 325 mg PO DAILY tablet 11/06/17 Gabapentin [Neurontin 100 mg Capsule] 100 mg PO Q8 #100 capsule 11/06/17 Guaifenesin [Mucinex Sr 600 mg Tablet.sa] 600 mg PO Q12 tablet.sa 11/06/17 Oxycodone HCl/Acetaminophen [Percocet 5-325 mg Tablet] 1 tab PO Q4HP PRN #14 tablet 11/06/17 Sodium Bicarbonate [Sodium Bicarbonate 650 mg Tablet] 1,300 mg PO Q8 #90 tablet 11/06/17 Trazodone HCl [Desyrel 50 mg Tablet] 25 mg PO QHS 30 Days tablet 11/06/17 History of Present Illness History of Present Illness: HUSSAIN ARITA II is a 37 year old male with medical history of bipolar disorder with vira tendencies, depression, PTSD, seizure disorder, alcohol abuse, suicidal attempts. Came initially with the impression of Xanax overdose. His mother and stepfather are at the bedside. Stepfather tells me around 10 AM he went to check on him as he was laying on the mattress which is on the floor, found him rolled off the mattress with his body laying on his right arm, he rolled him back but he could not move that arm, fell asleep. Around 2 PM he went back to recheck on him and found him with a severe right submaxillary swelling, this was admitted recently brought him to the emergency department. The patient was arousable and answering questions. In the emergency department I asked him and he tells me that he could not sleep for the last 3 nights, he psychiatric told him that this is part of his maniac episode, tells me that he did not take more than 2 pills of Xanax but he was so tired that he fell asleep deeply. Complains of right upper extremity tenderness an is evidently swollen, right submandibular tenderness, epigastric tenderness, diarrhea about 10 episodes a day but this is not new for him on his nonbloody, mild decreased urinary output , subjective fever, has been coughing since the morning with mild brownish sputum, denies shortness of breath. Denies having any suicidal attempt. Several laboratory abnormalities that I will detail below. Patient has history of Xanax overdose on June 2016, at that time he had to be intubated and placed on mechanical ventilators. Patient has multiple visits to the emergency department secondary to psychiatric issues and other complaints. In the ED chest x-ray, x-ray of the right elbow, right hand ultrasound, right hand x-ray, CT head done. Details below Hospital Course Hospital Course: Patient presents emergency room with complaints of severe right submaxillary swelling and lethargy. Was found to have a right upper extremity tenderness, acute renal failure with severe rhabdomyolysis, altered mental status hypotension, hypokalemia with a potassium of 6.2 as well as community-acquired pneumonia. Patient had a pretty prolonged hospital stay and was evaluated by orthopedist, nephrology, hematology as well as psychosocial evaluation. Orthopedist evaluation revealed no evidence of compartment syndrome of his right upper extremity and was thought to have a likely ischemic contracture. Physical and occupational therapy was suggested and is to be continued as outpatient. Infectious disease consultation was also done due to persistent leukocytosis as well as fever. Patient had been treated with various antibiotics while in hospital including vancomycin and Zosyn. It was felt that it could have had a drug fever and so antibiotics were a advised to be discontinued. His leukocytosis actually resolved once his prednisone was tapered and this has since been discontinued. Patient's initial CPK was found to be greater than 42,000. He had acute kidney injury. Was seen by nephrology on consultation and his kidney function has continued to improve. He will follow up with nephrology as outpatient for evaluation and further management as indicated. Hematology evaluation requested due to thrombocytosis. This was thought to be reactive and plateaued and started a downward trend today patient will follow up with Dr. Vidal as outpatient. Patient has made if no recovery since admission and at this time it is felt that he can be discharged home with physical therapy and occupational therapy and will follow-up with the various specialists as outpatient Patient was also found to be anemic but this is chronic and he required no transfusion during his hospitalization. The plan is outpatient follow-up with dump grader. Physical Exam Vital Signs: Temp Pulse Resp BP Pulse Ox 97.9 F 99 16 156/91 H 94 08/10/18 07:10 11/06/17 08:59 11/06/17 08:59 11/06/17 07:10 11/06/17 08:59 Intake & Output 11/05/17 11/06/17 11/07/17 06:59 06:59 06:59 Intake Total 2376 2195 Output Total 0 Balance 2376 2195 General appearance: PRESENT: no acute distress, well-developed, well-nourished Head exam: PRESENT: atraumatic, normocephalic Eye exam: PRESENT: conjunctiva pink, EOMI, PERRLA. ABSENT: scleral icterus Ear exam: PRESENT: normal external ear exam Mouth exam: PRESENT: moist, tongue midline Neck exam: ABSENT: carotid bruit, JVD, lymphadenopathy, thyromegaly Respiratory exam: PRESENT: clear to auscultation carter. ABSENT: rales, rhonchi, wheezes Cardiovascular exam: PRESENT: RRR. ABSENT: diastolic murmur, rubs, systolic murmur Pulses: PRESENT: normal dorsalis pedis pul Vascular exam: PRESENT: normal capillary refill GI/Abdominal exam: PRESENT: normal bowel sounds, soft. ABSENT: distended, guarding, mass, organolmegaly, rebound, tenderness Rectal exam: PRESENT: deferred Extremities exam: PRESENT: tenderness - Right upper extremity, other - Swelling and restricted movement of right upper extremity. ABSENT: calf tenderness, clubbing, pedal edema Neurological exam: PRESENT: alert, awake, oriented to person, oriented to place , oriented to time, oriented to situation, CN II-XII grossly intact. ABSENT: motor sensory deficit Psychiatric exam: PRESENT: appropriate affect, normal mood. ABSENT: homicidal ideation, suicidal ideation Skin exam: PRESENT: dry, intact, warm. ABSENT: cyanosis, rash Results Laboratory Results: 11/06/17 05:13 11/06/17 05:13 11/06/17 11/06/17 05:13 05:13 WBC 12.2 H RBC 3.33 L Hgb 7.6 L Hct 24.1 L MCV 72 L MCH 22.7 L MCHC 31.4 L RDW 19.0 H Plt Count 775 H Seg Neutrophils % Not Reportable Lymphocytes % Not Reportable Monocytes % Not Reportable Eosinophils % Not Reportable Basophils % Not Reportable Absolute Neutrophils Not Reportable Absolute Lymphocytes Not Reportable Absolute Monocytes Not Reportable Absolute Eosinophils Not Reportable Absolute Basophils Not Reportable Sodium 143.1 Potassium 4.0 Chloride 114 H Carbon Dioxide 17 L Anion Gap 12 BUN 24 H Creatinine 2.12 H Est GFR ( Amer) 43 L Est GFR (Non-Af Amer) 35 L Glucose 90 Calcium 7.9 L 10/24/17 10/24/17 10/24/17 02:45 02:45 06:45 Creatine Kinase 81754 H 39396 H Troponin I 0.083 10/24/17 10/25/17 10/26/17 13:00 06:10 05:14 Creatine Kinase 85986 H 86365 H 7961 H Troponin I 10/28/17 10/29/17 10/30/17 04:20 04:56 05:16 Creatine Kinase 2296 H 991 H 538 H Troponin I 10/31/17 11/01/17 11/02/17 10:00 08:30 05:39 Creatine Kinase 292 H 252 H 218 H Troponin I Impressions: Elbow X-Ray 10/23/17 21:08 IMPRESSION: NEGATIVE STUDY OF THE RIGHT ELBOW. NO EXPLANATION FOR PAIN. Hand X-Ray 10/23/17 21:08 IMPRESSION: NEGATIVE STUDY OF THE RIGHT HAND. NO EXPLANATION FOR PAIN. Head CT 10/23/17 22:22 IMPRESSION: 1. No acute intracranial abnormality identified. This exam was performed according to our departmental dose-optimization program, which includes automated exposure control, adjustment of the mA and/or kV according to patient size and/or use of iterative reconstruction technique. Extremity Ultrasound 10/23/17 23:53 IMPRESSION: 1. No well-circumscribed fluid collection identified to suggest hematoma or abscess. 2. Edema within the musculature of the hand in the area of concern scan by the creative technologist. 2010 [employer]- All Rights Reserved Chest X-Ray 10/29/17 00:00 IMPRESSION: Unchanged diffuse bilateral airspace disease compared to 10/28/[address] 10/30/17 00:00 IMPRESSION: 1. Severe interstitial lung disease in a non UIP pattern. 2. No obvious evidence of superior vena cava syndrome. Lack of contrast limits evaluation of the SVC. Renal Ultrasound 11/02/17 00:00 IMPRESSION: NORMAL RENAL AND BLADDER ULTRASOUND. Qualifiers - * PATIENT BEING DISCHARGED WITH ANY OF THE FOLLOWING DIAGNOSIS: No Plan Time Spent: Greater than 30 Minutes
[2017-11-06 10:46] VITALS: BP 166/92
== END 2017-11-06 11:21 | disposition home or self-care (01) | DRG 682 ==
LOC: ER 18:42 → EH 10-24 01:07 → 3W 10-24 15:36
PROVIDERS: ADMIT Internal Medicine; ATTEND Internal Medicine
DX: N17.9 Acute kidney failure, unspecified (principal); J69.0 Pneumonitis due to inhalation of food and vomit; G93.40 Encephalopathy, unspecified; L03.221 Cellulitis of neck; L03.113 Cellulitis of right upper limb; E87.2 Acidosis; J84.9 Interstitial pulmonary disease, unspecified; T79.6XXA Traumatic ischemia of muscle, initial encounter; M62.421 Contracture of muscle, right upper arm; E87.5 Hyperkalemia; G40.909 Epilepsy, unspecified, not intractable, without status epilepticus; D63.1 Anemia in chronic kidney disease; E86.0 Dehydration; F43.10 Post-traumatic stress disorder, unspecified; Z98.84 Bariatric surgery status; R59.0 Localized enlarged lymph nodes; E61.1 Iron deficiency; D47.3 Essential (hemorrhagic) thrombocythemia; Z79.899 Other long term (current) drug therapy; W06.XXXA Fall from bed, initial encounter; Y92.003 Bedroom of unspecified non-institutional (private) residence as the place of occurrence of the external cause; N18.9 Chronic kidney disease, unspecified; F10.20 Alcohol dependence, uncomplicated; Z90.49 Acquired absence of other specified parts of digestive tract; Z95.0 Presence of cardiac pacemaker; Z88.6 Allergy status to analgesic agent; Z91.02 Food additives allergy status; Z91.018 Allergy to other foods; Z91.048 Other nonmedicinal substance allergy status; Z91.5 Personal history of self-harm
CPT/HCPCS: 36415; 51702; 70450; 71045; 71250; 76775; 76881; 80048; 80053; 80076; 80178; 80202; 80307; 81001; 82550; 82565; 82607; 82728; 82746; 82803; 83540; 83550; 83605; 83735; 84100; 84484; 85025; 85027; 85045; 86850; 86900; 86901; 86920; 87040; 87070; 87205; 93005; 93010; 93971; 94640; 94799; 96361; 96365; 99291; 99292; J0456; J0692; J0696; J1439; J1642; J1644; J1940; J2543; J2920; J2930; J3370; J3480; J3490; J7030; J7060; J7512; J7620; S0164

== ENCOUNTER 2017-11-08 18:15 | Inpatient (IN) | payer SELFPAY ==
--- NOTE | 2017-11-08 19:10 | ER Document Report ---
ED General - General Chief Complaint: Breathing Difficulty Stated Complaint: DIFFICULTY BREATHING Time Seen by Provider: 11/08/17 18:29 Notes: Patient is a 37 year old male with a past medical history of multiple mental health conditions including polysubstance abuse, recurrent overdoses, bipolar disorder, history of morbid obesity, recently hospitalized for 14 days due to presumed Xanax overdose with associated rhabdomyolysis, renal failure, development of persistent SIRS and acute interstitial lung changes. History of some limited as patient is a very poor historian and is also in moderate distress at time of presentation. He states that he did not feel well at time of discharge but "I just wanted to go home". He states that he is returning today particularly because he "cannot even walk down the gant or stand up in the shower" due to how short of breath he is. He states that this overall feels similar to when he was discharged. He has had recurrent fever at home. He denies any vomiting or diarrhea. He denies any illicit or inappropriate prescription drug use. Nothing seems to improve his symptoms. He states any form of exertion worsens the symptoms. TRAVEL OUTSIDE OF THE [place] IN LAST 30 DAYS: No - Related Data Allergies/Adverse Reactions: NSAIDS (Non-Steroidal Anti-Inflamma [Nsaids] Allergy (Intermediate, Verified 02:30) orange juice Allergy (Severe, Uncoded 08/15/16 09:39) spagetti sauce Allergy (Severe, Uncoded 08/15/16 09:39) Vitamin D Synthetic Additive Allergy (Unknown, Uncoded 08/15/16 09:39) Anaphylaxis Past Medical History - General Information source: Patient - Social History Smoking Status: Never Smoker Chew tobacco use (# tins/day): No Frequency of alcohol use: None Drug Abuse: None Lives with: Family Family History: Reviewed & Not Pertinent Patient has suicidal ideation: No Patient has homicidal ideation: No Pulmonary Medical History: Denies: Hx Tuberculosis Neurological Medical History: Reports: Hx Seizures Renal/ Medical History: Denies: Hx Peritoneal Dialysis GI Medical History: Reports: Hx Ulcer - perforated in 2007 Musculoskeletal Medical History: Reports Hx Arthritis - degenerative Psychiatric Medical History: Reports: Hx Bipolar Disorder - with manic tendencies, Hx Depression, Hx Post Traumatic Stress Disorder Past Surgical History: Reports: Hx Abdominal Surgery - gastric bypass and gastric bypass revision, Hx Bowel Surgery - perforated ulcer, Hx Cholecystectomy , Hx Gastric Bypass Surgery, Hx Orthopedic Surgery - right shoulder arthroscopy , Hx Pacemaker - Immunizations Hx Diphtheria, Pertussis, Tetanus Vaccination: Yes Review of Systems - Review of Systems Notes: Constitutional: Positive for fever. HENT: Negative for sore throat. Eyes: Negative for visual changes. Cardiovascular: Negative for chest pain. Respiratory: Positive shortness of breath, cough Gastrointestinal: Negative for abdominal pain, vomiting or diarrhea. Genitourinary: Negative for dysuria. Musculoskeletal: Negative for back pain. Skin: Negative for rash. Neurological: Negative for headaches, weakness or numbness. 10 point ROS negative except as marked above and in HPI. Physical Exam - Vital signs Vitals: Temp Pulse Resp BP Pulse Ox 99.0 F 97 40 H 173/99 H 90 L 11/08/17 18:21 11/08/17 18:21 11/08/17 18:21 11/08/17 18:21 11/08/17 18:21 Interpretation: Tachycardic, Hypoxic, Tachypneic, Febrile Notes: PHYSICAL EXAMINATION: GENERAL: Ill in appearance, in moderate respiratory distress. HEAD: Atraumatic, normocephalic. EYES: Pupils equal round and reactive to light, extraocular movements intact, sclera anicteric, conjunctiva are normal. ENT: nares patent, oropharynx clear without exudates. Dry mucous membranes. NECK: Normal range of motion, supple without lymphadenopathy LUNGS: Tachypnea, breathing 40 times per minute, moderate respiratory distress although no retractions. Able to speak approximately 5 words in a single sentence without needing a breath. Scattered rales throughout. No wheezing. HEART: Regular rate and rhythm without murmurs ABDOMEN: Soft, nontender, normoactive bowel sounds. No guarding, no rebound. No masses appreciated. EXTREMITIES: Normal range of motion, 2+ pitting edema in the bilateral lower extremities that is equal and symmetric NEUROLOGICAL: No focal neurological deficits. Moves all extremities spontaneously and on command. PSYCH: Somewhat anxious, somewhat listless SKIN: Warm, Dry, normal turgor, patchy macular pattern over the chest and back Course - Re-evaluation Re-evalutation: 11/08/17 19:06 Presentation of an ill-appearing 37-year-old male who is in moderate respiratory distress breathing approximately 40 times per minute, obvious labored breathing although no retractions. Initially hypoxic at 90% on room air although at the time of my evaluation is 94% on room air. Patient is febrile at time of arrival at 101.6F. The patient was hospitalized for 14 days and just discharged 2 days ago. He had an extensive workup and prolonged hospitalization. During that time. An infectious disease consultation was obtained and his recurrent fevers were felt to be a drug based fever or related to his rhabdomyolysis. Patient's CT scan of his chest on the third of this month showed diffuse interstitial lung disease and although this was diagnosed as being a chronic condition review of the chest x-ray from 10/23 shows that he did not have those changes at this time and review of prior chest x-rays from earlier this year as well as throughout 2017 has never showed those changes. Pulmonology consultation was not obtained during his previous hospitalization. The patient is also noted to have developed chronic kidney dysfunction. When I saw the patient in July 2017 he had normal renal function at that time. Throughout the duration of his hospitalization he did have persistence kidney dysfunction which was present at time of discharge. Nephrology consultation was obtained. Patient was also noted to be anemic and have thrombocytosis during his hospitalization and on allergy consultation was obtained. Patient did have persistent swelling of his right upper extremity and orthopedic consultation was obtained and it was felt that this was related to an ischemic contracture. Per the hospitalist discharge note when the patient was discharged on 11/06 his overall condition was still considered minimally improved but he was discharged per his request and failure to progressively worsen. On presentation today the patient is ill in appearance, pale, diaphoretic, in obvious respiratory distress. Scattered rales throughout. His right upper extremity is again noted to be prominently swollen. He has 2+ pitting edema in the bilateral lower extremities. Will obtain brought laboratories, repeat blood cultures, lactate, venous blood gas, obtain repeat chest x-ray, begin antibiotics, begin gentle rehydration as patient appears quite dehydrated and reassess at regular intervals. This patient is considered in guarded condition with high probability for deterioration. 11/08/17 20:47 Patient has been regularly reassessed and has had overall improvement in his condition on bipap. I have updated the patient on his care plan. Chest x-ray continues to show marketed bilateral interstitial changes, labs continue to show although improved persistent renal dysfunction without evidence of rhabdo. Lactate normal. CBC shows improvement of his leukocytosis although persistence of his thrombocytosis. I have discussed this case with the performing artist on-call Dr. Kraus and requested a morning consultation with consideration of bronchoscopy with biopsy. I have also added antifungals to the patient's regimen as a sputum culture obtained during his hospitalization did grow out fungi. I also discussed with the hospitalist who has accepted the patient for admission. - Vital Signs Vital signs: Temp Pulse Resp BP Pulse Ox 101.6 F H 97 34 H 157/92 H 95 11/08/17 19:02 11/08/17 18:21 11/08/17 19:05 11/08/17 19:05 11/08/17 19:05 - Laboratory Result Diagrams: 11/08/17 18:46 11/08/17 18:46 Laboratory results interpreted by me: 11/08/17 11/08/17 11/08/17 18:46 18:46 18:46 WBC 15.8 H RBC 3.74 L Hgb 8.7 L Hct 27.8 L MCV 75 L MCH 23.4 L MCHC 31.4 L RDW 20.7 H Plt Count 634 H Seg Neutrophils % 82.8 H Lymphocytes % 6.8 L Absolute Neutrophils 13.1 H VBG pH 7.43 H VBG pCO2 32.6 L Sodium Chloride Creatinine Est GFR ( Amer) Est GFR (Non-Af Amer) Calcium NT-Pro-B Natriuret Pep 2160 H Albumin Ur Leukocyte Esterase 11/08/17 11/08/17 18:46 19:44 WBC RBC Hgb Hct MCV MCH MCHC RDW Plt Count Seg Neutrophils % Lymphocytes % Absolute Neutrophils VBG pH VBG pCO2 Sodium 145.7 H Chloride 113 H Creatinine 2.02 H Est GFR ( Amer) 45 L Est GFR (Non-Af Amer) 37 L Calcium 7.7 L NT-Pro-B Natriuret Pep Albumin 3.4 L Ur Leukocyte Esterase SMALL H - Diagnostic Test Radiology reviewed: Image reviewed, Reports reviewed Radiology results interpreted by me: 11/08/17 20:54 Chest x-ray: Marketed bilateral interstitial changes overall unchanged from earlier this month. Critical Care Note - Critical Care Note Total time excluding time spent on procedures (mins): 50 Comments: Critical care time spent obtaining history from patient or surrogate, discussions with consultants, development of treatment plan with patient or surrogate, evaluation of patient's response to treatment, examination of patient , ordering and performing treatments and interventions, ordering and review of laboratory studies, re-evaluation of patient's condition, ordering and review of radiographic studies and review of old charts Discharge - Discharge Clinical Impression: Respiratory distress, Lung interstitial disease, Thrombocytosis Acute respiratory failure Qualifiers: Respiratory failure complication: hypoxia Qualified Code(s): J96.01 - Acute respiratory failure with hypoxia Acute renal failure Qualifiers: Acute renal failure type: unspecified Qualified Code(s): N17.9 - Acute kidney failure, unspecified Sepsis Qualifiers: Sepsis type: sepsis due to unspecified organism Qualified Code(s): A41.9 - Sepsis, unspecified organism Condition: Fair Disposition: ADMITTED INPATIENT Admitting Provider: Hospitalist Unit Admitted: [facility]
[2017-11-08 19:11] LABS: ABSOLUTE BASOPHILS # (AUTO) 0.1 10^3/uL (0.0-0.2); ABSOLUTE EOSINOPHILS # (AUTO) 0.2 10^3/uL (0.0-0.6); ABSOLUTE LYMPHOCYTES (AUTO) 1.1 10^3/uL (0.5-4.7); ABSOLUTE MONOCYTES (AUTO) 1.3 10^3/uL (0.1-1.4); ABSOLUTE NEUT (AUTO) 13.1 10^3/uL (1.7-8.2); BASOPHILS % (AUTO) 0.6 % (0-2); EOSINOPHILS % (AUTO) 1.3 % (0-6); HEMATOCRIT 27.8 % (37.9-51.0); HEMOGLOBIN 8.7 g/dL (13.5-17.0); LYMPHOCYTES % (AUTO) 6.8 % (13-45); MEAN CORPUSCULAR HEMOGLOBIN 23.4 pg (27.0-33.4); MEAN CORPUSCULAR HGB CONC 31.4 g/dL (32.0-36.0); MEAN CORPUSCULAR VOLUME 75 fl (80-97); MONOCYTES % (AUTO) 8.5 % (3-13); PLATELET COUNT 634 10^3/uL (150-450); RED BLOOD COUNT 3.74 10^6/uL (4.35-5.55); RED CELL DISTRIBUTION WIDTH 20.7 % (11.5-14.0); SEGMENTED NEUTROPHILS % (AUTO) 82.8 % (42-78); TOTAL CELLS COUNTED % (AUTO) 100 %; WHITE BLOOD COUNT 15.8 10^3/uL (4.0-10.5)
[2017-11-08 19:12] LABS: VENOUS BLOOD BASE EXCESS -2.1 mmol/L; VENOUS BLOOD HCO3 21.3 mmol/L (20-32); VENOUS BLOOD PCO2 32.6 mmHg (35-63); VENOUS BLOOD PH 7.43 (7.30-7.42)
[2017-11-08] MEDS ORDERED: CEFEPIME 2 GM/D5W RTU 2 GM/50 ML RTUPB IV ONE (19:20)
[2017-11-08 19:36] LABS: TROPONIN I 0.026 ng/mL
[2017-11-08] MEDS ORDERED: RINGERS SOLUTION,LACTATED 500 ML IV ONE (19:41)
[2017-11-08 19:55] LABS: LITHIUM 1.1 mEq/L (0.6-1.2)
[2017-11-08 19:56] LABS: ALANINE AMINOTRANSFERASE 21 U/L (21-72); ALBUMIN 3.4 g/dL (3.5-5.0); ALKALINE PHOSPHATASE 77 U/L (38-126); ANION GAP 11 (5-19); ASPARTATE AMINO TRANSFERASE 32 U/L (17-59); BILIRUBIN,DIRECT 0.3 mg/dL (0.0-0.4); BILIRUBIN,TOTAL 0.6 mg/dL (0.2-1.3); BLOOD UREA NITROGEN 18 mg/dL (7-20); CALCIUM 7.7 mg/dL (8.4-10.2); CARBON DIOXIDE 22 mmol/L (22-30); CHLORIDE 113 mmol/L (98-107); GLUCOSE 104 mg/dL (75-110); POTASSIUM 3.8 mmol/L (3.6-5.0); SODIUM 145.7 mmol/L (137-145); TOTAL PROTEIN 6.7 g/dL (6.3-8.2)
--- NOTE | 2017-11-08 20:11 | RADIOLOGY REPORT (SQ) ---
EXAM DESCRIPTION: CHEST SINGLE VIEW COMPLETED DATE/TIME: 11/08/2017 7:32 pm REASON FOR STUDY: sob COMPARISON: Chest x-ray 10/29/2017. CT chest 10/30/2017. EXAM PARAMETERS: NUMBER OF VIEWS: One view. TECHNIQUE: Single frontal radiographic view of the chest acquired. RADIATION DOSE: NA LIMITATIONS: None. FINDINGS: LUNGS AND PLEURA: Persistent diffuse bilateral airspace opacities. No sizable pleural eff usion or pneumothorax. MEDIASTINUM AND HILAR STRUCTURES: No masses. Contour normal. HEART AND VASCULAR STRUCTURES: Heart normal in size. BONES: No acute findings. HARDWARE: None in the chest. IMPRESSION: Persistent diffuse bilateral airspace opacities, may be secondary to known interstitial lung disease, superimposed pneumonia or pulmonary edema is not excludable. TECHNICAL DOCUMENTATION: JOB ID: [id number] 2010 [employer]- All Rights Reserved Reading location - IP/workstation name: [email or web address]
[2017-11-08] MEDS ORDERED: LEVOFLOXACIN 750 MG/D5W RTU 750 MG/150 ML RTUPB IV ONE (20:19)
[2017-11-08 20:23] LABS: APPEARANCE,URINE SLIGHTLY-CLOUDY; BILIRUBIN,URINE NEGATIVE (NEGATIVE); COLOR,URINE STRAW; GLUCOSE, URINE NEGATIVE (NEGATIVE); KETONES,URINE NEGATIVE (NEGATIVE); LEUKOCYTE ESTERASE,URINE SMALL (NEGATIVE); NITRITE,URINE NEGATIVE (NEGATIVE); PROTEIN,URINE NEGATIVE (NEGATIVE); URINE SPECIFIC GRAVITY 1.008; UROBILINOGEN,URINE NEGATIVE mg/dL (<2.0)
[2017-11-08] MEDS ORDERED: FLUCONAZOLE 400 MG/NS RTU 400 MG/200 ML RTUPB IV ONE (20:52)
[2017-11-08] MEDS ORDERED: ONDANSETRON HCL INJ/PF 4 MG/2 ML SDV IV PRN (21:46)
[2017-11-08] MEDS ORDERED: IPRATROPIUM/ALBUTEROL 0.5-2.5 MG/3 ML AMPUL NEB PRN (21:46)
[2017-11-08] MEDS ORDERED: CEFEPIME 1 GM/D5W RTU 1 GM/50 ML RTUPB IV SCH (22:00)
[2017-11-08] MEDS ORDERED: PANTOPRAZOLE SODIUM 40 MG VIAL IV ONE (22:30)
[2017-11-08] MEDS ORDERED: HEPARIN SOD (PORCINE) 5,000 UNIT/ML 1 ML SYRINGE SUBCUT ONE (22:30)
--- NOTE | 2017-11-08 23:08 | EKG REPORT ---
SEVERITY:- BORDERLINE ECG - SINUS RHYTHM BORDERLINE PROLONGED QT INTERVAL : Confirmed by: Erica Gonsalez MD 08-Nov-2017 23:07:05
[2017-11-09] MEDS: ACETAMINOPHEN 325 MG TABLET PO PRN ×2 (00:34→21:11)
[2017-11-09] MEDS: NORMAL SALINE 1000 ML 1,000 ML IV PRN ×2 (00:39→15:09)
--- NOTE | 2017-11-09 04:59 | PDOC H&P ---
History of Present Illness Admission Date/PCP: 11/08/17 21:12 Patient complains of: Shortness of breath. History of Present Illness: HUSSAIN ARITA II is a 37 year old male presenting to the emergency department secondary to shortness of breath. Patient has a complex recent past medical history including sepsis, rhabdomyolysis and drug overdose. Was discharged from the hospital 2 days ago. States upon discharge he continued to feel weak tired and could not stay awake. With persistent weakness and fatigue with minimal exertion patient states he started having profound worsening of shortness of breath. States he has been dyspneic since hospitalization and has been coughing with mild sputum production. States he felt fever and chills at home with occasional blood tinged sputum as well. Past Medical History Pulmonary Medical History: Denies: Tuberculosis Neurological Medical History: Reports: Seizures Musculoskeltal Medical History: Reports: Arthritis - degenerative Psychiatric Medical History: Reports: Bipolar Disorder - with manic tendencies, Depression, Post Traumatic Stress Disorder Hematology: Reports: Anemia Past Surgical History Past Surgical History: Reports: Cholecystectomy, Gastric Bypass Surgery, Orthopedic Surgery - right shoulder arthroscopy, Pacemaker, Other - History of hernia repair with perforated ulcer Social History Information Source: Patient Lives with: Family Smoking Status: Never Smoker Frequency of Alcohol Use: None Hx Recreational Drug Use: No Drugs: None Hx Prescription Drug Abuse: Yes - See history and present illness. Family History Family History: Reviewed & Not Pertinent Parental Family History Reviewed: Yes Children Family History Reviewed: Yes Sibling(s) Family History Reviewed.: Yes Medication/Allergy Home Medications: Alprazolam [Xanax] 1 mg PO Q8 10/24/17 Live Oak Carbonate [Lithobid 300 mg Capsule] 600 mg PO QHS 10/24/17 Lurasidone HCl [Latuda] 80 mg PO QHS 10/24/17 Methylphenidate HCl [Ritalin] 20 mg PO TID@0800,1200,1500 10/24/17 Cyanocobalamin (Vitamin B-12) [Vitamin B-12 1000 mcg Tablet] 5,000 mcg PO DAILY tablet 11/06/17 Ferrous Sulfate [Feosol 325 mg Tablet] 325 mg PO DAILY tablet 11/06/17 Gabapentin [Neurontin 100 mg Capsule] 100 mg PO Q8 #100 capsule 11/06/17 Guaifenesin [Mucinex Sr 600 mg Tablet.sa] 600 mg PO Q12 tablet.sa 11/06/17 Oxycodone HCl/Acetaminophen [Percocet 5-325 mg Tablet] 1 tab PO Q4HP PRN #14 tablet 11/06/17 Sodium Bicarbonate [Sodium Bicarbonate 650 mg Tablet] 1,300 mg PO Q8 #90 tablet 11/06/17 Trazodone HCl [Desyrel 50 mg Tablet] 25 mg PO QHS 30 Days tablet 11/06/17 Allergies/Adverse Reactions: NSAIDS (Non-Steroidal Anti-Inflamma [Nsaids] Allergy (Intermediate, Verified 02:30) orange juice Allergy (Severe, Uncoded 08/15/16 09:39) spagetti sauce Allergy (Severe, Uncoded 08/15/16 09:39) Vitamin D Synthetic Additive Allergy (Unknown, Uncoded 08/15/16 09:39) Anaphylaxis Review of Systems Constitutional: PRESENT: chills, fatigue, fever(s), weakness Cardiovascular: PRESENT: dyspnea on exertion. ABSENT: chest pain, edema, palpitations Respiratory: PRESENT: cough, dyspnea, hemoptysis Gastrointestinal: ABSENT: abdominal pain, nausea, vomiting Physical Exam Vital Signs: Temp Pulse Resp BP Pulse Ox 99.4 F 97 22 H 170/98 H 98 11/09/17 00:31 11/08/17 18:21 11/09/17 03:45 11/09/17 03:01 11/09/17 03:45 Intake & Output 11/07/17 11/08/17 11/09/17 06:59 06:59 06:59 Intake Total 350 Output Total 900 Balance -550 Additional comments: GENERAL: Ill in appearance, in moderate respiratory distress. HEAD: Atraumatic, normocephalic. EYES: Pupils equal round and reactive to light, extraocular movements intact, sclera anicteric, conjunctiva are normal. ENT: nares patent, oropharynx clear without exudates. Dry mucous membranes. NECK: Normal range of motion, supple without lymphadenopathy LUNGS: Tachypnea, breathing 30 times per minute, moderate respiratory distress although no retractions. Able to speak approximately 5 words in a single sentence without needing a breath. Scattered rales throughout. No wheezing. HEART: Regular rate and rhythm without murmurs ABDOMEN: Soft, nontender, normoactive bowel sounds. No guarding, no rebound. No masses appreciated. EXTREMITIES: Normal range of motion, 2+ pitting edema in the bilateral lower extremities that is equal and symmetric NEUROLOGICAL: No focal neurological deficits. Moves all extremities spontaneously and on command. PSYCH: Somewhat anxious, somewhat listless SKIN: Warm, Dry, normal turgor, patchy macular pattern over the chest and back Results Laboratory Results: 11/08/17 11/08/17 11/08/17 18:46 18:46 18:46 WBC 15.8 H Hgb 8.7 L VBG pH 7.43 H VBG pCO2 32.6 L VBG HCO3 21.3 Sodium Potassium Creatinine Calcium NT-Pro-B Natriuret Pep 2160 H 11/08/17 18:46 WBC Hgb VBG pH VBG pCO2 VBG HCO3 Sodium 145.7 H Potassium 3.8 Creatinine 2.02 H Calcium 7.7 L NT-Pro-B Natriuret Pep Impressions: Chest X-Ray 11/08/17 18:59 IMPRESSION: Persistent diffuse bilateral airspace opacities, may be secondary to known interstitial lung disease, superimposed pneumonia or pulmonary edema is not excludable. Assessment & Plan - Diagnosis (1) Sepsis Qualifiers: Sepsis type: sepsis due to unspecified organism Qualified Code(s): A41.9 - Sepsis, unspecified organism Is this a current diagnosis for this admission?: Yes (2) Acute respiratory failure Qualifiers: Respiratory failure complication: hypoxia Qualified Code(s): J96.01 - Acute respiratory failure with hypoxia Is this a current diagnosis for this admission?: Yes (3) Interstitial lung disease Is this a current diagnosis for this admission?: Yes (4) Acute renal failure Qualifiers: Acute renal failure type: unspecified Qualified Code(s): N17.9 - Acute kidney failure, unspecified Is this a current diagnosis for this admission?: Yes Plan: Patient to be admitted to [facility]. Currently started on BiPAP with improvement of respiratory distress. Respiratory therapy to continue with BiPAP setting management. Continuous pulse ox monitoring. Patient started on Levaquin plus cefepime in ED, will continue with this regimen. Blood cultures pending along with infectious disease consultation. Will continue to cautiously hydrate patient given elevated BNP. Patient's gait function appears to be improved from discharge at 2.02 at this time. Will repeat CBC, BMP in a.m. Avoid nephrotoxic medications. Pharmacy to renally dose antibiotics. Tylenol as needed fever. Sputum cultures from prior hospitalization grew Magy, repeat sputum cultures pending. CT of chest from prior hospitalization showed interstitial lung disease which was not evaluated by pulmonology prior to discharge. Pulmonary consultation pending for this a.m. We will continue to monitor patient closely and adjust accordingly. - Time Time Spent: 30 to 50 Minutes Medications reviewed and adjusted accordingly: Yes Anticipated discharge: Home
[2017-11-09] MEDS: CEFEPIME 1 GM/D5W RTU 1 GM/50 ML RTUPB IV SCH ×2 (06:16→18:59)
[2017-11-09] MEDS: HEPARIN SOD (PORCINE) 5,000 UNIT/ML 1 ML SYRINGE SUBCUT SCH ×3 (06:16→22:13)
[2017-11-09 06:17] LABS: URINE AMPHETAMINES SCREEN NEGATIVE; URINE BARBITURATES SCREEN NEGATIVE; URINE BENZODIAZEPINES SCREEN UNCONFIRMED POSITIVE; URINE MARIJUANA (THC) SCREEN NEGATIVE; URINE METHADONE SCREEN NEGATIVE; URINE PHENCYCLIDINE SCREEN NEGATIVE
[2017-11-09 06:22] LABS: URINE COCAINE SCREEN NEGATIVE
[2017-11-09 06:39] LABS: ABSOLUTE EOSINOPHILS # (AUTO) 0.1 10^3/uL (0.0-0.6); ABSOLUTE MONOCYTES (AUTO) 1.2 10^3/uL (0.1-1.4); ABSOLUTE NEUT (AUTO) 11.9 10^3/uL (1.7-8.2); BASOPHILS % (AUTO) 0.2 % (0-2); EOSINOPHILS % (AUTO) 0.9 % (0-6); HEMATOCRIT 24.5 % (37.9-51.0); LYMPHOCYTES % (AUTO) 7.2 % (13-45); MEAN CORPUSCULAR HEMOGLOBIN 22.4 pg (27.0-33.4); MEAN CORPUSCULAR HGB CONC 30.3 g/dL (32.0-36.0); MEAN CORPUSCULAR VOLUME 74 fl (80-97); MONOCYTES % (AUTO) 8.2 % (3-13); PLATELET COUNT 447 10^3/uL (150-450); RED BLOOD COUNT 3.31 10^6/uL (4.35-5.55); RED CELL DISTRIBUTION WIDTH 21.4 % (11.5-14.0); SEGMENTED NEUTROPHILS % (AUTO) 83.5 % (42-78); TOTAL CELLS COUNTED % (AUTO) 100 %; WHITE BLOOD COUNT 14.3 10^3/uL (4.0-10.5)
[2017-11-09 06:42] LABS: HEMOGLOBIN 7.4 g/dL (13.5-17.0)
[2017-11-09 06:44] LABS: ANION GAP 11 (5-19); BLOOD UREA NITROGEN 17 mg/dL (7-20); CALCIUM 7.6 mg/dL (8.4-10.2); CARBON DIOXIDE 19 mmol/L (22-30); CHLORIDE 115 mmol/L (98-107); GLUCOSE 91 mg/dL (75-110); PHOSPHORUS 4.1 mg/dL (2.5-4.5); SODIUM 144.8 mmol/L (137-145)
[2017-11-09] MEDS: OXYCODONE-ACETAMINOPHEN 5-325 MG TABLET PO PRN ×4 (08:37→22:13)
[2017-11-09] MEDS ORDERED: LEVOFLOXACIN 500 MG/D5W RTU 500 MG/100 ML RTUPB IV SCH ×2 (10:00→20:00)
--- NOTE | 2017-11-09 10:55 | RADIOLOGY REPORT (SQ) ---
EXAM DESCRIPTION: CT CHEST WITHOUT COMPLETED DATE/TIME: 11/09/2017 10:28 am REASON FOR STUDY: DYSPNEA ABN CXR COMPARISON: 10/30/2017 TECHNIQUE: CT scan performed of the chest without intravenous contrast. Images reviewed with lung, soft tissue and bone windows. Reconstructed coronal and sagittal MPR images reviewed. All images st ored on PACS. All CT scanners at this facility use dose modulation, iterative reconstruction, and/or weight based d osing when appropriate to reduce radiation dose to as low as reasonably achievable (ALARA). [facility]: Dose Right [facility]: CareDose [facility]: Dose Right [facility]: Teradose 4D [facility]: Zerve RADIATION DOSE: CT Rad equipment meets quality standard of care and radiation dose reduction techniq ues were employed. CTDIvol: 20.0 mGy. DLP: 814 mGy-cm. mGy. LIMITATIONS: Motion. FINDINGS: LUNGS AND PLEURA: Diffuse mixed interstitial and alveolar pattern in both lungs with sligh t improved aeration in the left upper lobe and left lower lobe. No evidence of cavitation. Small pl eural effusions bilaterally. HILAR AND MEDIASTINAL STRUCTURES: Small mediastinal nodes measuring up to about 1 cm. No bulky adeno brad. HEART AND VASCULAR STRUCTURES: No aneurysm. No pericardial effusion. UPPER ABDOMEN: No significant findings. Limited exam. THYROID AND OTHER SOFT TISSUES: No masses. No adenopathy. BONES: No significant finding. HARDWARE: None in the chest. OTHER: No other significant findings. IMPRESSION: Diffuse bilateral infectious or inflammatory process with slight improved aeration in th e left lung. No evidence of cavitation. TECHNICAL DOCUMENTATION: JOB ID: [id number] Quality ID # [id number]: Final reports with documentation of one or more dose reduction techniques (e.g., Au tomated exposure control, adjustment of the mA and/or kV according to patient size, use of iterative reconstruction technique) 2010 [employer]- All Rights Reserved Reading location - IP/workstation name: [email or web address]
[2017-11-09] MEDS: PANTOPRAZOLE SODIUM 40 MG VIAL IV SCH ×2 (11:23→22:10)
[2017-11-09] MEDS ORDERED: TUBERCULIN,PURIF.PROT.DERIV. 5 TU/0.1 ML TEST 1 ML VIAL ID ONE (13:57)
--- NOTE | 2017-11-09 17:28 | PDOC PROGRESS REPORT ---
Subjective Progress Note for:: 11/09/17 Subjective:: Patient admitted overnight with difficulty breathing he was just discharged on November 06 after prolonged hospitalization. Patient had been stable prior to discharge. Although he was noted to have an interstitial lung disease on CT during last admission this was not an issue as his respiratory status had been stable prior to discharge and was supposed to follow-up with pulmonology. Reason For Visit: RESPIRATORY DISTRESS ON BIPAP Physical Exam Vital Signs: Temp Pulse Resp BP Pulse Ox 99.4 F 95 23 H 170/92 H 99 11/09/17 00:31 11/09/17 08:00 11/09/17 15:00 11/09/17 15:00 11/09/17 15:15 Intake & Output 11/08/17 11/09/17 11/10/17 06:59 06:59 06:59 Intake Total 400 1000 Output Total 900 1000 Balance -500 0 General appearance: PRESENT: no acute distress, well-developed, well-nourished Head exam: PRESENT: atraumatic, normocephalic Eye exam: PRESENT: conjunctiva pink, EOMI, PERRLA. ABSENT: scleral icterus Ear exam: PRESENT: normal external ear exam Mouth exam: PRESENT: moist, tongue midline Neck exam: ABSENT: carotid bruit, JVD, lymphadenopathy, thyromegaly Respiratory exam: PRESENT: clear to auscultation carter. ABSENT: rales, rhonchi, wheezes Cardiovascular exam: PRESENT: RRR. ABSENT: diastolic murmur, rubs, systolic murmur Pulses: PRESENT: normal dorsalis pedis pul Vascular exam: PRESENT: normal capillary refill GI/Abdominal exam: PRESENT: normal bowel sounds, soft. ABSENT: distended, guarding, mass, organolmegaly, rebound, tenderness Rectal exam: PRESENT: deferred Extremities exam: PRESENT: full ROM, other - Right upper extremity swelling and contracture. ABSENT: calf tenderness, clubbing, pedal edema Neurological exam: PRESENT: alert, awake, oriented to person, oriented to place , oriented to time, oriented to situation, CN II-XII grossly intact. ABSENT: motor sensory deficit Psychiatric exam: PRESENT: flat affect. ABSENT: homicidal ideation, suicidal ideation Skin exam: PRESENT: dry, intact, warm. ABSENT: cyanosis, rash Results Laboratory Results: 11/09/17 05:45 11/09/17 05:45 11/09/17 11/09/17 11/09/17 05:45 05:45 06:50 WBC 14.3 H RBC 3.31 L Hgb 7.4 L Hct 24.5 L MCV 74 L MCH 22.4 L MCHC 30.3 L RDW 21.4 H Plt Count 447 Seg Neutrophils % 83.5 H Lymphocytes % 7.2 L Monocytes % 8.2 Eosinophils % 0.9 Basophils % 0.2 Absolute Neutrophils 11.9 H Absolute Lymphocytes 1.0 Absolute Monocytes 1.2 Absolute Eosinophils 0.1 Absolute Basophils 0.0 Sodium 144.8 Potassium 4.0 Chloride 115 H Carbon Dioxide 19 L Anion Gap 11 BUN 17 Creatinine 1.74 H Est GFR ( Amer) 54 L Est GFR (Non-Af Amer) 44 L Glucose 91 Calcium 7.6 L Phosphorus 4.1 Magnesium 1.9 Blood Type O POSITIVE Antibody Screen NEGATIVE Impressions: Chest X-Ray 11/08/17 18:59 IMPRESSION: Persistent diffuse bilateral airspace opacities, may be secondary to known interstitial lung disease, superimposed pneumonia or pulmonary edema is not excludable. Chest CT 11/09/17 00:00 IMPRESSION: Diffuse bilateral infectious or inflammatory process with slight improved aeration in the left lung. No evidence of cavitation. Assessment & Plan - Diagnosis (1) Respiratory distress Is this a current diagnosis for this admission?: Yes (2) Sepsis Qualifiers: Sepsis type: sepsis due to unspecified organism Qualified Code(s): A41.9 - Sepsis, unspecified organism Is this a current diagnosis for this admission?: Yes (3) Acute respiratory failure Qualifiers: Respiratory failure complication: unspecified whether with hypoxia or hypercapnia Qualified Code(s): J96.00 - Acute respiratory failure, unspecified whether with hypoxia or hypercapnia Is this a current diagnosis for this admission?: Yes (4) Interstitial lung disease Is this a current diagnosis for this admission?: Yes (5) Volkmann's ischemic contracture Qualifiers: Encounter type: subsequent encounter Qualified Code(s): T79.6XXD - Traumatic ischemia of muscle, subsequent encounter Is this a current diagnosis for this admission?: Yes (6) Bipolar disorder Qualifiers: Active/Remission status: remission status unspecified Qualified Code(s): F31.9 - Bipolar disorder, unspecified Is this a current diagnosis for this admission?: Yes - Time Time Spent with patient: 15-24 minutes Anticipated discharge: Home Within: within 72 hours - Plan Summary Plan Summary: Is unclear if patient is truly septic however he has been placed on empiric antibiotics. His white count did go up over the last few days. 2. Pulmonary consultation has been ordered also. 3. He is currently off BiPAP unable to tolerate oxygen 4. Patient's kidney function as well as his platelets and other laboratory data improving. He is anemic and this is chronic with his hemoglobin being at 7.2 baseline. There was no indication for transfusion
[2017-11-09] MEDS: HYDRALAZINE HCL INJ/PF 20 MG/1 ML SDV IV PRN (18:49)
[2017-11-09] MEDS ORDERED: METHYLPHENIDATE HCL 5 MG TABLET PO PRN (21:42)
[2017-11-09] MEDS ORDERED: (PENDING PHARMACY ID) (Lithium Carbonate [Lithium Carbonate] 600 MG) PO SCH (22:00)
[2017-11-09] MEDS: CLONIDINE HCL 0.1 MG TABLET PO PRN (22:10)
[2017-11-09] MEDS: LITHIUM CARBONATE 300 MG CAPSULE PO SCH (22:10)
[2017-11-09] MEDS: LURASIDONE HCL 40 MG TABLET PO SCH (22:13)
[2017-11-09] MEDS: ALPRAZOLAM 0.5 MG TABLET PO PRN (22:26)
[2017-11-10] MEDS: OXYCODONE-ACETAMINOPHEN 5-325 MG TABLET PO PRN ×4 (04:02→20:03)
[2017-11-10] MEDS: HEPARIN SOD (PORCINE) 5,000 UNIT/ML 1 ML SYRINGE SUBCUT SCH ×3 (05:44→21:34)
[2017-11-10] MEDS: CEFEPIME 1 GM/D5W RTU 1 GM/50 ML RTUPB IV SCH ×2 (05:44→17:37)
[2017-11-10 05:45] LABS: ABSOLUTE BASOPHILS # (AUTO) 0.1 10^3/uL (0.0-0.2); ABSOLUTE EOSINOPHILS # (AUTO) 0.2 10^3/uL (0.0-0.6); ABSOLUTE LYMPHOCYTES (AUTO) 1.1 10^3/uL (0.5-4.7); ABSOLUTE MONOCYTES (AUTO) 1.1 10^3/uL (0.1-1.4); ABSOLUTE NEUT (AUTO) 7.8 10^3/uL (1.7-8.2); BASOPHILS % (AUTO) 0.6 % (0-2); HEMATOCRIT 23.9 % (37.9-51.0); LYMPHOCYTES % (AUTO) 10.7 % (13-45); MEAN CORPUSCULAR HEMOGLOBIN 23.8 pg (27.0-33.4); MEAN CORPUSCULAR VOLUME 74 fl (80-97); MONOCYTES % (AUTO) 10.7 % (3-13); PLATELET COUNT 405 10^3/uL (150-450); RED BLOOD COUNT 3.22 10^6/uL (4.35-5.55); RED CELL DISTRIBUTION WIDTH 20.9 % (11.5-14.0); TOTAL CELLS COUNTED % (AUTO) 100 %; WHITE BLOOD COUNT 10.3 10^3/uL (4.0-10.5)
[2017-11-10 06:01] LABS: ANION GAP 10 (5-19); BLOOD UREA NITROGEN 15 mg/dL (7-20); CALCIUM 7.5 mg/dL (8.4-10.2); CARBON DIOXIDE 22 mmol/L (22-30); CHLORIDE 113 mmol/L (98-107); GLUCOSE 89 mg/dL (75-110); SODIUM 144.8 mmol/L (137-145)
[2017-11-10 06:11] LABS: HEMOGLOBIN 7.7 g/dL (13.5-17.0)
[2017-11-10 06:55] LABS: ARTERIAL BLOOD BASE EXCESS -2.3 mmol/L; ARTERIAL BLOOD FIO2 28%; ARTERIAL BLOOD H2CO3 1.14 mmol/L (1.05-1.35); ARTERIAL BLOOD HCO3 22.4 mmol/L (20-26); ARTERIAL BLOOD O2 SATURATION 75.3 % (94-98); ARTERIAL BLOOD PH 7.39 (7.35-7.45); ARTERIAL BLOOD TOTAL CO2 23.6 mmol/L (23-27)
[2017-11-10 06:57] LABS: ARTERIAL BLOOD PO2 40.4 mmHg (80-100)
--- NOTE | 2017-11-10 09:28 | RADIOLOGY REPORT (SQ) ---
EXAM DESCRIPTION: LIAN SWALLOW COMPLETED DATE/TIME: 11/10/2017 9:15 am REASON FOR STUDY: DYSPHAGIA SOLIDS/LIQUIDS COMPARISON: None. TECHNIQUE: Videofluoroscopic swallowing examination was performed in conjunction with speech patholo gy. Videofluoroscopic imaging was obtained and reviewed and these are the findings: RADIATION DOSE: Fluoro time 1.31 minutes 1 images saved to PACS. LIMITATIONS: None FINDINGS: The patient was brought into the fluoro room and placed upright on a modified barium swall ow chair. The patient was then given multiple consistencies mixed with barium to swallow under live fluoroscopic video guidance. According to the Speech Pathologist there was no penetration or aspirat ion. Please refer to the speech pathology report for further details. IMPRESSION: NO EVIDENCE OF PENETRATION OR ASPIRATIONPLEASE SEE SPEECH PATHOLOGIST REPORT FOR OTHER F INDINGS AND RECOMMENDATIONS. COMMENT: None Quality ID [id number]: Final reports for procedures using fluoroscopy that document radiation exposure kourtney jim, or exposure time and number of fluorographic images (if radiation exposure indices are not avail able) TECHNICAL DOCUMENTATION: JOB ID: [id number] [employer]- All Rights Reserved Reading location - IP/workstation name: [email or web address]
[2017-11-10] MEDS ORDERED: (PENDING PHARMACY ID) (Methylphenidate Hcl [Ritalin] 20 MG) PO SCH (10:00)
[2017-11-10] MEDS: PANTOPRAZOLE SODIUM 40 MG VIAL IV SCH ×2 (10:08→21:35)
[2017-11-10] MEDS: ALPRAZOLAM 0.5 MG TABLET PO PRN (10:09)
[2017-11-10] MEDS: NORMAL SALINE 1000 ML 1,000 ML IV PRN (11:42)
--- NOTE | 2017-11-10 12:10 | ST Inp Modified Barium Swallow ---
Medical Diagnosis - Medical Diagnoses Medical Diagnosis Description & ICD-10 Code(s): sepsis, acute respiratory failure ST [facility] [facility] [place]: 11/10/17 - History History Obtained From: Other - EMR -: Medical - per EMR: patient admitted 11/08 due to shortness of breath. Physician order reports "dysphagia solids/liquids". Patient reports not modifying diet for texture currently. Medications: Medications Reviewed Allergies: Refer to medical record - Subjective Current Nutritional Means: PO Current PO Diet: Regular Current Symptoms: Coughing Pain: Patient reports, 3/5 - right arm pain - Objective Assessment: Upright, Left Lateral - Food Trials Food Trials Used: Thin liquids, Pureed, Regular The Patient: Was Able to Self Feed - Assessment Labial Function: Within Normal Limits Lingual Function: Within Normal Limits Mandibular Function: Within Normal Limits Dentition: Full - Pharyngeal Stage Initiation of Pharyngeal Stage: Normal Decreased Laryngeal Elevation: No Reduced Velo-Pharyngeal Closure: no Reduced Pressure Generation: No Reduced Tongue Base Retraction: No Pre-Swallowing Pooling in Valleculae: None Pre-Swallowing Pooling in Pyriforms: None Reduced Thyro-Hyiod Approximation: No Reduced Epiglottic Excursion: No Reduced Pharyngeal Peristalsis: No Multiple Swallows With: Cleared w/ Liquid Assist Post Swallow Residuals in Valleculae: None Post Swallow Residuals in Pyriforms: None - Esophageal Stage Esophageal Stage Comments: mild residue seen in region of UES with solid trials , cleared with liquid wash - Impression/Summary Laryngeal Penetration: No Tracheal Aspiration: no Patient Presents With: Normal swallow at eval Risk of Aspiration: Minimal Risk of Nutritional Compromise: None - Recommendations Solid Diet Recommendations: Regular Liquid Diet Recommendations: Thin Regular Diet: Yes Dysphagia Therapy with NEWS EDITOR: No Recommended Techniques: Fully Upright During Meal, Small Bites and Sips, Alternate Bites/Sips - Time Total Time: 20 Total Timed Minutes: 20
[2017-11-10] MEDS: METHYLPHENIDATE HCL 5 MG TABLET PO SCH ×2 (13:16→17:37)
--- NOTE | 2017-11-10 14:48 | RADIOLOGY REPORT (SQ) ---
EXAM DESCRIPTION: FOREARM RIGHT COMPLETED DATE/TIME: 11/10/2017 2:21 pm REASON FOR STUDY: r/o fracture COMPARISON: None. NUMBER OF VIEWS: Two views. TECHNIQUE: Two radiographic images acquired of the right forearm, including elbow and wrist in at le ast one projection. LIMITATIONS: None. FINDINGS: MINERALIZATION: Normal. BONES: No acute fracture. No worrisome bone lesions. SOFT TISSUES: No foreign body. OTHER: No other significant finding. IMPRESSION: No fracture. TECHNICAL DOCUMENTATION: JOB ID: [id number]- All Rights Reserved Reading location - IP/workstation name: [email or web address]
--- NOTE | 2017-11-10 17:20 | PDOC PROGRESS REPORT ---
Subjective Progress Note for:: 11/10/17 Subjective:: Mr. Beck was admitted for increasing shortness of breath and productive cough after being recently discharged. No acute event overnight. Patient has been saturating well off the BiPAP. This morning, he says his breathing is much better today. He denies any fever or chills. No chest pain. He continues to complain of right arm swelling. Reason For Visit: RESPIRATORY DISTRESS ON BIPAP Physical Exam Vital Signs: Temp Pulse Resp BP Pulse Ox 98.8 F 91 20 157/98 H 94 11/10/17 15:57 11/10/17 15:57 11/10/17 15:57 11/10/17 15:57 11/10/17 15:57 Intake & Output 11/09/17 11/10/17 11/11/17 06:59 06:59 06:59 Intake Total 400 3012 644 Output Total 900 3640 500 Balance -500 -628 144 Weight 301 lb 2.423 oz General appearance: PRESENT: no acute distress, well-developed, well-nourished Head exam: PRESENT: atraumatic, normocephalic Eye exam: PRESENT: conjunctiva pink, EOMI, PERRLA. ABSENT: scleral icterus Ear exam: PRESENT: normal external ear exam Neck exam: ABSENT: carotid bruit, JVD, lymphadenopathy, thyromegaly Respiratory exam: PRESENT: clear to auscultation carter. ABSENT: rales, rhonchi, wheezes Cardiovascular exam: PRESENT: RRR. ABSENT: diastolic murmur, rubs, systolic murmur Pulses: PRESENT: normal dorsalis pedis pul GI/Abdominal exam: PRESENT: normal bowel sounds, soft. ABSENT: distended, guarding, mass, organolmegaly, rebound, tenderness Rectal exam: PRESENT: deferred Extremities exam: PRESENT: tenderness - Note of minimal tenderness on palpation of the medial part of the right popliteal area, right arm is grossly swollen compared to the left Musculoskeletal exam: PRESENT: ambulatory Neurological exam: PRESENT: alert, awake, oriented to person, oriented to place , oriented to time, oriented to situation, CN II-XII grossly intact. ABSENT: motor sensory deficit Results Laboratory Results: 11/10/17 04:20 11/10/17 04:20 11/10/17 11/10/17 11/10/17 04:20 04:20 06:11 WBC 10.3 RBC 3.22 L Hgb 7.7 L Hct 23.9 L MCV 74 L MCH 23.8 L MCHC 32.0 RDW 20.9 H Plt Count 405 Seg Neutrophils % 76.0 Lymphocytes % 10.7 L Monocytes % 10.7 Eosinophils % 2.0 Basophils % 0.6 Absolute Neutrophils 7.8 Absolute Lymphocytes 1.1 Absolute Monocytes 1.1 Absolute Eosinophils 0.2 Absolute Basophils 0.1 Carbonic Acid Cancelled HCO3/H2CO3 Ratio Cancelled ABG pH Cancelled ABG pCO2 Cancelled ABG pO2 Cancelled ABG HCO3 Cancelled ABG O2 Saturation Cancelled ABG Base Excess Cancelled FiO2 Cancelled Sodium 144.8 Potassium 4.0 Chloride 113 H Carbon Dioxide 22 Anion Gap 10 BUN 15 Creatinine 1.67 H Est GFR ( Amer) 56 L Est GFR (Non-Af Amer) 47 L Glucose 89 Calcium 7.5 L Magnesium 1.8 Stool Occult Blood 11/10/17 11/10/17 06:45 08:45 WBC RBC Hgb Hct MCV MCH MCHC RDW Plt Count Seg Neutrophils % Lymphocytes % Monocytes % Eosinophils % Basophils % Absolute Neutrophils Absolute Lymphocytes Absolute Monocytes Absolute Eosinophils Absolute Basophils Carbonic Acid 1.14 HCO3/H2CO3 Ratio 19:1 ABG pH 7.39 ABG pCO2 38.0 ABG pO2 40.4 L* ABG HCO3 22.4 ABG O2 Saturation 75.3 L ABG Base Excess -2.3 FiO2 28% Sodium Potassium Chloride Carbon Dioxide Anion Gap BUN Creatinine Est GFR ( Amer) Est GFR (Non-Af Amer) Glucose Calcium Magnesium Stool Occult Blood NEGATIVE Impressions: Chest X-Ray 11/08/17 18:59 IMPRESSION: Persistent diffuse bilateral airspace opacities, may be secondary to known interstitial lung disease, superimposed pneumonia or pulmonary edema is not excludable. Chest CT 11/09/17 00:00 IMPRESSION: Diffuse bilateral infectious or inflammatory process with slight improved aeration in the left lung. No evidence of cavitation. Forearm X-Ray 11/10/17 00:00 IMPRESSION: No fracture. Modified Barium Swallow 11/10/17 00:00 IMPRESSION: NO EVIDENCE OF PENETRATION OR ASPIRATIONPLEASE SEE SPEECH PATHOLOGIST REPORT FOR OTHER FINDINGS AND RECOMMENDATIONS. Assessment & Plan - Diagnosis (1) Acute respiratory failure Qualifiers: Respiratory failure complication: hypoxia Qualified Code(s): J96.01 - Acute respiratory failure with hypoxia Is this a current diagnosis for this admission?: Yes Plan: Patient's previous chest x-ray showed questionable interstitial lung disease. CT of the chest at this time showed diffuse interstitial and alveolar patterns. Differentials include pneumonitis, pneumonia versus ILD. Patient does not have a previous diagnosis of ILD pulmonology has been consulted will await for further recommendations. Continue cefepime and Levaquin for now. Will likely de-escalate antibiotics tomorrow, depending on patient's course. (2) Pain and swelling of right upper extremity Is this a current diagnosis for this admission?: Yes Plan: She continues to have persistent swelling with some tenderness in the right arm. He says that he slept on his right arm last week and woke up with the mentioned symptoms. On his recent admission, patient was worked up for DVT. Venous Dopplers were negative for DVT. And elbow and hand x-rays are also negative for acute fractures. We will check a forearm x-ray to ensure full visualization of the entire forearm to rule out fractures. (3) Bipolar disorder Is this a current diagnosis for this admission?: Yes Plan: Stable. Continue Latuda and lithium. (4) Acute kidney injury Is this a current diagnosis for this admission?: Yes Plan: Creatinine is improving. Continue IV fluids with normal saline at 50 cc/h. - Time Time Spent with patient: 25-34 minutes
[2017-11-10] MEDS: LEVOFLOXACIN 500 MG TABLET PO SCH (20:02)
[2017-11-10] MEDS: LURASIDONE HCL 40 MG TABLET PO SCH (21:34)
[2017-11-10] MEDS: ALPRAZOLAM 0.5 MG TABLET PO SCH (21:34)
[2017-11-10] MEDS: LITHIUM CARBONATE 300 MG CAPSULE PO SCH (21:42)
[2017-11-11] MEDS: OXYCODONE-ACETAMINOPHEN 5-325 MG TABLET PO PRN ×4 (02:27→20:49)
[2017-11-11] MEDS: CEFEPIME 1 GM/D5W RTU 1 GM/50 ML RTUPB IV SCH ×2 (06:24→17:24)
[2017-11-11] MEDS: ALPRAZOLAM 0.5 MG TABLET PO SCH ×3 (06:30→23:16)
[2017-11-11] MEDS: HEPARIN SOD (PORCINE) 5,000 UNIT/ML 1 ML SYRINGE SUBCUT SCH ×3 (07:16→23:15)
[2017-11-11] MEDS: CLONIDINE HCL 0.1 MG TABLET PO PRN ×2 (08:31→16:26)
[2017-11-11] MEDS: METHYLPHENIDATE HCL 5 MG TABLET PO SCH ×3 (10:14→17:23)
[2017-11-11] MEDS: NORMAL SALINE 1000 ML 1,000 ML IV PRN (10:15)
[2017-11-11] MEDS: PANTOPRAZOLE SODIUM 40 MG VIAL IV SCH (10:16)
[2017-11-11 12:01] LABS: ARTERIAL BLOOD H2CO3 1.04 mmol/L (1.05-1.35); ARTERIAL BLOOD HCO3 25.5 mmol/L (20-26); ARTERIAL BLOOD O2 SATURATION 95.2 % (94-98); ARTERIAL BLOOD PCO2 34.6 mmHg (35-45); ARTERIAL BLOOD PH 7.49 (7.35-7.45); ARTERIAL BLOOD PO2 69.6 mmHg (80-100); ARTERIAL BLOOD TOTAL CO2 26.5 mmol/L (23-27)
[2017-11-11 12:34] LABS: ARTERIAL BLOOD FIO2 28%
[2017-11-11 13:16] LABS: ABSOLUTE BASOPHILS # (AUTO) 0.1 10^3/uL (0.0-0.2); ABSOLUTE EOSINOPHILS # (AUTO) 0.2 10^3/uL (0.0-0.6); ABSOLUTE MONOCYTES (AUTO) 0.7 10^3/uL (0.1-1.4); ABSOLUTE RETICS # 0.058 10^6/uL (0.028-0.122); BASOPHILS % (AUTO) 1.1 % (0-2); EOSINOPHILS % (AUTO) 2.5 % (0-6); HEMATOCRIT 25.2 % (37.9-51.0); LYMPHOCYTES % (AUTO) 14.6 % (13-45); MEAN CORPUSCULAR HEMOGLOBIN 23.4 pg (27.0-33.4); MEAN CORPUSCULAR HGB CONC 31.8 g/dL (32.0-36.0); MEAN CORPUSCULAR VOLUME 73 fl (80-97); MONOCYTES % (AUTO) 9.5 % (3-13); PLATELET COUNT 385 10^3/uL (150-450); RED BLOOD COUNT 3.43 10^6/uL (4.35-5.55); RED CELL DISTRIBUTION WIDTH 21.1 % (11.5-14.0); RETICULOCYTE COUNT (AUTO) 1.69 % (0.66-2.85); SEGMENTED NEUTROPHILS % (AUTO) 72.3 % (42-78); TOTAL CELLS COUNTED % (AUTO) 100 %; WHITE BLOOD COUNT 6.9 10^3/uL (4.0-10.5)
[2017-11-11 13:32] LABS: ANION GAP 12 (5-19); BLOOD UREA NITROGEN 11 mg/dL (7-20); CARBON DIOXIDE 24 mmol/L (22-30); CHLORIDE 108 mmol/L (98-107); GLUCOSE 120 mg/dL (75-110); IRON(TIBC) 25.2 ug/dL (49-181); POTASSIUM 3.8 mmol/L (3.6-5.0); SODIUM 143.7 mmol/L (137-145)
[2017-11-11 13:49] LABS: ERYTHROCYTE SEDIMENTATION RATE 78 mm/hr (0-15)
[2017-11-11] MEDS ORDERED: ONDANSETRON HCL INJ/PF 4 MG/2 ML SDV IV PRN (14:30)
[2017-11-11 15:21] LABS: FOLATE 9.09 ng/mL (>2.76)
--- NOTE | 2017-11-11 15:49 | PDOC PROGRESS REPORT ---
Subjective Progress Note for:: 11/11/17 Subjective:: Mr. Beck was admitted for increasing shortness of breath and productive cough after being recently discharged. No acute event overnight. This morning, he says his breathing is much better today and is almost close to baseline. He denies any fever or chills. No chest pain. Says his right arm swelling has significantly improved this morning after immobilization with an arm sling. Pain has also improved. Reason For Visit: RESPIRATORY DISTRESS ON BIPAP Physical Exam Vital Signs: Temp Pulse Resp BP Pulse Ox 99.0 F 81 16 158/98 H 98 11/11/17 14:29 11/11/17 14:29 11/11/17 14:29 11/11/17 14:29 11/11/17 14:29 Pulse Oximeter Continuous Start: 11/11/17 10: 55 Freq: RTQ4 Status: Active Document 11/11/17 11:45 TPO (Rec: 11/11/17 11:58 TPO [email or web address]) Pulse Oximetry Assessment Oxygen Saturation (92-100) 97 Oxygen Flow Rate (L/min) 2 Oxygen Delivery Method Nasal Cannula Fraction of Inspired Oxygen (FIO2) 28 Equipment Usage Initial Set Up Continuous Pulse Oximeter 24 Hour Charge Charge Now Continuous SpO2 Machine # 11 Intake & Output 11/10/17 11/11/17 11/12/17 06:59 06:59 06:59 Intake Total 3012 2358 1523 Output Total 3640 500 Balance -628 1858 1523 Weight 301 lb 2.423 oz 297 lb 6.457 oz General appearance: PRESENT: no acute distress, well-developed, well-nourished Head exam: PRESENT: atraumatic, normocephalic Eye exam: PRESENT: conjunctiva pink, EOMI, PERRLA. ABSENT: scleral icterus Ear exam: PRESENT: normal external ear exam Neck exam: ABSENT: carotid bruit, JVD, lymphadenopathy, thyromegaly Respiratory exam: PRESENT: clear to auscultation carter. ABSENT: rales, rhonchi, wheezes Cardiovascular exam: PRESENT: RRR. ABSENT: diastolic murmur, rubs, systolic murmur GI/Abdominal exam: PRESENT: normal bowel sounds, soft. ABSENT: distended, guarding, mass, organolmegaly, rebound, tenderness Rectal exam: PRESENT: deferred Musculoskeletal exam: PRESENT: other - The right arm tenderness and swelling has significantly improved and is gone down from yesterday Neurological exam: PRESENT: alert, awake, oriented to person, oriented to place , oriented to time, oriented to situation, CN II-XII grossly intact. ABSENT: motor sensory deficit Results Laboratory Results: 11/11/17 12:35 11/11/17 12:35 11/09/17 11/11/17 11/11/17 06:50 11:48 12:35 WBC 6.9 RBC 3.43 L Hgb 8.0 L Hct 25.2 L MCV 73 L MCH 23.4 L MCHC 31.8 L RDW 21.1 H Plt Count 385 Seg Neutrophils % 72.3 Lymphocytes % 14.6 Monocytes % 9.5 Eosinophils % 2.5 Basophils % 1.1 Absolute Neutrophils 5.0 Absolute Lymphocytes 1.0 Absolute Monocytes 0.7 Absolute Eosinophils 0.2 Absolute Basophils 0.1 Retic Count (auto) 1.69 Absolute Retic 0.058 Carbonic Acid 1.04 L HCO3/H2CO3 Ratio 24:1 ABG pH 7.49 H ABG pCO2 34.6 L ABG pO2 69.6 L ABG HCO3 25.5 ABG O2 Saturation 95.2 ABG Base Excess 2.0 FiO2 28% Sodium Potassium Chloride Carbon Dioxide Anion Gap BUN Creatinine Est GFR ( Amer) Est GFR (Non-Af Amer) Glucose Calcium Magnesium Iron TIBC % Saturation Ferritin Folate Blood Type O POSITIVE Antibody Screen NEGATIVE 11/11/17 11/11/17 12:35 12:35 WBC RBC Hgb Hct MCV MCH MCHC RDW Plt Count Seg Neutrophils % Lymphocytes % Monocytes % Eosinophils % Basophils % Absolute Neutrophils Absolute Lymphocytes Absolute Monocytes Absolute Eosinophils Absolute Basophils Retic Count (auto) Absolute Retic Carbonic Acid HCO3/H2CO3 Ratio ABG pH ABG pCO2 ABG pO2 ABG HCO3 ABG O2 Saturation ABG Base Excess FiO2 Sodium 143.7 Potassium 3.8 Chloride 108 H Carbon Dioxide 24 Anion Gap 12 BUN 11 Creatinine 1.34 H Est GFR ( Amer) > 60 Est GFR (Non-Af Amer) > 60 Glucose 120 H Calcium 8.0 L Magnesium 1.4 L Iron 25.2 L TIBC 232 L % Saturation 11 Ferritin 183.00 Cancelled Folate 9.09 Blood Type Antibody Screen Impressions: Chest X-Ray 11/08/17 18:59 IMPRESSION: Persistent diffuse bilateral airspace opacities, may be secondary to known interstitial lung disease, superimposed pneumonia or pulmonary edema is not excludable. Chest CT 11/09/17 00:00 IMPRESSION: Diffuse bilateral infectious or inflammatory process with slight improved aeration in the left lung. No evidence of cavitation. Forearm X-Ray 11/10/17 00:00 IMPRESSION: No fracture. Modified Barium Swallow 11/10/17 00:00 IMPRESSION: NO EVIDENCE OF PENETRATION OR ASPIRATIONPLEASE SEE SPEECH PATHOLOGIST REPORT FOR OTHER FINDINGS AND RECOMMENDATIONS. Assessment & Plan - Diagnosis (1) Acute respiratory failure Qualifiers: Respiratory failure complication: hypoxia Qualified Code(s): J96.01 - Acute respiratory failure with hypoxia Is this a current diagnosis for this admission?: Yes Plan: Patient's previous chest x-ray showed questionable interstitial lung disease. CT of the chest at this time showed diffuse interstitial and alveolar patterns. Differentials include healthcare associated pneumonia versus ILD. Continue cefepime and Levaquin for now. Patient does not have a history of prior interstitial lung disease. Pulmonology has evaluated the patient and have ordered for ILD workup. Pulmonology is also planning to pursue bronchoscopy on outpatient basis. (2) Pain and swelling of right upper extremity Is this a current diagnosis for this admission?: Yes Plan: Significantly improved overnight after immobilization with arm sling. Ultrasound Dopplers in x-rays have been negative for DVT and fractures respectively swelling is likely from soft tissue inflammation after patient slept on his arm for several hours. There is no concern for compartment syndrome. Patient was evaluated for the same complaint on his recent admission by orthopedics and compartment pressures were measured at time and was not concerning for compartment syndrome. Swelling is expected to improve in the next several days. Have his arm immobilized with an arm sling for the next 5-7 days. (3) Bipolar disorder Is this a current diagnosis for this admission?: Yes Plan: Stable. Continue Latuda and lithium. (4) Acute kidney injury Is this a current diagnosis for this admission?: Yes Plan: Creatinine continues to improve and is close to baseline. Continue IV fluids with normal saline at 50 cc/h. - Time Time Spent with patient: 25-34 minutes Anticipated discharge: Home Within: within 24 hours
[2017-11-11] MEDS: HYDRALAZINE HCL INJ/PF 20 MG/1 ML SDV IV PRN (17:24)
[2017-11-11 20:15] LABS: ABSOLUTE BASOPHILS # (AUTO) 0.1 10^3/uL (0.0-0.2); ABSOLUTE EOSINOPHILS # (AUTO) 0.2 10^3/uL (0.0-0.6); ABSOLUTE LYMPHOCYTES (AUTO) 1.1 10^3/uL (0.5-4.7); ABSOLUTE MONOCYTES (AUTO) 0.7 10^3/uL (0.1-1.4); BASOPHILS % (AUTO) 1.3 % (0-2); EOSINOPHILS % (AUTO) 2.3 % (0-6); HEMOGLOBIN 8.1 g/dL (13.5-17.0); LYMPHOCYTES % (AUTO) 15.5 % (13-45); MEAN CORPUSCULAR HEMOGLOBIN 24.1 pg (27.0-33.4); MEAN CORPUSCULAR HGB CONC 32.5 g/dL (32.0-36.0); MEAN CORPUSCULAR VOLUME 74 fl (80-97); MONOCYTES % (AUTO) 10.2 % (3-13); PLATELET COUNT 365 10^3/uL (150-450); RED BLOOD COUNT 3.36 10^6/uL (4.35-5.55); RED CELL DISTRIBUTION WIDTH 21.4 % (11.5-14.0); SEGMENTED NEUTROPHILS % (AUTO) 70.7 % (42-78); TOTAL CELLS COUNTED % (AUTO) 100 %
[2017-11-11] MEDS: LEVOFLOXACIN 500 MG TABLET PO SCH (20:48)
[2017-11-11] MEDS: LITHIUM CARBONATE 300 MG CAPSULE PO SCH (23:15)
[2017-11-11] MEDS: LURASIDONE HCL 40 MG TABLET PO SCH (23:17)
[2017-11-12] MEDS: OXYCODONE-ACETAMINOPHEN 5-325 MG TABLET PO PRN ×3 (04:23→13:24)
[2017-11-12] MEDS: HEPARIN SOD (PORCINE) 5,000 UNIT/ML 1 ML SYRINGE SUBCUT SCH ×2 (05:43→13:23)
[2017-11-12] MEDS: CEFEPIME 1 GM/D5W RTU 1 GM/50 ML RTUPB IV SCH (05:47)
[2017-11-12] MEDS: ALPRAZOLAM 0.5 MG TABLET PO SCH ×2 (05:48→13:24)
[2017-11-12] MEDS ORDERED: LANSOPRAZOLE 30 MG TAB.RAP.DR PO SCH (06:00)
[2017-11-12] MEDS: HYDRALAZINE HCL INJ/PF 20 MG/1 ML SDV IV PRN (08:00)
[2017-11-12] MEDS: METHYLPHENIDATE HCL 5 MG TABLET PO SCH ×2 (10:13→13:24)
[2017-11-12 12:38] LABS: ANTICHROMATIN AB <0.2 AI (0.0-0.9); CENTROMERE B AB <0.2 AI (0.0-0.9); JO-1 ANTIBODY (ANACOMP) <0.2 AI (0.0-0.9); RNP AB <0.2 AI (0.0-0.9); SCLERODERMA-70 ANTIBODIES <0.2 AI (0.0-0.9); SJOGREN'S ANTI-SS-B AB <0.2 AI (0.0-0.9); SJOGREN'S SS-A ANTIBODY 0.7 AI (0.0-0.9); SMITH AB ANA 0.3 AI (0.0-0.9)
[2017-11-12] MEDS: NORMAL SALINE 1000 ML 1,000 ML IV PRN (13:26)
[2017-11-12 14:13] LABS: DNA DOUBLE STRAND ANTIBODY ANA <1 IU/mL (0-9)
[2017-11-12 14:16] VITALS: BP 155/110
[2017-11-13 19:36] LABS: ASPERGILLUS FLAVUS Negative (Neg:<1:1); ASPERGILLUS FUMIGATUS Negative (Neg:<1:1)
--- NOTE | 2017-11-14 12:57 | XCELERA REPORT ---
[address] [address] Transthoracic Echocardiogram Report Name: HUSSAIN ARITA II Age: 37 yrs Gender: Male : 1980 Patient Status: Inpatient Patient Location: [facility]^A Study Date: 11/12/2017 10:54 AM Height: 76 in Weight: 301 lb BSA: 2.6 m2 Procedure: A two-dimensional transthoracic echocardiogram with color flow Doppler was performed. The study was technically difficult with many images being suboptimal in quality. Reason For Study: LV function History: Shortness of breath. Ordering Physician: ROCIO CARTWRIGHT Performed By: Devora Frankel Interpretation Summary The left ventricle is borderline dilated. There is normal left ventricular wall thickness. Left ventricular systolic function is low normal. LV EF is 55% Doppler measurements suggest normal left ventricular diastolic function The left ventricular wall motion is normal. There is no thrombus. The right ventricle is not well visualized secondary to technical limitations Right atrium not well visualized secondary to technical limitations The left atrial size is normal. There is no evidence of mitral valve prolapse. There is no mitral valve stenosis. There is a trace amount of mitral regurgitation There is no aortic valve stenosis There is no LVOT obstruction. No aortic regurgitation is present. There is no tricuspid stenosis. No tricuspid regurgitation. Unable to calculate RVSP due lack of TR jet. There is no pericardial effusion. MMode/2D Measurements & Calculations RVDd: 2.2 cm LVIDd: 6.4 cm FS: 27.1 % Ao root diam: 3.5 cm IVSd: 1.1 cm LVIDs: 4.7 cm EDV(Teich): 207.9 ml Ao root area: 9.8 cm2 LVPWd: 1.1 cm ESV(Teich): 100.5 ml LA dimension: 3.9 cm EF(Teich): 51.7 % Doppler Measurements & Calculations MV E max doug: MV P1/2t max doug: Ao V2 max: LV V1 max P.8 cm/sec 129.3 cm/sec 120.2 cm/sec 4.7 mmHg MV A max doug: MV P1/2t: 47.1 msec Ao max PG: LV V1 max: 113.0 cm/sec MVA(P1/2t): 4.7 cm2 5.8 mmHg 108.6 cm/sec MV E/A: 1.1 MV dec slope: 803.7 cm/sec2 MV dec time: 0.15 sec PA V2 max: MV P1/2t-pr_phl: 79.5 cm/sec 47.1 msec PA max P.5 mmHg Left Ventricle The left ventricle is borderline dilated. There is normal left ventricular wall thickness. Left ventricular systolic function is low normal. LV EF is 55%. Doppler measurements suggest normal left ventricular diastolic function. The left ventricular wall motion is normal. There is no thrombus. Right Ventricle The right ventricle is not well visualized secondary to technical limitations. Atria Right atrium not well visualized secondary to technical limitations. The left atrial size is normal. Mitral Valve There is no evidence of mitral valve prolapse. There is no vegetation seen on the mitral valve. There is no mitral valve stenosis. There is a trace amount of mitral regurgitation. Aortic Valve There is no aortic valve stenosis. There is no LVOT obstruction. No aortic regurgitation is present. Tricuspid Valve There is no tricuspid stenosis. No tricuspid regurgitation. Unable to calculate RVSP due lack of TR jet. Pulmonic Valve There is no pulmonic valvular stenosis. There is no pulmonic valvular regurgitation. Great Vessels The aortic root is normal size. Effusions There is no pericardial effusion. : ROCIO CARTWRIGHT > Erica Gonsalez
[2017-11-14 18:53] LABS: ASPERGILLUS NIGER Negative (Neg:<1:1)
== END 2017-11-12 15:45 | disposition home or self-care (01) | DRG 189 ==
LOC: ER 18:15 → EH 21:12 → 3N 11-09 15:54
PROVIDERS: ADMIT Family Medicine; ATTEND Family Medicine
PROC: 30233N1 Transfusion of Nonautologous Red Blood Cells into Peripheral Vein, Percutaneous Approach (ICD-10-PCS; principal; 2017-11-11)
DX: J96.01 Acute respiratory failure with hypoxia (principal); N17.9 Acute kidney failure, unspecified; J84.9 Interstitial pulmonary disease, unspecified; F31.89 Other bipolar disorder; G40.909 Epilepsy, unspecified, not intractable, without status epilepticus; D47.3 Essential (hemorrhagic) thrombocythemia; M62.421 Contracture of muscle, right upper arm; F43.10 Post-traumatic stress disorder, unspecified; Z98.84 Bariatric surgery status
CPT/HCPCS: 36415; 36430; 36600; 71045; 71250; 74230; 80048; 80053; 80178; 80307; 81001; 82272; 82550; 82728; 82746; 82803; 82962; 83540; 83550; 83605; 83735; 83880; 84100; 84484; 85025; 85045; 85652; 86160; 86225; 86235; 86606; 86850; 86900; 86901; 86920; 87040; 87070; 87205; 93005; 93010; 93306; 94660; 94762; 96365; 96366; 99291; J0360; J0692; J1644; J1956; J3490; J7030; J7120; P9016; S0164

== ENCOUNTER 2017-12-19 16:09 | Emergency (ER) | payer SELFPAY ==
--- NOTE | 2017-12-19 17:27 | ER Document Report ---
ED Medical Screen (RME) - General Chief Complaint: Chest Pain Stated Complaint: CHEST PAIN, ARM PAIN, SHORTNESS OF BREATH Time Seen by Provider: 12/19/17 17:27 Notes: 37-year-old male complaining of chest pain and shortness of breath, right arm swelling. States that he was admitted to the hospital a month ago for renal failure and liver failure. Was diagnosed with compartment syndrome. Has never followed back up with orthopedics. Takes a bunch of psych meds. Over the last several days he has been having increased shortness of breath, chest pain, difficulty breathing, pain in the chest that radiates down the right arm with increased swelling and pain in the right arm I have greeted and performed a rapid initial assessment of this patient. A comprehensive ED assessment and evaluation of the patient, analysis of test results and completion of the medical decision making process will be conducted by additional ED providers. TRAVEL OUTSIDE OF THE [place] IN LAST 30 DAYS: No - Related Data Allergies/Adverse Reactions: NSAIDS (Non-Steroidal Anti-Inflamma [Nsaids] Allergy (Intermediate, Verified 16:11) orange juice Allergy (Severe, Uncoded 12/19/17 16:11) spagetti sauce Allergy (Severe, Uncoded 12/19/17 16:11) Vitamin D Synthetic Additive Allergy (Unknown, Uncoded 12/19/17 16:11) Anaphylaxis Past Medical History Pulmonary Medical History: Denies: Hx Tuberculosis Neurological Medical History: Reports: Hx Seizures Renal/ Medical History: Denies: Hx Peritoneal Dialysis GI Medical History: Reports: Hx Ulcer - perforated in 2007 Musculoskeltal Medical History: Reports Hx Arthritis - degenerative Psychiatric Medical History: Reports: Hx Bipolar Disorder - with manic tendencies, Hx Depression, Hx Post Traumatic Stress Disorder Past Surgical History: Reports: Hx Abdominal Surgery - gastric bypass and gastric bypass revision, Hx Bowel Surgery - perforated ulcer, Hx Cholecystectomy , Hx Gastric Bypass Surgery, Hx Orthopedic Surgery - right shoulder arthroscopy , Hx Pacemaker, Other - History of hernia repair with perforated ulcer - Immunizations Hx Diphtheria, Pertussis, Tetanus Vaccination: Yes History of Influenza Vaccine for 12/2016 - 05/2017 Season: No Physical Exam - Vital signs Vitals: Temp Pulse Resp BP Pulse Ox 97.5 F 82 18 129/90 H 97 12/19/17 16:24 12/19/17 16:24 12/19/17 16:24 12/19/17 16:24 12/19/17 16:24 Course - Vital Signs Vital signs: Temp Pulse Resp BP Pulse Ox 97.5 F 82 18 129/90 H 97 12/19/17 16:24 12/19/17 16:24 12/19/17 16:24 12/19/17 16:24 12/19/17 16:24
--- NOTE | 2017-12-19 18:22 | RADIOLOGY REPORT (SQ) ---
EXAM DESCRIPTION: CHEST 2 VIEWS COMPLETED DATE/TIME: 12/19/2017 6:06 pm REASON FOR STUDY: chest pain COMPARISON: 08/15/2016. EXAM PARAMETERS: NUMBER OF VIEWS: two views TECHNIQUE: Digital Frontal and Lateral radiographic views of the chest acquired. RADIATION DOSE: NA LIMITATIONS: none FINDINGS: LUNGS AND PLEURA: No opacities, masses or pneumothorax. No pleural effusion. MEDIASTINUM AND HILAR STRUCTURES: No masses or contour abnormalities. HEART AND VASCULAR STRUCTURES: Heart normal size. No evidence for failure. BONES: No acute findings. Old deformity of the right shoulder. HARDWARE: None in the chest. OTHER: No other significant finding. IMPRESSION: NO ACUTE RADIOGRAPHIC FINDING IN THE CHEST. TECHNICAL DOCUMENTATION: JOB ID: [id number] [employer]- All Rights Reserved Reading location - IP/workstation name: [email or web address]
[2017-12-19 18:26] LABS: ABSOLUTE LYMPHOCYTES (AUTO) 2.1 10^3/uL (0.5-4.7); ABSOLUTE MONOCYTES (AUTO) 0.4 10^3/uL (0.1-1.4); ABSOLUTE NEUT (AUTO) 4.1 10^3/uL (1.7-8.2); BASOPHILS % (AUTO) 0.6 % (0-2); EOSINOPHILS % (AUTO) 0.7 % (0-6); HEMOGLOBIN 13.5 g/dL (13.5-17.0); LYMPHOCYTES % (AUTO) 31.5 % (13-45); MEAN CORPUSCULAR HEMOGLOBIN 25.9 pg (27.0-33.4); MEAN CORPUSCULAR VOLUME 78 fl (80-97); MONOCYTES % (AUTO) 6.2 % (3-13); PLATELET COUNT 232 10^3/uL (150-450); RED BLOOD COUNT 5.23 10^6/uL (4.35-5.55); RED CELL DISTRIBUTION WIDTH 22.1 % (11.5-14.0); TOTAL CELLS COUNTED % (AUTO) 100 %; WHITE BLOOD COUNT 6.7 10^3/uL (4.0-10.5)
[2017-12-19 18:45] LABS: ALANINE AMINOTRANSFERASE 42 U/L (21-72); ALBUMIN 4.7 g/dL (3.5-5.0); ALKALINE PHOSPHATASE 73 U/L (38-126); ANION GAP 13 (5-19); ASPARTATE AMINO TRANSFERASE 28 U/L (17-59); BILIRUBIN,DIRECT 0.3 mg/dL (0.0-0.4); BILIRUBIN,TOTAL 0.6 mg/dL (0.2-1.3); BLOOD UREA NITROGEN 10 mg/dL (7-20); CALCIUM 9.9 mg/dL (8.4-10.2); CARBON DIOXIDE 21 mmol/L (22-30); CHLORIDE 109 mmol/L (98-107); CREATINE KINASE 40 U/L (55-170); GLUCOSE 95 mg/dL (75-110); POTASSIUM 4.2 mmol/L (3.6-5.0); SODIUM 142.8 mmol/L (137-145); TOTAL PROTEIN 7.7 g/dL (6.3-8.2)
[2017-12-19 18:47] LABS: ANISOCYTOSIS 3+; HYPOCHROMASIA 1+; OVALOCYTES SLIGHT; PLATELET COMMENT ADEQUATE; POIKILOCYTOSIS SLIGHT
[2017-12-19 18:57] LABS: CREATINE KINASE MB 0.47 ng/mL (<4.55); NT PRO BNP 37 pg/mL (<125)
[2017-12-19 18:59] LABS: TROPONIN I < 0.012 ng/mL
--- NOTE | 2017-12-19 20:04 | EKG REPORT ---
SEVERITY:- ABNORMAL ECG - SINUS RHYTHM NONSPECIFIC INTRAVENTRICULAR CONDUCTION DELAY : Confirmed by: Erica Gonsalez MD 19-Dec-2017 20:04:16
--- NOTE | 2017-12-19 21:01 | ER Document Report ---
ED Cardiac - General Chief Complaint: Chest Pain Stated Complaint: CHEST PAIN, ARM PAIN, SHORTNESS OF BREATH Time Seen by Provider: 12/19/17 17:27 Notes: Patient is a 37 year old male with a past medical history of polysubstance abuse , recent hospitalization for interstitial lung disease with associated renal failure and anemia who presents with concerns of chest pain. He states that this has been intermittent chest discomfort that has been ongoing since he was last discharged in the hospital. Nothing is new or different about this pain today relative to the previous several weeks. He does describe this as a sharp , stabbing, intermittent pain to the left side of his chest. He notes that when he exerts himself he continues to be short of breath although notes that this is overall improved substantially since he was discharged. Denies any pleuritic pain. No hemoptysis. No unilateral leg swelling. TRAVEL OUTSIDE OF THE [place] IN LAST 30 DAYS: No - Related Data Allergies/Adverse Reactions: NSAIDS (Non-Steroidal Anti-Inflamma [Nsaids] Allergy (Intermediate, Verified 16:11) orange juice Allergy (Severe, Uncoded 12/19/17 16:11) spagetti sauce Allergy (Severe, Uncoded 12/19/17 16:11) Vitamin D Synthetic Additive Allergy (Unknown, Uncoded 12/19/17 16:11) Anaphylaxis Past Medical History - General Information source: Patient - Social History Smoking Status: Never Smoker Frequency of alcohol use: None Drug Abuse: None Lives with: Family Family History: Reviewed & Not Pertinent Patient has suicidal ideation: No Patient has homicidal ideation: No Pulmonary Medical History: Denies: Hx Tuberculosis Neurological Medical History: Reports: Hx Seizures Renal/ Medical History: Denies: Hx Peritoneal Dialysis GI Medical History: Reports: Hx Ulcer - perforated in 2007 Musculoskeletal Medical History: Reports Hx Arthritis - degenerative Psychiatric Medical History: Reports: Hx Bipolar Disorder - with manic tendencies, Hx Depression, Hx Post Traumatic Stress Disorder Past Surgical History: Reports: Hx Abdominal Surgery - gastric bypass and gastric bypass revision, Hx Bowel Surgery - perforated ulcer, Hx Cholecystectomy , Hx Gastric Bypass Surgery, Hx Orthopedic Surgery - right shoulder arthroscopy , Hx Pacemaker, Other - History of hernia repair with perforated ulcer - Immunizations Hx Diphtheria, Pertussis, Tetanus Vaccination: Yes Review of Systems - Review of Systems Notes: Constitutional: Negative for fever. HENT: Negative for sore throat. Eyes: Negative for visual changes. Cardiovascular: Positive for chest pain. Respiratory: Positive for shortness of breath. Gastrointestinal: Negative for abdominal pain, vomiting or diarrhea. Genitourinary: Negative for dysuria. Musculoskeletal: Negative for back pain. Skin: Negative for rash. Neurological: Negative for headaches, weakness or numbness. 10 point ROS negative except as marked above and in HPI. Physical Exam - Vital signs Vitals: Temp Pulse Resp BP Pulse Ox 97.5 F 82 18 129/90 H 97 12/19/17 16:24 12/19/17 16:24 12/19/17 16:24 12/19/17 16:24 12/19/17 16:24 Interpretation: Normal Notes: PHYSICAL EXAMINATION: GENERAL: Well-appearing, well-nourished and in no acute distress. HEAD: Atraumatic, normocephalic. EYES: Pupils equal round and reactive to light, extraocular movements intact, sclera anicteric, conjunctiva are normal. ENT: nares patent, oropharynx clear without exudates. Moist mucous membranes. NECK: Normal range of motion, supple without lymphadenopathy LUNGS: Breath sounds clear to auscultation bilaterally and equal. No wheezes rales or rhonchi. HEART: Regular rate and rhythm without murmurs ABDOMEN: Soft, nontender, normoactive bowel sounds. No guarding, no rebound. No masses appreciated. EXTREMITIES: Normal range of motion, no pitting or edema. No cyanosis. NEUROLOGICAL: No focal neurological deficits. Moves all extremities spontaneously and on command. PSYCH: Normal mood, normal affect. SKIN: Warm, Dry, normal turgor, no rashes or lesions noted. Course - Re-evaluation Re-evalutation: 12/19/17 20:59 Presentation of chest pain in an otherwise well appearing patient. Low clinical suspicion for ACS given clinical history, exam, EKG without ST elevations or depressions, and negative initial troponin. HEART score less than or equal to 3. PE also seems unlikely given clinical history, absence of tachycardia or dyspnea. Patient is PERC criteria negative. CXR without evidence of pneumothorax or pneumonia. No widened mediastinum. Aortic dissection also seems unlikely given history, symmetric pulses, CXR, and vitals. Patient's pain has been present for over 1 month, unchanged tonight. I do not see any indication for serial troponin assay testing as this does not appear to be cardiac in origin particularly with the duration of the symptoms and the unchanged nature. I have instructed him to follow-up with cardiology and pulmonology as already scheduled. A venous Doppler study was ordered in triage which I do not believe was necessary as the etiology of the swelling has ready been determined by orthopedic surgery and repeated hospitalizations to be from an ischemic contracture. At this time will discharge with return precautions and follow-up recommendations. Verbal discharge instructions given a the bedside and opportunity for questions given. Medication warnings reviewed. Patient is in agreement with this plan and has verbalized understanding of return precautions and the need for primary care follow-up in the next 24-72 hours. - Vital Signs Vital signs: Temp Pulse Resp BP Pulse Ox 97.4 F 74 20 133/107 H 99 12/19/17 21:20 12/19/17 21:20 12/19/17 21:20 12/19/17 21:20 12/19/17 21:20 - Laboratory Result Diagrams: 12/19/17 17:57 12/19/17 17:57 Laboratory results interpreted by me: 12/19/17 12/19/17 17:57 17:57 MCV 78 L MCH 25.9 L RDW 22.1 H Chloride 109 H Carbon Dioxide 21 L Creatine Kinase 40 L - Diagnostic Test Radiology reviewed: Image reviewed, Reports reviewed Radiology results interpreted by me: 12/19/17 21:00 Chest x-ray: No acute infiltrate or pneumothorax - EKG Interpretation by Me Additional EKG results interpreted by me: 12/19/17 21:00 Sinus rhythm. Rate 77. No ST elevations or depressions. QTC is 449. Discharge - Discharge Clinical Impression: Chronic chest pain Condition: Good Disposition: HOME, SELF-CARE Additional Instructions: You were seen today for chest pain. The exact cause of your pain is unclear. However, based on your cardiac enzyme testing, chest x-ray, and EKG it does not appear that it is from an immediately life-threatening cause at this time. Although your testing here is normal is critical that you follow-up with your primary care physician for continued evaluation of this chest pain and possible stress testing. I recommended you see your physician within the next 24-48 hours to be evaluated for consideration of a stress test. Please return to emergency department immediately if you have worsening of your chest pain, shortness of breath, vomiting, become unable to exert yourself due to pain or difficulty breathing, you pass out, or have any pain that radiates into your arms, jaw, or back. Please also return if you have any additional symptoms that are concerning to you.
[2017-12-19 21:21] VITALS: BP 133/107
--- NOTE | 2017-12-20 08:07 | RADIOLOGY REPORT (SQ) ---
EXAM DESCRIPTION: VENOUS UNILATERAL UPPER COMPLETED DATE/TIME: 12/19/2017 9:13 pm REASON FOR STUDY: RUE PAIN, SWELLING, SOB COMPARISON: 10/30/2017. TECHNIQUE: Dynamic and static martin scale and color images acquired of the right arm venous system. S elected spectral images acquired with additional compression and augmentation maneuvers. The contrala teral subclavian vein and internal jugular vein were also imaged. Images stored on PACS. LIMITATIONS: None. FINDINGS: INTERNAL JUGULAR VEIN: Normal phasicity, compression, augmentation. No visualized echogeni c material on martin scale. No defects on color images. Comparison opposite side normal. SUBCLAVIAN VEIN: Normal compression, augmentation. No visualized echogenic material on martin scale. No defects on color images. AXILLARY VEIN: Normal compression, augmentation. No visualized echogenic material on martin scale. No d efects on color images. BRACHIAL VEIN: Normal compression, augmentation. No visualized echogenic material on martin scale. No d efects on color images. BASILIC VEIN: Normal compression, augmentation. No visualized echogenic material on martin scale. No de fects on color images. CEPHALIC VEIN: Normal compression, augmentation. No visualized echogenic material on martin scale. No d efects on color images. OTHER: No other significant finding. CONTRALATERAL SUBCLAVIAN VEIN AND INTERNAL JUGULAR VEIN: Normal phasicity, compression and augmentation. No visualized echogenic material on martin scale. No de fects on color images. IMPRESSION: NO EVIDENCE DVT OR SVT IN THE RIGHT ARM. TECHNICAL DOCUMENTATION: JOB ID: [id number] [employer]- All Rights Reserved Reading location - IP/workstation name: [email or web address]
== END 2017-12-19 21:21 | disposition home or self-care (01) ==
LOC: ER 16:09
DX: R07.9 Chest pain, unspecified (principal); R06.02 Shortness of breath
CPT/HCPCS: 36415; 71046; 80053; 82550; 82553; 83880; 84484; 85025; 93005; 93010; 93971; 99285

== ENCOUNTER 2019-11-07 09:39 | Emergency (ER) | payer OTHER ==
--- NOTE | 2019-11-07 12:53 | RADIOLOGY REPORT (SQ) ---
EXAM DESCRIPTION: CHEST SINGLE VIEW IMAGES COMPLETED DATE/TIME: 11/07/2019 12:37 pm REASON FOR STUDY: SOB COMPARISON: 12/19/2017 EXAM PARAMETERS: NUMBER OF VIEWS: One view. TECHNIQUE: Single frontal radiographic view of the chest acquired. RADIATION DOSE: NA LIMITATIONS: None. FINDINGS: LUNGS AND PLEURA: No opacities, masses or pneumothorax. No pleural effusion. MEDIASTINUM AND HILAR STRUCTURES: No masses. Contour normal. HEART AND VASCULAR STRUCTURES: Heart normal in size. Normal vasculature. BONES: No acute findings. HARDWARE: Cardiac loop recorder device overlies the anterior mid lower chest wall, new finding. OTHER: No other significant finding. IMPRESSION: 1. NO ACUTE RADIOGRAPHIC FINDING IN THE CHEST. TECHNICAL DOCUMENTATION: JOB ID: [id number] [employer]- All Rights Reserved Reading location - IP/workstation name: [email or web address]
--- NOTE | 2019-11-07 13:39 | ER Document Report ---
Entered by MALATHI JAMES SCRIBE 11/07/19 1249 Acting as scribe for:CAROLINA JOHNSON MD ED General - General Chief Complaint: Flu Symptoms Stated Complaint: FEVER/CHILLS/HEADACHE Time Seen by Provider: 11/07/19 11:41 Information source: Patient Notes: This 39 year old male patient presents to the emergency department today complaining of fevers, chills, headache, cough, sore throat, low-grade fever last night, and vomiting last night. He adds that he has chest pain which is exacerbated with breathing. He mentions a cough that is only productive in the mornings. He denies any sick contacts. TRAVEL OUTSIDE OF THE [place] IN LAST 30 DAYS: No - Related Data Allergies/Adverse Reactions: NSAIDS (Non-Steroidal Anti-Inflamma [Nsaids] Allergy (Intermediate, Verified 11/07/19 12:44) orange juice Allergy (Severe, Uncoded 12/19/17 16:11) spagetti sauce Allergy (Severe, Uncoded 12/19/17 16:11) Vitamin D Synthetic Additive Allergy (Unknown, Uncoded 12/19/17 16:11) Anaphylaxis Home Medications: Triliptal. Metoprolol. Breo inhaler Past Medical History - General Information source: Patient - Social History Smoking Status: Never Smoker Cigarette use (# per day): No Chew tobacco use (# tins/day): No Frequency of alcohol use: Occasional Drug Abuse: None Family History: Reviewed & Not Pertinent Neurological Medical History: Reports: Hx Seizures GI Medical History: Reports: Hx Ulcer - perforated in 2007 Musculoskeletal Medical History: Reports Hx Arthritis - degenerative Psychiatric Medical History: Reports: Hx Bipolar Disorder - with manic tendencies, Hx Depression, Hx Post Traumatic Stress Disorder Past Surgical History: Reports: Hx Cholecystectomy, Hx Gastric Bypass Surgery - with revision, Hx Orthopedic Surgery - right shoulder arthroscopy, Hx Pacemaker, Other - History of hernia repair with perforated ulcer - Immunizations Hx Diphtheria, Pertussis, Tetanus Vaccination: Yes Review of Systems - Review of Systems Constitutional: See HPI, Chills, Fever EENT: See HPI, Ear pain, Throat pain Cardiovascular: No symptoms reported Respiratory: See HPI, Cough, Hurts to breathe Gastrointestinal: No symptoms reported Genitourinary: No symptoms reported Male Genitourinary: No symptoms reported Musculoskeletal: No symptoms reported Skin: No symptoms reported Hematologic/Lymphatic: No symptoms reported Neurological/Psychological: See HPI, Headaches -: Yes All other systems reviewed and negative Physical Exam - Vital signs Vitals: Temp Pulse Resp BP Pulse Ox 98.8 F 83 16 143/71 H 100 11/07/19 11:07 11/07/19 11:07 11/07/19 11:07 11/07/19 11:07 11/07/19 11:07 - Notes Notes: Physical Exam: General: Alert, appears well. HEENT: Normocephalic. Atraumatic. PERRL. Extraocular movements intact. No posterior oropharynx erythema or exudate, airway is patent. TMs are clear and non-bulging bilaterally. Neck: Supple. Non-tender. Respiratory: No respiratory distress. Clear and equal breath sounds bilaterally. Cardiovascular: Regular rate and rhythm. Abdominal: Obese. Non-tender. No distension. Normal Bowel Sounds. Back: No gross abnormalities. Extremities: Moves all four extremities. Upper extremities: Normal inspection. Normal ROM. Lower extremities: Normal inspection. No edema. Normal ROM. Neurological: Normal cognition. AAOx4. Normal speech. Psychological: Normal affect. Normal Mood. Skin: Warm. Dry. Normal color. Course - Re-evaluation Re-evalutation: 11/07/19 14:28 The patient was evaluated during the global COVID-19 pandemic and that diagnosis was suspected/considered upon their initial presentation. Their evaluation, treatment and testing was consistent with current guidelines for patients who pr esent with complaints or symptoms that may be related to COVID-19. - Vital Signs Vital signs: Temp Pulse Resp BP Pulse Ox 98.4 F 69 16 127/84 H 98 11/07/19 15:34 11/07/19 15:34 11/07/19 15:34 11/07/19 15:34 11/07/19 15:34 - Laboratory Result Diagrams: 11/07/19 13:30 11/07/19 13:30 Laboratory results interpreted by me: 11/07/19 13:30 Hgb 11.9 L Hct 37.3 L MCV 76 L MCH 24.1 L MCHC 31.9 L RDW 18.2 H - Diagnostic Test Radiology reviewed: Image reviewed, Reports reviewed - Chest x-ray does not show acute cardiopulmonary abnormalities. Discharge - Discharge Clinical Impression: Viral syndrome, Viral upper respiratory tract infection with cough, Nausea, vomiting and diarrhea, Encounter for laboratory testing for COVID-19 virus Condition: Stable Disposition: HOME, SELF-CARE Instructions: COVID-19 Guidance for Persons Under Investigation Additional Instructions: Viral Syndrome The physician has diagnosed a viral infection. Viruses not only cause "colds," but can cause many different symptoms including generalized aching, fever, headache, cough, diarrhea, nausea, vomiting, and fatigue. The treatment, for the most part, is simply relief of symptoms. This means that antibiotics are usually not given. Rest, fluids, pain medications and, occasionally, medication for the specific symptoms that are most bothersome will be prescribed. Use good handwashing to avoid passing the virus to others. Shared toys should be cleaned with disinfectant. Clean the toilets, sinks, and counter surfaces in bathrooms. Launder clothing in hot water. Contact the physician if you develop any new or unusual symptoms such as severe headache, stiff neck, high fever, chest pain, productive cough, or shortness of breath. You should be rechecked if you don't see marked improvement within seven to 10 days. Drink cool clear liquids today. Try Imodium-AD if diarrhea is a problem. Get plenty of rest. Self quarantine at home until you get the results of your COVID testing. Follow-up with your primary care provider if not improving. RETURN TO THE EMERGENCY ROOM IF ANY NEW OR WORSENING SYMPTOMS. I personally performed the services described in the documentation, reviewed and edited the documentation which was dictated to the scribe in my presence, and it accurately records my words and actions.
[2019-11-07 14:02] LABS: ABSOLUTE LYMPHOCYTES (AUTO) 1.5 10^3/uL (0.5-4.7); ABSOLUTE MONOCYTES (AUTO) 0.5 10^3/uL (0.1-1.4); ABSOLUTE NEUT (AUTO) 3.3 10^3/uL (1.7-8.2); BASOPHILS % (AUTO) 0.7 % (0-2); EOSINOPHILS % (AUTO) 0.9 % (0-6); HEMATOCRIT 37.3 % (37.9-51.0); HEMOGLOBIN 11.9 g/dL (13.5-17.0); LYMPHOCYTES % (AUTO) 28.9 % (13-45); MEAN CORPUSCULAR HEMOGLOBIN 24.1 pg (27.0-33.4); MEAN CORPUSCULAR HGB CONC 31.9 g/dL (32.0-36.0); MEAN CORPUSCULAR VOLUME 76 fl (80-97); MONOCYTES % (AUTO) 8.5 % (3-13); PLATELET COUNT 281 10^3/uL (150-450); RED BLOOD COUNT 4.93 10^6/uL (4.35-5.55); RED CELL DISTRIBUTION WIDTH 18.2 % (11.5-14.0); TOTAL CELLS COUNTED % (AUTO) 100 %; WHITE BLOOD COUNT 5.3 10^3/uL (4.0-10.5)
[2019-11-07 14:22] LABS: ALBUMIN 4.4 g/dL (3.5-5.0); ALKALINE PHOSPHATASE 73 U/L (38-126); ANION GAP 7 (5-19); ASPARTATE AMINO TRANSFERASE 31 U/L (17-59); BILIRUBIN,TOTAL 0.8 mg/dL (0.2-1.3); BLOOD UREA NITROGEN 11 mg/dL (7-20); CALCIUM 9.1 mg/dL (8.4-10.2); CARBON DIOXIDE 25 mmol/L (22-30); CHLORIDE 105 mmol/L (98-107); GLUCOSE 95 mg/dL (75-110); POTASSIUM 4.4 mmol/L (3.6-5.0); TOTAL PROTEIN 7.3 g/dL (6.3-8.2)
[2019-11-07 15:35] VITALS: BP 127/84
== END 2019-11-07 15:36 | disposition home or self-care (01) ==
LOC: ER 09:39
DX: J06.9 Acute upper respiratory infection, unspecified (principal); R11.2 Nausea with vomiting, unspecified; R19.7 Diarrhea, unspecified; R50.9 Fever, unspecified; R51 Headache; Z20.828 Contact with and (suspected) exposure to other viral communicable diseases
CPT/HCPCS: 99284; 36415; 85025; 87635; 80053; 71045; C9803